=== PATIENT | female | born 1940 | race Caucasian/White ===

== ENCOUNTER 2020-01-31 08:47 | Emergency (ER) | payer MEDICARE, SELFPAY ==
[2020-01-31 08:44] VITALS: BP 188/42; PULSE 65; RESP 18; TEMP 36.1; O2SAT 100
--- NOTE | 2020-01-31 08:48 | ED.NECK ---
HPI - Neck Pain/Injury General Chief Complaint: Neck Pain/Injury <Crispin Vines MD - Last Filed: 01/31/20 15:26> Stated Complaint: neck pain <Crispin Vines MD - Last Filed: 01/31/20 15:26> Time Seen by Provider: 01/31/20 08:47 <Crispin Vines MD - Last Filed: 01/31/20 15:26> History of Present Illness HPI Narrative: Left sided neck and upper back pain for the past 4-5 days. Started while watching TV. Worse with turning her head. No change since onset. She tried hot and cold without relief. No injury, weakness, numbness. <Crispin Vines MD - Last Filed: 01/31/20 15:26> Related Data Home Medications: Home Medications Medication Instructions Recorded Confirmed aspirin 81 mg tablet,delayed 81 mg PO DAILY 05/05/19 release atorvastatin 10 mg tablet 10 mg PO DAILY 05/05/19 levothyroxine 100 mcg tablet 100 mcg PO DAILY 05/05/19 pindolol 5 mg tablet 10 mg PO DAILY tablet 05/05/19 bumetanide 1 mg tablet 1 mg PO .every other day tablet 01/14/20 ferrous sulfate 325 mg (65 mg 325 mg PO DAILY 01/14/20 iron) tablet lisinopril 20 mg tablet 20 mg PO DAILY 01/14/20 <Crispin Vines MD - Last Filed: 01/31/20 15:26> Allergies/Adverse Reactions: Allergies Allergy/AdvReac Type Severity Reaction Status Date / Time Androgenic Anabolic Steroid Allergy Unknown Loopy Verified 12/16/19 10:03 mirtazapine Allergy Unknown sedate Verified 12/16/19 10:03 Penicillins Allergy Unknown Skin Verified 12/16/19 10:03 Reaction prednisone Allergy Unknown BLOOD Verified 12/16/19 10:03 SUGARS OUT OF CONTROL STEROIDS Allergy Severe MAKES Uncoded 12/16/19 10:03 SUGARS OUT OF CONTROL <Crispin Vines MD - Last Filed: 01/31/20 15:26> Review of Systems Review of Systems: All systems reviewed & are unremarkable except as noted in HPI and below <Crispin Vines MD - Last Filed: 01/31/20 15:26> All systems reviewed & are unremarkable except as noted in HPI and below <Missael Bridges PA-C - Last Filed: 01/31/20 11:00> Constitutional: Constitutional: Denies chills, Denies fever(s) and Denies weakness <Crispin Vines MD - Last Filed: 01/31/20 15:26> Cardiovascular: Cardiovascular: Denies chest pain <Crispin Vines MD - Last Filed: 01/31/20 15:26> Respiratory: Respiratory: Denies dyspnea <Crispin Vines MD - Last Filed: 01/31/20 15:26> Gastrointestinal: Gastrointestinal: Denies abdominal pain and Denies vomiting <Crispin Vines MD - Last Filed: 01/31/20 15:26> Musculoskeletal: Musculoskeletal: Reports back pain <Crispin Vines MD - Last Filed: 01/31/20 15:26> Neurologic: Denies dizziness, Denies numbness and Denies weakness <Crispin Vines MD - Last Filed: 01/31/20 15:26> PMFSH Past Medical History Medical History: Medical History Benign essential HTN Chronic kidney disease, stage 4 (severe) 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 <Crispin Vines MD - Last Filed: 01/31/20 15:26> Surgical History Surgical History: Surgical History H/O: hysterectomy History of appendectomy History of coronary artery bypass, single Hx of cholecystectomy <Crispin Vines MD - Last Filed: 01/31/20 15:26> Family History Family History: Family History Mother Diabetes mellitus Hypertension Father Diabetes mellitus Family history of cardiovascular disease Acute myocardial infarction, Onset Age: 63 Family history of lung cancer Sibling Diabetes mellitus Family history of cardiovascular disease Family history of coronary artery disease Family history of congestive heart failure Other Family history of kidney disease <Crispin Vines MD - Last Elieser
[2020-01-31 09:53] VITALS: BP 180/45; PULSE 58; RESP 18; TEMP 36.1; O2SAT 96
== END 2020-01-31 11:24 | disposition home or self-care (01) ==
PROVIDERS: Emergency Provider Emergency Medicine; PCP Family Medicine
DX: G24.3 Spasmodic torticollis (principal); E11.22 Type 2 diabetes mellitus with diabetic chronic kidney disease; I12.9 Hypertensive chronic kidney disease with stage 1 through stage 4 chronic kidney disease, or unspecified chronic kidney disease; N18.4 Chronic kidney disease, stage 4 (severe); E11.21 Type 2 diabetes mellitus with diabetic nephropathy; Z95.1 Presence of aortocoronary bypass graft; I25.10 Atherosclerotic heart disease of native coronary artery without angina pectoris
CPT/HCPCS: 96372; 99283; A4565; A9270; J3360

== ENCOUNTER 2020-04-26 14:29 | Emergency (ER) | payer MEDICARE, SELFPAY ==
[2020-04-26 14:36] VITALS: BP 187/53; PULSE 57; RESP 22; TEMP 36.6; O2SAT 95
--- NOTE | 2020-04-26 14:39 | ECG_ITS ---
Measurements Intervals [place] Rate: 54 P: 35 UT: 174 QRS: -34 QRSD: 104 T: 55 QT: 470 QTc: 447 Interpretive Statements SINUS BRADYCARDIA LEFT AXIS DEVIATION DELAYED PRECORDIAL R/S TRANSITION VOLTAGE CRITERIA FOR LVH BORDERLINE ST-T WAVE ABNORMALITY- HIGH LATERAL LEADS BASELINE ARTIFACT- II, III, AVF, V2 BORDERLINE ECG Electronically Signed On 04-26-2020 16:01:03 TOUR MANAGER by Fahad Guzman D.O.
[2020-04-26 15:51] LABS: Basophils Percent Auto 0.4 % (0.2-1.2); Eosinophils Absolute Auto 0.3 K/mm3 (0-0.3); Eosinophils Percent Auto 3.1 % (0-4.4); Hematocrit 29.4 % (37.0-47.0); Hemoglobin 9.3 g/dL (12.0-15.0); Immature Granulocyte Absolute 0.03 K/mm3 (0.00-0.031); Immature Granulocyte Percent A 0.3 % (0-0.5); Lymphocytes Absolute Auto 1.22 K/mm3 (0.9-3.2); Lymphocytes Percent Auto 13.2 % (18.3-44.2); Mean Corpuscular HGB Conc 31.6 g/dl (32-36); Mean Corpuscular Volume 91.6 fl (80-100); Monocytes Absolute Auto 0.9 K/mm3 (0.1-0.6); Monocytes Percent Auto 9.8 % (2.6-8.5); Neutrophils Absolute Auto 6.8 K/mm3 (1.3-6.7); Neutrophils Percent Auto 73.2 % (45.5-73.1); Platelet Count Result 247 k/mm3 (150-375); Red Blood Count 3.21 M/mm3 (4.2-5.4); Red Cell Distribution Width 13.8 % (11.5-14.5); White Blood Count 9.2 K/mm3 (4.5-10.0)
[2020-04-26 15:59] LABS: Anion Gap 6 mmol/L (8-16); Blood Urea Nitrogen 52 mg/dL (7-17); Calcium 9.2 mg/dL (8.4-10.2); Carbon Dioxide 24 mmol/L (22-30); Chloride 110 mmol/L (98-107); Estimated CRCL calculation 23 ml/min; Estimated Glomerular Filt Rate 24; Glucose 165 mg/dL (65-105); Potassium 5.1 mmol/L (3.4-5.0); Sodium 140 mmol/L (137-145)
--- NOTE | 2020-04-26 16:41 | PC.NURSE ---
No answer when called from waiting room.
== END 2020-04-26 16:41 | disposition left against medical advice (07) ==
PROVIDERS: Emergency Provider Emergency Medicine; PCP Family Medicine
DX: R07.89 Other chest pain (principal)
CPT/HCPCS: 36415; 80048; 85025; 93005; 99199

== ENCOUNTER 2020-04-29 13:56 | Observation (INO) | payer MEDICARE, SELFPAY ==
[2020-04-29] VITALS (11 sets, daily range): BP systolic 148–208; BP diastolic 40–102; PULSE 6–72; RESP 16–23; TEMP 36.2–36.9; O2SAT 95–97; BMI 35.6
--- NOTE | ~2020-04-29 | US_ITS ---
EXAMINATION: US venous doppler LE EXAM DATE: 04/29/2020 16:13 INDICATION: Shortness of breath and chest pain. TECHNIQUE: Multiple grayscale, color flow and Doppler images of the lower extremity deep venous syste ms bilaterally were obtained and reviewed. There is no prior study for comparison. FINDINGS: Right side: The right common femoral, femoral and profunda veins demonstrate normal color flow, respi ratory variation, augmentation and compressibility. Compressibility, color flow confirmed within the right popliteal, posterior tibial, peroneal, and greater saphenous veins. Right popliteal fossa melissa suring 5.5 x 1.6 x 2.8 cm. Left side: The left common femoral, femoral and profunda veins demonstrate normal color flow, respira tory variation, augmentation and compressibility. Compressibility, color flow confirmed within the l eft popliteal, posterior tibial, peroneal, and greater saphenous veins. IMPRESSION: 1. No lower extremity deep venous thrombosis bilaterally. 2. Moderate-sized right Madera's cyst. Reviewed, dictated and finalized at location A. NING AND WINDING SUPERVISOR
--- NOTE | ~2020-04-29 | NM_ITS ---
EXAMINATION: NM pulmonary perfusion DATE: 04/29/2020 17:57 INDICATION: Chest pain and shortness of breath TECHNIQUE: 5.09 mCi Tc-99m MAA was administered IV. Scintigraphic images of the chest were obtained . COMPARISON: Chest radiograph dated 04/29/2020 FINDINGS: There is relatively homogeneous perfusion throughout the lungs. No discrete ventilation and perfusio n mismatch is identified. Cardiomegaly. IMPRESSION: 1. Low probability for pulmonary embolism. 2. Cardiomegaly. Reviewed, dictated and finalized at location H. ING SLINGER
--- NOTE | ~2020-04-29 | XR_ITS ---
EXAMINATION: XR chest 1V portable DATE: 04/29/2020 15:12 INDICATION: Shortness of breath. TECHNIQUE: A single frontal view of the chest was obtained. COMPARISON: Chest 2 views 01/14/2014, CT abdomen and pelvis 03/01/2014 FINDINGS: There is no pneumonia, pleural effusion, or pneumothorax. Cardiomegaly is noted. Median chemo rnotomy wires and mediastinal surgical clips are seen, likely from prior coronary artery bypass graft ing. There is a prominent left paracardial fat pad. IMPRESSION: 1. Cardiomegaly. Reviewed, dictated and finalized at location A. RAM PROJECT MANAGER IMPRESSION: 1. Cardiomegaly.
--- NOTE | 2020-04-29 14:25 | ECG_ITS ---
Measurements Intervals [place] Rate: 56 P: 63 GA: 185 QRS: -33 QRSD: 110 T: 138 QT: 463 QTc: 447 Interpretive Statements SINUS BRADYCARDIA WITH SINUS ARRHYTHMIA LEFT AXIS DEVIATION INCOMPLETE RIGHT BUNDLE BRANCH BLOCK LEFT VENTRICULAR HYPERTROPHY AND ST-T CHANGE POOR R WAVE PROGRESSION, ANTERIOR LEADS BASELINE ARTIFACT- I, III, AVR, AVL BORDERLINE ECG Electronically Signed On 04-29-2020 14:28:52 ERP PROGRAMMER by Fahad Guzman D.O.
--- NOTE | 2020-04-29 14:26 | ED.SOB ---
HPI - SOB/Dyspnea General Chief Complaint: Shortness of Breath/Dyspnea Stated Complaint: not breathing well Time Seen by Provider: 04/29/20 14:01 Source: patient Mode of arrival: ambulatory Limitations: no limitations History of Present Illness HPI Narrative: This patient is a 80 year old female who presents for evaluation of shortness of breath for 1 week. She reports her sob is worse with exertion. She denies cough, fever or chills. She denies chest pain currently but she reports she had chest pain 1 week ago. She denies history of lung disease. She denies leg edema or calf pain. Related Data Home Medications Medication Instructions Recorded Confirmed aspirin 81 mg tablet,delayed 81 mg PO DAILY 05/05/19 04/29/20 release atorvastatin 10 mg tablet 10 mg PO EVERY OTHER DAY 05/05/19 04/29/20 bumetanide 1 mg tablet 1 mg PO .every other day tablet 01/14/20 04/29/20 lisinopril 20 mg tablet 20 mg PO DAILY 01/14/20 04/29/20 insulin NPH and regular human 14 unit SUB-Q BID 04/29/20 04/29/20 [Humulin 70/30 U-100 KwikPen] pindolol 10 mg PO DAILY 04/29/20 04/29/20 Allergies Allergy/AdvReac Type Severity Reaction Status Date / Time Androgenic Anabolic Steroid Allergy Unknown Loopy Verified 04/29/20 19:48 mirtazapine Allergy Unknown sedate Verified 04/29/20 19:48 Penicillins Allergy Unknown Skin Verified 04/29/20 19:48 Reaction prednisone Allergy Unknown BLOOD Verified 04/29/20 19:48 SUGARS OUT OF CONTROL STEROIDS Allergy Severe MAKES Uncoded 04/29/20 14:31 SUGARS OUT OF CONTROL Review of Systems Review of Systems: All systems reviewed & are unremarkable except as noted in HPI and below Constitutional: Constitutional: Denies chills and Denies fever(s) Cardiovascular: Cardiovascular: Reports chest pain Respiratory: Respiratory: Reports dyspnea Gastrointestinal: Gastrointestinal: Denies abdominal pain, Denies nausea and Denies vomiting [facility] Past Medical History Medical History (Updated 04/30/20 @ 17:00 by Liss Patterson MD) Benign essential HTN Chronic kidney disease, stage 4 (severe) 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 Surgical History Surgical History H/O: hysterectomy History of appendectomy History of coronary artery bypass, single Hx of cholecystectomy Family History Family History Mother Diabetes mellitus Hypertension Father Diabetes mellitus Family history of cardiovascular disease Acute myocardial infarction, Onset Age: 63 Family history of lung cancer Sibling Diabetes mellitus Family history of cardiovascular disease Family history of coronary artery disease Family history of congestive heart failure Other Family history of kidney disease Social History Social History Smoking status: Never smoker Second hand tobacco smoke exposure: No Alcohol intake: never Substance use: never Gender identity (if verbalized by the patient): Female Spiritual care concerns: No Exam Const: General: alert Orientation/consciousness: patient oriented x3 HENMT: Head: normocephalic Face and sinus: face symmetric Mouth: Yes Normal oral and palatal mucosa present Eyes: EOM: EOMs intact bilaterally Chest: Chest palpation & inspection: normal inspection of the chest Resp: Effort & Inspection: normal respiratory effort, no retractions and no use of accessory muscles Auscultation: clear to auscultation bilaterally Cardio: Rate: regular rate Rhythm: regular rhythm Heart sounds: no murmurs GI: GI Palp: Yes Soft to palpation, No Tenderness to palpation present (GI), No Guarding due to palpation present (GI) and No Rigid due to palpation Auscultation: normal bowel sounds Skin: General skin exam: normal colo
[2020-04-29 14:40] LABS: Basophils Percent Auto 0.4 % (0.2-1.2); Eosinophils Absolute Auto 0.3 K/mm3 (0-0.3); Eosinophils Percent Auto 3.4 % (0-4.4); Hematocrit 29.2 % (37.0-47.0); Hemoglobin 9.4 g/dL (12.0-15.0); Immature Granulocyte Absolute 0.02 K/mm3 (0.00-0.031); Immature Granulocyte Percent A 0.2 % (0-0.5); Lymphocytes Absolute Auto 1.37 K/mm3 (0.9-3.2); Lymphocytes Percent Auto 14.1 % (18.3-44.2); Mean Corpuscular HGB Conc 32.2 g/dl (32-36); Mean Corpuscular Hemoglobin 29.1 pg (26-34); Mean Corpuscular Volume 90.4 fl (80-100); Mean Platelet Volume 11.6 fl (7.4-10.4); Monocytes Absolute Auto 0.9 K/mm3 (0.1-0.6); Monocytes Percent Auto 8.9 % (2.6-8.5); Neutrophils Absolute Auto 7.1 K/mm3 (1.3-6.7); Platelet Count Result 263 k/mm3 (150-375); Red Blood Count 3.23 M/mm3 (4.2-5.4); Red Cell Distribution Width 13.7 % (11.5-14.5); White Blood Count 9.7 K/mm3 (4.5-10.0)
[2020-04-29 14:50] LABS: Partial Thromboplastin Time 28.4 SECONDS (22.3-36.8); Prothrombin Time 13.8 Seconds (11.1-14.7)
[2020-04-29 14:53] LABS: Alveolar/Arterial O2 Gradient 27.3 mmHg; Base Excess ABG -1.8 mEq/l (+/-2.0); Carboxyhemoglobin 0.3 % THb (0-2.0); Fractional Inspired Oxygen 21 %; HCO3 ABG 22.9 mEq/l (22.0-26.0); Methemoglobin ABG 0.3 %THb (0-1.5); Oxygen Content ABG 13.5 %vol (16.0-22.0); Oxygen Saturation ABG 95.1 % (95.0-100.0); Oxyhemoglobin 94.4 % THb (90.0-100.0); PCO2 ABG 38.9 mmHg (35.0-45.0); PO2 ABG 75.8 mmHg (80.0-100.0); PO2 FiO2 Ratio Arterial Blood 3.61 %; Total Hemoglobin 10.1 g/dL (12.0-18.0); pH ABG 7.388 (7.350-7.450)
[2020-04-29 14:54] LABS: Anion Gap 10 mmol/L (8-16); Blood Urea Nitrogen 56 mg/dL (7-17); Calcium 9.2 mg/dL (8.4-10.2); Carbon Dioxide 21 mmol/L (22-30); Chloride 110 mmol/L (98-107); Estimated CRCL calculation 23 ml/min; Estimated Glomerular Filt Rate 26; Glucose 154 mg/dL (65-105); Potassium 4.8 mmol/L (3.4-5.0); Sodium 141 mmol/L (137-145)
[2020-04-29 14:55] LABS: Device ROOM AIR; Modified Allen's Test Pass; Site Drawn RIGHT RADIAL
[2020-04-29 15:06] LABS: NT Pro B Type Natriuretic Pept 5750 PG/ML (5-100); Troponin I < 0.012 ng/mL (0.000-0.034)
--- NOTE | 2020-04-29 16:14 | PC.NURSE ---
called chem, added on D dimer [id number]
[2020-04-29 16:50] LABS: D Dimer 1.79 ug/mL (<0.48)
--- NOTE | 2020-04-29 18:19 | PC.NURSE ---
josefina duarte [phone]
--- NOTE | 2020-04-29 19:35 | ADMGEN ---
This patient, Shayy Madera, was admitted to Medical Room 348-01. Patient/family oriented to hospital policies and general routines including ID bracelet, bed and alarms, visiting hours, pain management, procedures, bathroom and other care routines, personal items, smoking policy, room service/diet, and visiting hours. Information on how to activate the Rapid Response Team has been discussed. Patient/Family are encouraged to report perceived risks to care and to ask questions if they do not understand what they are told or what they should do.
[2020-04-29] MEDS: FUROSEMIDE INJ 40 MG/4 ML VIAL IV PUSH (20:44)
[2020-04-29 22:34] LABS: Glucose Point of Care 128 (65-105)
[2020-04-30] VITALS (10 sets, daily range): BP systolic 142–165; BP diastolic 58–61; PULSE 58–75; RESP 16–20; TEMP 36.2–36.7; O2SAT 96–98
--- NOTE | 2020-04-30 06:00 | ECHO_ITS ---
Patient Info Name: Shayy Madera Age: 80 years : 1940 Gender: Female Ht: 63 in Wt: 201 lbs BSA: 2.05 m2 HR: 63 bpm BP: 142 / 60 mmHg Heart Rhythm: Sinus Rhythm Technical Quality: Good Exam Date: 04/30/2020 9:45 AM Exam Location: [facility] Pulmonary Exam Room: 348 Patient Status: Inpatient Admit Date: 04/29/2020 Staff Ordering Physician: Liss Patterson MD Power Machine Operator: Litzy Hicks RDCS Attending Provider: Alycia Lee MD Referring Physician: Yesenia DUNN; Exam Type: CA echo doppler color flow Study Info Indications - chf cad s/p cabg Complete two-dimensional, color flow and Doppler transthoracic echocardiogram is performed. Summary 1. Complete two-dimensional, color flow and Doppler transthoracic echocardiogram is performed. 2. There is mild concentric increased left ventricular wall thickness. 3. Left ventricular systolic function is normal, estimated at 60-65%. 4. The left ventricular diastolic function is grade II diastolic dysfunction. 5. Left atrial chamber dimension is moderately enlarged. 6. No significant valvular lesions. Left Ventricle Left ventricular chamber dimension is normal. Left ventricular systolic function is normal, estimated at 60-65%. There is mild concentric increased left ventricular wall thickness. The left ventricular diastolic function is grade II diastolic dysfunction. Right Ventricle Right ventricular chamber dimension is normal. Left Atria Left atrial chamber dimension is moderately enlarged. Right Atria Right atrial chamber dimension is normal. Aortic Valve The aortic valve is normal. There is trace aortic valve regurgitation. Pulmonic Valve The pulmonic valve is normal. Mitral Valve The mitral valve has normal leaflets. There is trace mitral valve regurgitation. Tricuspid Valve The tricuspid valve leaflets are normal. Pericardium/Pleural The pericardium appears normal. Aorta The aortic root size at the sinus of Valsalva is normal. Left Ventricular Outflow Tract Name Value Normal LVOT 2D LVOT Diameter 2.0 cm LVOT Doppler LVOT Peak Gradient 4 mmHg LVOT Mean Gradient 3 mmHg LVOT VTI 28 cm LVOT VTI/AV VTI Ratio 0.6 LVOT Stroke Volume 86 ml LVOT CO 15.7 l/min LVOT CI 7.6 l/min/m2 Pulmonic Valve Name Value Normal PV Doppler PV Peak Gradient 6 mmHg Mitral Valve Name Value Normal MV Doppler
[2020-04-30 06:35] LABS: Basophils Percent Auto 0.4 % (0.2-1.2); Eosinophils Absolute Auto 0.3 K/mm3 (0-0.3); Eosinophils Percent Auto 3.7 % (0-4.4); Hematocrit 28.4 % (37.0-47.0); Hemoglobin 9.2 g/dL (12.0-15.0); Immature Granulocyte Absolute 0.02 K/mm3 (0.00-0.031); Immature Granulocyte Percent A 0.2 % (0-0.5); Lymphocytes Absolute Auto 1.78 K/mm3 (0.9-3.2); Lymphocytes Percent Auto 22.1 % (18.3-44.2); Mean Corpuscular HGB Conc 32.4 g/dl (32-36); Mean Corpuscular Hemoglobin 29.2 pg (26-34); Mean Corpuscular Volume 90.2 fl (80-100); Mean Platelet Volume 10.9 fl (7.4-10.4); Monocytes Absolute Auto 0.9 K/mm3 (0.1-0.6); Monocytes Percent Auto 11.7 % (2.6-8.5); Neutrophils Percent Auto 61.9 % (45.5-73.1); Platelet Count Result 260 k/mm3 (150-375); Red Blood Count 3.15 M/mm3 (4.2-5.4); Red Cell Distribution Width 13.7 % (11.5-14.5)
[2020-04-30 06:49] LABS: Anion Gap 8 mmol/L (8-16); Blood Urea Nitrogen 51 mg/dL (7-17); Calcium 9.3 mg/dL (8.4-10.2); Carbon Dioxide 25 mmol/L (22-30); Chloride 109 mmol/L (98-107); Estimated CRCL calculation 23 ml/min; Estimated Glomerular Filt Rate 24; Glucose 126 mg/dL (65-105); Potassium 4.4 mmol/L (3.4-5.0); Sodium 142 mmol/L (137-145)
--- NOTE | 2020-04-30 07:35 | PM.IMHP ---
H&P: HPI History of Present Illness Date/Time: 04/30/20 07:35 Chief complaint: SOB. Narrative: Shayy Madera is a 80 year old female with PMHx significant for CHF, CKD, HTN, T2DM. Patient states that she has had sob for roughly two weeks now, no leg swelling, no increase of abdominal girth, no pnd,no chest pain, no palpitations, no orthopnea, no cough, no sputum production, no fevers, no rigors, no chills, no pain or burning with urination, no n/v/abdominal pain. Patient was found to have elevated BNP on preliminary work up done in ED, a V/Q scan was low probability for PE, B/L LE US with no DVT findings. Review of Systems Review of Systems: Narrative: 80 yo female presents to ED due ro worsening sob for the last 2 weeks or so. Constitutional: Comments: no fevers, no rigors, no chills. Eyes: Comments: no vision changes. ENT: Comments: no ear ache, no nasal discharge, no congestion. Cardiovascular: Comments: sob at exertion. Respiratory: Comments: no cough, no sputum prodcution. Gastrointestinal: Comments: no n/v/abdominal pain or diarrhea. Musculoskeletal: Comments: no joint pain or swelling. Integumentary/Breasts: Comments: no rashes. 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 Surgical History Surgical History H/O: hysterectomy History of appendectomy History of coronary artery bypass, single Hx of cholecystectomy Family History Family History Mother Diabetes mellitus Hypertension Father Diabetes mellitus Family history of cardiovascular disease Acute myocardial infarction, Onset Age: 63 Family history of lung cancer Sibling Diabetes mellitus Family history of cardiovascular disease Family history of coronary artery disease Family history of congestive heart failure Other Family history of kidney disease Social History Social History Smoking status: Never smoker Second hand tobacco smoke exposure: No Alcohol intake: never Substance use: never Gender identity (if verbalized by the patient): Female Spiritual care concerns: No Meds Home Medications and Allergies Home Medications Medication Instructions Recorded Confirmed Type aspirin 81 mg tablet,delayed 81 mg PO DAILY 05/05/19 04/29/20 History release atorvastatin 10 mg tablet 10 mg PO EVERY OTHER DAY 05/05/19 04/29/20 History pen needle, diabetic 31 gauge x #100 each 11/03/19 04/29/20 Rx 1/4 amlodipine 10 mg tablet 10 mg PO DAILY #90 tablet 11/30/19 04/29/20 Rx fluoxetine 20 mg capsule 20 mg PO DAILY #90 cap 12/16/19 04/29/20 Rx bumetanide 1 mg tablet 1 mg PO .every other day tablet 01/14/20 04/29/20 History lisinopril 20 mg tablet 20 mg PO DAILY 01/14/20 04/29/20 History levothyroxine 100 mcg tablet 100 mcg PO DAILY #90 tablet 03/09/20 04/29/20 Rx insulin NPH and regular human 14 unit SUB-Q BID 04/29/20 04/29/20 History [Humulin 70/30 U-100 KwikPen] pindolol 10 mg PO DAILY 04/29/20 04/29/20 History Allergies Allergy/AdvReac Type Severity Reaction Status Date / Time Androgenic Anabolic Steroid Allergy Unknown Loopy Verified 04/29/20 19:48 mirtazapine Allergy Unknown sedate Verified 04/29/20 19:48 Penicillins Allergy Unknown Skin Verified 04/29/20 19:48 Reaction prednisone Allergy Unknown BLOOD Verified 04/29/20 19:48 SUGARS OUT OF CONTROL STEROIDS Allergy Severe MAKES Uncoded 04/29/20 14:31 SUGARS OUT OF CONTROL Vital Signs Vital Signs - 24 hr 04/29/20 14:01 04/29/20 14:32 04/29/20 14:3
[2020-04-30] MEDS: FLUoxetine HCL 20 MG CAPSULE PO (08:14)
[2020-04-30] MEDS: LEVOTHYROXINE SODIUM 100 MCG TABLET PO (08:14)
[2020-04-30] MEDS: lisinopriL 20 MG TABLET PO (08:14)
[2020-04-30] MEDS: ASPIRIN 81 MG ENTERIC TABLET PO (08:14)
[2020-04-30] MEDS: amLODIPine BESYLATE 5 MG TABLET 10 MG PO (08:14)
[2020-04-30] MEDS: FUROSEMIDE INJ 40 MG/4 ML VIAL IV PUSH ×2 (08:15→20:00)
[2020-04-30 08:28] LABS: Glucose Point of Care 130 (65-105)
[2020-04-30] MEDS: INSULIN HUMAN ISOPHAN/REGULAR 70/30 (*BKC) 100 UNITS/ML 14 UNITS SUB-Q ×2 (08:28→17:00)
[2020-04-30 11:50] LABS: Glucose Point of Care 130 (65-105)
--- NOTE | 2020-04-30 12:15 | PHAR ---
Home medication seen in pharmacy and returned to [address] [place] [id number]
[2020-04-30 17:13] LABS: Glucose Point of Care 122 (65-105)
[2020-05-01] VITALS: PULSE 56
[2020-05-01 04:00] VITALS: PULSE 59
[2020-05-01 05:36] VITALS: BP 178/52; PULSE 59; RESP 20; TEMP 36.3; O2SAT 96
[2020-05-01] MEDS: LEVOTHYROXINE SODIUM 100 MCG TABLET PO (05:36)
[2020-05-01 08:00] VITALS: PULSE 59; PULSE 66; RESP 20; O2SAT 96
[2020-05-01] MEDS: INSULIN HUMAN ISOPHAN/REGULAR 70/30 (*BKC) 100 UNITS/ML 14 UNITS SUB-Q (08:02)
[2020-05-01] MEDS: lisinopriL 20 MG TABLET PO (08:56)
[2020-05-01] MEDS: amLODIPine BESYLATE 5 MG TABLET 10 MG PO (08:56)
[2020-05-01] MEDS: FUROSEMIDE INJ 40 MG/4 ML VIAL IV PUSH (08:56)
[2020-05-01] MEDS: FLUoxetine HCL 20 MG CAPSULE PO (08:56)
[2020-05-01] MEDS: ASPIRIN 81 MG ENTERIC TABLET PO (08:57)
[2020-05-01 10:22] LABS: Anion Gap 7 mmol/L (8-16); Blood Urea Nitrogen 52 mg/dL (7-17); Carbon Dioxide 27 mmol/L (22-30); Chloride 105 mmol/L (98-107); Estimated CRCL calculation 22 ml/min; Estimated Glomerular Filt Rate 23; Glucose 108 mg/dL (65-105); Sodium 139 mmol/L (137-145)
[2020-05-01 11:20] LABS: Glucose Point of Care 96 (65-105)
[2020-05-01 12:00] VITALS: PULSE 88
[2020-05-01 14:00] VITALS: BP 173/58; PULSE 63; RESP 15; TEMP 36.3; O2SAT 98
[2020-05-01 14:11] LABS: Glucose Point of Care 64 (65-105)
[2020-05-01 14:11] LABS: Glucose Point of Care 64 (65-105)
[2020-05-01 14:11] LABS: Glucose Point of Care 62 (65-105)
--- NOTE | 2020-05-01 14:34 | PM.DS ---
DS: Admitting Diagnosis Admitting Diagnosis Admitting Diagnosis: SOB. DS: Discharge Diagnosis Discharge Diagnosis (1) CHF (NYHA class II, ACC/AHA stage C): Code(s): I50.9 - Heart failure, unspecified Status: Acute Assessment and Plan: Diuresed Continue home meds Stable Will follow up in the outpatient setting. (2) Type 2 diabetes mellitus with diabetic nephropathy: Code(s): E11.21 - Type 2 diabetes mellitus with diabetic nephropathy Status: Acute Assessment and Plan: Continue home meds Will follow up in the outaptient setting. (3) CKD stage 4 secondary to hypertension: Code(s): I12.9 - Hypertensive chronic kidney disease with stage 1 through stage 4 chronic kidney disease, or unspecified chronic kidney disease; N18.4 - Chronic kidney disease, stage 4 (severe) Status: Acute Assessment and Plan: Continue to monitor Follow up in the outpatient setting. (4) Essential (primary) hypertension: Code(s): I10 - Essential (primary) hypertension Status: Acute Assessment and Plan: Stable Continue home meds. DS: Summary Time Spent with Patient Time attestation: Total time spent providing and/or coordinating discharge services: Exam Narrative: Exam Narrative: Lying in bed. Const: General: cooperative, healthy appearing, comfortable, alert, awake and Physically active Nutritional Appearance: average body habitus Orientation/consciousness: patient oriented x3 HENMT: Head: normal to inspection and normocephalic Ears: hearing grossly normal bilaterally General nose exam: Normal external nose present Face and sinus: normal facial exam Eyes: General: appearance normal, both eyes and all related structures Pupils: Equal, round and reactive pupils present EOM: EOMs intact bilaterally Neck: Neck: normal visual inspection, no lymphadenopathy and supple Lymphatic: no lymphadenopathy noted Resp: Effort & Inspection: normal respiratory effort Auscultation: clear to auscultation bilaterally Cardio: Jugular venous distension: no JVD Rate: regular rate GI: Inspection: normal to inspection GI Palp: Yes Soft to palpation and Yes No hepatosplenomegaly present Skin: General skin exam: normal color Rashes: no rashes Neuro: General: patient oriented x3 Cranial nerves: Yes CN's II-XII intact bilaterally and Yes Bilaterally intact EOM present Speech: normal speech Gait exam (Neuro): Normal gait present Motor exam (neuro): 5/5 motor strength present throughout Sensory Exam: normal sensation Extrem: General: normal to inspection and full ROM DS: Data Data Completed and Pending Labs on day of discharge: Labs from last 24 hours 05/01/20 05/01/20 05/01/20 11:47 11:18 11:16 Sodium Potassium Chloride Carbon Dioxide Anion Gap BUN Creatinine Estim Creat Clear Calc Estimated GFR Glucose POC Capillary Glucose 64 L 64 L 62 L Calcium 05/01/20 05/01/20 04/30/20 09:57 07:43 16:24 Sodium 139 Potassium 4.0 Chloride 105 Carbon Dioxide 27 Anion Gap 7 L BUN 52 H Creatinine 2.10 H Estim Creat Clear Calc 22 Estimated GFR 23 L Glucose 108 H POC Capillary Glucose 96 122 H Calcium 9.0 Discharge Plan Discharge Attending physician on discharge: Kay Mar V. Discharging Clinician: Kay Mar V. Patient Disposition: Home, Self-Care Activity: as tolerated Diet: heart healthy, low cholesterol, low fat and other - see discharge instructions Patient Instructions: Antibiotic Form, Heart Failure (DC) Stand Alone Forms: General Discharge Information Follow-up/Referrals: Noah Farnsworth MD [Primary Care Provider] - 2 Weeks Discharge Medications: Continued atorvastatin 10 mg tablet 10 mg PO EVERY OTHER DAY RF: 0 aspirin 81 mg tablet,delayed release (DR/EC) 81 mg PO DAILY RF: 0 fluoxetine 20 mg capsule 20 mg PO DAILY Qty: 90 RF: 1
--- NOTE | 2020-05-01 15:15 | PC.NURSE ---
Patient voiced that she wiill get her flu vaccine at her doctors office.
[2020-05-01] MEDS: BUMETANIDE 1 MG TABLET PO (15:32)
[2020-05-01] MEDS: ATORVASTATIN 10 MG TABLET PO (15:32)
[2020-05-01 17:17] LABS: Glucose Point of Care 75 (65-105)
== END 2020-05-01 15:55 | disposition home or self-care (01) ==
LOC: ANHED 14:08 → ANH3MED 04-30 04:21
PROVIDERS: Admitting Provider Family Medicine; Emergency Provider General Practice; PCP Family Medicine; Visit Provider Internal Medicine
DX: I13.0 Hypertensive heart and chronic kidney disease with heart failure and stage 1 through stage 4 chronic kidney disease, or unspecified chronic kidney disease (principal); I50.9 Heart failure, unspecified; R06.02 Shortness of breath; E11.22 Type 2 diabetes mellitus with diabetic chronic kidney disease; N18.4 Chronic kidney disease, stage 4 (severe); E11.21 Type 2 diabetes mellitus with diabetic nephropathy; E11.42 Type 2 diabetes mellitus with diabetic polyneuropathy; Z79.4 Long term (current) use of insulin; Z95.1 Presence of aortocoronary bypass graft
CPT/HCPCS: 36415; 36600; 71045; 78580; 80048; 82375; 82805; 83050; 83880; 84484; 85025; 85380; 85610; 85730; 93005; 93306; 93970; 96374; 96376; 99285; A9270; A9540; G0378; J1815; J1940

== ENCOUNTER 2020-09-07 09:42 | Inpatient (IN) | payer MEDICARE, SELFPAY ==
[2020-09-07] VITALS (28 sets, daily range): BP systolic 154–249; BP diastolic 36–87; PULSE 51–89; RESP 15–23; TEMP 36.6–37.2; O2SAT 97–100; BMI 38.2
--- NOTE | ~2020-09-07 | XR_ITS ---
EXAMINATION: XR chest 1V portable EXAM DATE: 09/07/2020 10:44 INDICATION: Cough and shortness of breath. TECHNIQUE: Portable AP frontal chest x-ray was obtained. Comparison is made to prior examination from 04/29/2020. FINDINGS: There is cardiomegaly and pulmonary vascular congestion. Possible mild pulmonary edema. No confluent consolidation, pneumothorax or pleural effusion suspected. Sternotomy wires are present wit hout findings to suggest sternal dehiscence. There are no osseous abnormalities identified. IMPRESSION: Cardiomegaly, congestion. Possible mild pulmonary edema. Reviewed, dictated and finalized at location A.
--- NOTE | ~2020-09-07 | NM_ITS ---
EXAMINATION: NM lung vent and perfusion DATE: 09/07/2020 14:33 INDICATION: Pulmonary embolism presenting with shortness of breath and elevated d-dimer. TECHNIQUE: 5.1 mCi Tc-99m MAA by intravenous route. Scintigraphic images of the chest were obtained. COMPARISON: Chest radiograph dated 09/07/2020 FINDINGS: There is relatively homogeneous perfusion throughout the lungs. No discrete ventilation and perfusio n mismatch is identified. IMPRESSION: 1. Low probability for pulmonary embolism. Reviewed, dictated and finalized at location A.
--- NOTE | 2020-09-07 10:00 | ECG_ITS ---
Measurements Intervals [place] Rate: 61 P: -5 [place]: 169 QRS: -38 QRSD: 110 T: 51 QT: 438 QTc: 443 Interpretive Statements SINUS OR ECTOPIC ATRIAL RHYTHM ATRIAL PREMATURE COMPLEXES LEFT AXIS DEVIATION VOLTAGE CRITERIA FOR LVH POOR R WAVE PROGRESSION, ANTERIOR LEADS BASELINE ARTIFACT- I, II, III, AVF, V3, V5-V6 BORDERLINE ECG Electronically Signed On 09-07-2020 11:38:59 CDT by Fahad Guzman D.O.
--- NOTE | 2020-09-07 10:19 | ED.GENADULT ---
HPI - General Adult General Chief complaint: Shortness of Breath/Dyspnea Stated complaint: here for a chest xray Time Seen by Provider: 09/07/20 09:48 Source: patient Mode of arrival: ambulatory Limitations: no limitations History of Present Illness HPI narrative: Patient with history of CHF presents with chief complaint of productive cough, wheezing and shortness of breath with exertion that began on Saturday. Patient states over the weekend she did have some chills but did not have any fevers. She denies diaphoresis, chest pain, pain with inspiration or expiration, syncope, nausea, vomiting, diarrhea, abdominal pain. Patient states she has been able to eat and drink appropriately. Patient states that she called her primary care doctor again this morning about her symptoms and he told her to come to the emergency department. Patient denies increased swelling to her lower extremities or feelings of pressure in her chest as she typically does when she is having CHF exacerbation. Patient has not been diagnosed with COPD. Patient not taking anything to alleviate her symptoms. Patient states that she has hypertension and they are working to find the right combination of medications for her and her baseline blood pressure is normally 173/63. She states that they had to take her off and changing her blood pressure medications as they were making her feel ill but her her primary care working on this. Patient reports she had blepharoplasty performed 2 weeks ago without any complications. Related Data Home Medications Medication Instructions Recorded Confirmed aspirin 81 mg tablet,delayed 81 mg PO DAILY 05/05/19 06/21/20 release atorvastatin 10 mg tablet 10 mg PO EVERY OTHER DAY 05/05/19 06/21/20 bumetanide 1 mg tablet 1 mg PO .every other day tablet 01/14/20 06/21/20 pindolol 10 mg PO DAILY 04/29/20 06/21/20 lisinopril 10 mg tablet 10 mg PO DAILY 08/25/20 ezetimibe mg 09/07/20 Allergies Allergy/AdvReac Type Severity Reaction Status Date / Time Penicillins Allergy Unknown Skin Verified 09/07/20 10:00 Reaction pravastatin Allergy Dizziness Verified 09/07/20 10:00 Androgenic Anabolic Steroid AdvReac Unknown Loopy Verified 09/07/20 10:00 mirtazapine AdvReac Unknown sedate Verified 09/07/20 10:00 prednisone AdvReac Unknown BLOOD Verified 09/07/20 10:00 SUGARS OUT OF CONTROL STEROIDS AdvReac Severe MAKES Uncoded 09/07/20 10:00 SUGARS OUT OF CONTROL Review of Systems Review of Systems: Narrative: CONSTITUTIONAL: Denies fever, chills, or sweats. EYES: Denies visual changes, redness, or discharge. ENT: Denies rhinorrhea, congestion, sore throat, or otalgia. CARDIOVASCULAR: Denies chest pain, palpitations, or edema. RESPIRATORY: Reports cough, wheezing, and dyspnea. GASTROINTESTINAL: Denies abdominal pain, nausea, vomiting, or diarrhea. GENITOURINARY: Denies dysuria or hematuria. SKIN: Denies rash or itching. MUSCULOSKELETAL: Denies back pain, joint pain, or myalgia. NEUROLOGIC: Denies headache, numbness, dizziness, or weakness. PSYCHIATRIC: Denies anxiety or depression. 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
[2020-09-07] MEDS: ALBUTEROL SULFATE NEB 2.5 MG/0.5 ML INH 5 MG INHALATION (10:23)
[2020-09-07] MEDS: IPRATROPIUM BR 0.02% INH SOLN 0.5 MG/2.5 ML VIAL INHALATION (10:24)
[2020-09-07 10:36] LABS: Basophils Absolute Auto 0.1 K/mm3 (0.0-0.1); Basophils Percent Auto 0.6 % (0.2-1.2); Eosinophils Absolute Auto 0.5 K/mm3 (0-0.3); Eosinophils Percent Auto 4.8 % (0-4.4); Hematocrit 28.9 % (37.0-47.0); Hemoglobin 8.9 g/dL (12.0-15.0); Immature Granulocyte Absolute 0.04 K/mm3 (0.00-0.031); Immature Granulocyte Percent A 0.4 % (0-0.5); Lymphocytes Absolute Auto 1.86 K/mm3 (0.9-3.2); Lymphocytes Percent Auto 18.5 % (18.3-44.2); Mean Corpuscular HGB Conc 30.8 g/dl (32-36); Mean Corpuscular Hemoglobin 27.6 pg (26-34); Mean Corpuscular Volume 89.8 fl (80-100); Mean Platelet Volume 10.8 fl (7.4-10.4); Monocytes Percent Auto 10.2 % (2.6-8.5); Neutrophils Absolute Auto 6.6 K/mm3 (1.3-6.7); Neutrophils Percent Auto 65.5 % (45.5-73.1); Platelet Count Result 279 k/mm3 (150-375); Red Blood Count 3.22 M/mm3 (4.2-5.4); Red Cell Distribution Width 15.8 % (11.5-14.5); White Blood Count 10.1 K/mm3 (4.5-10.0)
[2020-09-07 10:45] LABS: INR 0.9
[2020-09-07 10:46] LABS: Partial Thromboplastin Time 25.3 SECONDS (22.3-36.8)
[2020-09-07 10:49] LABS: Alanine Aminotransferase 15 U/L (4-35); Albumin Level 3.6 g/dL (3.5-5.1); Alkaline Phosphatase 60 U/L (38-126); Anion Gap 5 mmol/L (8-16); Aspartate Amino Transferase 25 U/L (14-36); Bilirubin,Total 0.3 mg/dL (0.2-1.3); Blood Urea Nitrogen 50 mg/dL (7-17); Calcium 8.8 mg/dL (8.4-10.2); Carbon Dioxide 24 mmol/L (22-30); Chloride 112 mmol/L (98-107); Estimated CRCL calculation 18 ml/min; Estimated Glomerular Filt Rate 18; Glucose 104 mg/dL (65-105); Potassium 4.8 mmol/L (3.4-5.0); Sodium 141 mmol/L (137-145)
[2020-09-07 11:00] LABS: NT Pro B Type Natriuretic Pept 5520 PG/ML (5-100); Troponin I < 0.012 ng/mL (0.000-0.034)
--- NOTE | 2020-09-07 11:10 | PC.NURSE ---
Pt's visitor policy explained to pt and daughter. Daughter leaves per hospital covid policy and covid swab and influenza swab collected.
[2020-09-07 11:44] LABS: D Dimer 1.99 ug/mL (<0.48)
[2020-09-07] MEDS: FUROSEMIDE INJ 100 MG/10 ML VIAL 60 MG IV PUSH (12:01)
[2020-09-07 13:06] LABS: Add Urine Microscopic? YES; Appearance Urine Cloudy (Clear); Bacteria Urine 1+ /hpf; Bilirubin Urine Negative (Negative); Blood Urine Negative (Negative); Color Urine Yellow (Yellow); Glucose Urine UA 1+ mg/dL (Negative); Ketones Urine Negative (Negative); Leukocyte Esterase Ur 1+ LEU/UL (Negative); Mucus Urine Rare /lpf; Nitrate Urine Negative (Negative); Protein Urine 3+ mg/dL (Negative); Specific Grav Ur 1.013 (1.001-1.035); Squamous Epithelial Cell Urine Few /hpf (Few); Urobilinogen Urine Negative mg/dL (<2.0); WBC Urine 51-75 /hpf
[2020-09-07] MEDS: cloNIDine HCL 0.1 MG TABLET PO (13:20)
--- NOTE | 2020-09-07 13:35 | PC.NURSE ---
Pt to [facility].
--- NOTE | 2020-09-07 14:35 | PC.NURSE ---
Pt returns from [facility]. States is breathing about the same, requesting to know when she will be d/c. Explained that we're waiting the nuc med test result. Pt continues to diurese, voiding frequently per bedside commode.
[2020-09-07 16:23] LABS: SARS-CoV-2 RNA PCR Negative
--- NOTE | 2020-09-07 16:52 | PC.NURSE ---
Meal tray ordered. Made aware of awaiting room assignment.
--- NOTE | 2020-09-07 16:57 | PC.NURSE ---
Bed assignment received, bed not clean nor available.
--- NOTE | 2020-09-07 17:58 | PC.NURSE ---
Dinner tray given.
--- NOTE | 2020-09-07 18:43 | ADMGEN ---
This patient, Shayy Madera, was admitted to 3 [facility] Surg Room 316-01. Patient/family oriented to hospital policies and general routines including ID bracelet, bed and alarms, visiting hours, pain management, procedures, bathroom and other care routines, personal items, smoking policy, room service/diet, and visiting hours. Information on how to activate the Rapid Response Team has been discussed. Patient/Family are encouraged to report perceived risks to care and to ask questions if they do not understand what they are told or what they should do.
--- NOTE | 2020-09-07 20:12 | PM.IMHP ---
H&P: HPI History of Present Illness Date/Time: 09/07/20 20:12 Chief Complaint: shortness of breath for the past 6 days Narrative: This is a pleasant morbidly obese diabetic female with known history of grade 2 diastolic congestive heart failure, CABG x4, chronic kidney disease stage 4, poorly controlled hypertension and hypothyroidism who presented to the hospital with increased shortness of breath over the past 6 days. The patient is known to take Lasix therapy every other day and she was advised that she should start taking her Lasix every day when she started to have worsening shortness of breath this past Saturday. Associated symptoms included a poorly productive cough and fatigue. The patient's shortness of breath is primarily exertional and she mentions that she has been sleeping on a couch with various pillows as she cannot sleep comfortably in her bed. Patient denies any chest pain, palpitations, fevers, chills, nausea, vomiting, abdominal pain, dysuria, hematuria, diarrhea, bloody stools, black stools, or focal neurological deficits. The patient does admit that her shortness of breath has improved since this past Saturday when she started taking her Lasix every day. She also reports that she has had increased lower extremity swelling which has significantly improved since she started taking Lasix therapy every day. The patient admits that she has not been watching what she eats very carefully and has not restricted how much fluid she drinks. She mentions that she has been eating prepared foods and foods that are rich in cheese which she is aware has a lot of salt. On further questioning the patient does report that she has had poorly controlled hypertension which she has had her blood pressure medications recently changed by her primary care doctor. The patient was evaluated emergency room and found to have severely elevated systolic blood pressures in the 220s. She was treated with 0.1 mg of clonidine p.o. for her severely elevated blood pressure. Her blood pressure has not improved since being in the emergency room today. On my encounter with the patient she is laying in bed and not on any supplemental oxygen, in no acute distress, and denies any significant symptoms. Urinalysis was grossly abnormal although the patient denies any significant urinary symptoms including dysuria, hematuria, urinary frequency, or urinary incontinence. Patient has been admitted to the hospital for further care. Review of Systems Review of Systems: All systems reviewed & are unremarkable except as noted in HPI and below PMFSH Past Medical History Medical History (Updated 09/07/20 @ 20:25 by Nato Villaseñor MD) Benign essential HTN Chronic kidney disease, stage 4 (severe) CKD stage 4 secondary to hypertension Hypothyroidism Type 2 diabetes mellitus with diabetic nephropathy Surgical History Surgical History (Updated 09/07/20 @ 20:18 by Nato Villaseñor MD) H/O: hysterectomy History of appendectomy Hx of cholecystectomy S/P CABG x 4 Family History Family History Mother Diabetes mellitus Hypertension Leukemia Father Family history of cardiovascular disease Diabetes mellitus Acute myocardial infarction, Onset Age: 63 Family history of lung cancer Sibling Family history of cardiovascular disease Family history of kidney disease Diabetes mellitus Family history of coronary artery disease Family history of congestive heart failure Social History Social History Smoking status: Never smoker Second hand tobacco smoke exposure: No Alcohol intake: never Substance use: never Gender identity (if verbalized by the patient): Female Sexual Orientation (if Verbalized by the Patient): Straight or Heterosexual Spiritual care concerns: No Meds Home Medications and Allergies Home Medications Medication Instruction
[2020-09-07 21:17] LABS: Glucose Point of Care 232 (65-105)
[2020-09-08] VITALS (10 sets, daily range): BP systolic 152–173; BP diastolic 30–56; PULSE 65–89; RESP 18–20; TEMP 36.7–37.2; O2SAT 97–100
[2020-09-08] MEDS: LEVOTHYROXINE SODIUM 88 MCG TABLET PO (06:32)
[2020-09-08 06:40] LABS: Basophils Percent Auto 0.3 % (0.2-1.2); Eosinophils Absolute Auto 0.4 K/mm3 (0-0.3); Eosinophils Percent Auto 4.5 % (0-4.4); Hematocrit 23.8 % (37.0-47.0); Hemoglobin 7.5 g/dL (12.0-15.0); Immature Granulocyte Absolute 0.03 K/mm3 (0.00-0.031); Immature Granulocyte Percent A 0.3 % (0-0.5); Lymphocytes Absolute Auto 1.83 K/mm3 (0.9-3.2); Mean Corpuscular HGB Conc 31.5 g/dl (32-36); Mean Corpuscular Hemoglobin 27.5 pg (26-34); Mean Corpuscular Volume 87.2 fl (80-100); Mean Platelet Volume 10.4 fl (7.4-10.4); Monocytes Absolute Auto 1.1 K/mm3 (0.1-0.6); Monocytes Percent Auto 11.8 % (2.6-8.5); Neutrophils Absolute Auto 6.2 K/mm3 (1.3-6.7); Neutrophils Percent Auto 64.1 % (45.5-73.1); Platelet Count Result 244 k/mm3 (150-375); Red Blood Count 2.73 M/mm3 (4.2-5.4); Red Cell Distribution Width 15.7 % (11.5-14.5); White Blood Count 9.6 K/mm3 (4.5-10.0)
[2020-09-08 06:54] LABS: Anion Gap 5 mmol/L (8-16); Blood Urea Nitrogen 48 mg/dL (7-17); Calcium 8.6 mg/dL (8.4-10.2); Carbon Dioxide 23 mmol/L (22-30); Chloride 110 mmol/L (98-107); Estimated CRCL calculation 16 ml/min; Estimated Glomerular Filt Rate 16; Glucose 128 mg/dL (65-105); Magnesium 1.5 mg/dL (1.6-2.3); Potassium 4.7 mmol/L (3.4-5.0); Sodium 138 mmol/L (137-145)
[2020-09-08 08:16] LABS: Glucose Point of Care 115 (65-105)
[2020-09-08] MEDS: amLODIPine BESYLATE 5 MG TABLET 10 MG BY MOUTH (08:37)
[2020-09-08] MEDS: FUROSEMIDE INJ 40 MG/4 ML VIAL IV PUSH (08:37)
[2020-09-08] MEDS: lisinopriL 10 MG TABLET PO (08:37)
[2020-09-08] MEDS: ATORVASTATIN 10 MG TABLET PO (08:37)
[2020-09-08] MEDS: EZETIMIBE 10 MG TABLET PO (08:37)
[2020-09-08] MEDS: ENOXAPARIN 30 MG/0.3 ML SYRINGE SUB-Q (08:37)
[2020-09-08] MEDS: ASPIRIN 81 MG ENTERIC TABLET PO (08:37)
[2020-09-08] MEDS: INSULIN HUMAN ISOPHAN/REGULAR 70/30 (*BKC) 100 UNITS/ML 14 UNITS SUB-Q ×2 (08:41→16:57)
[2020-09-08] MEDS: MAGNESIUM OXIDE 400 MG TABLET PO (10:34)
[2020-09-08 12:20] LABS: Glucose Point of Care 83 (65-105)
--- NOTE | 2020-09-08 15:07 | PM.IMPN ---
Progress Note: A&P Assessment and Plan (1) Acute exacerbation of CHF (congestive heart failure): Qualifiers: Heart failure type: unspecified Qualified Code(s): I50.9 - Heart failure, unspecified Code(s): I50.9 - Heart failure, unspecified Status: Acute Assessment and Plan: Rule out mild acute CHF exacerbation. The patient is not requiring any supplemental oxygen at this time. The patient has been placed in observation status. Continue Lasix IV therapy. Monitor intake and output. 2 g sodium, fluid restricted diet. Check TSH reflex T4, echocardiogram in a.m.. CHF teaching. I have extensively counseled the patient on the importance of a low-sodium and fluid-restricted diet. 09/08/20 15:07 patient is 80-year-old female with history of diastolic dysfunction, hypertension, coronary artery disease with 4 vessel CABG patient presented emergency depart with a complaint shortness of breath, lower extremity edema, and orthopnea, patient states normally she takes Lasix every other day, when she noticed swelling of the legs and shortness of breath and was not able to lay down on her bed and slept on a sofa with a pillows she started to take Lasix daily without much improvement presented emergency department, patient is being diuresed with IV Lasix 40 mg q daily. Today patient states feeling much better able to sleep on the bed, denies any chest pain shortness of breath palpitation fever or chills, cardiac echo is pending will follow-up, will have a PT OT evaluate the patient, upon arrival patient blood pressure was elevated now is trending down will continue to monitor, patient with acute kidney injury patient is being diuresed will monitor patient kidney function (2) Uncontrolled hypertension: Code(s): I10 - Essential (primary) hypertension Status: Chronic Assessment and Plan: Likely secondary to congestive heart failure and recently changing her blood pressure medications. Monitor blood pressure. P.r.n. IV hydralazine is ordered with parameters. Continue lisinopril. Hold beta-mateo secondary to bradycardia. We will not administer any further clonidine as this is well known to cause bradycardia and the patient's heart rate has been in the 50s even before she got clonidine today. (3) Acute on chronic renal failure: Qualifiers: Acute renal failure type: unspecified Chronic kidney disease stage: stage 4 (severe) Qualified Code(s): N17.9 - Acute kidney failure, unspecified; N18.4 - Chronic kidney disease, stage 4 (severe) Code(s): N17.9 - Acute kidney failure, unspecified; N18.9 - Chronic kidney disease, unspecified Status: Acute Assessment and Plan: Acute on chronic stage IV renal failure. Likely secondary to decompensated heart failure and hypoperfusion. Monitor urine output and renal function. Renally dose medications. Avoid nephrotoxin agents. Consider Nephrology consultation of renal function does not improve. (4) Chronic anemia: Code(s): D64.9 - Anemia, unspecified Status: Chronic Assessment and Plan: Appears to be anemia of chronic disease. Monitor H&H, transfuse p.r.n. (5) Abnormal urinalysis: Code(s): R82.90 - Unspecified abnormal findings in urine Status: Acute Assessment and Plan: Rule out uncomplicated UTI. We will initiate oral Levaquin as the patient is known to be allergic to penicillins and currently seems to have a possible uncomplicated UTI. Urine culture. (6) Type 2 diabetes mellitus with diabetic nephropathy: Qualifiers: Diabetes mellitus exterminator helper termite insulin use: with exterminator helper termite use Qualified Code(s): E11.21 - Type 2 diabetes mellitus with diabetic nephropathy; Z79.4 - [employer] (current) use of insulin Code(s): E11.21 - Type 2 diabetes mellitus with diabetic nephropathy Status: Chronic Assessment and Plan: Accu-Cheks, sliding scale insulin coverage, hypoglycemia protocol, con
[2020-09-08 16:56] LABS: Glucose Point of Care 95 (65-105)
--- NOTE | 2020-09-08 20:07 | ECHO_ITS ---
Patient Info Name: Shayy Madera Age: 80 years : 1940 Gender: Female Ht: 63 in Wt: 216 lbs BSA: 2.14 m2 HR: 65 bpm BP: 142 / 68 mmHg Heart Rhythm: Sinus Rhythm Technical Quality: Good Exam Date: 09/08/2020 10:45 AM Exam Location: [facility] Pulmonary Exam Room: 316 Patient Status: Inpatient Admit Date: 09/07/2020 Staff Ordering Physician: Nato Villaseñor MD Aquaculture Worker: Litzy Hicks RDCS Attending Provider: Rigo Huang MD Referring Physician: Charleen GHOTRA; Exam Type: CA echo doppler color flow Study Info Indications - ACUTE CHF Complete two-dimensional, color flow and Doppler transthoracic echocardiogram is performed. Summary 1. Complete two-dimensional, color flow and Doppler transthoracic echocardiogram is performed. 2. Left ventricular chamber dimension is mildly enlarged. 3. Left ventricular systolic function is normal, estimated at 65-70%. 4. There is mild concentric increased left ventricular wall thickness. 5. The left ventricular diastolic function is grade II diastolic dysfunction. 6. The apical septum, and mid inferoseptal are hypokinetic. 7. Moderate basal septal hypertrophy is seen. 8. Left atrial chamber dimension is moderately enlarged. 9. There is mild aortic valve regurgitation. 10. There is mild mitral valve regurgitation. 11. There is mild tricuspid valve regurgitation. Left Ventricle Left ventricular chamber dimension is mildly enlarged. Left ventricular systolic function is normal, estimated at 65-70%. There is mild concentric increased left ventricular wall thickness. The left ventricular diastolic function is grade II diastolic dysfunction. The apical septum, and mid inferoseptal are hypokinetic. The inferior wall, anterior wall, anterolateral wall, anteroseptal wall, inferolateral wall, apical cap, and basal inferoseptal are not scored. Moderate basal septal hypertrophy is seen. Right Ventricle Right ventricular chamber dimension is normal. Right ventricular systolic function is normal. Left Atria Left atrial chamber dimension is moderately enlarged. Right Atria Right atrial chamber dimension is normal. Atrial Septum Intact interatrial septum visualized by color flow imaging. Aortic Valve The aortic valve is trileaflet. There is mild aortic valve sclerosis. There is no aortic valve stenosis. There is mild aortic valve regurgitation. Pulmonic Valve The pulmonic valve is normal. There is no pulmonic valve stenosis. There is trace pulmonic regurgitation. Mitral Valve The mitral valve has normal leaflets. There is no mitral valve stenosis. There is mild mitral valve regurgitation. Tricuspid Valve The tricuspid valve leaflets are normal. There is no significant tricuspid valve stenosis. There is mild tricuspid valve regurgitation. No pulmonary hypertension, estimated pulmonary arterial systolic pressure is 32 mmHg. Pericardium/Pleural The pericardium appears normal. There is no pericardial effusion. Inferior Vena Cava Normal inferior vena cava with >50% collapse upon inspiration consistent with normal right atrial pressure, 5 mmHg. Aorta The aortic root size at the sinus of Valsalva is normal. The prox ascending aorta size is normal. Left Ventricular Outflow Tract Name Value Normal
[2020-09-08 22:01] LABS: Glucose Point of Care 108 (65-105)
[2020-09-09] VITALS: PULSE 62
[2020-09-09 04:00] VITALS: PULSE 66
[2020-09-09 05:49] VITALS: BP 164/38; PULSE 66; RESP 18; TEMP 36.5; O2SAT 98
[2020-09-09] MEDS: LEVOTHYROXINE SODIUM 88 MCG TABLET PO (05:58)
[2020-09-09 06:35] LABS: Anion Gap 8 mmol/L (8-16); Blood Urea Nitrogen 48 mg/dL (7-17); Calcium 8.7 mg/dL (8.4-10.2); Carbon Dioxide 23 mmol/L (22-30); Chloride 109 mmol/L (98-107); Estimated CRCL calculation 15 ml/min; Estimated Glomerular Filt Rate 15; Glucose 91 mg/dL (65-105); Magnesium 1.5 mg/dL (1.6-2.3); Potassium 4.3 mmol/L (3.4-5.0); Sodium 140 mmol/L (137-145)
[2020-09-09 08:00] VITALS: PULSE 63
[2020-09-09] MEDS: MAGNESIUM SULF 2 GM/WATER 50ML 2 GM/50 ML BAG IVPB (08:07)
[2020-09-09] MEDS: amLODIPine BESYLATE 5 MG TABLET 10 MG BY MOUTH (08:10)
[2020-09-09] MEDS: MAGNESIUM OXIDE 400 MG TABLET PO (08:10)
[2020-09-09] MEDS: EZETIMIBE 10 MG TABLET PO (08:10)
[2020-09-09] MEDS: ENOXAPARIN 30 MG/0.3 ML SYRINGE SUB-Q (08:10)
[2020-09-09] MEDS: ASPIRIN 81 MG ENTERIC TABLET PO (08:10)
[2020-09-09] MEDS: lisinopriL 10 MG TABLET PO (08:10)
[2020-09-09] MEDS: FUROSEMIDE INJ 40 MG/4 ML VIAL IV PUSH (08:10)
[2020-09-09] MEDS: INSULIN HUMAN ISOPHAN/REGULAR 70/30 (*BKC) 100 UNITS/ML 14 UNITS SUB-Q (08:23)
[2020-09-09 08:43] LABS: Glucose Point of Care 92 (65-105)
[2020-09-09 09:39] VITALS: O2SAT 95
[2020-09-09 12:00] VITALS: PULSE 64
--- NOTE | 2020-09-09 12:18 | PC.NURSE ---
Bedside glucose 33, states has a slight headache, no shaking noted. Glucose gel w/apple juice given. Accucheck at 1241 up to 63, patient request cranberry juice, 1300 accucheck 64, patient eating lunch. 1330 Dr. Huang notified of accuchecks orders received to hold 1700 dose of 70/30.
[2020-09-09] MEDS: GLUCOSE ORAL GEL 15 GM OF GLUCSE IN 37.5 GM TUBE PO (12:23)
[2020-09-09 12:27] LABS: Glucose Point of Care 33 (65-105)
[2020-09-09 12:44] LABS: Glucose Point of Care 63 (65-105)
[2020-09-09 13:42] LABS: Glucose Point of Care 64 (65-105)
--- NOTE | 2020-09-09 14:25 | PM.DS ---
DS: Admitting Diagnosis Admitting Diagnosis Admitting Diagnosis: Chief Complaint: shortness of breath for the past 6 days DS: Discharge Diagnosis Discharge Diagnosis (1) Acute exacerbation of CHF (congestive heart failure): Qualifiers: Heart failure type: unspecified Qualified Code(s): I50.9 - Heart failure, unspecified Code(s): I50.9 - Heart failure, unspecified Status: Acute Assessment and Plan: Rule out mild acute CHF exacerbation. The patient is not requiring any supplemental oxygen at this time. The patient has been placed in observation status. Continue Lasix IV therapy. Monitor intake and output. 2 g sodium, fluid restricted diet. Check TSH reflex T4, echocardiogram in a.m.. CHF teaching. I have extensively counseled the patient on the importance of a low-sodium and fluid-restricted diet. 09/08/20 15:07 patient is 80-year-old female with history of diastolic dysfunction, hypertension, coronary artery disease with 4 vessel CABG patient presented emergency depart with a complaint shortness of breath, lower extremity edema, and orthopnea, patient states normally she takes Lasix every other day, when she noticed swelling of the legs and shortness of breath and was not able to lay down on her bed and slept on a sofa with a pillows she started to take Lasix daily without much improvement presented emergency department, patient is being diuresed with IV Lasix 40 mg q daily. Today patient states feeling much better able to sleep on the bed, denies any chest pain shortness of breath palpitation fever or chills, cardiac echo is pending will follow-up, will have a PT OT evaluate the patient, upon arrival patient blood pressure was elevated now is trending down will continue to monitor, patient with acute kidney injury patient is being diuresed will monitor patient kidney function (2) Uncontrolled hypertension: Code(s): I10 - Essential (primary) hypertension Status: Chronic Assessment and Plan: Likely secondary to congestive heart failure and recently changing her blood pressure medications. Monitor blood pressure. P.r.n. IV hydralazine is ordered with parameters. Continue lisinopril. Hold beta-mateo secondary to bradycardia. We will not administer any further clonidine as this is well known to cause bradycardia and the patient's heart rate has been in the 50s even before she got clonidine today. (3) Acute on chronic renal failure: Qualifiers: Acute renal failure type: unspecified Chronic kidney disease stage: stage 4 (severe) Qualified Code(s): N17.9 - Acute kidney failure, unspecified; N18.4 - Chronic kidney disease, stage 4 (severe) Code(s): N17.9 - Acute kidney failure, unspecified; N18.9 - Chronic kidney disease, unspecified Status: Acute Assessment and Plan: Acute on chronic stage IV renal failure. Likely secondary to decompensated heart failure and hypoperfusion. Monitor urine output and renal function. Renally dose medications. Avoid nephrotoxin agents. Consider Nephrology consultation of renal function does not improve. (4) Chronic anemia: Code(s): D64.9 - Anemia, unspecified Status: Chronic Assessment and Plan: Appears to be anemia of chronic disease. Monitor H&H, transfuse p.r.n. (5) Abnormal urinalysis: Code(s): R82.90 - Unspecified abnormal findings in urine Status: Acute Assessment and Plan: Rule out uncomplicated UTI. We will initiate oral Levaquin as the patient is known to be allergic to penicillins and currently seems to have a possible uncomplicated UTI. Urine culture. (6) Type 2 diabetes mellitus with diabetic nephropathy: Qualifiers: Diabetes mellitus terminal press operator insulin use: with mcc use Qualified Code(s): E11.21 - Type 2 diabetes mellitus with diabetic nephropathy; Z79.4 - [facility] (current) use of insulin Code(s): E11.21 - Type 2 diabetes mellitus with diabetic nep
--- NOTE | 2020-09-09 14:39 | PC.NURSE ---
Tolerated lunch well accucheck 151.
[2020-09-09 14:45] LABS: Glucose Point of Care 151 (65-105)
== END 2020-09-09 15:00 | disposition home or self-care (01) | DRG 291 ==
LOC: ANHED 16:45 → ANH3MEDSUR 17:09
PROVIDERS: Family Medicine; Physician Assistant; Admitting Provider Family Medicine; Emergency Provider Emergency Medicine; PCP Family Medicine; Visit Provider Family Medicine
DX: I13.0 Hypertensive heart and chronic kidney disease with heart failure and stage 1 through stage 4 chronic kidney disease, or unspecified chronic kidney disease (principal); I50.33 Acute on chronic diastolic (congestive) heart failure; N18.4 Chronic kidney disease, stage 4 (severe); N17.9 Acute kidney failure, unspecified; N39.0 Urinary tract infection, site not specified; E11.22 Type 2 diabetes mellitus with diabetic chronic kidney disease; Z20.822 Contact with and (suspected) exposure to COVID-19; D63.8 Anemia in other chronic diseases classified elsewhere; E03.9 Hypothyroidism, unspecified; E78.5 Hyperlipidemia, unspecified; I25.10 Atherosclerotic heart disease of native coronary artery without angina pectoris; E66.01 Morbid (severe) obesity due to excess calories; Z68.38 Body mass index [BMI] 38.0-38.9, adult; Z79.4 Long term (current) use of insulin; Z79.82 Long term (current) use of aspirin; Z79.899 Other long term (current) drug therapy; Z88.0 Allergy status to penicillin; Z95.1 Presence of aortocoronary bypass graft
CPT/HCPCS: 36415; 71045; 78582; 80048; 80053; 81001; 83735; 83880; 84443; 84484; 85025; 85380; 85610; 85730; 87077; 87086; 87088; 87186; 87804; 93005; 93306; 94640; 96372; 96374; 99285; A9270; A9540; A9558; C9803; G0378; J1650; J1815; J1940; J3475; U0003; U0005

== ENCOUNTER 2021-04-07 13:57 | Outpatient (CLI) | payer MEDICARE, SELFPAY ==
--- NOTE | ~2021-04-07 | MM_ITS ---
EXAMINATION: MM screening geoffrey BI w tammie HISTORY: Screening mammogram TECHNIQUE: Craniocaudal and mediolateral oblique 3-D tomosynthesis images were obtained and synthetic 2-D images were generated. CAD analysis was submitted and interpreted. COMPARISON: 04/16/2019, , 04/13/2015 bilateral screening mammogram examinations BREAST PARENCHYMAL COMPOSITION: The breasts are extremely dense, which lowers the sensitivity of mamm ography. FINDINGS: Scattered bilateral benign calcifications. There is no evidence of suspicious mass, calcifi cation, or architectural distortion to suggest malignancy in either breast. There has been no suspici ous interval change. IMPRESSION: 1. No mammographic evidence of malignancy. 2. Recommend routine screening mammography in one year. BI-RADS category 2: Benign Reviewed, dictated and finalized at location A.
== END 2021-04-07 13:58 | disposition home or self-care (01) ==
PROVIDERS: PCP Family Medicine; Visit Provider Family Medicine
DX: Z12.31 Encounter for screening mammogram for malignant neoplasm of breast (principal)
CPT/HCPCS: 77063; 77067

== ENCOUNTER 2021-04-17 13:37 | Outpatient (CLI) | payer MEDICARE, SELFPAY ==
--- NOTE | ~2021-04-17 | XR_ITS ---
XR chest 2V 04/17/2021 14:02 Indication: Shortness of breath Procedure: 2 view chest Comparison: Comparison to multiple prior studies sequentially, with oldest reviewed study dated 03/10. Findings: Status post median sternotomy for CABG. Cardiomegaly. No focal air space disease, pulmonary edema, pleural effusion or suspected pneumothorax. Impression: 1: No acute cardiopulmonary disease. 2: Cardiomegaly. Reviewed, dictated and finalized at location A. O CARTOGRAPHER Impression: 1: No acute cardiopulmonary disease. 2: Cardiomegaly.
== END 2021-04-17 13:38 | disposition home or self-care (01) ==
LOC: ANHIMG 13:44
PROVIDERS: PCP Family Medicine; Visit Provider Physician Assistant
DX: R06.02 Shortness of breath (principal); I51.7 Cardiomegaly
CPT/HCPCS: 71046

== ENCOUNTER 2021-04-30 18:04 | Inpatient (IN) | payer MEDICARE, SELFPAY ==
[2021-04-30] VITALS (24 sets, daily range): BP systolic 164–184; BP diastolic 51–83; PULSE 60–65; RESP 18–26; TEMP 36.2–36.7; O2SAT 98–100; BMI 35.8
--- NOTE | ~2021-04-30 | XR_ITS ---
EXAMINATION: XR chest 1V portable EXAM DATE: 04/30/2021 22:21 INDICATION: Dyspnea. History bronchitis and hypertension. TECHNIQUE: Portable AP frontal chest x-ray was obtained. Comparison is made to prior examination from 04/17/2021. FINDINGS: Sternotomy wires are present without findings to suggest sternal dehiscence. There is cardi omegaly and pulmonary vascular congestion. Small left pleural effusion. Possible mild pulmonary edema . Overall appearance suggests possibility of mild CHF exacerbation. Please clinically correlate. No superimposed focal acute air space disease or pneumothorax. There are bony degenerative changes. T here are cholecystectomy clips. IMPRESSION: Findings consistent with CHF exacerbation. Reviewed, dictated and finalized at location A. DER TENDER
--- NOTE | ~2021-04-30 | US_ITS ---
EXAMINATION: US renal BI EXAM DATE: 05/01/2021 09:06 INDICATION: Renal failure. TECHNIQUE: Multiple grayscale and Doppler images of the kidneys were obtained (by a technologist who performed the scan) and subsequently reviewed. There is no prior study for comparison. FINDINGS: Right kidney: There is normal contour and echogenicity. It measures 9.3 x 4.1 x 5.3 centimeters. Th ere are no focal renal lesions identified. There is no hydronephrosis. Left kidney: There is normal contour and echogenicity. It measures 8.5 x 4.9 x 5.0 centimeters. The re are no focal renal lesions identified. There is no hydronephrosis. Bladder is undistended, with normal wall thickness. IMPRESSION: 1. Mild bilateral renal atrophy. Reviewed, dictated and finalized at location A. EYOR WEIGHER OPERATOR
--- NOTE | 2021-04-30 18:35 | ECG_ITS ---
Measurements Intervals [place] Rate: 69 P: 22 [place]: 168 QRS: -18 QRSD: 79 T: 131 QT: 421 QTc: 452 Interpretive Statements SINUS RHYTHM FREQUENT VENTRICULAR PREMATURE COMPLEXES CANNOT RULE OUT SEPTAL INFARCT, AGE INDETERMINATE INFERIOR INFARCT, AGE INDETERMINATE ST-T WAVE ABNORMALITY IN HIGH LATERAL LEADS- CONSIDER ISCHEMIA BASELINE ARTIFACT- I, II, AVR, AVF, V6 ABNORMAL ECG Electronically Signed On 04-30-2021 20:21:38 ADULT NURSE PRACTITIONER by Fahad Guzman D.O.
--- NOTE | 2021-04-30 19:15 | PC.NURSE ---
Report received from OCTAVIO Copeland. Assumed care of patient at this time.
[2021-04-30 19:46] LABS: Basophils Percent Auto 0.2 % (0.2-1.2); Eosinophils Absolute Auto 0.3 K/mm3 (0-0.3); Eosinophils Percent Auto 2.7 % (0-4.4); Hematocrit 28.2 % (37.0-47.0); Hemoglobin 8.8 g/dL (12.0-15.0); Immature Granulocyte Absolute 0.04 K/mm3 (0.00-0.031); Immature Granulocyte Percent A 0.4 % (0-0.5); Lymphocytes Absolute Auto 1.34 K/mm3 (0.9-3.2); Lymphocytes Percent Auto 12.7 % (18.3-44.2); Mean Corpuscular HGB Conc 31.2 g/dl (32-36); Mean Corpuscular Hemoglobin 28.1 pg (26-34); Mean Corpuscular Volume 90.1 fl (80-100); Mean Platelet Volume 11.8 fl (7.4-10.4); Monocytes Percent Auto 9.9 % (2.6-8.5); Neutrophils Absolute Auto 7.8 K/mm3 (1.3-6.7); Neutrophils Percent Auto 74.1 % (45.5-73.1); Platelet Count Result 179 k/mm3 (150-375); Red Blood Count 3.13 M/mm3 (4.2-5.4); Red Cell Distribution Width 15.7 % (11.5-14.5); White Blood Count 10.6 K/mm3 (4.5-10.0)
[2021-04-30 20:11] LABS: Partial Thromboplastin Time 24.7 SECONDS (22.3-36.8)
[2021-04-30 20:25] LABS: Prothrombin Time 13.2 Seconds (11.1-14.7)
[2021-04-30 20:46] LABS: NT Pro B Type Natriuretic Pept 26500 pg/mL (5-100)
--- NOTE | 2021-04-30 20:58 | PC.NURSE ---
Daughter in law SAVI GUALLPAWELL [phone]
[2021-04-30 21:20] LABS: Anion Gap 7 mmol/L (8-16); Blood Urea Nitrogen 52 mg/dL (7-17); Calcium 9.5 mg/dL (8.4-10.2); Carbon Dioxide 23 mmol/L (22-30); Chloride 111 mmol/L (98-107); Estimated CRCL calculation 13 ml/min; Estimated Glomerular Filt Rate 13; Glucose 141 mg/dL (65-110); Potassium 5.4 mmol/L (3.4-5.0); Sodium 141 mmol/L (137-145)
--- NOTE | 2021-04-30 21:34 | ED.SOB ---
HPI - SOB/Dyspnea General Chief Complaint: Shortness of Breath/Dyspnea Stated Complaint: SOB Time Seen by Provider: 04/30/21 18:32 Source: patient and family Mode of arrival: ambulatory Limitations: no limitations History of Present Illness HPI Narrative: 81 year old female with PMH CAD status post CABG in 2016, diastolic CHF, diabetes and history of CVA with carotid disease arrives complaining of increasing shortness of breath over the last 2 weeks. Patient is seen her primary doctor who diagnosed her with bronchitis gave her inhalers but she is not getting any better. Shortness of breath worse with exertion and worse when lying flat. Patient states she is taking all medications. No new medications. Arrives 100% on room air with mildly labored respirations. No chest pain, no productive cough, no fever. MD elicited complaint: shortness of breath Pertinent past history: congestive heart failure and diabetes Onset (ago): week(s) (2) Related Data Home oxygen amount: none Home Medications Medication Instructions Recorded Confirmed aspirin 81 mg tablet,delayed 81 mg PO DAILY 05/05/19 05/11/21 release lisinopril 10 mg tablet 20 mg PO DAILY 08/25/20 05/11/21 ezetimibe [Zetia] 10 mg PO DAILY 09/07/20 05/11/21 pen needle, diabetic [ReliOn 09/07/20 05/11/21 [place]] Humulin 70/30 U-100 KwikPen 13 unit SUBCUT BID 04/30/21 05/11/21 atorvastatin 10 mg PO EVERY OTHER DAY 04/30/21 05/11/21 levothyroxine 88 mcg PO DAILY 04/30/21 05/11/21 pindolol 20 mg PO DAILY 04/30/21 05/11/21 amlodipine 10 mg PO DAILY 05/01/21 05/11/21 Allergies Allergy/AdvReac Type Severity Reaction Status Date / Time Penicillins Allergy Unknown Skin Verified 05/11/21 13:33 Reaction pravastatin Allergy Dizziness Verified 05/11/21 13:33 Androgenic Anabolic Steroid AdvReac Unknown Loopy Verified 05/11/21 13:33 mirtazapine AdvReac Unknown sedate Verified 05/11/21 13:33 prednisone AdvReac Unknown BLOOD Verified 05/11/21 13:33 SUGARS OUT OF CONTROL STEROIDS AdvReac Severe MAKES Uncoded 05/11/21 13:33 SUGARS OUT OF CONTROL Review of Systems Review of Systems: CONSTITUTIONAL: no fever, no weight loss, no confusion EYES: no vision changes, no eye pain ENT: no rhinorrhea, no sore throat, no difficulty swallowing CARDIOVASCULAR: no chest pain, positive leg edema, no palpitations RESPIRATORY: no cough, positive for shortness of breath, no hemoptysis GASTROINTESTINAL: no abdominal pain, no nausea, no vomiting, no diarrhea GENITOURINARY: no flank pain, no dysuria, no hematuria SKIN: no rash, no jaundice MUSCULOSKELETAL: no back pain, no trauma. NEUROLOGIC: No headache, no dizziness, no focal weakness PSYCHIATRIC: No hallucinations, no suicidal ideation [facility] Past Medical History Medical History Benign essential HTN Chronic kidney disease, stage 4 (severe) CKD stage 4 secondary to hypertension Hypothyroidism Type 2 diabetes mellitus with diabetic nephropathy Surgical History Surgical History H/O: hysterectomy History of appendectomy Hx of cholecystectomy S/P CABG x 4 Family History Family History Mother Diabetes mellitus Hypertension Leukemia Father Family history of cardiovascular disease Diabetes mellitus Acute myocardial infarction, Onset Age: 63 Family history of lung cancer Sibling Family history of cardiovascular disease Family history of kidney disease Diabetes mellitus Family history of coronary artery disease Family history of congestive heart failure Social History Social History Second hand tobacco smoke exposure: No Alcohol intake: never Substance use: never Gender identity (if verbalized by the patient): Female Sexual Orientation (if Verbalized by the Pa
--- NOTE | 2021-04-30 22:16 | PC.NURSE ---
Xray in room at this time.
[2021-04-30] MEDS: ALBUTEROL SULFATE NEB 2.5 MG/0.5 ML INH 5 MG INHALATION (22:25)
--- NOTE | 2021-04-30 22:27 | PC.NURSE ---
ED respiratory in room at this time.
--- NOTE | 2021-04-30 22:57 | PM.IMHP ---
H&P: HPI History of Present Illness Date/Time: 04/30/21 22:57 Chief Complaint: Shortness of breath Narrative: 81 year old female with PMH CAD status post CABG in 2016, diastolic CHF, diabetes and history of CVA with carotid disease arrives complaining of increasing shortness of breath over the last 2 weeks. Patient is seen her primary doctor who diagnosed her with bronchitis gave her inhalers but she is not getting any better. Shortness of breath worse with exertion and worse when lying flat. Patient states she is taking all medications. No new medications. Arrives 100% on room air with mildly labored respirations. No chest pain, no productive cough, no fever. She also reports on and off wheezing Review of Systems Review of Systems: - CONSTITUTIONAL: Denies weight loss, fever and chills. - HEENT: Denies changes in vision and hearing - RESPIRATORY: Reports SOB and cough. - CV: Denies palpitations and CP. - GI: Denies abdominal pain, nausea, vomiting and diarrhea. - : Denies dysuria and urinary frequency. - MSK: Denies myalgia and joint pain. - SKIN: Denies rash and pruritus. - NEUROLOGICAL: Denies headache and syncope. - PSYCHIATRIC: Denies recent changes in mood. Denies anxiety and depression. All systems reviewed & are unremarkable except as noted in HPI and below Constitutional: Constitutional: Reports fatigue and Reports weakness Neurologic: Reports weakness Endocrine: Endocrine: Reports fatigue PMFSH Past Medical History Medical History Benign essential HTN Chronic kidney disease, stage 4 (severe) CKD stage 4 secondary to hypertension Hypothyroidism Type 2 diabetes mellitus with diabetic nephropathy Surgical History Surgical History H/O: hysterectomy History of appendectomy Hx of cholecystectomy S/P CABG x 4 Family History Family History Mother Diabetes mellitus Hypertension Leukemia Father Family history of cardiovascular disease Diabetes mellitus Acute myocardial infarction, Onset Age: 63 Family history of lung cancer Sibling Family history of cardiovascular disease Family history of kidney disease Diabetes mellitus Family history of coronary artery disease Family history of congestive heart failure Social History Social History Smoking status: Never smoker Second hand tobacco smoke exposure: No Alcohol intake: never Substance use: never Gender identity (if verbalized by the patient): Female Sexual Orientation (if Verbalized by the Patient): Straight or Heterosexual Spiritual care concerns: No Meds Home Medications and Allergies Home Medications Medication Instructions Recorded Confirmed Type aspirin 81 mg tablet,delayed 81 mg PO DAILY 05/05/19 04/24/21 History release lisinopril 10 mg tablet 10 mg PO DAILY 08/25/20 04/24/21 History ezetimibe [Zetia] 10 mg PO DAILY 09/07/20 04/24/21 History pen needle, diabetic [ReliOn 09/07/20 04/24/21 History [place]] albuterol sulfate 90 mcg/actuation 2 inh INHALATION Q4H PRN #6.7 g 04/12/21 04/24/21 Rx aerosol inhaler atorvastatin 04/30/21 History bumetanide 04/30/21 History insulin NPH and regular human SUBCUT 04/30/21 History [Humulin 70/30 U-100 KwikPen] levothyroxine 04/30/21 History pindolol mg 04/30/21 History amlodipine 10 mg PO DAILY 05/01/21 05/01/21 History Allergies Allergy/AdvReac Type Severity Reaction Status Date / Time Penicillins Allergy Unknown Skin Verified 04/30/21 18:40 Reaction pravastatin Allergy Dizziness Verified 04/30/21 18:40 Androgenic Anabolic Steroid AdvReac Unknown Loopy Verified 04/30/21 18:40 mirtazapine AdvReac Unknown sedate Verified 04/30/21 18:40 prednisone AdvReac Unknown BLOOD Verified 04/30/21 18:40 SUGARS
[2021-04-30] MEDS: SODIUM POLYSTYRENE SULFONONATE 15 GM/60 ML BTL PO (23:06)
[2021-04-30] MEDS: BUMETANIDE INJ 1 MG/4 ML VIAL IV PUSH (23:06)
[2021-04-30 23:25] LABS: Troponin I 0.076 ng/mL (0.000-0.034)
--- NOTE | 2021-04-30 23:40 | PC.NURSE ---
This patient, Shayy Madera, was admitted to IMU Room 206-01 on 04/30/21 at 2330. Patient/family oriented to hospital policies and general routines including ID bracelet, bed and alarms, visiting hours, pain management, procedures, bathroom and other care routines, personal items, smoking policy, room service/diet, and visiting hours. Information on how to activate the Rapid Response Team has been discussed. Patient/Family are encouraged to report perceived risks to care and to ask questions if they do not understand what they are told or what they should do.
[2021-05-01] VITALS (13 sets, daily range): BP systolic 151–173; BP diastolic 49–65; PULSE 62–71; RESP 18–24; TEMP 36.3–37; O2SAT 98–100
[2021-05-01] MEDS: BUMETANIDE INJ 1 MG/4 ML VIAL IV PUSH (02:42)
[2021-05-01 04:52] LABS: Basophils Percent Auto 0.2 % (0.2-1.2); Eosinophils Absolute Auto 0.2 K/mm3 (0-0.3); Eosinophils Percent Auto 2.4 % (0-4.4); Hematocrit 23.7 % (37.0-47.0); Hemoglobin 7.6 g/dL (12.0-15.0); Immature Granulocyte Absolute 0.04 K/mm3 (0.00-0.031); Immature Granulocyte Percent A 0.4 % (0-0.5); Lymphocytes Absolute Auto 1.21 K/mm3 (0.9-3.2); Lymphocytes Percent Auto 12.5 % (18.3-44.2); Mean Corpuscular HGB Conc 32.1 g/dl (32-36); Mean Corpuscular Hemoglobin 28.8 pg (26-34); Mean Corpuscular Volume 89.8 fl (80-100); Mean Platelet Volume 11.6 fl (7.4-10.4); Monocytes Absolute Auto 0.9 K/mm3 (0.1-0.6); Monocytes Percent Auto 9.7 % (2.6-8.5); Neutrophils Absolute Auto 7.2 K/mm3 (1.3-6.7); Neutrophils Percent Auto 74.8 % (45.5-73.1); Platelet Count Result 163 k/mm3 (150-375); Red Blood Count 2.64 M/mm3 (4.2-5.4); Red Cell Distribution Width 15.6 % (11.5-14.5); White Blood Count 9.7 K/mm3 (4.5-10.0)
[2021-05-01 05:04] LABS: Anion Gap 6 mmol/L (8-16); Blood Urea Nitrogen 50 mg/dL (7-17); Calcium 9.3 mg/dL (8.4-10.2); Carbon Dioxide 24 mmol/L (22-30); Chloride 111 mmol/L (98-107); Estimated CRCL calculation 13 ml/min; Estimated Glomerular Filt Rate 13; Glucose 79 mg/dL (65-110); Magnesium 2.1 mg/dL (1.6-2.3); Potassium 4.8 mmol/L (3.4-5.0); Sodium 141 mmol/L (137-145)
[2021-05-01] MEDS: HEPARIN SODIUM 5,000 UNITS/ML VIAL 5000 UNITS SUB-Q ×3 (05:52→21:10)
[2021-05-01] MEDS: LEVOTHYROXINE SODIUM 88 MCG TABLET PO (05:52)
[2021-05-01 06:47] LABS: Creatinine Urine 47.6 mg/dL; Urea Random Urine 197 MG/DL
[2021-05-01 06:48] LABS: Sodium Urine Random 128 meq/L
[2021-05-01 07:49] LABS: Eosinophil Urine None Seen % (None Seen)
[2021-05-01] MEDS: EZETIMIBE 10 MG TABLET PO (09:45)
[2021-05-01] MEDS: ASPIRIN 81 MG ENTERIC TABLET PO (09:45)
[2021-05-01] MEDS: INSULIN HUMAN ISOPHAN/REGULAR 70/30 (*BKC) 100 UNITS/ML 13 UNITS SUB-Q (09:45)
[2021-05-01] MEDS: amLODIPine BESYLATE 5 MG TABLET 10 MG PO (09:46)
[2021-05-01] MEDS: BUMETANIDE INJ 1 MG/4 ML VIAL 2 MG IV PUSH ×2 (09:46→17:32)
--- NOTE | 2021-05-01 09:47 | PM.IMPN ---
Progress Note: A&P Assessment and Plan (1) Shortness of breath: Code(s): R06.02 - Shortness of breath Status: Acute Assessment and Plan: Patient looked comfortable at the time of my visit Likely secondary to congestive heart failure exacerbation (2) Acute on chronic renal failure: Qualifiers: Acute renal failure type: unspecified Chronic kidney disease stage: stage 4 (severe) Qualified Code(s): N17.9 - Acute kidney failure, unspecified; N18.4 - Chronic kidney disease, stage 4 (severe) Code(s): N17.9 - Acute kidney failure, unspecified; N18.9 - Chronic kidney disease, unspecified Status: Acute Assessment and Plan: Likely secondary to hypertensive nephropathy Needs better control of blood pressure (3) Chronic anemia: Code(s): D64.9 - Anemia, unspecified Status: Chronic Assessment and Plan: This can be follow-up in outpatient setting (4) Uncontrolled hypertension: Code(s): I10 - Essential (primary) hypertension Status: Chronic Assessment and Plan: Patient is on pindolol and lisinopril may need to up this medications (5) Acute exacerbation of CHF (congestive heart failure): Qualifiers: Heart failure type: unspecified Qualified Code(s): I50.9 - Heart failure, unspecified Code(s): I50.9 - Heart failure, unspecified Status: Acute Assessment and Plan: Gentle diuresis Echocardiogram reviewed from September shows ejection fraction of 65% (6) Chronic kidney disease, stage 4 (severe): Code(s): N18.4 - Chronic kidney disease, stage 4 (severe) Status: Acute Assessment and Plan: Renal ultrasound with no obstruction (7) Essential (primary) hypertension: Code(s): I10 - Essential (primary) hypertension Status: Acute Assessment and Plan: Nasal better control target should be 130/80 (8) Mixed hyperlipidemia: Code(s): E78.2 - Mixed hyperlipidemia Status: Acute Assessment and Plan: Continue statin (9) Type 2 diabetes mellitus with diabetic neuropathy, unspecified: Code(s): E11.40 - Type 2 diabetes mellitus with diabetic neuropathy, unspecified Status: Acute Assessment and Plan: Continue insulin Accu-Cheks AC and HS Additional Plan 81 year old female with PMH CAD status post CABG in 2016, diastolic CHF, diabetes and history of CVA with carotid disease arrives complaining of increasing shortness of breath over the last 2 weeks. # acute on chronic CHF diastolic dysfunction IV diuresis was renal function, BNP significantly elevated. Chest x-ray with bilateral congestive changes. Echocardiogram in morning cardiology consultation in morning # acute on chronic renal failure states for baseline creatinine 2.3 currently 3.4 likely prerenal due to CHF continue diuresis and monitor renal function. Nephrology consult in a.m. renal ultrasound urinary lytes. Hold IRIS inhibitor # coronary artery disease status post CABG in 2016 # diabetes mellitus type 2 on insulin start home doses SSI added # hypertension not optimal due to hypervolemia and CHF exacerbation continue to monitor. History of multiple drug intolerances. Metoprolol caused bradycardia clonidine and hydralazine has culture profound fatigue spironolactone worsened renal function doxazosin cause dizziness clonidine caused emotional distress for # history of CVA # chronic anemia no signs of bleeding continue to monitor likely due to anemia chronic disease related to her underlying CHF/CKD # hyperkalemia likely due to NATIVIDAD will give a dose of Kayexalate # elevated troponin likely due to CHF trend troponin levels # bilateral carotid disease # DVT prophylaxis: Heparin subQ # full code status Subjective Date/time seen: 05/01/21 09:47 Review of Systems Review of Systems: All systems reviewed & are unremarkable except as noted in HPI and below Constitutional: Constitutional: Reports fatigue and Reports we
--- NOTE | 2021-05-01 09:56 | PM.CNCAR ---
Assessment and Plan Assessment and plan (1) Acute on chronic heart failure with preserved ejection fraction: Code(s): I50.33 - Acute on chronic diastolic (congestive) heart failure Status: Acute Assessment and Plan: Clinically, patient is in mild decompensated heart failure with known preserved ejection fraction. Very cautious diuresis given underlying chronic renal failure slightly worse admission and her most recent baseline available in our system. -etiology for decompensated heart failure multifactorial. Renal function and anemia no doubt contributing as well as uncontrolled hypertension. However, she was taken off Bumex completely several weeks ago due to worsening renal function as she reports by her sequencing machine operator. She was also given tapering steroid dose in the past 2 weeks which she noted resulted in a 6 lb weight gain in 1 week. -accurate input and output, daily weights. -for decompensated heart failure may also have been exacerbated by clinical suspicion for bronchitis as patient states she was wheezing significantly when she presented to her PCP. -cautious diuresis Bumex 1 mg IV b.i.d.. Will monitor response given renal failure as this pain need to be adjusted, however, rest of diuresis may result in significant deterioration of her renal function. -Discussed current management and plan of care. Patient verbalized understanding and agreed to comply with plan of care. Patient states she had been compliant with medications with noted exception per HPI. -It is reported she has had several negative sleep studies in the past. (2) Hypertension associated with type 2 diabetes mellitus: Code(s): E11.59 - Type 2 diabetes mellitus with other circulatory complications; I15.2 - Hypertension secondary to endocrine disorders Status: Acute Assessment and Plan: Blood pressure remains uncontrolled which may also be contributing to exacerbation of her heart failure. She has a history of intolerance to multiple medications including metoprolol secondary to bradycardia, clonidine and hydralazine secondary to profound fatigue, acute renal failure with spironolactone, dizziness with doxazosin, emotional side effects and shortness of breath with clonidine. -Lisinopril has been held due to renal failure but this must be balanced with adequate control of her blood pressure. (3) Troponin level elevated: Code(s): R77.8 - Other specified abnormalities of plasma proteins Status: Acute Assessment and Plan: Mild elevation, flat curve although with significant CAD history with prior bypass surgery 2016 but most likely type 2 infarct in setting of the acute on chronic decompensated heart failure, acute on chronic renal failure, severe anemia, and uncontrolled hypertension. Given more frequent exacerbations of heart failure multiple risk factors ischemic evaluation is on reasonable which should be deferred until she is further stabilized at this time. We have no plans for invasive angiography given acute on chronic renal failure unless patient develops symptoms concerning for unstable angina. (4) Acute renal failure superimposed on stage 4 chronic kidney disease: Code(s): N17.9 - Acute kidney failure, unspecified; N18.4 - Chronic kidney disease, stage 4 (severe) Status: Acute Assessment and Plan: As above, cautious diuresis and close observation of renal function and accurate input and output, daily weight. Less than 2 g daily sodium intake. Delicate balance. (5) Chronic anemia: Code(s): D64.9 - Anemia, unspecified Status: Chronic Assessment and Plan: Slightly worse compared to prior baseline fairly severe at this time hemoglobin 7.6. No clear evidence of active bleeding. Follow H&H. Continue aspirin 81 mg daily for now. (6) CAD (coronary artery disease): Code(s): I25.10 - Atherosclerotic heart disease of [place] coronary artery without angina pectoris Status: Acute
--- NOTE | 2021-05-01 14:11 | P.CONNP_ITS ---
Assessment and Plan Assessment and plan (1) NATIVIDAD (acute kidney injury): Code(s): N17.9 - Acute kidney failure, unspecified Status: Acute Assessment and Plan: * due to #3 and need for IV diuresis to optimize volume status * holding lisinopril for now * renal ultrasound noted - no acute issues (but c/w CKD) * urine electrolytes reviewed * follow renal function and UOP in the context of diuresis (2) Chronic kidney disease, stage IV (severe): Code(s): N18.4 - Chronic kidney disease, stage 4 (severe) Status: Chronic Assessment and Plan: * baseline creatinine appears to run around 2.0 - 2.6mg/dl in the last couple of years * presumably due to diabetes, hypertension, vascular disease, and age (3) Acute on chronic heart failure with preserved ejection fraction: Code(s): I50.33 - Acute on chronic diastolic (congestive) heart failure Status: Acute Assessment and Plan: * multifactorial etiology: * worsening renal dysfunction * anemia * poorly controlled HTN * discontinuation of loop diuretics * steroid use (and associated fluid retention) * Cardiology following * on IV diuretics * follow I/Os, daily weights, and respiratory status (4) Anemia: Code(s): D64.9 - Anemia, unspecified Status: Chronic Assessment and Plan: * chronic issues * partly related to CKD but exacerbated by NATIVIDAD and acute illness * check iron studies * empirically dose with Epogen * follow trend of H/H (5) Hypertension: Code(s): I10 - Essential (primary) hypertension Status: Chronic Assessment and Plan: * poor control at baseline * would avoid overcontrol given her advanced CKD * attempt to aim for systolic range of 140 - 160 for now * follow trend of hemodynamics (6) Diabetes: Code(s): E11.9 - Type 2 diabetes mellitus without complications Status: Chronic Assessment and Plan: * follow accuchecks * glycemic control Will continue to follow. History of Present Illness Reason for Consult Consult date: 05/01/21 Reason for consult: acute renal failure (on chronic kidney disease) Chief Complaint Chief complaint: CHF, Acute on chronic renal failure, dyspnea History of Present Illness Narrative: The patient is a 81-year-old female with a past medical history as outlined below presented to [facility] Emergency room with complaints of shortness of breath She states that shortness of breath started almost two weeks ago and has been progressively getting worse since that time. She initially saw her primary care physician for this issue who made a presumptive diagnosis of bronchitis and gave her some inhalers but this did not really seem to improve her symptoms all that much. Her shortness of breath seems worse with exertion as well as whenever she lays flat. Workup and evaluation the emergency room demonstrated the patient to be hemodynamically stable and although she had boat oxygen saturations of 100% on room air, it seemed quite evident that she was labored in her respirations. She denies any other symptoms with regard to chest pain productive cough nausea vomiting diarrhea fever or chills. Her chest x-ray showed evidence of pulmonary vascular congestion highly suggestive of congestive heart failure. She was subsequent admitted to the hospital for further evaluation and therapy along with Cardiology consultation. Since her admission, she has been instituted on IV diuretic therapy which has improved her respiratory and overall volume status but her c
--- NOTE | 2021-05-01 14:11 | PM.CNNEP ---
Assessment and Plan Assessment and plan (1) NATIVIDAD (acute kidney injury): Code(s): N17.9 - Acute kidney failure, unspecified Status: Acute Assessment and Plan: due to #3 and need for IV diuresis to optimize volume status holding lisinopril for now renal ultrasound noted - no acute issues (but c/w CKD) urine electrolytes reviewed follow renal function and UOP in the context of diuresis (2) Chronic kidney disease, stage IV (severe): Code(s): N18.4 - Chronic kidney disease, stage 4 (severe) Status: Chronic Assessment and Plan: baseline creatinine appears to run around 2.0 - 2.6mg/dl in the last couple of years presumably due to diabetes, hypertension, vascular disease, and age (3) Acute on chronic heart failure with preserved ejection fraction: Code(s): I50.33 - Acute on chronic diastolic (congestive) heart failure Status: Acute Assessment and Plan: multifactorial etiology: worsening renal dysfunction anemia poorly controlled HTN discontinuation of loop diuretics steroid use (and associated fluid retention) Cardiology following on IV diuretics follow I/Os, daily weights, and respiratory status (4) Anemia: Code(s): D64.9 - Anemia, unspecified Status: Chronic Assessment and Plan: chronic issues partly related to CKD but exacerbated by NATIVIDAD and acute illness check iron studies empirically dose with Epogen follow trend of H/H (5) Hypertension: Code(s): I10 - Essential (primary) hypertension Status: Chronic Assessment and Plan: poor control at baseline would avoid overcontrol given her advanced CKD attempt to aim for systolic range of 140 - 160 for now follow trend of hemodynamics (6) Diabetes: Code(s): E11.9 - Type 2 diabetes mellitus without complications Status: Chronic Assessment and Plan: follow accuchecks glycemic control Will continue to follow. History of Present Illness Reason for Consult Consult date: 05/01/21 Reason for consult: acute renal failure (on chronic kidney disease) Chief Complaint Chief complaint: CHF, Acute on chronic renal failure, dyspnea History of Present Illness Narrative: The patient is a 81-year-old female with a past medical history as outlined below presented to [facility] Emergency room with complaints of shortness of breath She states that shortness of breath started almost two weeks ago and has been progressively getting worse since that time. She initially saw her primary care physician for this issue who made a presumptive diagnosis of bronchitis and gave her some inhalers but this did not really seem to improve her symptoms all that much. Her shortness of breath seems worse with exertion as well as whenever she lays flat. Workup and evaluation the emergency room demonstrated the patient to be hemodynamically stable and although she had boat oxygen saturations of 100% on room air, it seemed quite evident that she was labored in her respirations. She denies any other symptoms with regard to chest pain productive cough nausea vomiting diarrhea fever or chills. Her chest x-ray showed evidence of pulmonary vascular congestion highly suggestive of congestive heart failure. She was subsequent admitted to the hospital for further evaluation and therapy along with Cardiology consultation. Since her admission, she has been instituted on IV diuretic therapy which has improved her respiratory and overall volume status but her creatinine has been running somewhat higher than baseline since her admission. Her diuretics have since been discontinued but her creatinine has failed to improve back to its previous baseline. Renal consultation was requested due to her acute kidney injury on top of her baseline kidney disease. Her baseline creatinine runs around 2.02.6 mg/dL presumably secondary to her history of hypertension diabetes, and v
--- NOTE | 2021-05-01 14:57 | PHAR ---
HOME MED VERIFIED PINDOLOL 10MG TABLETS TAKE 2 TABLETS EVERY MORNING
[2021-05-01 17:58] LABS: Glucose Point of Care 81 mg/dl (65-105)
[2021-05-01 17:58] LABS: Glucose Point of Care 58 mg/dl (65-105)
[2021-05-01 20:29] LABS: Glucose Point of Care 100 mg/dl (65-105)
[2021-05-01] MEDS: ATORVASTATIN 10 MG TABLET PO (21:10)
[2021-05-01 23:11] LABS: Glucose Point of Care 139 mg/dl (65-105)
[2021-05-02] VITALS (10 sets, daily range): BP systolic 145–158; BP diastolic 48–62; PULSE 62–66; RESP 16–22; TEMP 36–36.2; O2SAT 93–96
--- NOTE | 2021-05-02 04:07 | PC.NURSE ---
This patient, Shayy Madera, was transferred to [facility] on 05/02/21 at 0405. Personal belongings sent with patient. Report given to Beba. Appropriate documentation sent with patient.
--- NOTE | 2021-05-02 04:14 | PC.NURSE ---
RECEIVED PT FROM IMU PER BED. VOICES NO C/O
[2021-05-02] MEDS: LEVOTHYROXINE SODIUM 88 MCG TABLET PO (06:44)
[2021-05-02] MEDS: HEPARIN SODIUM 5,000 UNITS/ML VIAL 5000 UNITS SUB-Q ×3 (06:44→21:27)
[2021-05-02 07:48] LABS: Glucose Point of Care 85 mg/dl (65-105)
[2021-05-02 08:47] LABS: Basophils Percent Auto 0.4 % (0.2-1.2); Eosinophils Absolute Auto 0.4 K/mm3 (0-0.3); Eosinophils Percent Auto 4.8 % (0-4.4); Hematocrit 27.5 % (37.0-47.0); Hemoglobin 8.7 g/dL (12.0-15.0); Immature Granulocyte Absolute 0.02 K/mm3 (0.00-0.031); Immature Granulocyte Percent A 0.2 % (0-0.5); Lymphocytes Percent Auto 19.8 % (18.3-44.2); Mean Corpuscular HGB Conc 31.6 g/dl (32-36); Mean Corpuscular Volume 91.7 fl (80-100); Mean Platelet Volume 12.1 fl (7.4-10.4); Monocytes Absolute Auto 0.9 K/mm3 (0.1-0.6); Monocytes Percent Auto 10.7 % (2.6-8.5); Neutrophils Absolute Auto 5.2 K/mm3 (1.3-6.7); Neutrophils Percent Auto 64.1 % (45.5-73.1); Platelet Count Result 175 k/mm3 (150-375); Red Cell Distribution Width 15.6 % (11.5-14.5); White Blood Count 8.1 K/mm3 (4.5-10.0)
--- NOTE | 2021-05-02 08:47 | PM.PNCARD ---
Progress Note: A&P Assessment and Plan (1) Acute on chronic heart failure with preserved ejection fraction: Code(s): I50.33 - Acute on chronic diastolic (congestive) heart failure <HILARIA Gomez - Last Filed: 05/02/21 10:56> Status: Acute <HILARIA Gomez - Last Filed: 05/02/21 10:56> Assessment and Plan: Clinically, patient is in mild decompensated heart failure with known preserved ejection fraction. Very cautious diuresis given underlying chronic renal failure slightly worse admission and her most recent baseline available in our system. -accurate input and output, daily weights. -cautious diuresis Bumex 1 mg IV b.i.d.. Renal function stable today. Will continue IV diuresis today and likely shift to p.o. tomorrow. Significant improvement of symptoms since admission. -Daily BMP -Improving, now on room air with no complaints of shortness of breath, no edema <HILARIA Gomez - Last Filed: 05/02/21 10:56> (2) Hypertension associated with type 2 diabetes mellitus: Code(s): E11.59 - Type 2 diabetes mellitus with other circulatory complications; I15.2 - Hypertension secondary to endocrine disorders <HILARIA Gomez - Last Filed: 05/02/21 10:56> Status: Acute <HILARIA Gomez - Last Filed: 05/02/21 10:56> Assessment and Plan: Blood pressure remains uncontrolled which may also be contributing to exacerbation of her heart failure. She has a history of intolerance to multiple medications including metoprolol secondary to bradycardia, clonidine and hydralazine secondary to profound fatigue, acute renal failure with spironolactone, dizziness with doxazosin, emotional side effects and shortness of breath with clonidine. -Lisinopril has been held due to renal failure but this must be balanced with adequate control of her blood pressure. <HILARIA Gomez - Last Filed: 05/02/21 10:56> (3) Troponin level elevated: Code(s): R77.8 - Other specified abnormalities of plasma proteins <HILARIA Gomez - Last Filed: 05/02/21 10:56> Status: Acute <HILARIA Gomez - Last Filed: 05/02/21 10:56> Assessment and Plan: Mild elevation, flat curve although with significant CAD history with prior bypass surgery 2016 but most likely type 2 infarct in setting of the acute on chronic decompensated heart failure, acute on chronic renal failure, severe anemia, and uncontrolled hypertension. Given more frequent exacerbations of heart failure multiple risk factors ischemic evaluation is on reasonable which should be deferred until she is further stabilized at this time. We have no plans for invasive angiography given acute on chronic renal failure unless patient develops symptoms concerning for unstable angina. <HILARIA Gomez - Last Filed: 05/02/21 10:56> (4) Acute renal failure superimposed on stage 4 chronic kidney disease: Code(s): N17.9 - Acute kidney failure, unspecified; N18.4 - Chronic kidney disease, stage 4 (severe) <HILARIA Gomez - Last Filed: 05/02/21 10:56> Status: Acute <HILARIA Gomez - Last Filed: 05/02/21 10:56> Assessment and Plan: As above, cautious diuresis and close observation of renal function and accurate input and output, daily weight. Less than 2 g daily sodium intake. Delicate balance. <HILARIA Gomez - Last Filed: 05/02/21 10:56> (5) Chronic anemia: Code(s): D64.9 - Anemia, unspecified <HILARIA Gomez - Last Filed: 05/02/21 10:56> Status: Chronic <HILARIA Gomez - Last Filed: 05/02/21 10:56> Assessment and Plan: H&H stable - Hgb 8.7 today. Continue aspirin 81 mg daily for now. <HILARIA Gomez - Last Filed: 05/02/21 10:56> (6) CAD (coronary artery disease): Code(s): I25.10 - Atherosclerotic heart disease of [place] coronary artery without angina pectoris <Chri
[2021-05-02] MEDS: BUMETANIDE INJ 1 MG/4 ML VIAL 2 MG IV PUSH ×2 (08:54→16:32)
[2021-05-02] MEDS: amLODIPine BESYLATE 5 MG TABLET 10 MG PO (08:55)
[2021-05-02] MEDS: ASPIRIN 81 MG ENTERIC TABLET PO (08:55)
[2021-05-02] MEDS: EZETIMIBE 10 MG TABLET PO (08:55)
[2021-05-02 09:17] LABS: Albumin Level 4.1 g/dL (3.5-5.1); Anion Gap 10 mmol/L (8-16); Blood Urea Nitrogen 50 mg/dL (7-17); Calcium 9.5 mg/dL (8.4-10.2); Carbon Dioxide 23 mmol/L (22-30); Chloride 107 mmol/L (98-107); Estimated CRCL calculation 14 ml/min; Estimated Glomerular Filt Rate 13; Glucose 105 mg/dL (65-110); Phosphorus 4.4 mg/dL (2.5-4.5); Potassium 4.2 mmol/L (3.4-5.0); Sodium 140 mmol/L (137-145)
--- NOTE | 2021-05-02 09:26 | WPDCDIQUERY2 ---
CDI Query Clarification Request - elevated troponin likely due to CHF trend troponin levels documented by hospitalist. -Troponin level elevated: Mild elevation, flat curve although with significant CAD history with prior bypass surgery 2016 but most likely type 2 infarct in setting of the acute on chronic decompensated heart failure, acute on chronic renal failure, severe anemia, and uncontrolled hypertension and Serial troponins mildly elevated 0.080, 0.076, 0.080 and flat. EKG without acute new ischemic changes although possible inferior OK more prominent, and cannot rule out septal infarction documented in cardiology consultation Please clarify if type 2 infarct has been ruled in or ruled out.
[2021-05-02 11:24] LABS: Glucose Point of Care 110 mg/dl (65-105)
--- NOTE | 2021-05-02 11:30 | PM.IMPN ---
Progress Note: A&P Assessment and Plan (1) Acute exacerbation of CHF (congestive heart failure): Qualifiers: Heart failure type: unspecified Qualified Code(s): I50.9 - Heart failure, unspecified Code(s): I50.9 - Heart failure, unspecified Status: Acute Assessment and Plan: 81 year old female with PMH CAD status post CABG in 2016, diastolic CHF, diabetes and history of CVA with carotid disease arrives complaining of increasing shortness of breath over the last 2 weeks. INITIAL VITALS SHOWED ELEVATED BLOOD PRESSURE 184/83, HEART RATE 65 BEATS PER MINUTE, AFEBRILE, INCREASED RESPIRATORY RATE 22, 100% ON 2 L VIA NASAL CANNULA. Initial labs showed slight leukocytosis at 10,600, slight elevation neutrophils at 74%, normocytic anemia with a hemoglobin 8.8, hematocrit 28%. Normal coag panel. Hyperkalemia 5.4, elevated creatinine at 3.4, BUN 52. Troponin elevated at 0.08, [place] [address]. Chest x-ray on arrival showed findings consistent with CHF exacerbation. The patient was admitted to the hospital for acute CHF exacerbation and elevated troponins with a cardiology consultation. Patient given IV diuresis. Echocardiogram reviewed from September shows ejection fraction of 65% with mild LVH, diastolic dysfunction grade II. Cardiology consulted who states the patient had a type 2 NJ due to acute on chronic CHF exacerbation, acute on chronic renal failure, severe anemia, uncontrolled hypertension. Cardiology has plans for further evaluation for ischemic workup once the patient is more stable. The patient's Bumex had been discontinued a few weeks ago due to worsening renal function which could have caused her acute exacerbation and 6 lb weight gain in 1 week. While in the hospital the patient has been on Bumex 2 mg IV b.i.d. with good urine output and stable creatinine. Will recheck labs in the morning and if stable she most likely can be discharged at that time Continue monitoring overnight. (2) Acute respiratory failure with hypoxemia: Code(s): J96.01 - Acute respiratory failure with hypoxia Status: Acute Assessment and Plan: Patient had acute respiratory failure with hypoxemia secondary to CHF exacerbation. Now patient is 96% on room air with not having any breathing difficulty. Resolved. (3) Elevated troponin: Code(s): R77.8 - Other specified abnormalities of plasma proteins Status: Acute Assessment and Plan: coronary artery disease status post CABG in 2015 Cardiology consulted who states the patient had a type 2 NJ due to acute on chronic CHF exacerbation, acute on chronic renal failure, severe anemia, uncontrolled hypertension. Stable this time and they will perform further ischemic workup once the patient is stable Appreciate cardiology input. (4) Acute on chronic renal failure: Qualifiers: Acute renal failure type: unspecified Chronic kidney disease stage: stage 4 (severe) Qualified Code(s): N17.9 - Acute kidney failure, unspecified; N18.4 - Chronic kidney disease, stage 4 (severe) Code(s): N17.9 - Acute kidney failure, unspecified; N18.9 - Chronic kidney disease, unspecified Status: Acute Assessment and Plan: acute on chronic renal failure states for baseline creatinine 2.3 currently 3.3 likely prerenal due to CHF continue diuresis and monitor renal function. Renal ultrasound shows mild bilateral renal atrophy Nephrology consult and believes NATIVIDAD secondary to acute CHF exacerbation Recommends holding lisinopril for now CKD stage IV presumably due to diabetes, hypertension, vascular disease, and age Appreciate nephrology input (5) Chronic kidney disease, stage 4 (severe): Code(s): N18.4 - Chronic kidney disease, stage 4 (severe)
--- NOTE | 2021-05-02 11:41 | P.PNNP_ITS ---
Progress Note: A&P Assessment and Plan (1) NATIVIDAD (acute kidney injury): Code(s): N17.9 - Acute kidney failure, unspecified Status: Acute Assessment and Plan: * due to #3 and need for IV diuresis to optimize volume status * holding lisinopril for now * renal ultrasound noted - no acute issues (but c/w CKD) * urine electrolytes reviewed * follow renal function and UOP in the context of diuresis (2) Chronic kidney disease, stage IV (severe): Code(s): N18.4 - Chronic kidney disease, stage 4 (severe) Status: Chronic Assessment and Plan: * baseline creatinine appears to run around 2.0 - 2.6mg/dl in the last couple of years * presumably due to diabetes, hypertension, vascular disease, and age * possible new baseline creatinine?? (3) Acute on chronic heart failure with preserved ejection fraction: Code(s): I50.33 - Acute on chronic diastolic (congestive) heart failure Status: Acute Assessment and Plan: * multifactorial etiology: * worsening renal dysfunction * anemia * poorly controlled HTN * discontinuation of loop diuretics * steroid use (and associated fluid retention) * Cardiology following * on IV diuretics * follow I/Os, daily weights, and respiratory status (4) Anemia: Code(s): D64.9 - Anemia, unspecified Status: Chronic Assessment and Plan: * chronic issues * partly related to CKD but exacerbated by NATIVIDAD and acute illness * empirically dose with Epogen * follow trend of H/H (5) Hypertension: Code(s): I10 - Essential (primary) hypertension Status: Chronic Assessment and Plan: * poor control at baseline * would avoid overcontrol given her advanced CKD * attempt to aim for systolic range of 140 - 160 for now * follow trend of hemodynamics (6) Diabetes: Code(s): E11.9 - Type 2 diabetes mellitus without complications Status: Chronic Assessment and Plan: * follow accuchecks * glycemic control Will continue to follow. Subjective Date/time seen: 05/02/21 11:41 Feeling significantly better today -- breathing as well as swelling/edema have improved and she feel relatively comfortable; no other acute issues voiced; no events overnight or earlier this morning. Does admit she still has a nonproductive cough but no worse that what it was. Exam Narrative: General: WD/WN female in NAD Heart: normal S1 and S2; no rub Lungs: decreased at bases Abdomen: soft, nontender, nondistended, positive bowel sounds Extremities: no cyanosis or clubbing; no edema Skin: warm and dry Objective Data Vital Signs Vital Signs: Vital Signs Temp Pulse Resp BP Pulse Ox 05/02/21 08:56 18 96 05/02/21 08:00 64 05/02/21 04:15 63 05/02/21 04:00 36.2 C L 62 18 147/48 H 96 05/02/21 00:00 63 05/01/21 22:50 36.7 C 66 20 154/65 H 99 05/01/21 20:00 36.4 C L 64 20 153/54 H 99 05/01/21 16:00 36.3 C L 67 18 156/52 H 98 05/01/21 14:00 70 05/01/21 12:00 36.6 C 68 24 H 171/50 H 98 Intake/Output Intake/Output: Intake & Output 04/29/21 04/30/21 05/01/21 05/02/21 23:59 23:59 23:59 23:59 Intake Total 1320 240 Output Total 2850 Balance -1530 240 Meds/Results
--- NOTE | 2021-05-02 11:41 | PM.PNNEP ---
Progress Note: A&P Assessment and Plan (1) NATIVIDAD (acute kidney injury): Code(s): N17.9 - Acute kidney failure, unspecified Status: Acute Assessment and Plan: due to #3 and need for IV diuresis to optimize volume status holding lisinopril for now renal ultrasound noted - no acute issues (but c/w CKD) urine electrolytes reviewed follow renal function and UOP in the context of diuresis (2) Chronic kidney disease, stage IV (severe): Code(s): N18.4 - Chronic kidney disease, stage 4 (severe) Status: Chronic Assessment and Plan: baseline creatinine appears to run around 2.0 - 2.6mg/dl in the last couple of years presumably due to diabetes, hypertension, vascular disease, and age possible new baseline creatinine?? (3) Acute on chronic heart failure with preserved ejection fraction: Code(s): I50.33 - Acute on chronic diastolic (congestive) heart failure Status: Acute Assessment and Plan: multifactorial etiology: worsening renal dysfunction anemia poorly controlled HTN discontinuation of loop diuretics steroid use (and associated fluid retention) Cardiology following on IV diuretics follow I/Os, daily weights, and respiratory status (4) Anemia: Code(s): D64.9 - Anemia, unspecified Status: Chronic Assessment and Plan: chronic issues partly related to CKD but exacerbated by NATIVIDAD and acute illness empirically dose with Epogen follow trend of H/H (5) Hypertension: Code(s): I10 - Essential (primary) hypertension Status: Chronic Assessment and Plan: poor control at baseline would avoid overcontrol given her advanced CKD attempt to aim for systolic range of 140 - 160 for now follow trend of hemodynamics (6) Diabetes: Code(s): E11.9 - Type 2 diabetes mellitus without complications Status: Chronic Assessment and Plan: follow accuchecks glycemic control Will continue to follow. Subjective Date/time seen: 05/02/21 11:41 Feeling significantly better today -- breathing as well as swelling/edema have improved and she feel relatively comfortable; no other acute issues voiced; no events overnight or earlier this morning. Does admit she still has a nonproductive cough but no worse that what it was. Exam Narrative: General: WD/WN female in NAD Heart: normal S1 and S2; no rub Lungs: decreased at bases Abdomen: soft, nontender, nondistended, positive bowel sounds Extremities: no cyanosis or clubbing; no edema Skin: warm and dry Objective Data Vital Signs Vital Signs: Vital Signs Temp Pulse Resp BP Pulse Ox 05/02/21 08:56 18 96 05/02/21 08:00 64 05/02/21 04:15 63 05/02/21 04:00 36.2 C L 62 18 147/48 H 96 05/02/21 00:00 63 05/01/21 22:50 36.7 C 66 20 154/65 H 99 05/01/21 20:00 36.4 C L 64 20 153/54 H 99 05/01/21 16:00 36.3 C L 67 18 156/52 H 98 05/01/21 14:00 70 05/01/21 12:00 36.6 C 68 24 H 171/50 H 98 Intake/Output Intake/Output: Intake & Output 04/29/21 04/30/21 05/01/21 05/02/21 23:59 23:59 23:59 23:59 Intake Total 1320 240 Output Total 2850 Balance -1530 240 Meds/Results Medications: Active Medications Generic Name Dose Route Start Last Admin Trade Name Freq PRN Reason Stop Dose Admin Albuterol 2 puff 05/01/21 02:09 Albuterol Sulfate (*Sp) Aerosol 1 Puff INHALATION Q4H PRN shortness of breath or wheezing Amlodipine Besylate 10 mg 05/01/21 09:00 05/02/21 08:55 Amlodipine Besylate 5 Mg Tablet PO 10 mg DAILY [place] Administration Aspirin 81 mg 05/01/21 09:00 05/02/21 08:55 Aspirin 81 Mg Enteric Tablet PO 81 mg DAILY [place] Administration Atorvastatin Calcium 10 mg 05/01/21 21:00 05/01/21 21:10 Atorvastatin 10 Mg Tablet PO 10 mg Q48H [place] Administration Bumetanide 2 mg 05/01/21 09:00 05/02/21 08:54 Bumetanide Inj 1 Mg/4 Ml
[2021-05-02 16:25] LABS: Glucose Point of Care 146 mg/dl (65-105)
[2021-05-02] MEDS: INSULIN HUMAN ISOPHAN/REGULAR 70/30 (*BKC) 100 UNITS/ML 13 UNITS SUB-Q (16:49)
[2021-05-02 21:14] LABS: Glucose Point of Care 152 mg/dl (65-105)
[2021-05-03] VITALS: BP 142/53; PULSE 59; RESP 20; TEMP 36.5; O2SAT 95
[2021-05-03 04:00] VITALS: BP 172/54; PULSE 64; RESP 18; TEMP 36.6; O2SAT 95
[2021-05-03] MEDS: HEPARIN SODIUM 5,000 UNITS/ML VIAL 5000 UNITS SUB-Q (05:59)
[2021-05-03] MEDS: LEVOTHYROXINE SODIUM 88 MCG TABLET PO (06:00)
[2021-05-03 06:04] LABS: Albumin Level 3.7 g/dL (3.5-5.1); Anion Gap 12 mmol/L (8-16); Blood Urea Nitrogen 51 mg/dL (7-17); Calcium 9.4 mg/dL (8.4-10.2); Carbon Dioxide 22 mmol/L (22-30); Chloride 107 mmol/L (98-107); Estimated CRCL calculation 14 ml/min; Estimated Glomerular Filt Rate 14; Glucose 81 mg/dL (65-110); Phosphorus 4.6 mg/dL (2.5-4.5); Potassium 4.3 mmol/L (3.4-5.0); Sodium 141 mmol/L (137-145)
[2021-05-03 07:28] LABS: Glucose Point of Care 74 mg/dl (65-105)
[2021-05-03] MEDS: BUMETANIDE INJ 1 MG/4 ML VIAL 2 MG IV PUSH (07:59)
[2021-05-03] MEDS: ASPIRIN 81 MG ENTERIC TABLET PO (07:59)
[2021-05-03] MEDS: EZETIMIBE 10 MG TABLET PO (07:59)
[2021-05-03] MEDS: amLODIPine BESYLATE 5 MG TABLET 10 MG PO (07:59)
[2021-05-03] MEDS: INSULIN HUMAN ISOPHAN/REGULAR 70/30 (*BKC) 100 UNITS/ML 8 UNITS SUB-Q (08:06)
--- NOTE | 2021-05-03 09:33 | PM.PNCARD ---
Progress Note: A&P Assessment and Plan (1) Acute on chronic heart failure with preserved ejection fraction: Code(s): I50.33 - Acute on chronic diastolic (congestive) heart failure Status: Acute Assessment and Plan: Clinically, patient is in mild decompensated heart failure with known preserved ejection fraction. Very cautious diuresis given underlying chronic renal failure slightly worse admission and her most recent baseline available in our system. -accurate input and output, daily weights. -cautious diuresis Bumex 1 mg IV b.i.d.. Renal function stable today. Will continue IV diuresis today and likely shift to p.o. tomorrow. Significant improvement of symptoms since admission. -Daily BMP -Improving, now on room air with no complaints of shortness of breath, no edema (2) Hypertension associated with type 2 diabetes mellitus: Code(s): E11.59 - Type 2 diabetes mellitus with other circulatory complications; I15.2 - Hypertension secondary to endocrine disorders Status: Acute Assessment and Plan: Blood pressure remains suboptimally controlled acceptable. This may also have contributed to exacerbation of her heart failure. She has a history of intolerance to multiple medications including metoprolol secondary to bradycardia, clonidine and hydralazine secondary to profound fatigue, acute renal failure with spironolactone, dizziness with doxazosin, emotional side effects and shortness of breath with clonidine. -Lisinopril has been held due to renal failure but this must be balanced with adequate control of her blood pressure. Resume lisinopril 10 mg daily. -Outpatient BMP in 1 week. -Advised patient to take Bumex 2 mg twice daily for 2 more days then 1 mg twice daily thereafter. -I would like her to be seen in the office in the next 2 weeks if possible. -resume lisinopril 10 mg daily. -stable from cardiovascular perspective for discharge home. Patient adamant she feels well and would like to go home today and follow up as an outpatient soon. We discussed the pros and cons in this regard, however her lungs are clear on examination, she has no peripheral edema, and she is breathing comfortably. Patient understands risks and benefits in this regard. Comfortable going home as discussed. -disposition per hospitalist service. (3) Troponin level elevated: Code(s): R77.8 - Other specified abnormalities of plasma proteins Status: Acute Assessment and Plan: Mild elevation, flat curve although with significant CAD history with prior bypass surgery 2016 but most likely type 2 infarct in setting of the acute on chronic decompensated heart failure, acute on chronic renal failure, severe anemia, and uncontrolled hypertension. Given more frequent exacerbations of heart failure multiple risk factors ischemic evaluation is on reasonable which should be deferred until she is further stabilized at this time. We have no plans for invasive angiography given acute on chronic renal failure unless patient develops symptoms concerning for unstable angina. (4) Acute renal failure superimposed on stage 4 chronic kidney disease: Code(s): N17.9 - Acute kidney failure, unspecified; N18.4 - Chronic kidney disease, stage 4 (severe) Status: Acute Assessment and Plan: Stable thus far. Tolerating diuretic therapy. (5) Chronic anemia: Code(s): D64.9 - Anemia, unspecified Status: Chronic Assessment and Plan: H&H stable no active bleeding. (6) CAD (coronary artery disease): Code(s): I25.10 - Atherosclerotic heart disease of [place] coronary artery without angina pectoris Status: Acute Assessment and Plan: Continue aspirin, statin. Outpatient ischemic evaluation. Defer to Dr. Morales in the office regarding timing. 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
[2021-05-03 09:34] VITALS: BP 124/48; PULSE 72; RESP 16; O2SAT 98
--- NOTE | 2021-05-03 10:02 | P.PNNP_ITS ---
Progress Note: A&P Assessment and Plan (1) NATIVIDAD (acute kidney injury): Code(s): N17.9 - Acute kidney failure, unspecified Status: Acute Assessment and Plan: * due to #3 and need for IV diuresis to optimize volume status * holding lisinopril for now * renal ultrasound noted - no acute issues (but c/w CKD) * urine electrolytes reviewed * follow renal function and UOP in the context of diuresis (2) Chronic kidney disease, stage IV (severe): Code(s): N18.4 - Chronic kidney disease, stage 4 (severe) Status: Chronic Assessment and Plan: * baseline creatinine appears to run around 2.0 - 2.6mg/dl in the last couple of years * presumably due to diabetes, hypertension, vascular disease, and age * possible new baseline creatinine?? (3) Acute on chronic heart failure with preserved ejection fraction: Code(s): I50.33 - Acute on chronic diastolic (congestive) heart failure Status: Acute Assessment and Plan: * multifactorial etiology: * worsening renal dysfunction * anemia * poorly controlled HTN * discontinuation of loop diuretics * steroid use (and associated fluid retention) * Cardiology following * on IV diuretics - switch to oral medication * follow I/Os, daily weights, and respiratory status (4) Anemia: Code(s): D64.9 - Anemia, unspecified Status: Chronic Assessment and Plan: * chronic issues * partly related to CKD but exacerbated by NATIVIDAD and acute illness * empirically dose with Epogen * follow trend of H/H (5) Hypertension: Code(s): I10 - Essential (primary) hypertension Status: Chronic Assessment and Plan: * poor control at baseline * would avoid overcontrol given her advanced CKD * attempt to aim for systolic range of 140 - 160 for now * follow trend of hemodynamics (6) Diabetes: Code(s): E11.9 - Type 2 diabetes mellitus without complications Status: Chronic Assessment and Plan: * follow accuchecks * glycemic control Will continue to follow. Subjective Date/time seen: 05/03/21 10:02 Asking about possible discharge -- breathinkg/swelling/edema all appears s ignificant better in comparison to admission; still has some SOB with exertional activity but she states it is tolerable; no issues/events overnight or earlier this morning. Exam Narrative: General: WD/WN female in NAD Heart: normal S1 and S2; no rub Lungs: decreased at bases Abdomen: soft, nontender, nondistended, positive bowel sounds Extremities: no cyanosis or clubbing; no edema Skin: warm and intact Objective Data Vital Signs Vital Signs: Vital Signs Temp Pulse Resp BP Pulse Ox 05/03/21 09:34 72 16 124/48 L 98 05/03/21 04:00 36.6 C 64 18 172/54 H 95 05/03/21 00:00 36.5 C 59 L 20 142/53 H 95 05/02/21 23:24 93 05/02/21 20:00 36.2 C L 65 22 H 156/61 H 95 05/02/21 14:00 36.0 C L 65 18 158/62 H 94 05/02/21 12:00 65 05/02/21 10:35 36.1 C L 66 16 145/50 H 96 Intake/Output Intake/Output: Intake & Output 04/30/21 05/01/21 05/02/21 05/03/21 23:59 23:59 23:59 23:59 Intake Total 1320 1480 390 Output Total 2850 Balance -1530 1480 390 Meds/Results Medications: Active Medications
--- NOTE | 2021-05-03 10:02 | PM.PNNEP ---
Progress Note: A&P Assessment and Plan (1) NATIVIDAD (acute kidney injury): Code(s): N17.9 - Acute kidney failure, unspecified Status: Acute Assessment and Plan: due to #3 and need for IV diuresis to optimize volume status holding lisinopril for now renal ultrasound noted - no acute issues (but c/w CKD) urine electrolytes reviewed follow renal function and UOP in the context of diuresis (2) Chronic kidney disease, stage IV (severe): Code(s): N18.4 - Chronic kidney disease, stage 4 (severe) Status: Chronic Assessment and Plan: baseline creatinine appears to run around 2.0 - 2.6mg/dl in the last couple of years presumably due to diabetes, hypertension, vascular disease, and age possible new baseline creatinine?? (3) Acute on chronic heart failure with preserved ejection fraction: Code(s): I50.33 - Acute on chronic diastolic (congestive) heart failure Status: Acute Assessment and Plan: multifactorial etiology: worsening renal dysfunction anemia poorly controlled HTN discontinuation of loop diuretics steroid use (and associated fluid retention) Cardiology following on IV diuretics - switch to oral medication follow I/Os, daily weights, and respiratory status (4) Anemia: Code(s): D64.9 - Anemia, unspecified Status: Chronic Assessment and Plan: chronic issues partly related to CKD but exacerbated by NATIVIDAD and acute illness empirically dose with Epogen follow trend of H/H (5) Hypertension: Code(s): I10 - Essential (primary) hypertension Status: Chronic Assessment and Plan: poor control at baseline would avoid overcontrol given her advanced CKD attempt to aim for systolic range of 140 - 160 for now follow trend of hemodynamics (6) Diabetes: Code(s): E11.9 - Type 2 diabetes mellitus without complications Status: Chronic Assessment and Plan: follow accuchecks glycemic control Will continue to follow. Subjective Date/time seen: 05/03/21 10:02 Asking about possible discharge -- breathinkg/swelling/edema all appears significant better in comparison to admission; still has some SOB with exertional activity but she states it is tolerable; no issues/events overnight or earlier this morning. Exam Narrative: General: WD/WN female in NAD Heart: normal S1 and S2; no rub Lungs: decreased at bases Abdomen: soft, nontender, nondistended, positive bowel sounds Extremities: no cyanosis or clubbing; no edema Skin: warm and intact Objective Data Vital Signs Vital Signs: Vital Signs Temp Pulse Resp BP Pulse Ox 05/03/21 09:34 72 16 124/48 L 98 05/03/21 04:00 36.6 C 64 18 172/54 H 95 05/03/21 00:00 36.5 C 59 L 20 142/53 H 95 05/02/21 23:24 93 05/02/21 20:00 36.2 C L 65 22 H 156/61 H 95 05/02/21 14:00 36.0 C L 65 18 158/62 H 94 05/02/21 12:00 65 05/02/21 10:35 36.1 C L 66 16 145/50 H 96 Intake/Output Intake/Output: Intake & Output 04/30/21 05/01/21 05/02/21 05/03/21 23:59 23:59 23:59 23:59 Intake Total 1320 1480 390 Output Total 2850 Balance -1530 1480 390 Meds/Results Medications: Active Medications Generic Name Dose Route Start Last Admin Trade Name Freq PRN Reason Stop Dose Admin Albuterol 2 puff 05/01/21 02:09 Albuterol Sulfate (*Sp) Aerosol 1 Puff INHALATION Q4H PRN shortness of breath or wheezing Amlodipine Besylate 10 mg 05/01/21 09:00 05/03/21 07:59 Amlodipine Besylate 5 Mg Tablet PO 10 mg DAILY [facility] Administration Aspirin 81 mg 05/01/21 09:00 05/03/21 07:59 Aspirin 81 Mg Enteric Tablet PO 81 mg DAILY [facility] Administration Atorvastatin Calcium 10 mg 05/01/21 21:00 05/01/21 21:10 Atorvastatin 10 Mg Tablet PO 10 mg Q48H [facility] Administration Bumetanide 1 mg 05/03/21 17:00 Bumetanide 1 Mg Tablet PO BID [facility] Dextrose 12.5 gm 05/01/21 1
--- NOTE | 2021-05-03 10:44 | PM.DS ---
DS: Admitting Diagnosis Discharge Date 05/03/21 Admitting Diagnosis SOB, leg swelling DS: Discharge Diagnosis Discharge Diagnosis (1) Acute exacerbation of CHF (congestive heart failure): Qualifiers: Heart failure type: unspecified Qualified Code(s): I50.9 - Heart failure, unspecified Code(s): I50.9 - Heart failure, unspecified Status: Acute Assessment and Plan: 81 year old female with PMH CAD status post CABG in 2016, diastolic CHF, diabetes and history of CVA with carotid disease arrives complaining of increasing shortness of breath over the last 2 weeks. INITIAL VITALS SHOWED ELEVATED BLOOD PRESSURE 184/83, HEART RATE 65 BEATS PER MINUTE, AFEBRILE, INCREASED RESPIRATORY RATE 22, 100% ON 2 L VIA NASAL CANNULA. Initial labs showed slight leukocytosis at 10,600, slight elevation neutrophils at 74%, normocytic anemia with a hemoglobin 8.8, hematocrit 28%. Normal coag panel. Hyperkalemia 5.4, elevated creatinine at 3.4, BUN 52. Troponin elevated at 0.08, [place] [address]. Chest x-ray on arrival showed findings consistent with CHF exacerbation. The patient was admitted to the hospital for acute CHF exacerbation and elevated troponins with a cardiology consultation. Patient given IV diuresis. Echocardiogram reviewed from September shows ejection fraction of 65% with mild LVH, diastolic dysfunction grade II. Cardiology consulted who states the patient had a type 2 SC due to acute on chronic CHF exacerbation, acute on chronic renal failure, severe anemia, uncontrolled hypertension. Cardiology has plans for further evaluation for ischemic workup once the patient is more stable. The patient's Bumex had been discontinued a few weeks ago due to worsening renal function which could have caused her acute exacerbation and 6 lb weight gain in 1 week. While in the hospital the patient has been on Bumex 2 mg IV b.i.d. with good urine output and stable creatinine. Discussed with the digital marketing analyst and machine cage maker about discharge medications and they both agreed with discharging her on Bumex 1.5 mg daily. She was given CHF warning and instructions to check weights daily. Told to follow-up with the digital marketing analyst in 1 week and machine cage maker in 1 week. Follow up with PCP in 1 week. Return to ER warnings given. The patient understands and agrees the plan all questions answered. (2) Acute respiratory failure with hypoxemia: Code(s): J96.01 - Acute respiratory failure with hypoxia Status: Acute Assessment and Plan: Patient had acute respiratory failure with hypoxemia secondary to CHF exacerbation. Now patient is 100% on room air with not having any breathing difficulty. Resolved. (3) Elevated troponin: Code(s): R77.8 - Other specified abnormalities of plasma proteins Status: Acute Assessment and Plan: coronary artery disease status post CABG in 2015 Cardiology consulted who states the patient had a type 2 SC due to acute on chronic CHF exacerbation, acute on chronic renal failure, severe anemia, uncontrolled hypertension. Stable this time and they will perform further ischemic workup once the patient is stable (4) Acute on chronic renal failure: Qualifiers: Acute renal failure type: unspecified Chronic kidney disease stage: stage 4 (severe) Qualified Code(s): N17.9 - Acute kidney failure, unspecified; N18.4 - Chronic kidney disease, stage 4 (severe) Code(s): N17.9 - Acute kidney failure, unspecified; N18.9 - Chronic kidney disease, unspecified Status: Acute Assessment and Plan: acute on chronic renal failure states for baseline creatinine 2.3 currently 3.3 likely prerenal due to CHF continue diuresis and monitor renal function. Renal ultrasound shows mild bilateral renal atrophy Nephrology consult and bel
[2021-05-03] MEDS: lisinopriL 10 MG TABLET PO (10:51)
[2021-05-03 11:44] LABS: Glucose Point of Care 95 mg/dl (65-105)
== END 2021-05-03 15:00 | disposition home or self-care (01) | DRG 280 ==
LOC: ANHED 18:43 → ANHIMU 23:09 → ANH2MED 05-02 07:07 → ANHIMU 05-05 14:23
PROVIDERS: Admitting Provider Internal Medicine; Emergency Provider Emergency Medicine; PCP Family Medicine; Visit Provider Physician Assistant
DX: I13.0 Hypertensive heart and chronic kidney disease with heart failure and stage 1 through stage 4 chronic kidney disease, or unspecified chronic kidney disease (principal); I50.33 Acute on chronic diastolic (congestive) heart failure; I21.A1 Myocardial infarction type 2; J96.01 Acute respiratory failure with hypoxia; N17.9 Acute kidney failure, unspecified; N18.4 Chronic kidney disease, stage 4 (severe); E11.22 Type 2 diabetes mellitus with diabetic chronic kidney disease; E78.2 Mixed hyperlipidemia; E11.40 Type 2 diabetes mellitus with diabetic neuropathy, unspecified; E11.59 Type 2 diabetes mellitus with other circulatory complications; I15.2 Hypertension secondary to endocrine disorders; D63.8 Anemia in other chronic diseases classified elsewhere; I25.10 Atherosclerotic heart disease of native coronary artery without angina pectoris; E03.9 Hypothyroidism, unspecified; E87.5 Hyperkalemia; R77.8 Other specified abnormalities of plasma proteins; Z23 Encounter for immunization; Z79.4 Long term (current) use of insulin; Z79.82 Long term (current) use of aspirin; Z79.899 Other long term (current) drug therapy; Z86.73 Personal history of transient ischemic attack (TIA), and cerebral infarction without residual deficits; Z95.1 Presence of aortocoronary bypass graft
CPT/HCPCS: 36415; 71045; 76775; 80048; 80069; 82570; 82948; 83735; 83880; 84300; 84484; 84540; 85025; 85610; 85730; 85999; 86335; 90471; 90653; 93005; 94640; 96372; 96374; 96376; 97161; 97165; 99285; A9270; G0008; G0378; J1644; J1815

== ENCOUNTER 2022-04-17 07:33 | Outpatient (CLI) | payer MEDICARE, SELFPAY ==
--- NOTE | ~2022-04-17 | US_ITS ---
EXAMINATION: US retroperitoneal duplex ltd DATE: 04/17/2022 08:40 INDICATION: hypertension TECHNIQUE: Multiple grayscale, color Doppler, and pulsed Doppler images of the kidneys and renal isabel pepper were obtained. COMPARISON: 05/01/2021 FINDINGS: The aorta peak systolic velocity is 122 cm/s. The right renal artery peak systolic velocity is 121 cm /s in the proximal segment, 115 cm/s in the mid segment, and 63 cm/s in the distal segment. The left renal artery peak systolic velocity is 76 cm/s in the proximal segment, 58 cm/s in the mid segment, a nd 53 cm/s in the distal segment. IMPRESSION: 1. No Doppler evidence of renal artery stenosis. Reviewed, dictated and finalized at location A. 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
== END 2022-04-17 07:34 | disposition home or self-care (01) ==
LOC: ANHIMG 07:34
PROVIDERS: PCP Emergency Medicine; Visit Provider Internal Medicine Cardiovascular Disease
DX: I10 Essential (primary) hypertension (principal)
CPT/HCPCS: 93976

== ENCOUNTER → 2023-02-04 12:29 | Outpatient (CLI) | payer MEDICARE, SELFPAY ==
--- NOTE | ~2023-02-04 | XR_ITS ---
XR shoulder LT min 2V DATE: 02/04/2023 12:38 INDICATION: Left shoulder pain. No recent injury. TECHNIQUE: 4 views COMPARISON: None FINDINGS: Status post sternotomy. Aortic arch calcification. There is diffuse osteopenia. There is mild degenerative change since some calcification of the left coracoclavicular joint. There is calcification of the rotator cuff consistent with rotator cuff calcific tendinitis. No fracture, dislocation, periosteal reaction or bone destruction of the left shoulder. IMPRESSION: Left rotator cuff calcific tendinitis Mild degenerative change and calcification at the left acromioclavicular joint Osteopenia Status post sternotomy Aortic atherosclerosis Reviewed, dictated and finalized at location B.
== END ==
PROVIDERS: PCP Emergency Medicine; Visit Provider Emergency Medicine
DX: I70.0 Atherosclerosis of aorta (principal); M85.88 Other specified disorders of bone density and structure, other site; M75.32 Calcific tendinitis of left shoulder; M19.012 Primary osteoarthritis, left shoulder
CPT/HCPCS: 73030

== ENCOUNTER 2023-02-04 12:52 | Outpatient (CLI) | payer MEDICARE, SELFPAY ==
[2023-02-04 13:47] LABS: Basophils Absolute Auto 0.1 K/mm3 (0.0-0.1); Basophils Percent Auto 0.6 % (0.2-1.2); Eosinophils Absolute Auto 0.2 K/mm3 (0-0.3); Eosinophils Percent Auto 2.7 % (0-4.4); Hematocrit 33.6 % (37.0-47.0); Hemoglobin 10.5 g/dL (12.0-15.0); Immature Granulocyte Absolute 0.03 K/mm3 (0.00-0.031); Immature Granulocyte Percent A 0.3 % (0-0.5); Lymphocytes Absolute Auto 1.99 K/mm3 (0.9-3.2); Lymphocytes Percent Auto 22.4 % (18.3-44.2); Mean Corpuscular HGB Conc 31.3 g/dl (32-36); Mean Corpuscular Volume 92.8 fl (80-100); Mean Platelet Volume 10.6 fl (7.4-10.4); Monocytes Absolute Auto 0.8 K/mm3 (0.1-0.6); Monocytes Percent Auto 9.1 % (2.6-8.5); Neutrophils Absolute Auto 5.8 K/mm3 (1.3-6.7); Neutrophils Percent Auto 64.9 % (45.5-73.1); Platelet Count Result 277 k/mm3 (150-375); Red Blood Count 3.62 M/mm3 (4.2-5.4); Red Cell Distribution Width 14.5 % (11.5-14.5); White Blood Count 8.9 K/mm3 (4.5-10.0)
[2023-02-04 14:34] LABS: Creatinine Urine 111.4 mg/dL
[2023-02-04 14:47] LABS: Hemoglobin A1C 6.2 % (<5.7)
[2023-02-04 15:11] LABS: Total Protein Urine Random 310 mg/dL; Ur Ttl Prot Creatinine Ratio 2.78 mg/mg (0-0.20)
[2023-02-04 16:40] LABS: Albumin Level 4.3 g/dL (3.5-5.1); Anion Gap 10 mmol/L (8-16); Blood Urea Nitrogen 57 mg/dL (7-17); Calcium 9.6 mg/dL (8.4-10.2); Carbon Dioxide 22 mmol/L (22-30); Chloride 109 mmol/L (98-107); Cholesterol 168 mg/dL (0-200); Estimated Glomerular Filt Rate 14; Glucose 129 mg/dL (65-110); HDL Direct 56 mg/dL; Phosphorus 4.3 mg/dL (2.5-4.5); Potassium 4.9 mmol/L (3.4-5.0); Sodium 141 mmol/L (137-145); Triglycerides 153 mg/dL (<150)
[2023-02-04 16:50] LABS: LDL Cholesterol Direct 75 mg/dL
== END 2023-02-04 12:53 | disposition home or self-care (01) ==
PROVIDERS: PCP Emergency Medicine; Visit Provider Emergency Medicine
DX: N18.5 Chronic kidney disease, stage 5 (principal); E11.9 Type 2 diabetes mellitus without complications; E78.2 Mixed hyperlipidemia
CPT/HCPCS: 36415; 73030; 80061; 80069; 82570; 83036; 84156; 85025

== ENCOUNTER 2023-05-29 09:52 | Outpatient (CLI) | payer MEDICARE, SELFPAY ==
--- NOTE | ~2023-05-29 | MM_ITS ---
EXAMINATION: MM screening geoffrey BI w tammie HISTORY: Screening mammogram TECHNIQUE: Craniocaudal and mediolateral oblique 3-D tomosynthesis images were obtained and synthetic 2-D images were generated. CAD analysis was submitted and interpreted. COMPARISON: 04/07/2021, 04/16/2019 bilateral screening mammogram examinations BREAST PARENCHYMAL COMPOSITION: The breasts are extremely dense, which lowers the sensitivity of mamm ography. The urinary bladder and 05/28/2023 FINDINGS: Scattered bilateral benign calcifications and prominent arterial calcifications. There is n o evidence of suspicious mass, calcification, or architectural distortion to suggest malignancy in ei ther breast. There has been no suspicious interval change. IMPRESSION: 1. No mammographic evidence of malignancy. 2. Recommend routine screening mammography in one year. BI-RADS Category 2: Benign finding(s). Reviewed, dictated and finalized at location A. MOTIVE WORKER
== END 2023-05-29 09:53 | disposition home or self-care (01) ==
LOC: ANHIMG 09:55
PROVIDERS: PCP Emergency Medicine; Visit Provider Emergency Medicine
DX: Z12.31 Encounter for screening mammogram for malignant neoplasm of breast (principal)
CPT/HCPCS: 77063; 77067

== ENCOUNTER 2023-09-09 07:04 | Inpatient (IN) | payer MEDICARE, SELFPAY ==
[2023-09-09] VITALS (16 sets, daily range): BP systolic 161–204; BP diastolic 42–175; PULSE 54–63; RESP 18–30; TEMP 36.2–36.6; O2SAT 90–100; BMI 31.7
--- NOTE | ~2023-09-09 | US_ITS ---
US venous doppler [facility] DATE: 09/10/2023 14:35 INDICATION: Lower extremity edema TECHNIQUE: Real-time and color flow imaging and Doppler analysis of the veins of the lower extremitie s COMPARISON: None FINDINGS: The greater saphenous veins are patent. There is spontaneous and phasic flow and normal aug mentation and color flow signal and normal compression of the deep veins of both lower extremities. Right popliteal cyst measures up to 5 cm dimension. Left popliteal cyst measures up to 5.8 cm dimension. IMPRESSION: No evidence of deep venous thrombosis of the lower extremities Bilateral popliteal cysts Reviewed, dictated and finalized at Location A. Reviewed, dictated and finalized at location B.
--- NOTE | ~2023-09-09 | XR_ITS ---
Portable chest x-ray Comparison: 09/09/2023 Clinical History: Shortness of breath Findings: There is mild bilateral haziness, suggestive of mild pulmonary edema. Probable minimal lef t pleural effusion. Cardiomediastinal silhouette is stable. Bones and soft tissues are unremarkable. Impression: Probable mild pulmonary edema and minimal left pleural effusion. Reviewed, dictated and finalized at [facility]. Impression: Probable mild pulmonary edema and minimal left pleural effusion.
--- NOTE | ~2023-09-09 | XR_ITS ---
EXAMINATION: XR chest 2V DATE: 09/09/2023 07:57 INDICATION: Shortness of breath. TECHNIQUE: Frontal and lateral views of the chest were obtained. COMPARISON: None. FINDINGS: There is a diffuse interstitial pattern in the lungs, consistent with mild pulmonary edema. No pleural effusion or pneumothorax. Cardiomegaly is noted. Median sternotomy wires are noted. Surgi jake clips in the right upper quadrant are likely from cholecystectomy. IMPRESSION: 1. Mild pulmonary edema. 2. Cardiomegaly. Reviewed, dictated and finalized at location A.
--- NOTE | 2023-09-09 07:05 | ECG_ITS ---
Measurements Intervals [place] Rate: 57 P: -30 AK: 166 QRS: -26 QRSD: 102 T: 119 QT: 438 QTc: 429 Interpretive Statements SINUS BRADYCARDIA LOW QRS VOLTAGE IN PRECORDIAL LEADS [QRS DEFLECTION < 1.0 mV IN CHEST LEADS] ANTEROSEPTAL MYOCARDIAL INFARCTION , OF INDETERMINATE AGE [40+ ms Q WAVE IN V1-V4] PREVIOUS INFERIOR INFARCTION MODERATE T-WAVE ABNORMALITY, CONSIDER LATERAL ISCHEMIA [-0.1+ mV T WAVE IN I/aVL/V5/V6] ABNORMAL ECG COMPARED TO ECG 04/30/2021 18:09:59 SINUS BRADYCARDIA NOW PRESENT, NO PVCS Electronically Signed On 09-09-2023 13:08:50 CDT by Cordell Dunaway M.D.
[2023-09-09 07:44] LABS: Basophils Percent Auto 0.4 % (0.2-1.2); Eosinophils Absolute Auto 0.3 K/mm3 (0-0.3); Eosinophils Percent Auto 3.2 % (0-4.4); Hematocrit 28.8 % (37.0-47.0); Immature Granulocyte Absolute 0.05 K/mm3 (0.00-0.031); Immature Granulocyte Percent A 0.5 % (0-0.5); Lymphocytes Absolute Auto 1.83 K/mm3 (0.9-3.2); Lymphocytes Percent Auto 17.6 % (18.3-44.2); Mean Corpuscular HGB Conc 31.3 g/dl (32-36); Mean Corpuscular Hemoglobin 29.4 pg (26-34); Mean Corpuscular Volume 94.1 fl (80-100); Mean Platelet Volume 10.5 fl (7.4-10.4); Monocytes Absolute Auto 1.2 K/mm3 (0.1-0.6); Monocytes Percent Auto 11.4 % (2.6-8.5); Neutrophils Percent Auto 66.9 % (45.5-73.1); Platelet Count Result 294 k/mm3 (150-375); Red Blood Count 3.06 M/mm3 (4.2-5.4); Red Cell Distribution Width 14.6 % (11.5-14.5); White Blood Count 10.4 K/mm3 (4.5-10.0)
[2023-09-09] MEDS: FUROSEMIDE INJ 40 MG/4 ML VIAL IV PUSH (07:46)
[2023-09-09 07:51] LABS: Partial Thromboplastin Time 23.8 Seconds (22.3-36.8)
[2023-09-09 07:52] LABS: Alanine Aminotransferase 23 U/L (6-35); Albumin Level 3.8 g/dL (3.5-5.1); Alkaline Phosphatase 52 U/L (38-126); Anion Gap 8 mmol/L (4-12); Aspartate Amino Transferase 33 U/L (14-36); Bilirubin,Total 0.4 mg/dL (0.2-1.3); Blood Urea Nitrogen 43 mg/dL (7-17); Calcium 9.1 mg/dL (8.4-10.2); Carbon Dioxide 21 mmol/L (22-30); Chloride 109 mmol/L (98-107); Estimated CRCL calculation 13 ml/min; Estimated Glomerular Filt Rate 14; Glucose 124 mg/dL (65-110); Potassium 3.8 mmol/L (3.4-5.0); Sodium 138 mmol/L (137-145)
[2023-09-09 08:06] LABS: NT Pro B Type Natriuretic Pept > 30000 pg/mL (19.9-100); Troponin I 0.099 ng/mL (0.000-0.034)
[2023-09-09 08:21] LABS: Influenza A QL RT-PCR Negative (Negative); Influenza B QL RT-PCR Negative (Negative); RSV RNA, RT-PCR Negative (Negative); SARS-CoV-2 RNA PCR Negative (Negative)
--- NOTE | 2023-09-09 09:13 | ED.SOB ---
HPI - SOB/Dyspnea General Chief Complaint: Shortness of Breath/Dyspnea Stated Complaint: sob Time Seen by Provider: 09/09/23 07:18 Source: patient Mode of arrival: wheelchair Limitations: no limitations History of Present Illness HPI Narrative: 83-year-old with a history of CAD status post CABG, CKD, hypertension, hyperlipidemia here with complaints of shortness of breath for last 3 days. Patient states that given the minimal ambulation or lying down flat get extremely short of breath. Has occasional cough which is nonproductive. No history of fever or chills. Denies any chest pain. Patient states that she forgot to take her diuretic yesterday MD elicited complaint: shortness of breath Pertinent past history: congestive heart failure Onset (ago): day(s) (3) Timing: constant Severity: moderate Exacerbating factors: lying flat Known history of: congestive heart failure Associated symptoms: denies other symptoms Related Data Home Medications Medication Instructions Recorded Confirmed aspirin 81 mg tablet,delayed 81 mg PO DAILY 05/05/19 07/31/23 release clopidogrel 75 mg tablet 75 mg PO DAILY 07/17/21 07/31/23 cholecalciferol (vitamin D3) 25 50 mcg PO DAILY 04/27/22 07/31/23 mcg (1,000 unit) capsule Allergies Allergy/AdvReac Type Severity Reaction Status Date / Time Penicillins Allergy Unknown Skin Verified 07/31/23 10:42 Reaction pravastatin Allergy Dizziness Verified 07/31/23 10:42 Androgenic Anabolic Steroid AdvReac Unknown Loopy Verified 07/31/23 10:42 mirtazapine AdvReac Unknown sedate Verified 07/31/23 10:42 prednisone AdvReac Unknown BLOOD Verified 07/31/23 10:42 SUGARS OUT OF CONTROL STEROIDS AdvReac Severe MAKES Uncoded 07/31/23 10:42 SUGARS OUT OF CONTROL Review of Systems Review of Systems: All systems reviewed & are unremarkable except as noted in HPI and below Constitutional: Constitutional: Reports no additional constitutional complaints Eyes: Eyes: Reports no additional eye complaints ENT: Reports system reviewed and no additional complaints, except as documented Cardiovascular: Cardiovascular: Reports no additional cardiovascular complaints Respiratory: Respiratory: Reports as per HPI Gastrointestinal: Gastrointestinal: Reports no additional gastrointestinal complaints Musculoskeletal: Musculoskeletal: Reports no additional musculoskeletal complaints Integumentary/Breasts: Skin/Breast: Reports system reviewed and no additional complaints, except as docu Neurologic: Reports system reviewed and no additional complaints, except as documented PMF Past Medical History Medical History CAD (coronary artery disease) CHF (congestive heart failure) Chronic anemia CKD (chronic kidney disease) Essential (primary) hypertension Gastro-esophageal reflux disease without esophagitis Hypothyroidism Mixed hyperlipidemia Obstructive sleep apnea (adult) (pediatric) Type 2 diabetes mellitus with diabetic nephropathy Surgical History Surgical History H/O: hysterectomy History of appendectomy Hx of cholecystectomy S/P CABG x 4 Family History Family History Mother Diabetes mellitus Hypertension Leukemia Father Family history of cardiovascular disease Diabetes mellitus Acute myocardial infarction, Onset Age: 63 Family history of lung cancer Sibling Family history of cardiovascular disease Family history of kidney disease Diabetes mellitus Family history of coronary artery disease Family history of congestive heart failure Social History Social History Social History: Caffeine-diet soda Smoking status: Never smoker Second hand tobacco smoke exposure: No Alcohol intake: never Substance use: never Do You Feel Safe in yo
[2023-09-09 09:37] LABS: Glucose Point of Care 131 mg/dl (65-105)
[2023-09-09 12:21] LABS: Glucose Point of Care 118 mg/dl (65-105)
[2023-09-09 12:51] LABS: Troponin I 0.111 ng/mL (0.000-0.034)
--- NOTE | 2023-09-09 15:42 | ADMGEN ---
This patient, Shayy Madera, was admitted to IMU Room 212-01. Patient/family oriented to hospital policies and general routines including ID bracelet, bed and alarms, visiting hours, pain management, procedures, bathroom and other care routines, personal items, smoking policy, room service/diet, and visiting hours. Information on how to activate the Rapid Response Team has been discussed. Patient/Family are encouraged to report perceived risks to care and to ask questions if they do not understand what they are told or what they should do.
--- NOTE | 2023-09-09 15:55 | PM.IMHP ---
H&P: HPI History of Present Illness Date/Time: 09/09/23 17:50 Chief Complaint: Shortness of breath. Narrative: This is an 83-year-old female with coronary artery disease, diastolic dysfunction, hypertension, dyslipidemia, insulin-dependent type 2 diabetes mellitus, chronic kidney disease, anemia, hypothyroidism, mild sleep apnea, and other comorbidities who presented to the emergency department for evaluation of shortness of breath. The patient provides the following history. She gives a 3 day history of increasing dyspnea on lesser and lesser exertion, nonproductive cough, orthopnea, and occasional tightness in the mid chest with activity, better with rest. It is now to the point where she is getting short of breath with day-to-day activities. She denies fever, sinus congestion, sore throat, nausea, vomiting, pleuritic pain, palpitations, syncope, near-syncope, and sweats. In the ED: She was afebrile on arrival. Blood pressures have been consistently in the 160s to 180s systolic. Labs were significant for a WBC count of 10.4, hemoglobin 9.0, BUN 43, creatinine 3.20, proBNP greater than 30,000, troponin 0.099. She tested negative for flu, RSV, and COVID. Chest x-ray showed mild pulmonary edema and cardiomegaly. EKG showed sinus bradycardia with low QRS voltage in precordial leads, indeterminate age anteroseptal myocardial infarction, moderate T-wave abnormalities in the lateral leads. She was given 40 mg IV furosemide and is being admitted in this setting for further treatment and evaluation. Review of Systems Review of Systems: Twelve systems were reviewed and are negative except for as per HPI. [facility] Past Medical History Medical History (Updated 09/10/23 @ 00:44 by Fely Manzo PA-C) Bilateral stenosis of carotid arteries greater than 50% Chronic anemia Chronic kidney disease Coronary artery disease Diastolic dysfunction Essential (primary) hypertension Gastro-esophageal reflux disease without esophagitis Hypothyroidism Mixed hyperlipidemia Obstructive sleep apnea Mild, patient was told she did not need a CPAP. 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 Vitamin D deficiency Surgical History Surgical History History of appendectomy History of cholecystectomy History of four vessel coronary artery bypass graft History of hysterectomy Family History Family History Mother Diabetes mellitus Hypertension Leukemia Father Family history of cardiovascular disease Diabetes mellitus Acute myocardial infarction, Onset Age: 63 Family history of lung cancer Sibling Family history of cardiovascular disease Family history of kidney disease Diabetes mellitus Family history of coronary artery disease Family history of congestive heart failure Social History Social History (Updated 09/10/23 @ 00:40 by Fely Manzo PA-C) Social History: Surrogate medical decision maker: Adilene Leung, daughter. Code status: Full code. Smoking status: Never smoker Second hand tobacco smoke exposure: No Alcohol intake: never Substance use: never Do You Feel Safe in your Home?: Yes Lack of Transportation: No Lack of Food: Never True Current Housing: I Have Housing Concerned About Future Housing: No Difficulty Paying Gas/Electric Bills: No Difficulty Paying for Meds: No Currently Unemployed: No Education: High School Diploma/GED Difficulty w/ Childcare or Family Care: No Spiritual care concerns: No Meds Home Medications and Allergies Home Medications Medication Instructions Recorded Confirmed Type aspirin 81 mg tablet,delayed 81 mg PO HS 05/05/19 09/09/23 History release albuterol sulfate 90 mcg/actuation See Rx Instructions .Route 05/22/21 09/09/23 Rx aerosol inhaler .COMPLEX #18 grams
[2023-09-09] MEDS: amLODIPine BESYLATE 5 MG TABLET 10 MG PO (16:27)
[2023-09-09] MEDS: lisinopriL 20 MG TABLET PO (16:27)
[2023-09-09 16:43] LABS: Glucose Point of Care 113 mg/dl (65-105)
[2023-09-09 21:13] LABS: Glucose Point of Care 149 mg/dl (65-105)
[2023-09-10] VITALS (21 sets, daily range): BP systolic 175–198; BP diastolic 40–68; PULSE 56–65; RESP 18–28; TEMP 36.3–36.8; O2SAT 92–98
--- NOTE | 2023-09-10 | ECHO_ITS ---
Patient Info Name: Shayy Madera Age: 83 years : 1940 Gender: Female Ht: 63 in Wt: 175 lbs BSA: 1.91 m2 HR: 59 bpm BP: 191 / 62 mmHg Heart Rhythm: Sinus Rhythm Technical Quality: Fair Exam Date: 09/10/2023 10:56 AM Exam Location: Echo Lab Patient Status: Inpatient Admit Date: 09/09/2023 Staff Ordering Physician: Cyndie Barrera Linen Room Custodian: Pam Jeffries RDCS Attending Provider: Marie Simmons MD Referring Physician: Holly TOLEDO; Exam Type: CA echo dop color flow w con Study Info Indications - chf Complete two-dimensional, color flow and Doppler transthoracic echocardiogram is performed with contrast to opacify the left ventricle and to improve the deliniation of the left ventricle endocardial borders. Contrast/Agitated Saline Contrast/Ag. Saline: Definity Amount: 2.00 ml Administered By: Pam Jeffries RDCS Existing IV Access: Yes IV Access Condition: patent with no signs of infiltration Summary 1. Left ventricular chamber dimension is moderately enlarged. 2. Left ventricular systolic function is normal, estimated at 50-55%. 3. Left ventricular septal wall motion is abnormal with septal motion related to bundle branch block. 4. The left ventricular diastolic function is grade III diastolic dysfunction. 5. Right ventricular systolic function is normal. 6. Left atrial chamber dimension is moderately enlarged. 7. There is mild mitral valve regurgitation. Left Ventricle Left ventricular chamber dimension is moderately enlarged. Left ventricular systolic function is normal, estimated at 50-55%. There is no increased left ventricular wall thickness. Left ventricular septal wall motion is abnormal with septal motion related to bundle branch block. The left ventricular diastolic function is grade III diastolic dysfunction. Right Ventricle Right ventricular chamber dimension is normal. Right ventricular systolic function is normal. Left Atria Left atrial chamber dimension is moderately enlarged. Right Atria Right atrial chamber dimension is normal. Atrial Septum Intact interatrial septum visualized by color flow imaging. Aortic Valve The aortic valve is probable trileaflet. There is no aortic valve stenosis. There is trace aortic valve regurgitation. There is moderate aortic valve calcification. Pulmonic Valve The pulmonic valve is not well visualized. There is trace pulmonic regurgitation. Mitral Valve There is mild mitral valve regurgitation. The mitral valve annulus is moderately calcified. Tricuspid Valve There is trace tricuspid valve regurgitation. Pericardium/Pleural There is no pericardial effusion. Inferior Vena Cava Normal inferior vena cava with <50% collapse upon inspiration consistent with elevated right atrial pressure, 8 mmHg. Aorta The aortic root size at the sinus of Valsalva is normal. Left Ventricular Outflow Tract Name Value Normal LVOT 2D LVOT Diameter 2.03 cm LVOT Doppler LVOT Peak Gradient 6 mmHg LVOT Mean Gradient 3 mmHg LVOT VTI 29.43 cm LVOT VTI/AV VTI Ratio 0.59
[2023-09-10] MEDS: BUMETANIDE INJ 1 MG/4 ML VIAL IV PUSH ×3 (01:24→17:57)
[2023-09-10 01:46] LABS: D Dimer 1.19 ug/mL (<0.48)
[2023-09-10 05:13] LABS: Hematocrit 26.7 % (37.0-47.0); Hemoglobin 8.2 g/dL (12.0-15.0); Mean Corpuscular HGB Conc 30.7 g/dl (32-36); Mean Corpuscular Hemoglobin 29.4 pg (26-34); Mean Corpuscular Volume 95.7 fl (80-100); Mean Platelet Volume 10.7 fl (7.4-10.4); Platelet Count Result 255 k/mm3 (150-375); Red Blood Count 2.79 M/mm3 (4.2-5.4); Red Cell Distribution Width 14.7 % (11.5-14.5); White Blood Count 8.8 K/mm3 (4.5-10.0)
[2023-09-10 05:42] LABS: Alanine Aminotransferase 17 U/L (6-35); Albumin Level 3.4 g/dL (3.5-5.1); Alkaline Phosphatase 47 U/L (38-126); Anion Gap 8 mmol/L (4-12); Aspartate Amino Transferase 22 U/L (14-36); Bilirubin,Total 0.4 mg/dL (0.2-1.3); Blood Urea Nitrogen 44 mg/dL (7-17); Calcium 8.9 mg/dL (8.4-10.2); Carbon Dioxide 21 mmol/L (22-30); Chloride 109 mmol/L (98-107); Estimated CRCL calculation 13 ml/min; Estimated Glomerular Filt Rate 14; Glucose 120 mg/dL (65-110); Magnesium 2.2 mg/dL (1.6-2.3); Potassium 3.8 mmol/L (3.4-5.0); Sodium 138 mmol/L (137-145)
--- NOTE | 2023-09-10 08:10 | PM.CNCAR ---
Assessment and Plan Assessment and plan (1) Acute on chronic heart failure with preserved ejection fraction: Code(s): I50.33 - Acute on chronic diastolic (congestive) heart failure Status: Acute Assessment and Plan: Presents with progressive dyspnea with exertion, orthopnea, and edema. CXR with mild pulmonary edema. NTpro BNP >70988. Slight improvement with IV diuresis. Continue diuresis with IV bumex 1mg b.i.d. Strict I&O Daily weights Daily BMP while diuresing Check echo (2) Hypertension: Code(s): I10 - Essential (primary) hypertension Status: Acute Assessment and Plan: Difficult management as she has intolerances to many medications (metoprolol, clonidine, hydralazine, spironolactone, doxazosin) and orthostatic hypotension. May need to accept higher SBP in order to avoid symptomatic orthostatic hypotension. For now, continue amlodipine but increase to 10mg daily, continue lisinopril, continue pindolol. (3) Coronary artery disease: Code(s): I25.10 - Atherosclerotic heart disease of [place] coronary artery without angina pectoris Status: Acute Assessment and Plan: This seems stable. She did report some chest discomfort when she was significantly short of breath - no chest pain prior to onset of dyspnea. Denies chest pain now. She did have mildly elevated troponin levels but they are flat, likely related to volume overload. Last ischemic eval in 2020 with hugo showing a large fixed defect and a mixed defect with ischemia and infarction which was treated medically due to her advanced CKD. Will continue with medical management including ASA, plavix, statin as she is asymptomatic. History of Present Illness History of Present Illness Consult date/time: 09/10/23 08:10 Requesting physician: Fely Manzo PA-C Consult reason: congestive heart failure Reason For Visit: CHF Narrative: Shayy Madera is an 83 year old female with coronary artery disease status post CABG x 4 in 2016, chronic diastolic heart failure, hypertension with multiple drug intolerances, and orthostatic hypotension. She comes to the hospital with a chief complaint of shortness of breath. She began having shortness of breath last which progressively worsened over the weekend. She also endorses leg swelling and orthopnea. She denies any missed medications or dietary changes. She is feeling slightly better after receiving some IV diuretic, but is still short of breath. Review of Systems Review of Systems: All systems reviewed & are unremarkable except as noted in HPI and below PMFSH Past Medical History Medical History Bilateral stenosis of carotid arteries greater than 50% Chronic anemia Chronic kidney disease Coronary artery disease Diastolic dysfunction Essential (primary) hypertension Gastro-esophageal reflux disease without esophagitis Hypothyroidism Mixed hyperlipidemia Obstructive sleep apnea Mild, patient was told she did not need a CPAP. 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 Vitamin D deficiency Surgical History Surgical History History of appendectomy History of cholecystectomy History of four vessel coronary artery bypass graft History of hysterectomy Family History Family History Mother Diabetes mellitus Hypertension Leukemia Father Family history of cardiovascular disease Diabetes mellitus Acute myocardial infarction, Onset Age: 63 Family history of lung cancer Sibling Family history of cardiovascular disease Family history of kidney disease Diabetes mellitus Family history of coronary artery disease Family history of congestive heart failure Social History Social History (Reviewed 09/10/23 @ 10:06 by
[2023-09-10 08:31] LABS: Glucose Point of Care 125 mg/dl (65-105)
[2023-09-10] MEDS: FLUoxetine HCL 20 MG CAPSULE 40 MG PO (09:20)
[2023-09-10] MEDS: CHOLECALCIFEROL 1,000 UNITS TABLET 2000 UNITS PO (09:20)
[2023-09-10] MEDS: lisinopriL 20 MG TABLET PO ×2 (09:20→18:01)
[2023-09-10] MEDS: amLODIPine BESYLATE 5 MG TABLET PO (09:21)
[2023-09-10] MEDS: CLOPIDOGREL BISULFATE 75 MG TABLET PO (09:21)
[2023-09-10] MEDS: SODIUM BICARBONATE TAB 650 MG TABLET PO ×2 (09:21→17:57)
[2023-09-10] MEDS: INSULIN HUMAN ISOPHAN/REGULAR 70/30 (*BKC) 100 UNITS/ML 15 UNITS SUB-Q (09:23)
[2023-09-10] MEDS: ASPIRIN 81 MG CHEWABLE TABLET PO (09:26)
[2023-09-10] MEDS: PERFLUTREN LIPID MICROSPHERES 1.5 ML VIAL DILUTED TO 10 ML TOTAL VOLUME IV PUSH (11:33)
[2023-09-10 11:48] LABS: Glucose Point of Care 97 mg/dl (65-105)
--- NOTE | 2023-09-10 13:06 | IVDEFINITY ---
Prior to administration of IV Definity the patient was educated on the risks and benefits of the imaging enhancing agent including potential adverse side effects. The patient verbalized understanding. Allergies were verified. No exclusion criteria were identified and at least one of the following inclusion criteria were met: 1) physician request, 2) patient technically difficult to image (per the [place] [employer] guidelines of two or more segments not discernable within the apical view), or 3) questionable left ventricular function. ?
--- NOTE | 2023-09-10 16:13 | PM.IMPN ---
Progress Note: A&P Assessment and Plan (1) CHF exacerbation: Code(s): I50.9 - Heart failure, unspecified Status: Acute Assessment and Plan: Patient presents with SOB. CXR showing pulmonary edema. BNP>30K. Troponin elevated to 0.12 but flat Bumex started UOP not accurate. but clinically feels better. Still wheezing so consider a componenet of reactive airway dz. Echo showing EF 50-55% with Grade III Diastolic dysfunction. Viral PCR negative. Add bronchodilators. Cardiology consulted. Continue Bumex IV. (2) Elevated troponin: Code(s): R77.8 - Other specified abnormalities of plasma proteins Status: Acute Assessment and Plan: As above. Troponin elevated but flat [place] related to the CHF and/or CKD. Echo as above Cardiology following. (3) Hypertension: Code(s): I10 - Essential (primary) hypertension Status: Acute Assessment and Plan: Patient's blood pressure was reviewed on 09/09 Blood pressure poorly controlled. Norvasc added Will continue to monitor (4) Chronic kidney disease: Code(s): N18.9 - Chronic kidney disease, unspecified Status: Acute Assessment and Plan: Cr 3.2 on admission which is at baseline Repeat levels stable. Toelrating Bumex Her maintenance services dispatcher has spoken to her about dialysis and she has taken classes. Continue to follow closely (5) Chronic anemia: Code(s): D64.9 - Anemia, unspecified Status: Chronic Assessment and Plan: Patient with chronic anemia mostly in the 10 range. Hgb 9 on admission here hgb dropped to 8.2. Probably related to CKD Check iron studies, B12 Follow (6) Hypothyroidism: Qualifiers: Hypothyroidism type: unspecified Qualified Code(s): E03.9 - Hypothyroidism, unspecified Code(s): E03.9 - Hypothyroidism, unspecified Status: Chronic Assessment and Plan: TSH normal in July. Continue Synthroid (7) Type 2 diabetes mellitus with diabetic nephropathy: Qualifiers: Diabetes mellitus long-term insulin use: with long-term use Qualified Code(s): E11.21 - Type 2 diabetes mellitus with diabetic nephropathy; Z79.4 - [facility] (current) use of insulin Code(s): E11.21 - Type 2 diabetes mellitus with diabetic nephropathy Status: Chronic Assessment and Plan: A1c 6.3 in July. The patient's blood glucose was reviewed on 09/09 Glucose remains well controlled. Continue AccuCheks covering with sliding scale. Hypoglycemia protocol available as needed. Continue to monitor Plan DDimer positive - Doppler negative for DVT. DVT prophylaxis - SCDs Code status - DNR Subjective Date/time seen: 09/10/23 16:13 Interval history: 83yo female with CKD, DM and CHF here for SOB. She was weaned to room air today. She feels her SOB better. Walking to the BR with [place]. . Voiding well. Has been wheezing Exam Narrative: AF 98.0 198/50 65 28 93% ra Gen - NARD lying semi-recumbent in bed Chest - diffuse expiratory wheezes. nml RR CV - RRR S1/S2. Tele showing occasional PVCs Abd - Soft, NT/ND, Positive BS Ext - No pedal edema Psych - Nml mood and affect Skin - Warm and dry Objective Data Vital Signs Vital Signs: Vital Signs - 24 hr 09/09/23 18:00 09/09/23 20:25 09/09/23 22:21 Temperature 97.2 F L Pulse Rate 59 L 60 60 Respiratory Rate 18 Blood Pressure 184/66 H Pulse Oximetry 96 Oxygen Delivery Oxygen Flow Rate Fraction of Inspired Oxygen 09/09/23 20:00 09/09/23 20:00 09/09/23 23:56 Temperature 97.4 F L Pulse Rate 61 60 59 L Respiratory Rate 18 24 H Blood Pressure 204/42 H Pulse Oximetry 96 97 Oxygen Delivery Nasal Cannula Oxygen Flow Rate 2 Fraction of Inspired Oxygen 09/10/23 00:00 09/10/23 00:00 09/10/23 02:00 Temperature Pulse Rate 59 L 59 L 56 L Respiratory Rate 24 H Blood Pressure Pulse Oximetry 97 Oxygen Delivery Nasal Can
[2023-09-10 17:11] LABS: Glucose Point of Care 61 mg/dl (65-105)
--- NOTE | 2023-09-10 17:48 | PHAR ---
HOME MED: PINDOLOL 10MG TABLETS, TAKE 1 TABLET BY MOUTH TWICE DAILY, VERIFIED IN PHARMACY 09/10/2023 @ [id number]
[2023-09-10] MEDS: ASPIRIN 81 MG ENTERIC TABLET PO (21:30)
[2023-09-10] MEDS: ATORVASTATIN 10 MG TABLET PO (21:30)
[2023-09-10] MEDS: LEVOTHYROXINE SODIUM 88 MCG TABLET PO (21:31)
[2023-09-10 21:48] LABS: Glucose Point of Care 135 mg/dl (65-105)
[2023-09-11] VITALS (15 sets, daily range): BP systolic 182–193; BP diastolic 48–66; PULSE 57–87; RESP 20–26; TEMP 36.3–37; O2SAT 87–99
[2023-09-11 04:38] LABS: Basophils Percent Auto 0.4 % (0.2-1.2); Eosinophils Absolute Auto 0.4 K/mm3 (0-0.3); Eosinophils Percent Auto 4.2 % (0-4.4); Hematocrit 28.5 % (37.0-47.0); Hemoglobin 8.5 g/dL (12.0-15.0); Immature Granulocyte Absolute 0.03 K/mm3 (0.00-0.031); Immature Granulocyte Percent A 0.3 % (0-0.5); Lymphocytes Absolute Auto 1.95 K/mm3 (0.9-3.2); Lymphocytes Percent Auto 19.8 % (18.3-44.2); Mean Corpuscular HGB Conc 29.8 g/dl (32-36); Mean Corpuscular Hemoglobin 28.6 pg (26-34); Mean Platelet Volume 10.5 fl (7.4-10.4); Monocytes Absolute Auto 1.2 K/mm3 (0.1-0.6); Monocytes Percent Auto 12.4 % (2.6-8.5); Neutrophils Absolute Auto 6.2 K/mm3 (1.3-6.7); Neutrophils Percent Auto 62.9 % (45.5-73.1); Platelet Count Result 297 k/mm3 (150-375); Red Blood Count 2.97 M/mm3 (4.2-5.4); Red Cell Distribution Width 14.6 % (11.5-14.5); White Blood Count 9.8 K/mm3 (4.5-10.0)
[2023-09-11 04:55] LABS: Albumin Level 3.4 g/dL (3.5-5.1); Anion Gap 5 mmol/L (4-12); Blood Urea Nitrogen 45 mg/dL (7-17); Carbon Dioxide 24 mmol/L (22-30); Chloride 108 mmol/L (98-107); Estimated CRCL calculation 13 ml/min; Estimated Glomerular Filt Rate 14; Glucose 109 mg/dL (65-110); Phosphorus 4.8 mg/dL (2.5-4.5); Potassium 3.7 mmol/L (3.4-5.0); Sodium 137 mmol/L (137-145)
[2023-09-11 05:08] LABS: Anisocytosis 1+; Iron 38 ug/dL (37-170); Platelet Estimate Adequate (Adequate)
[2023-09-11 05:09] LABS: Ovalocytes 1+; Schistocytes None Seen
[2023-09-11 05:17] LABS: Percent Iron Saturation 15 % (20-50)
[2023-09-11 05:52] LABS: Folic Acid 12.9 ng/mL (2.76->20)
[2023-09-11 08:05] LABS: Glucose Point of Care 127 mg/dl (65-105)
[2023-09-11] MEDS: INSULIN HUMAN ISOPHAN/REGULAR 70/30 (*BKC) 100 UNITS/ML 15 UNITS SUB-Q (08:52)
[2023-09-11] MEDS: CLOPIDOGREL BISULFATE 75 MG TABLET PO (08:53)
[2023-09-11] MEDS: lisinopriL 20 MG TABLET PO ×2 (08:54→16:33)
[2023-09-11] MEDS: amLODIPine BESYLATE 5 MG TABLET 10 MG PO (08:54)
[2023-09-11] MEDS: BUMETANIDE INJ 1 MG/4 ML VIAL IV PUSH ×2 (08:55→16:32)
[2023-09-11] MEDS: FLUoxetine HCL 20 MG CAPSULE 40 MG PO (08:55)
[2023-09-11] MEDS: CHOLECALCIFEROL 1,000 UNITS TABLET 2000 UNITS PO (08:55)
[2023-09-11] MEDS: SODIUM BICARBONATE TAB 650 MG TABLET PO ×2 (08:55→16:33)
[2023-09-11] MEDS: ALBUTEROL SULFATE NEB 2.5 MG/3 ML INH INHALATION (09:13)
[2023-09-11 11:55] LABS: Glucose Point of Care 72 mg/dl (65-105)
--- NOTE | 2023-09-11 12:21 | PM.PNCARD ---
Progress Note: A&P Assessment and Plan (1) Acute on chronic heart failure with preserved ejection fraction: Code(s): I50.33 - Acute on chronic diastolic (congestive) heart failure Status: Acute Assessment and Plan: Presents with progressive dyspnea with exertion, orthopnea, and edema. CXR with mild pulmonary edema. NTpro BNP >18342. Slight improvement with IV diuresis. Transition from IV bumex 1mg b.i.d. to oral Bumex 1 mg twice daily. She was taking 1.5 mg daily at home. Strict I&O Daily weights Daily BMP while diuresing By echo, EF 50-55%, septal wall motion abnormality related bundle branch block, grade 3 diastolic dysfunction moderate left atrial enlargement mild MR, trace TR. (2) Hypertension: Code(s): I10 - Essential (primary) hypertension Status: Acute Assessment and Plan: Difficult management as she has intolerances to many medications (metoprolol, clonidine, hydralazine, spironolactone, doxazosin) and orthostatic hypotension. May need to accept higher SBP in order to avoid symptomatic orthostatic hypotension. For now, continue amlodipine 10 mg daily along with lisinopril 20 mg twice daily, pindolol 10 mg daily. May consider alternative to Pindolol given CHF and potential risk for exacerbation. will observe for now. (3) Coronary artery disease: Code(s): I25.10 - Atherosclerotic heart disease of [place] coronary artery without angina pectoris Status: Acute Assessment and Plan: No anginal symptoms at present. She did report some chest discomfort when she was significantly short of breath - no chest pain prior to onset of dyspnea. Denies chest pain now. Mildly elevated troponin levels are flat, likely related to volume overload most suggestive type 2 infarction not acute coronary syndrome and/or plaque rupture. Last ischemic eval in 2020 with hugo showing a large fixed defect and a mixed defect with ischemia and infarction which was treated medically due to her advanced CKD. Will continue with medical management including ASA 81 mg daily, plavix 75 mg daily, atorvastatin 10 mg every 48 hours as she is asymptomatic. (4) Chronic kidney disease: Code(s): N18.9 - Chronic kidney disease, unspecified Status: Acute Assessment and Plan: Significant CKD stage 4 creatinine stable 3.1. Discussions apparently have been held in the past with regards to anticipated need for hemodialysis in the future. Continue monitor very closely with BMP. Avoid nephrotoxic agents. (5) Chronic anemia: Code(s): D64.9 - Anemia, unspecified Status: Chronic Assessment and Plan: Patient remains significantly anemic which no doubt contributed to fatigue, dyspnea particular underlying CAD. Continue work with management per primary service. No evidence for active bleed at this time. H&H otherwise reasonably stable. Subjective Date/time seen: Date of service: 09/11/23 12:21 Interval history: Follow-up for heart failure, elevated troponin Patient feels fine at this time but no shortness of breath with activity. States bronchodilators have helped her. Wearing O2 at this time. Edema is resolved. Denies chest pain, palpitations or dizziness. Review of Systems Review of Systems: All systems reviewed & are unremarkable except as noted in HPI and below Exam Const: General: comfortable, no acute distress, alert and awake Orientation/consciousness: patient oriented x3 Other: O2 via nasal cannula HENMT: Head: normal to inspection Eyes: General: appearance normal, both eyes and all related structures Pupils: Equal, round and reactive pupils present Neck: Neck: normal visual inspection, supple and no JVD Carotids: normal carotid upstroke Resp: Effort & Inspection: abnormal respiratory effort (conversational dyspnea) Auscultation: not clear to auscultation bilaterally, no rales, no wheezes and diminished lung sounds Cardio: Rate: regular rate Rhythm
[2023-09-11 16:38] LABS: Glucose Point of Care 57 mg/dl (65-105)
--- NOTE | 2023-09-11 17:09 | PM.IMPN ---
Progress Note: A&P Assessment and Plan (1) CHF exacerbation: Code(s): I50.9 - Heart failure, unspecified Status: Acute Assessment and Plan: Patient presents with SOB. CXR showing pulmonary edema. BNP>30K. Troponin elevated to 0.12 but flat Bumex started UOP not accurate. but clinically feels better. Still wheezing so consider a componenet of reactive airway dz. Echo showing EF 50-55% with Grade III Diastolic dysfunction. Viral PCR negative. Add bronchodilators. Cardiology consulted. Cut back to daily dosing of bumex (2) Elevated troponin: Code(s): R77.8 - Other specified abnormalities of plasma proteins Status: Acute Assessment and Plan: As above. Troponin elevated but flat [place] related to the CHF and/or CKD. . (3) Hypertension: Code(s): I10 - Essential (primary) hypertension Status: Acute Assessment and Plan: BP is 189/66 increase norvasc dosing (4) Chronic kidney disease: Code(s): N18.9 - Chronic kidney disease, unspecified Status: Acute Assessment and Plan: Cr 3.2 on admission which is at baseline nephrology rounding cardiology rounding cut back on diuretics (5) Chronic anemia: Code(s): D64.9 - Anemia, unspecified Status: Chronic Assessment and Plan: Patient with chronic anemia mostly in the 10 range. Hgb 9 on admission here hb is 8.5 Follow (6) Hypothyroidism: Qualifiers: Hypothyroidism type: unspecified Qualified Code(s): E03.9 - Hypothyroidism, unspecified Code(s): E03.9 - Hypothyroidism, unspecified Status: Chronic Assessment and Plan: TSH normal in July. 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 The patient's blood glucose was reviewed on 09/09 Glucose remains well controlled. Continue AccuCheks covering with sliding scale. Hypoglycemia protocol available as needed. Continue to monitor Subjective Date/time seen: 09/11/23 17:09 Interval history: 83yo female with CKD, DM and CHF here for SOB. She was weaned to room air today. She feels her SOB better. Pt seen by cardiology ok to cut back with diuretics Review of Systems Review of Systems: ongoing SOB Exam Narrative: Gen - elderly lady friendly breathless appearance Chest - diffuse expiratory wheezes throughout lung carvajal CV - RRR S1/S2. Abd - Soft, NT/ND, Positive BS Ext - No pedal edema Psych - Nml mood and affect Skin - Warm and dry Objective Data Vital Signs Vital Signs: Vital Signs - 24 hr 09/10/23 18:00 09/10/23 20:50 09/10/23 20:00 Temperature 36.6 C Pulse Rate 62 62 59 L Respiratory Rate 24 H Blood Pressure 191/43 H Pulse Oximetry 94 Oxygen Delivery Fraction of Inspired Oxygen 09/10/23 22:00 09/10/23 20:00 09/10/23 23:53 Temperature 36.6 C Pulse Rate 62 62 57 L Respiratory Rate 24 H 26 H Blood Pressure 175/68 H Pulse Oximetry 94 93 Oxygen Delivery Room Air Fraction of Inspired Oxygen 09/11/23 00:00 09/11/23 00:00 09/11/23 01:56 Temperature Pulse Rate 57 L 60 70 Respiratory Rate 26 H Blood Pressure Pulse Oximetry 93 Oxygen Delivery Room Air Fraction of Inspired Oxygen 09/11/23 04:00 09/11/23 04:00 09/11/23 04:00 Temperature 36.4 C L Pulse Rate 57 L 57 L 58 L Respiratory Rate 26 H 24 H Blood Pressure 182/48 H Pulse Oximetry 93 92 Oxygen Delivery Room Air Fraction of Inspired Oxygen 09/11/23 06:00 09/11/23 07:40 09/11/23 09:00 Temperature 36.6 C Pulse Rate 57 L 59 L
[2023-09-11 20:48] LABS: Glucose Point of Care 145 mg/dl (65-105)
[2023-09-11] MEDS: ASPIRIN 81 MG ENTERIC TABLET PO (21:08)
[2023-09-11] MEDS: LEVOTHYROXINE SODIUM 88 MCG TABLET PO (21:08)
[2023-09-12] VITALS (10 sets, daily range): BP systolic 153–191; BP diastolic 50–73; PULSE 55–62; RESP 20–25; TEMP 36–36.6; O2SAT 96–100
[2023-09-12 04:59] LABS: Anion Gap 7 mmol/L (4-12); Blood Urea Nitrogen 42 mg/dL (7-17); Calcium 8.9 mg/dL (8.4-10.2); Carbon Dioxide 23 mmol/L (22-30); Chloride 108 mmol/L (98-107); Estimated CRCL calculation 13 ml/min; Estimated Glomerular Filt Rate 14; Glucose 93 mg/dL (65-110); Potassium 3.8 mmol/L (3.4-5.0); Sodium 138 mmol/L (137-145)
[2023-09-12 07:58] LABS: Glucose Point of Care 102 mg/dl (65-105)
[2023-09-12] MEDS: CHOLECALCIFEROL 1,000 UNITS TABLET 2000 UNITS PO (08:51)
[2023-09-12] MEDS: FLUoxetine HCL 20 MG CAPSULE 40 MG PO (08:51)
[2023-09-12] MEDS: BUMETANIDE 1 MG TABLET PO (08:52)
[2023-09-12] MEDS: lisinopriL 20 MG TABLET PO ×2 (08:52→17:48)
[2023-09-12] MEDS: CLOPIDOGREL BISULFATE 75 MG TABLET PO (08:52)
[2023-09-12] MEDS: INSULIN HUMAN ISOPHAN/REGULAR 70/30 (*BKC) 100 UNITS/ML 10 UNITS SUB-Q ×2 (08:52→17:48)
[2023-09-12] MEDS: amLODIPine BESYLATE 5 MG TABLET 10 MG PO (08:52)
[2023-09-12] MEDS: SODIUM BICARBONATE TAB 650 MG TABLET PO ×2 (08:52→17:48)
[2023-09-12 11:17] LABS: Glucose Point of Care 87 mg/dl (65-105)
--- NOTE | 2023-09-12 13:42 | PM.IMPN ---
Progress Note: A&P Assessment and Plan (1) CHF exacerbation: Code(s): I50.9 - Heart failure, unspecified Status: Acute Assessment and Plan: Patient presents with SOB. CXR showing pulmonary edema. BNP>30K. Troponin elevated to 0.12 but flat Bumex started UOP not accurate. but clinically feels better. Still wheezing so consider a componenet of reactive airway dz. Echo showing EF 50-55% with Grade III Diastolic dysfunction. Viral PCR negative. Add bronchodilators. Cardiology consulted. Cut back to daily dosing of bumex Plan to wean off oxygen today Pt will need home oxygen assessment prior to dc (2) Elevated troponin: Code(s): R77.8 - Other specified abnormalities of plasma proteins Status: Acute Assessment and Plan: As above. Troponin elevated but flat [place] related to the CHF and/or CKD. (3) Hypertension: Code(s): I10 - Essential (primary) hypertension Status: Acute Assessment and Plan: BP is 189/66 increase norvasc dosing (4) Chronic kidney disease: Code(s): N18.9 - Chronic kidney disease, unspecified Status: Acute Assessment and Plan: Cr 3.2 on admission which is at baseline nephrology rounding cardiology rounding cut back on diuretics (5) Chronic anemia: Code(s): D64.9 - Anemia, unspecified Status: Chronic Assessment and Plan: Patient with chronic anemia mostly in the 10 range. Hgb 9 on admission here hb is 8.5 Follow (6) Hypothyroidism: Qualifiers: Hypothyroidism type: unspecified Qualified Code(s): E03.9 - Hypothyroidism, unspecified Code(s): E03.9 - Hypothyroidism, unspecified Status: Chronic Assessment and Plan: TSH normal in July. Continue Synthroid (7) Type 2 diabetes mellitus with diabetic nephropathy: Qualifiers: Diabetes mellitus penitentiary insulin use: with penitentiary use Qualified Code(s): E11.21 - Type 2 diabetes mellitus with diabetic nephropathy; Z79.4 - [facility] (current) use of insulin Code(s): E11.21 - Type 2 diabetes mellitus with diabetic nephropathy Status: Chronic Assessment and Plan: A1c 6.3 in July. The patient's blood glucose was reviewed on 09/09 Glucose remains well controlled. Continue AccuCheks covering with sliding scale. Hypoglycemia protocol available as needed. Continue to monitor Subjective Date/time seen: 09/12/23 13:42 Interval history: 83yo female with CKD, DM and CHF here for SOB. 09/11/2023She was weaned to room air today. She feels her SOB better. Pt seen by cardiology ok to cut back to oral diuretics 09/12/2023 Pt still sob needing 2 liters of oxygen plan to wean off oxygen today and order home oxygen assessment clara am Review of Systems Review of Systems: ongoing SOB Exam Narrative: Gen - elderly lady friendly breathless appearance Chest - diffuse expiratory wheezes throughout lung carvajal CV - RRR S1/S2. Abd - Soft, NT/ND, Positive BS Ext - No pedal edema Psych - Nml mood and affect Skin - Warm and dry Objective Data Vital Signs Vital Signs: Vital Signs - 24 hr 09/11/23 14:00 09/11/23 15:48 09/11/23 16:00 Temperature 37.0 C Pulse Rate 58 L 59 L 61 Respiratory Rate 20 Blood Pressure 189/66 H Pulse Oximetry 98 Oxygen Delivery Oxygen Flow Rate 09/12/23 00:04 09/11/23 20:00 09/11/23 20:00 Temperature 36.6 C Pulse Rate 59 L 60 Respiratory Rate 25 H Blood Pressure 153/73 H Pulse Oximetry 99 99 Oxygen Delivery Nasal Cannula Oxygen Flow Rate 2 09/12/23 00:00 09/12/23 04:00 09/12/23 08:00 Temperature 36.0 C L Pulse Rate 58 L 55 L 60 Respiratory Rate 24 H Blood Pressure 185/64 H Pulse Oximetry 99 Oxygen Delivery Oxygen Flow Rate 09/12/23 09:45 09/12/23 08:00 09/12/23 11:55 Temperature 36.1 C L Pulse Rate 58 L 61 Respiratory Rate 24 H Blood Pressure 189/50
--- NOTE | 2023-09-12 14:21 | PC.NURSE ---
On 09/12/23, the student, [Ryan Jefferson ], provided care and completed [facility] documentation on this patient. I have reviewed the student's documentation and agree with the findings.
[2023-09-12 16:15] LABS: Glucose Point of Care 84 mg/dl (65-105)
[2023-09-12] MEDS: LEVOTHYROXINE SODIUM 88 MCG TABLET PO (20:11)
[2023-09-12] MEDS: ASPIRIN 81 MG ENTERIC TABLET PO (20:11)
[2023-09-12] MEDS: ATORVASTATIN 10 MG TABLET PO (20:11)
[2023-09-12 20:22] LABS: Glucose Point of Care 110 mg/dl (65-105)
[2023-09-13] VITALS (9 sets, daily range): BP systolic 172–215; BP diastolic 38–64; PULSE 57–69; RESP 12–24; TEMP 36–36.6; O2SAT 93–100
[2023-09-13 08:30] LABS: Glucose Point of Care 119 mg/dl (65-105)
[2023-09-13] MEDS: FLUoxetine HCL 20 MG CAPSULE 40 MG PO (09:18)
[2023-09-13] MEDS: CHOLECALCIFEROL 1,000 UNITS TABLET 2000 UNITS PO (09:18)
[2023-09-13] MEDS: BUMETANIDE 1 MG TABLET PO (09:18)
[2023-09-13] MEDS: CLOPIDOGREL BISULFATE 75 MG TABLET PO (09:18)
[2023-09-13] MEDS: amLODIPine BESYLATE 5 MG TABLET 10 MG PO (09:18)
[2023-09-13] MEDS: lisinopriL 20 MG TABLET PO (09:18)
[2023-09-13] MEDS: SODIUM BICARBONATE TAB 650 MG TABLET PO (09:18)
--- NOTE | 2023-09-13 09:56 | PM.PNCARD ---
Progress Note: A&P Assessment and Plan (1) CHF exacerbation: Code(s): I50.9 - Heart failure, unspecified Status: Acute (2) Chronic kidney disease: Code(s): N18.9 - Chronic kidney disease, unspecified Status: Acute (3) Coronary artery disease: Code(s): I25.10 - Atherosclerotic heart disease of belk[place]ski coronary artery without angina pectoris Status: Acute Plan This is an 83-year-old lady with coronary artery disease status post previous bypass grafting doing well with respect to that. She has normal left ventricular systolic function by echo. She does have significant chronic kidney disease which is probably the principal reason for her volume overload. This has been resolved with a couple of days of intravenous Bumex she is now back on oral medication. From a cardiac perspective she is stable for discharge any time. We will ensure that appropriate/timely follow-up is scheduled in our office. She will have to be scheduled with 1 of the other physicians as Dr. Warren has now retired Cordell Dunaway MD [facility] Subjective Date/time seen: Date of service: 09/13/23 09:56 Interval history: Follow-up for heart failure, elevated troponin Patient feels fine at this time but no shortness of breath with activity. States bronchodilators have helped her. Wearing O2 at this time. Edema is resolved. Denies chest pain, palpitations or dizziness. 09/13/2023: Patient does not have any active cardiac complaints. Her edema is still resolved and she is anticipating whole home oxygen evaluation today. Exam Const: General: comfortable, no acute distress, alert and awake Orientation/consciousness: patient oriented x3 Other: O2 via nasal cannula HENMT: Head: normal to inspection Eyes: General: appearance normal, both eyes and all related structures Pupils: Equal, round and reactive pupils present Neck: Neck: normal visual inspection, supple and no JVD Carotids: normal carotid upstroke Resp: Effort & Inspection: abnormal respiratory effort (conversational dyspnea) Auscultation: not clear to auscultation bilaterally, crackles, no rales, no wheezes and diminished lung sounds Cardio: Rate: regular rate Rhythm: regular rhythm Heart sounds: S1 normal heart sound present, S2 normal heart sound present and Murmur heart sound present systolic GI: Auscultation: normal bowel sounds Skin: General skin exam: normal color Neuro: General: patient oriented x3 Cranial nerves: Yes Equal, round and reactive pupils present Extrem: General: normal to inspection Other: no edema, clubbing or cyanosis Psych: Appearance: grossly normal Mental Status: mental status grossly normal Objective Data Vital Signs Vital Signs: Vital Signs - 24 hr 09/12/23 11:55 09/12/23 12:00 09/12/23 16:00 Temperature 36.1 C L 36.2 C L Pulse Rate 61 61 62 Respiratory Rate 24 H 20 Blood Pressure 189/50 H 181/60 H Pulse Oximetry 99 100 Oxygen Delivery Oxygen Flow Rate 09/12/23 16:00 09/12/23 20:00 09/12/23 20:29 Temperature 36.2 C L Pulse Rate 62 61 Respiratory Rate 20 Blood Pressure 191/50 H Pulse Oximetry 98 98 Oxygen Delivery Nasal Cannula Oxygen Flow Rate 1 09/12/23 20:00 09/13/23 00:00 09/13/23 00:00 Temperature 36.4 C Pulse Rate 61 60 57 L Respiratory Rate 12 Blood Pressure 188/49 H Pulse Oximetry 100 Oxygen Delivery Oxygen Flow Rate 09/13/23 04:00 09/13/23 08:00 Temperature 36.1 C L Pulse Rate 59 L 60 Respiratory Rate 24 H Blood Pressure 172/38 H Pulse Oximetry 98 Oxygen Delivery Oxygen Flow Rate Intake/Output Intake/Output: Intake & Output 09/10/23 09/11/23 09/12/23 09/13/23 23:59 23:59 23:59 23:59 Intake Total 1000 1140 1720 790 Output Total 750 675 850 300 Balance 250 465 870 490 Meds/Results Medications: Active Medications Generic Name Dose Route Start Last Admin Trade Name Freq PRN Reason Stop Dose A
[2023-09-13 12:15] LABS: Glucose Point of Care 159 mg/dl (65-105)
--- NOTE | 2023-09-13 13:29 | PM.IMPN ---
Progress Note: A&P Assessment and Plan (1) CHF exacerbation: Code(s): I50.9 - Heart failure, unspecified Status: Acute (2) Elevated troponin: Code(s): R77.8 - Other specified abnormalities of plasma proteins Status: Acute (3) Hypertension: Code(s): I10 - Essential (primary) hypertension Status: Acute (4) Chronic kidney disease: Code(s): N18.9 - Chronic kidney disease, unspecified Status: Acute (5) Chronic anemia: Code(s): D64.9 - Anemia, unspecified Status: Chronic (6) Hypothyroidism: Qualifiers: Hypothyroidism type: unspecified Qualified Code(s): E03.9 - Hypothyroidism, unspecified Code(s): E03.9 - Hypothyroidism, unspecified Status: Chronic (7) Type 2 diabetes mellitus with diabetic nephropathy: Qualifiers: 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 She reported 3 day history of increasing dyspnea on less and less exertion nonproductive cough orthopnea and mild occasional tightness in the mid chest with activity better with rest. Upon ED evaluation her blood pressure was elevated 160s to 180s WBC 10.4 hemoglobin 9 BUN 43 the is mildly elevated at 0.099. She tested negative for flu RSV and COVID. Chest mild pulmonary edema and cardiomegaly. EKG showed sinus bradycardia with low QRS voltage in precordial leads indeterminate age septal myocardial infarction moderate T-wave abnormalities in the lateral leads. She was started on IV Lasix and was admitted for further treatment. Cardiology was consulted. Echocardiogram was performed on 09/10/2023 with ejection fraction 55% abnormal septal wall motion with septal motion related to bundle branch block. Grade 3 diastolic dysfunction. She continue diuresis with IV Bumex. Hypertension was managed with multiple different medication she at goal to manage his hypertension and has intolerance to many medications including metoprolol clonidine hydralazine spironolactone doxazosin along with orthostatic hypotension. Amlodipine was increased to 10 mg along with lisinopril and pindolol that she is currently on. Her troponin were mildly elevated but remained flat likely related to volume overload. Last ischemic evaluation was done in 2020 with Lexiscan showing a large tenia infarction which was treated medically due to her advanced CKD. She remained on aspirin Plavix and statin. With diuresis her volume status has improved and was switched to oral medication. She is okay from cardiac standpoint to be discharged. She will continue to follow-up with cardiology as an outpatient basis. Other studies including venous duplex was negative for DVT. Repeat chest x-ray on 09/12/2023 with probable mild pulmonary edema with minimal left pleural effusion. She also required mild oxygen supplementation during this hospital stay. She normally does not use oxygen at home. Home oxygen evaluation was performed and did not require any oxygen. Subjective Date/time seen: 09/13/23 13:29 Interval history: No overnight events. No shortness of breath wants to go home leg swelling has resolved. Review of Systems Review of Systems: All systems reviewed & are unremarkable except as noted in HPI and below Exam Narrative: Gen - elderly lady not in acute distress Chest -coarse breath sound diminished no crackles CV - RRR S1/S2. Abd - Soft, NT/ND, Positive BS Ext - No pedal edema Psych - Nml mood and affect
--- NOTE | 2023-09-13 13:34 | HOMEO2EVAL ---
Evaluation was performed at [facility] Home Oxygen Evaluation RC: Home Oxygen (O2) Evaluation Start: 09/13/23 11:47 Freq: ONCE Status: Active Protocol: RPE Activity Type Activity Date Activity User E-sign Co-sign Detail Recorded Client Recorded Date Recorded By Document 09/13/23 13:10 DJO 2ND_09/13/23 13:34 DJO Document 09/13/23 13:15 DJO 2ND09/13/23 13:34 DJO Document 09/13/23 13:25 DJO 2ND_09/13/23 13:34 DJO 09/13/23 09/13/23 09/13/23 13:10 13:15 13:25 Home O2 Evaluation [Oxygen] -Test Phase Resting Exercise Resting -Oxygen Delivery Room Air Room Air Room Air [Pulse Oximetry] -Pulse Oximetry (90-100 %) 95 93 95 [Pulse Rate] -Pulse Rate (60-100 beats/min) 59 L 69 61 [Evaluation] -Activity Tolerance Good [Charges] -Evaluation Charges O2 Evaluation by Pulmonary
--- NOTE | 2023-09-13 13:34 | PCRCNOTE ---
HOME O2 EVAL COMPLETE, NO REQUIREMENTS
--- NOTE | 2023-09-13 13:37 | PM.DS ---
DS: Admitting Diagnosis Discharge Date 09/13/2023 Admitting Diagnosis Shortness of breath DS: Discharge Diagnosis Discharge Diagnosis (1) CHF exacerbation: Code(s): I50.9 - Heart failure, unspecified Status: Acute (2) Elevated troponin: Code(s): R77.8 - Other specified abnormalities of plasma proteins Status: Acute (3) Hypertension: Code(s): I10 - Essential (primary) hypertension Status: Acute (4) Chronic kidney disease: Code(s): N18.9 - Chronic kidney disease, unspecified Status: Acute (5) Chronic anemia: Code(s): D64.9 - Anemia, unspecified Status: Chronic (6) Hypothyroidism: Qualifiers: Hypothyroidism type: unspecified Qualified Code(s): E03.9 - Hypothyroidism, unspecified Code(s): E03.9 - Hypothyroidism, unspecified Status: Chronic (7) Type 2 diabetes mellitus with diabetic nephropathy: Qualifiers: Diabetes mellitus 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 She reported 3 day history of increasing dyspnea on less and less exertion nonproductive cough orthopnea and mild occasional tightness in the mid chest with activity better with rest. Upon ED evaluation her blood pressure was elevated 160s to 180s WBC 10.4 hemoglobin 9 BUN 43 the is mildly elevated at 0.099. She tested negative for flu RSV and COVID. Chest mild pulmonary edema and cardiomegaly. EKG showed sinus bradycardia with low QRS voltage in precordial leads indeterminate age septal myocardial infarction moderate T-wave abnormalities in the lateral leads. She was started on IV Lasix and was admitted for further treatment. Cardiology was consulted. Echocardiogram was performed on 09/10/2023 with ejection fraction 55% abnormal septal wall motion with septal motion related to bundle branch block. Grade 3 diastolic dysfunction. She continue diuresis with IV Bumex. Hypertension was managed with multiple different medication she at goal to manage his hypertension and has intolerance to many medications including metoprolol clonidine hydralazine spironolactone doxazosin along with orthostatic hypotension. Amlodipine was increased to 10 mg along with lisinopril and pindolol that she is currently on. Her troponin were mildly elevated but remained flat likely related to volume overload. Last ischemic evaluation was done in 2020 with Lexiscan showing a large tenia infarction which was treated medically due to her advanced CKD. She remained on aspirin Plavix and statin. With diuresis her volume status has improved and was switched to oral medication. She is okay from cardiac standpoint to be discharged. She will continue to follow-up with cardiology as an outpatient basis. Other studies including venous duplex was negative for DVT. Repeat chest x-ray on 09/12/2023 with probable mild pulmonary edema with minimal left pleural effusion. She also required mild oxygen supplementation during this hospital stay. She normally does not use oxygen at home. Home oxygen evaluation was performed and did not require any oxygen. Time Spent with Patient Time attestation: Total time spent providing and/or coordinating discharge services: 40 minutes Exam Narrative: Gen - elderly lady not in acute distress Chest -coarse breath sound diminished no crackles CV - RRR S1/S2. Abd - Soft, NT/ND, Positive BS Ext - No pedal edema Psych - Nml mood and affect Skin -
--- NOTE | 2023-09-13 16:02 | PC.NURSE ---
Call placed to Dr. Turcios to review the discharge POC of care for Pindolol a message has been left awaiting return call at this time
--- NOTE | 2023-09-13 16:47 | PC.NURSE ---
Addendum entered by Elvis Valencia RN 09/13/23 16:52: The pt denied distress at the time of discharge from the campus Original Note: Vitals sign trend reviewed with the pt et with Dr. Sethi. Per Dr. Turcios continue medications as written per discharge instructions. The pt displays understanding through verbal demonstration. Discharge education given et education given to follow up with Primary Care with any concerns s/p discharge from the campus. All belongings removed per the pt. The pt has been escorted to private family vehicle all belongings removed per pt. No manifestations of distress noted.
== END 2023-09-13 16:50 | disposition home or self-care (01) | DRG 291 ==
LOC: ANHED 09:19 → ANH3MEDSUR 11:27 → ANHIMU 15:34
PROVIDERS: Emergency Medicine; Family Medicine; Internal Medicine; Physician Assistant; Admitting Provider Hospitalist; Emergency Provider Family Medicine; PCP Emergency Medicine; Visit Provider Internal Medicine
DX: I13.0 Hypertensive heart and chronic kidney disease with heart failure and stage 1 through stage 4 chronic kidney disease, or unspecified chronic kidney disease (principal); I50.33 Acute on chronic diastolic (congestive) heart failure; N18.4 Chronic kidney disease, stage 4 (severe); D63.1 Anemia in chronic kidney disease; E03.9 Hypothyroidism, unspecified; E78.2 Mixed hyperlipidemia; E11.22 Type 2 diabetes mellitus with diabetic chronic kidney disease; E11.42 Type 2 diabetes mellitus with diabetic polyneuropathy; E55.9 Vitamin D deficiency, unspecified; G25.81 Restless legs syndrome; G47.33 Obstructive sleep apnea (adult) (pediatric); I25.2 Old myocardial infarction; I25.10 Atherosclerotic heart disease of native coronary artery without angina pectoris; K21.9 Gastro-esophageal reflux disease without esophagitis; Z90.10 Acquired absence of unspecified breast and nipple; Z90.49 Acquired absence of other specified parts of digestive tract; Z95.1 Presence of aortocoronary bypass graft; Z79.4 Long term (current) use of insulin; Z20.822 Contact with and (suspected) exposure to COVID-19; Z79.82 Long term (current) use of aspirin; Z66 Do not resuscitate
CPT/HCPCS: 36415; 71045; 71046; 80048; 80053; 80069; 82607; 82728; 82746; 82948; 83540; 83550; 83735; 83880; 84484; 85025; 85027; 85380; 85730; 87637; 93005; 93970; 94618; 94640; 96374; 99285; A9270; C8929; J1815; J1939; J1940; Q9957

== ENCOUNTER 2023-09-14 17:56 | Inpatient (IN) | payer MEDICARE, SELFPAY ==
[2023-09-14] VITALS (21 sets, daily range): BP systolic 172–226; BP diastolic 39–73; PULSE 62–66; RESP 18–28; TEMP 36.1–36.9; O2SAT 94–99; BMI 30.9
--- NOTE | ~2023-09-14 | XR_ITS ---
EXAMINATION: XR chest 2V Exam Date/Time: 09/14/2023 19:29 CDT HISTORY: SOA Comparison: 09/12/2023. RESULT: Lines, tubes, and devices: Median sternotomy wires, the third wire is fractured but remains in expec kasie position. Lungs and pleura: Streaky and segmental left lower lobe airspace opacities. Mild diffuse reticular o pacities. Mild left costophrenic angle blunting Cardiomediastinal silhouette: Stable. Other: No acute osseous or upper abdominal finding. IMPRESSION: Segmental left basilar atelectasis/consolidation. Mild interstitial edema. Small left pleural effusio n. Reviewed, dictated and finalized at location [facility]. IMPRESSION: Segmental left basilar atelectasis/consolidation. Mild interstitial edema. Smal l left pleural effusion.
--- NOTE | ~2023-09-14 | XR_ITS ---
Portable chest x-ray Comparison: 09/14/2023 Clinical History: CHF Findings: There is patchy left basilar airspace disease. Possible minimal central congestive change. Cardiomediastinal silhouette is stable. Bones and soft tissues are unremarkable. Impression: Left lower lobe atelectasis/edema versus pneumonia with minimal central congestive change. Reviewed, dictated and finalized at [facility]. Impression: Left lower lobe atelectasis/edema versus pneumonia with minimal central congest bharti change.
--- NOTE | 2023-09-14 18:04 | ECG_ITS ---
Measurements Intervals [place] Rate: 65 P: -16 NC: 170 QRS: -16 QRSD: 95 T: 39 QT: 387 Avg RR: 912 QTc: 399 QTcB: 405 QTcF: 399 Interpretive Statements SINUS RHYTHM ANTEROSEPTAL MYOCARDIAL INFARCTION, OF INDETERMINATE AGE [40+ ms Q WAVE IN V1-V4] ABNORMAL ECG SEE SCANNED COPY FOR SIGNATURE MTDD
[2023-09-14 18:33] LABS: Basophils Percent Auto 0.4 % (0.2-1.2); Eosinophils Absolute Auto 0.2 K/mm3 (0-0.3); Eosinophils Percent Auto 2.4 % (0-4.4); Hematocrit 29.7 % (37.0-47.0); Hemoglobin 9.4 g/dL (12.0-15.0); Immature Granulocyte Absolute 0.02 K/mm3 (0.00-0.031); Immature Granulocyte Percent A 0.2 % (0-0.5); Lymphocytes Absolute Auto 1.12 K/mm3 (0.9-3.2); Lymphocytes Percent Auto 11.2 % (18.3-44.2); Mean Corpuscular HGB Conc 31.6 g/dl (32-36); Mean Corpuscular Hemoglobin 29.2 pg (26-34); Mean Corpuscular Volume 92.2 fl (80-100); Mean Platelet Volume 10.4 fl (7.4-10.4); Monocytes Absolute Auto 0.9 K/mm3 (0.1-0.6); Monocytes Percent Auto 9.2 % (2.6-8.5); Neutrophils Absolute Auto 7.6 K/mm3 (1.3-6.7); Neutrophils Percent Auto 76.6 % (45.5-73.1); Platelet Count Result 293 k/mm3 (150-375); Red Blood Count 3.22 M/mm3 (4.2-5.4); Red Cell Distribution Width 14.8 % (11.5-14.5)
[2023-09-14] MEDS: hydrALAZINE HCL 20 MG/ML VIAL 10 MG IV PUSH ×2 (18:40→20:22)
[2023-09-14 18:44] LABS: Alanine Aminotransferase 13 U/L (6-35); Albumin Level 3.6 g/dL (3.5-5.1); Alkaline Phosphatase 47 U/L (38-126); Anion Gap 6 mmol/L (4-12); Aspartate Amino Transferase 27 U/L (14-36); Bilirubin,Total 0.6 mg/dL (0.2-1.3); Blood Urea Nitrogen 45 mg/dL (7-17); Calcium 9.4 mg/dL (8.4-10.2); Carbon Dioxide 24 mmol/L (22-30); Chloride 108 mmol/L (98-107); Estimated CRCL calculation 14 ml/min; Estimated Glomerular Filt Rate 16; Glucose 158 mg/dL (65-110); Potassium 4.2 mmol/L (3.4-5.0); Sodium 138 mmol/L (137-145)
[2023-09-14 18:53] LABS: NT Pro B Type Natriuretic Pept > 30000 pg/mL (19.9-100)
[2023-09-14 20:13] LABS: Lipase 48 U/L (23-300)
--- NOTE | 2023-09-14 20:47 | ED.SOB ---
HPI - SOB/Dyspnea General Chief Complaint: Shortness of Breath/Dyspnea Stated Complaint: sob Time Seen by Provider: 09/14/23 17:58 History of Present Illness HPI Narrative: Patient is an 83-year-old female who presents ER with shortness of breath. Sudden onset today. I been discharged from the hospital yesterday after being treated for CHF exacerbation. Reports she did not take her evening med yesterday but has been prior home medications today. No chest pain or chest pressure. No fevers or chills or sweats. Symptoms are worse with movement lying backwards. Patient with significantly elevated blood pressures on arrival here in the 200s. Related Data Home Medications Medication Instructions Recorded Confirmed aspirin 81 mg tablet,delayed 81 mg PO HS 05/05/19 09/09/23 release clopidogrel 75 mg tablet 75 mg PO DAILY 07/17/21 09/09/23 cholecalciferol (vitamin D3) 25 50 mcg PO DAILY 04/27/22 09/09/23 mcg (1,000 unit) capsule levothyroxine 88 mcg tablet 88 mcg PO HS 09/09/23 09/09/23 lisinopril 20 mg tablet 20 mg PO BID 09/09/23 09/09/23 sodium bicarbonate 650 mg tablet 1,300 mg PO DAILY 09/09/23 09/09/23 Allergies Allergy/AdvReac Type Severity Reaction Status Date / Time Penicillins Allergy Unknown Skin Verified 09/09/23 15:51 Reaction Androgenic Anabolic Steroid AdvReac Unknown Loopy Verified 09/09/23 15:51 mirtazapine AdvReac Unknown sedate Verified 09/09/23 15:51 prednisone AdvReac Unknown BLOOD Verified 09/09/23 15:51 SUGARS OUT OF CONTROL pravastatin AdvReac Dizziness Verified 09/09/23 15:51 Review of Systems Review of Systems: All systems reviewed & are unremarkable except as noted in HPI and below Constitutional: Constitutional: Reports no additional constitutional complaints ENT: Reports system reviewed and no additional complaints, except as documented Cardiovascular: Cardiovascular: Reports no additional cardiovascular complaints Respiratory: Respiratory: Denies cough, Denies dyspnea and Denies wheezing Comments: +orthopmea Gastrointestinal: Gastrointestinal: Reports no additional gastrointestinal complaints PMFSH Past Medical History Medical History Bilateral stenosis of carotid arteries greater than 50% Chronic anemia Chronic kidney disease Coronary artery disease Diastolic dysfunction Essential (primary) hypertension Gastro-esophageal reflux disease without esophagitis Hypothyroidism Mixed hyperlipidemia Obstructive sleep apnea Mild, patient was told she did not need a CPAP. 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 Vitamin D deficiency Surgical History Surgical History History of appendectomy History of cholecystectomy History of four vessel coronary artery bypass graft History of hysterectomy Family History Family History Mother Diabetes mellitus Hypertension Leukemia Father Family history of cardiovascular disease Diabetes mellitus Acute myocardial infarction, Onset Age: 63 Family history of lung cancer Sibling Family history of cardiovascular disease Family history of kidney disease Diabetes mellitus Family history of coronary artery disease Family history of congestive heart failure Social History Social History Social History: Surrogate medical decision maker: Adilene Leung, daughter. Code status: Full code. Smoking status: Never smoker Second hand tobacco smoke exposure: No Alcohol intake: never Substance use: never Do You Feel Safe in your Home?: Yes Lack of Transportation: No Lack of Food: Never True Current Housing: I Have Housing Concerned About Future Housing: No Difficulty Paying Gas/Electric Bills: No Dif
[2023-09-14] MEDS: NITROGLYCERIN OINTMENT 1 INCH DOSE TRANSDERM (20:49)
[2023-09-14] MEDS: IPRATROPIUM 0.5 MG/ALBUTEROL SULFATE 2.5 MG AMPUL.NEB 3 ML INHALATION (21:01)
--- NOTE | 2023-09-14 21:33 | PM.IMHP ---
H&P: HPI History of Present Illness Date/Time: 09/14/23 21:33 Chief Complaint: generalized weakness Narrative: this is an 83-year-old female with past medical history significant for hypertension, dyslipidemia, insulin-dependent diabetes mellitus, hypothyroidism, chronic anemia, chronic kidney disease, coronary artery disease diastolic dysfunction, restless leg syndrome, obstructive sleep apnea. patient does discharged home after was treated for acute congestive heart failure patient successfully diuresed and sent home however returns to the emergency room due to generalized weakness, fatigue, poor per orally intake. Denies chills, rigors, cough, sputum production, No nausea vomiting or diarrhea, no shortness of breath. in emergency room patient was found to have systolic blood pressure in the 200's. Preliminary workup was significant for chest x-ray with probable consolidation. Patient has been admitted for further evaluation management and treatment. EXAMINATION:? XR chest 2V Exam Date/Time:? 09/14/2023 19:29 CDT HISTORY: SOA ? Comparison:? 09/12/2023. RESULT: Lines, tubes, and devices:? Median sternotomy wires, the third wire is fractured but remains in expected position. Lungs and pleura:? Streaky and segmental left lower lobe airspace opacities. Mild diffuse reticular opacities. Mild left costophrenic angle blunting Cardiomediastinal silhouette:? Stable. Other:? No acute osseous or upper abdominal finding. ? IMPRESSION: Segmental left basilar atelectasis/consolidation. Mild interstitial edema. Small left pleural effusion. Review of Systems Review of Systems: Generalized weakness Constitutional: Constitutional: Denies chills, Reports fatigue, Reports poor appetite and Reports weakness Eyes: Eyes: Denies change in vision ENT: Denies dysphagia, Denies vertigo, Denies dizziness, Denies nasal congestion, Denies nasal discharge and Denies odynophagia Cardiovascular: Cardiovascular: Denies chest pain, Denies leg edema, Denies radiating jaw, neck or arm pain and Denies palpitations Respiratory: Respiratory: Denies cough, Denies excessive phlegm production and Denies dyspnea Gastrointestinal: Gastrointestinal: Denies abdominal pain, Denies dyspepsia, Denies heartburn, Denies diarrhea, Denies nausea and Denies vomiting Genitourinary: Genitourinary: Denies dysuria Musculoskeletal: Musculoskeletal: Reports muscle weakness Integumentary/Breasts: Skin/Breast: Denies rash Neurologic: Denies focal weakness and Denies Sensory deficit (Neuro) Psychiatric: Psychiatric: Reports no additional psychiatric complaints and Reports as per HPI Endocrine: Endocrine: Denies cold intolerance, Denies flushing, Denies heat intolerance, Denies polyphagia, Denies polydipsia and Denies palpitations Hematologic/Lymphatic: Hematologic/Lymphatic: Reports no additional hematologic/lymphatic complaints and Reports as per HPI Allergic/Immunologic: Allergic/Immunologic: Reports no additional allergic/immunologic complaints and Reports as per HPI PMFSH Past Medical History Medical History Bilateral stenosis of carotid arteries greater than 50% Chronic anemia Chronic kidney disease Coronary artery disease Diastolic dysfunction Essential (primary) hypertension Gastro-esophageal reflux disease without esophagitis Hypothyroidism Mixed hyperlipidemia Obstructive sleep apnea Mild, patient was told she did not need a CPAP. 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
[2023-09-14] MEDS: lisinopriL 20 MG TABLET PO (21:39)
[2023-09-14] MEDS: BUMETANIDE INJ 1 MG/4 ML VIAL IV PUSH (21:42)
--- NOTE | 2023-09-14 23:19 | ADMGEN ---
This patient, Shayy Madera, was admitted to IMU Room 214-01 at 2307. Patient/family oriented to hospital policies and general routines including ID bracelet, bed and alarms, visiting hours, pain management, procedures, bathroom and other care routines, personal items, smoking policy, room service/diet, and visiting hours. Information on how to activate the Rapid Response Team has been discussed. Patient/Family are encouraged to report perceived risks to care and to ask questions if they do not understand what they are told or what they should do.
--- NOTE | 2023-09-14 23:33 | ADMGEN ---
This patient, Shayy Madera, was admitted to IMU Room 214-01. Patient/family oriented to hospital policies and general routines including ID bracelet, bed and alarms, visiting hours, pain management, procedures, bathroom and other care routines, personal items, smoking policy, room service/diet, and visiting hours. Information on how to activate the Rapid Response Team has been discussed. Patient/Family are encouraged to report perceived risks to care and to ask questions if they do not understand what they are told or what they should do.
[2023-09-15] VITALS (15 sets, daily range): BP systolic 170–216; BP diastolic 42–58; PULSE 58–69; RESP 12–28; TEMP 36.2–36.6; O2SAT 91–100
[2023-09-15] MEDS: AZITHROMYCIN 500 MG/NS 250 ML 500 MG/250 ML BAG 250 MG IVPB (01:40)
[2023-09-15] MEDS: CEFEPIME 2 GM/NS 50 ML 2 GM/50 ML BAG IVPB (01:41)
[2023-09-15] MEDS: VANCOMYCIN 1,250 MG/NS 250 ML 1,250 MG/250 ML BAG 166.67 MG IVPB (03:30)
[2023-09-15 05:02] LABS: MRSA (PCR) NOT DETECTED (NOT DETECTE)
[2023-09-15 08:01] LABS: Glucose Point of Care 132 mg/dl (65-105)
[2023-09-15] MEDS: lisinopriL 20 MG TABLET PO ×2 (09:20→17:42)
[2023-09-15] MEDS: amLODIPine BESYLATE 5 MG TABLET 10 MG PO (09:20)
[2023-09-15] MEDS: SODIUM BICARBONATE TAB 650 MG TABLET 1300 MG PO (09:20)
[2023-09-15] MEDS: CHOLECALCIFEROL 1,000 UNITS TABLET 2000 UNITS PO (09:20)
[2023-09-15] MEDS: CLOPIDOGREL BISULFATE 75 MG TABLET PO (09:20)
[2023-09-15] MEDS: FLUoxetine HCL 20 MG CAPSULE 40 MG PO (09:20)
[2023-09-15] MEDS: BUMETANIDE 0.5 MG TABLET 1.5 MG PO (09:30)
[2023-09-15 12:54] LABS: Glucose Point of Care 169 mg/dl (65-105)
--- NOTE | 2023-09-15 13:53 | PCCCNOTE ---
On 09/15/23, the student, [ Harlan Gómez], provided care and completed [facility] documentation on this patient. I have reviewed the student's documentation and agree with the findings.
--- NOTE | 2023-09-15 15:59 | PM.IMPN ---
Progress Note: A&P Assessment and Plan (1) Hypertensive urgency: Code(s): I16.0 - Hypertensive urgency Status: Acute (2) Lung infiltrate: Code(s): R91.8 - Other nonspecific abnormal finding of lung field Status: Acute (3) CHF (congestive heart failure): Code(s): I50.9 - Heart failure, unspecified Status: Acute (4) Restless legs syndrome: Code(s): G25.81 - Restless legs syndrome Status: Acute (5) Chronic kidney disease: Code(s): N18.9 - Chronic kidney disease, unspecified Status: Acute (6) Coronary artery disease: Code(s): I25.10 - Atherosclerotic heart disease of [place] coronary artery without angina pectoris Status: Acute (7) Obstructive sleep apnea (adult) (pediatric): Code(s): G47.33 - Obstructive sleep apnea (adult) (pediatric) Status: Acute (8) Gastro-esophageal reflux disease without esophagitis: Code(s): K21.9 - Gastro-esophageal reflux disease without esophagitis Status: Acute (9) Type 2 diabetes mellitus with diabetic nephropathy: Qualifiers: Diabetes mellitus longterm insulin use: with longterm use Qualified Code(s): E11.21 - Type 2 diabetes mellitus with diabetic nephropathy; Z79.4 - terminal makeup operator (current) use of insulin Code(s): E11.21 - Type 2 diabetes mellitus with diabetic nephropathy Status: Chronic (10) Generalized weakness: Code(s): R53.1 - Weakness Status: Acute Plan This is an 83-year-old female with history of coronary artery disease, diastolic dysfunction, hypertension, hyperlipidemia, insulin-dependent type 2 diabetes, chronic kidney disease stage 4, anemia, hypothyroidism, mild sleep apnea presented with shortness of breath.? She was recently admitted for CHF exacerbation and was discharged on 09/13/2023 however had to come right back due to worsening shortness of breath. Patient was noted to have significantly elevated blood pressure on arrival in the ER with systolic blood pressure 221. Laboratory evaluation showed WBC of 10 hemoglobin of 9.4 platelet of 293 creatinine of 2.9 BNP of more than 30,000 LFTs normal lipase normal. Chest x-ray showed segmental left basilar atelectasis/consolidation mild interstitial edema. Small left pleural effusion. EKG showed sinus rhythm with nonspecific ST-T changes. Recent Echocardiogram performed on 09/10/2023 with ejection fraction 55% abnormal septal wall motion with septal motion related to bundle branch block.? Grade 3 diastolic dysfunction.? She will be diuresed with Bumex IV. Possible pneumonia she has been placed on antibiotics with cefepime and azithromycin. Vancomycin was also initiated but has been discontinued due to negative MRSA screen Hypertension was managed with multiple different medication she at goal to manage his hypertension and has intolerance to many medications including metoprolol clonidine hydralazine spironolactone doxazosin along with orthostatic hypotension.? Amlodipine was increased to 10 mg along with lisinopril and pindolol dose of which was also increased. Creatinine at baseline. Last ischemic evaluation was done in 2020 with Lexiscan showing a large tenia infarction which was treated medically due to her advanced CKD.? She remained on aspirin Plavix and statin which will be continued continue diuresis for possible CHF exacerbation likely related to uncontrolled hypertension. Recent venous duplex was negative for DVT. Will check procalcitonin recheck chest x-ray in a.m. recurrent admission for congestive heart failure with worsening renal failure may need to consult Nephrology Subjective Date/time seen: 09/15/23 15:59 Interval history: Patient presented back with worsening shortness of breath. Denies any cough. No fever chills. Review of Systems Review of Systems: All systems reviewed & are unremarkable except as noted in HPI and below Objective Data Vital Signs Vital Signs: Vital Signs - 24
[2023-09-15 16:27] LABS: Glucose Point of Care 211 mg/dl (65-105)
[2023-09-15 17:16] LABS: Procalcitonin 0.1 ng/mL
[2023-09-15] MEDS: BUMETANIDE INJ 1 MG/4 ML VIAL IV PUSH (17:42)
[2023-09-15] MEDS: INSULIN HUMAN ISOPHAN/REGULAR 70/30 (*BKC) 100 UNITS/ML 15 UNITS SUB-Q (17:42)
--- NOTE | 2023-09-15 18:01 | PHAR ---
PT'S HOME MED PINDOLOL 10 MG TABS VERIFIED BY PHARMACY
[2023-09-15] MEDS: LEVOTHYROXINE SODIUM 88 MCG TABLET PO (20:26)
[2023-09-15] MEDS: ASPIRIN 81 MG ENTERIC TABLET PO (20:27)
[2023-09-15 20:39] LABS: Glucose Point of Care 65 mg/dl (65-105)
[2023-09-15] MEDS: DEXTROSE 50% 25 GM/50 ML SYRINGE IV PUSH (23:35)
[2023-09-16] VITALS (14 sets, daily range): BP systolic 174–208; BP diastolic 43–73; PULSE 51–74; RESP 18–24; TEMP 36–37.1; O2SAT 96–100; BMI 31.8
[2023-09-16 00:07] LABS: Glucose Point of Care 38 mg/dl (65-105)
[2023-09-16] MEDS: CEFEPIME 2 GM/NS 50 ML 2 GM/50 ML BAG IVPB (00:38)
[2023-09-16] MEDS: AZITHROMYCIN 500 MG/NS 250 ML 500 MG/250 ML BAG 250 MG IVPB (01:02)
[2023-09-16 01:09] LABS: Glucose Point of Care 119 mg/dl (65-105)
[2023-09-16 01:09] LABS: Glucose Point of Care 93 mg/dl (65-105)
[2023-09-16 01:09] LABS: Glucose Point of Care 52 mg/dl (65-105)
[2023-09-16 02:25] LABS: Basophils Percent Auto 0.3 % (0.2-1.2); Eosinophils Absolute Auto 0.2 K/mm3 (0-0.3); Eosinophils Percent Auto 2.1 % (0-4.4); Hematocrit 27.9 % (37.0-47.0); Hemoglobin 8.5 g/dL (12.0-15.0); Immature Granulocyte Absolute 0.04 K/mm3 (0.00-0.031); Immature Granulocyte Percent A 0.4 % (0-0.5); Lymphocytes Absolute Auto 0.67 K/mm3 (0.9-3.2); Lymphocytes Percent Auto 7.2 % (18.3-44.2); Mean Corpuscular HGB Conc 30.5 g/dl (32-36); Mean Corpuscular Hemoglobin 28.7 pg (26-34); Mean Corpuscular Volume 94.3 fl (80-100); Mean Platelet Volume 10.4 fl (7.4-10.4); Monocytes Absolute Auto 0.7 K/mm3 (0.1-0.6); Monocytes Percent Auto 7.6 % (2.6-8.5); Neutrophils Absolute Auto 7.7 K/mm3 (1.3-6.7); Neutrophils Percent Auto 82.4 % (45.5-73.1); Platelet Count Result 247 k/mm3 (150-375); Red Blood Count 2.96 M/mm3 (4.2-5.4); White Blood Count 9.4 K/mm3 (4.5-10.0)
[2023-09-16 02:41] LABS: Alanine Aminotransferase 14 U/L (6-35); Albumin Level 3.4 g/dL (3.5-5.1); Alkaline Phosphatase 47 U/L (38-126); Anion Gap 6 mmol/L (4-12); Aspartate Amino Transferase 25 U/L (14-36); Bilirubin,Total 0.4 mg/dL (0.2-1.3); Blood Urea Nitrogen 44 mg/dL (7-17); Calcium 9.3 mg/dL (8.4-10.2); Carbon Dioxide 25 mmol/L (22-30); Chloride 109 mmol/L (98-107); Estimated CRCL calculation 12 ml/min; Estimated Glomerular Filt Rate 13; Glucose 92 mg/dL (65-110); Potassium 3.8 mmol/L (3.4-5.0); Sodium 140 mmol/L (137-145)
[2023-09-16 02:46] LABS: Vancomycin Random 12.3 ug/mL (10-20)
[2023-09-16] MEDS: VANCOMYCIN 1,250 MG/NS 250 ML 1,250 MG/250 ML BAG 166.67 MG IVPB (03:40)
[2023-09-16 04:32] LABS: Glucose Point of Care 104 mg/dl (65-105)
[2023-09-16 08:13] LABS: Glucose Point of Care 114 mg/dl (65-105)
[2023-09-16] MEDS: BUMETANIDE INJ 1 MG/4 ML VIAL IV PUSH (09:38)
[2023-09-16] MEDS: FLUoxetine HCL 20 MG CAPSULE 40 MG PO (09:38)
[2023-09-16] MEDS: SODIUM BICARBONATE TAB 650 MG TABLET 1300 MG PO (09:39)
[2023-09-16] MEDS: lisinopriL 20 MG TABLET PO ×2 (09:39→16:31)
[2023-09-16] MEDS: amLODIPine BESYLATE 5 MG TABLET 10 MG PO (09:39)
[2023-09-16] MEDS: CLOPIDOGREL BISULFATE 75 MG TABLET PO (09:40)
[2023-09-16] MEDS: CHOLECALCIFEROL 1,000 UNITS TABLET 2000 UNITS PO (09:40)
--- NOTE | 2023-09-16 13:22 | PC.NURSE ---
This patient, Shayy Madera, was transferred to [facility] on 09/16/23 at 1322. Personal belongings sent with patient. Report given to Kristan CUNNINGHAM. Appropriate documentation sent with patient.
[2023-09-16 13:25] LABS: Glucose Point of Care 174 mg/dl (65-105)
--- NOTE | 2023-09-16 14:55 | PM.IMPN ---
Progress Note: A&P Assessment and Plan (1) Hypertensive urgency: Code(s): I16.0 - Hypertensive urgency Status: Acute (2) Lung infiltrate: Code(s): R91.8 - Other nonspecific abnormal finding of lung field Status: Acute (3) CHF (congestive heart failure): Code(s): I50.9 - Heart failure, unspecified Status: Acute (4) Restless legs syndrome: Code(s): G25.81 - Restless legs syndrome Status: Acute (5) Chronic kidney disease: Code(s): N18.9 - Chronic kidney disease, unspecified Status: Acute (6) Coronary artery disease: Code(s): I25.10 - Atherosclerotic heart disease of [place] coronary artery without angina pectoris Status: Acute (7) Obstructive sleep apnea (adult) (pediatric): Code(s): G47.33 - Obstructive sleep apnea (adult) (pediatric) Status: Acute (8) Gastro-esophageal reflux disease without esophagitis: Code(s): K21.9 - Gastro-esophageal reflux disease without esophagitis Status: Acute (9) Type 2 diabetes mellitus with diabetic nephropathy: Qualifiers: Diabetes mellitus care home insulin use: with care home use Qualified Code(s): E11.21 - Type 2 diabetes mellitus with diabetic nephropathy; Z79.4 - termite technician (current) use of insulin Code(s): E11.21 - Type 2 diabetes mellitus with diabetic nephropathy Status: Chronic (10) Generalized weakness: Code(s): R53.1 - Weakness Status: Acute Plan This is an 83-year-old female with history of coronary artery disease, diastolic dysfunction, hypertension, hyperlipidemia, insulin-dependent type 2 diabetes, chronic kidney disease stage 4, anemia, hypothyroidism, mild sleep apnea presented with shortness of breath.? She was recently admitted for CHF exacerbation and was discharged on 09/13/2023 however had to come right back due to worsening shortness of breath. Patient was noted to have significantly elevated blood pressure on arrival in the ER with systolic blood pressure 221. Laboratory evaluation showed WBC of 10 hemoglobin of 9.4 platelet of 293 creatinine of 2.9 BNP of more than 30,000 LFTs normal lipase normal. Chest x-ray showed segmental left basilar atelectasis/consolidation mild interstitial edema. Small left pleural effusion. EKG showed sinus rhythm with nonspecific ST-T changes. Recent Echocardiogram performed on 09/10/2023 with ejection fraction 55% abnormal septal wall motion with septal motion related to bundle branch block.? Grade 3 diastolic dysfunction.? She will be diuresed with Bumex IV. Possible pneumonia she has been placed on antibiotics with cefepime and azithromycin. Vancomycin was also initiated but has been discontinued due to negative MRSA screen Hypertension was managed with multiple different medication she at goal to manage his hypertension and has intolerance to many medications including metoprolol clonidine hydralazine spironolactone doxazosin along with orthostatic hypotension.? Amlodipine was increased to 10 mg along with lisinopril and pindolol dose of which was also increased. Creatinine at baseline. Last ischemic evaluation was done in 2020 with Lexiscan showing a large tenia infarction which was treated medically due to her advanced CKD.? She remained on aspirin Plavix and statin which will be continued continue diuresis for possible CHF exacerbation likely related to uncontrolled hypertension. Recent venous duplex was negative for DVT. Procalcitonin level 0.1. Chest x-ray repeat/01/31 with left lower lobe atelectasis/edema versus pneumonia with minimal central congestive change. Worsening renal function. With recurrent admission for volume overload could be related to elevated blood pressure. Will consult Nephrology. Subjective Date/time seen: 09/16/23 14:55 Interval history: Feels okay. Breathing has improved. Denies any leg swelling. Labs reviewed. Blood pressures been elevated. Which is chronic. Hypoglycemic ov
[2023-09-16 17:05] LABS: Glucose Point of Care 163 mg/dl (65-105)
--- NOTE | 2023-09-16 17:20 | PM.CNNEP ---
Assessment and Plan Assessment and plan (1) Chronic kidney disease (CKD), stage V: Code(s): N18.5 - Chronic kidney disease, stage 5 Status: Chronic Assessment and Plan: baseline creatinine runs ~ 2.9 - 3.5mg/l in the last year or so due to hypertension, diabetes, vascular disease, UNRULY, and age-related change follow trend of labs and UOP (2) Hypertensive urgency: Code(s): I16.0 - Hypertensive urgency Status: Acute Assessment and Plan: quite elevated on presentation and currently complicated by intolerance to multiple BP medications and orthostatic hypotension trial of nifedipine instead on amlodipine follow trend of hemodynamics (3) Shortness of breath: Code(s): R06.02 - Shortness of breath Status: Acute Assessment and Plan: more so with exertional activites related to #2 versus #4 versus #1 or versus #5 versus a combination of them all? on IV diuretics on antibiotics follow respiratory status (4) CHF (congestive heart failure): Code(s): I50.9 - Heart failure, unspecified Status: Acute Assessment and Plan: noted on last hospitalization clinically better by the time of discharge several days ago unclear if this is playing a role with #3 on IV diuretics currently (5) Lung infiltrate: Code(s): R91.8 - Other nonspecific abnormal finding of lung field Status: Acute Assessment and Plan: questionable pneumonia by admission imaging follow culture data on antibiotics (6) Chronic anemia: Code(s): D64.9 - Anemia, unspecified Status: Chronic Assessment and Plan: related to CKD and recent hospitalization evidence of iron deficiency by last anemia studies (last hospitalization) will hold IV iron given concerns of infection (pneumonia) consider empiric ELI while hospitalized follow trend of H/H (7) Diabetes mellitus with chronic kidney disease: Qualifiers: Chronic kidney disease stage: stage 5, not on chronic dialysis Diabetes mellitus parts counterman insulin use: with parts counterman use Diabetes mellitus type: type 2 Qualified Code(s): E11.22 - Type 2 diabetes mellitus with diabetic chronic kidney disease; N18.5 - Chronic kidney disease, stage 5; Z79.4 - terminal press operator (current) use of insulin Code(s): E11.22 - Type 2 diabetes mellitus with diabetic chronic kidney disease Status: Chronic Assessment and Plan: follow accu-cheks glycemic control per hospitalists I will continue follow patient with you while she remains hospitalized and make further recommendations as deemed necessary. Thank you for allowing me to participate in the care of this patient. History of Present Illness Reason for Consult Consult date: 09/16/23 Reason for consult: chronic renal failure Chief Complaint Chief complaint: Hypertensive urgency History of Present Illness Narrative: The patient is an 83-year-old female with a past medical history as outlined below who presented to [facility] Emergency Room with complaints of shortness of breath. The patient was just recently admitted and discharged for what appeared to be a CHF exacerbation and was treated with a combination of fluid restriction and IV diuresis and she clinically improved and was subsequently discharged on 09/13/2023. However, when she got home, she once again felt short of breath particularly with exertional activities and came back to the emergency room further assessment. Workup and evaluation emergency room demonstrated the patient be quite hypertensive with a systolic BP greater than 200. Repeat labs demonstrated her chronic anemia with a normal white blood cell count and relatively stable renal function without any critical electrolyte abnormalities consistent with her known history of chronic kidney disease. Her BNP was quite elevated and her chest x-ray showed segmental left basilar atelectasis / consolida
--- NOTE | 2023-09-16 17:20 | P.CONNP_ITS ---
Assessment and Plan Assessment and plan (1) Chronic kidney disease (CKD), stage V: Code(s): N18.5 - Chronic kidney disease, stage 5 Status: Chronic Assessment and Plan: * baseline creatinine runs ~ 2.9 - 3.5mg/l in the last year or so * due to hypertension, diabetes, vascular disease, UNRULY, and age-related change * follow trend of labs and UOP (2) Hypertensive urgency: Code(s): I16.0 - Hypertensive urgency Status: Acute Assessment and Plan: * quite elevated on presentation and currently * complicated by intolerance to multiple BP medications and orthostatic hypotension * trial of nifedipine instead on amlodipine * follow trend of hemodynamics (3) Shortness of breath: Code(s): R06.02 - Shortness of breath Status: Acute Assessment and Plan: * more so with exertional activites * related to #2 versus #4 versus #1 or versus #5 versus a combination of them all? * on IV diuretics * on antibiotics * follow respiratory status (4) CHF (congestive heart failure): Code(s): I50.9 - Heart failure, unspecified Status: Acute Assessment and Plan: * noted on last hospitalization * clinically better by the time of discharge several days ago * unclear if this is playing a role with #3 * on IV diuretics currently (5) Lung infiltrate: Code(s): R91.8 - Other nonspecific abnormal finding of lung field Status: Acute Assessment and Plan: * questionable pneumonia by admission imaging * follow culture data * on antibiotics (6) Chronic anemia: Code(s): D64.9 - Anemia, unspecified Status: Chronic Assessment and Plan: * related to CKD and recent hospitalization * evidence of iron deficiency by last anemia studies (last hospitalization) * will hold IV iron given concerns of infection (pneumonia) * consider empiric ELI while hospitalized * follow trend of H/H (7) Diabetes mellitus with chronic kidney disease: Qualifiers: Chronic kidney disease stage: stage 5, not on chronic dialysis Diabetes mellitus lobsterman insulin use: with jail use Diabetes mellitus type: type 2 Qualified Code(s): E11.22 - Type 2 diabetes mellitus with diabetic chronic kidney disease; N18.5 - Chronic kidney disease, stage 5; Z79.4 - [facility] (current) use of insulin Code(s): E11.22 - Type 2 diabetes mellitus with diabetic chronic kidney disease Status: Chronic Assessment and Plan: * follow accu-cheks * glycemic control per hospitalists I will continue follow patient with you while she remains hospitalized and make further recommendations as deemed necessary. Thank you for allowing me to participate in the care of this patient. History of Present Illness Reason for Consult Consult date: 09/16/23 Reason for consult: chronic renal failure Chief Complaint Chief complaint: Hypertensive urgency History of Present Illness Narrative: The patient is an 83-year-old female with a past medical history as outlined below who presented to [facility] Emergency Room with complaints of shortness of breath. The patient was just recently admitted and discharged for what appeared to be a CHF exacerbation and was treated with a combination of fluid restriction and IV diuresis and she clinically improved and was subsequently discharged on 09/13/2023. However, when she got home, she once again felt short of breath particularly with exertional activities and came back to the emergency room further assessment. Workup and heather
[2023-09-16] MEDS: CEFDINIR 300 MG CAPSULE PO (20:27)
[2023-09-16] MEDS: AZITHROMYCIN 250 MG TABLET 500 MG PO (20:27)
[2023-09-16] MEDS: ASPIRIN 81 MG ENTERIC TABLET PO (20:28)
[2023-09-16] MEDS: LEVOTHYROXINE SODIUM 88 MCG TABLET PO (20:28)
[2023-09-16 20:44] LABS: Glucose Point of Care 239 mg/dl (65-105)
[2023-09-17] VITALS (11 sets, daily range): BP systolic 135–200; BP diastolic 49–62; PULSE 58–76; RESP 16–28; TEMP 36.3–36.6; O2SAT 94–99
[2023-09-17] MEDS: ALBUTEROL SULFATE (*SP) AEROSOL 1 PUFF 2 PUFF INHALATION ×2 (01:50→13:30)
[2023-09-17 06:30] LABS: Basophils Absolute Auto 0.1 K/mm3 (0.0-0.1); Basophils Percent Auto 0.6 % (0.2-1.2); Eosinophils Absolute Auto 0.5 K/mm3 (0-0.3); Eosinophils Percent Auto 6.1 % (0-4.4); Hematocrit 26.8 % (37.0-47.0); Hemoglobin 8.1 g/dL (12.0-15.0); Immature Granulocyte Absolute 0.02 K/mm3 (0.00-0.031); Immature Granulocyte Percent A 0.2 % (0-0.5); Lymphocytes Absolute Auto 1.42 K/mm3 (0.9-3.2); Lymphocytes Percent Auto 16.9 % (18.3-44.2); Mean Corpuscular HGB Conc 30.2 g/dl (32-36); Mean Corpuscular Hemoglobin 28.9 pg (26-34); Mean Corpuscular Volume 95.7 fl (80-100); Mean Platelet Volume 10.8 fl (7.4-10.4); Monocytes Percent Auto 11.7 % (2.6-8.5); Neutrophils Absolute Auto 5.4 K/mm3 (1.3-6.7); Neutrophils Percent Auto 64.5 % (45.5-73.1); Platelet Count Result 243 k/mm3 (150-375); Red Cell Distribution Width 14.9 % (11.5-14.5); White Blood Count 8.4 K/mm3 (4.5-10.0)
[2023-09-17 07:23] LABS: Alanine Aminotransferase 13 U/L (6-35); Albumin Level 3.3 g/dL (3.5-5.1); Alkaline Phosphatase 43 U/L (38-126); Anion Gap 5 mmol/L (4-12); Aspartate Amino Transferase 20 U/L (14-36); Bilirubin,Total 0.4 mg/dL (0.2-1.3); Blood Urea Nitrogen 45 mg/dL (7-17); Calcium 9.3 mg/dL (8.4-10.2); Carbon Dioxide 25 mmol/L (22-30); Chloride 108 mmol/L (98-107); Estimated CRCL calculation 12 ml/min; Estimated Glomerular Filt Rate 13; Glucose 138 mg/dL (65-110); Potassium 3.9 mmol/L (3.4-5.0); Sodium 138 mmol/L (137-145)
[2023-09-17 08:11] LABS: Glucose Point of Care 131 mg/dl (65-105)
[2023-09-17] MEDS: FLUoxetine HCL 20 MG CAPSULE 40 MG PO (10:02)
[2023-09-17] MEDS: CLOPIDOGREL BISULFATE 75 MG TABLET PO (10:02)
[2023-09-17] MEDS: CHOLECALCIFEROL 1,000 UNITS TABLET 2000 UNITS PO (10:02)
[2023-09-17] MEDS: lisinopriL 20 MG TABLET PO ×2 (10:02→16:20)
[2023-09-17] MEDS: NIFEdipine 30 MG TAB.ER.24 PO (10:02)
[2023-09-17] MEDS: BUMETANIDE INJ 1 MG/4 ML VIAL IV PUSH (10:03)
[2023-09-17] MEDS: SODIUM BICARBONATE TAB 650 MG TABLET 1300 MG PO (10:03)
--- NOTE | 2023-09-17 10:52 | P.PNNP_ITS ---
Progress Note: A&P Assessment and Plan (1) Chronic kidney disease (CKD), stage V: Code(s): N18.5 - Chronic kidney disease, stage 5 Status: Chronic Assessment and Plan: * baseline creatinine runs ~ 2.9 - 3.5mg/l in the last year or so * due to hypertension, diabetes, vascular disease, UNRULY, and age-related change * follow trend of labs and UOP (2) Hypertensive urgency: Code(s): I16.0 - Hypertensive urgency Status: Acute Assessment and Plan: * quite elevated on presentation and currently * complicated by intolerance to multiple BP medications and orthostatic hypotension * trial of nifedipine instead on amlodipine * add oral hydralazine? -- reported intolerance but tolerated IV hydralazine in ER.... * follow trend of hemodynamics (3) Shortness of breath: Code(s): R06.02 - Shortness of breath Status: Acute Assessment and Plan: * more so with exertional activites * related to #2 versus #4 versus #1 or versus #5 versus a combination of them all? * on IV diuretics * on antibiotics * follow respiratory status (4) CHF (congestive heart failure): Code(s): I50.9 - Heart failure, unspecified Status: Acute Assessment and Plan: * noted on last hospitalization * clinically better by the time of discharge several days ago * unclear if this is playing a role with #3 * on IV diuretics currently (5) Lung infiltrate: Code(s): R91.8 - Other nonspecific abnormal finding of lung field Status: Acute Assessment and Plan: * questionable pneumonia by admission imaging * follow culture data * on antibiotics (6) Chronic anemia: Code(s): D64.9 - Anemia, unspecified Status: Chronic Assessment and Plan: * related to CKD and recent hospitalization * evidence of iron deficiency by last anemia studies (last hospitalization) * will hold IV iron given concerns of infection (pneumonia) * consider empiric ELI while hospitalized * follow trend of H/H (7) Diabetes mellitus with chronic kidney disease: Qualifiers: Chronic kidney disease stage: stage 5, not on chronic dialysis Diabetes mellitus terminal operator insulin use: with group home use Diabetes mellitus type: type 2 Qualified Code(s): E11.22 - Type 2 diabetes mellitus with diabetic chronic kidney disease; N18.5 - Chronic kidney disease, stage 5; Z79.4 - ad terminal makeup operator (current) use of insulin Code(s): E11.22 - Type 2 diabetes mellitus with diabetic chronic kidney disease Status: Chronic Assessment and Plan: * follow accu-cheks * glycemic control per hospitalists Discussed with Dr. Turcios. Will continue to follow. Subjective Date/time seen: 09/17/23 10:52 Interval history: Follow-up for chronic kidney disease. Blood pressure control remains suboptima but medication changes done yesterday to start today; still report shortness of breath with exertion but not at rest; no apparent distress voiced otherwise. Exam Narrative: General: elderly but WD/WN female in NAD Heart: normal S1 and S2; no rub Lungs: clear anteriorly; decreased at bases Abdomen: soft, nontender, nondistended, positive bowel sounds Extremities: no cyanosis or clubbing; trace edema Skin: warm and dry Objective Data Vital Signs Vital Signs: Vital Signs Temp Pulse Resp BP Pulse Ox O2 Del Method FiO2
--- NOTE | 2023-09-17 10:52 | PM.PNNEP ---
Progress Note: A&P Assessment and Plan (1) Chronic kidney disease (CKD), stage V: Code(s): N18.5 - Chronic kidney disease, stage 5 Status: Chronic Assessment and Plan: baseline creatinine runs ~ 2.9 - 3.5mg/l in the last year or so due to hypertension, diabetes, vascular disease, UNRULY, and age-related change follow trend of labs and UOP (2) Hypertensive urgency: Code(s): I16.0 - Hypertensive urgency Status: Acute Assessment and Plan: quite elevated on presentation and currently complicated by intolerance to multiple BP medications and orthostatic hypotension trial of nifedipine instead on amlodipine add oral hydralazine? -- reported intolerance but tolerated IV hydralazine in ER.... follow trend of hemodynamics (3) Shortness of breath: Code(s): R06.02 - Shortness of breath Status: Acute Assessment and Plan: more so with exertional activites related to #2 versus #4 versus #1 or versus #5 versus a combination of them all? on IV diuretics on antibiotics follow respiratory status (4) CHF (congestive heart failure): Code(s): I50.9 - Heart failure, unspecified Status: Acute Assessment and Plan: noted on last hospitalization clinically better by the time of discharge several days ago unclear if this is playing a role with #3 on IV diuretics currently (5) Lung infiltrate: Code(s): R91.8 - Other nonspecific abnormal finding of lung field Status: Acute Assessment and Plan: questionable pneumonia by admission imaging follow culture data on antibiotics (6) Chronic anemia: Code(s): D64.9 - Anemia, unspecified Status: Chronic Assessment and Plan: related to CKD and recent hospitalization evidence of iron deficiency by last anemia studies (last hospitalization) will hold IV iron given concerns of infection (pneumonia) consider empiric ELI while hospitalized follow trend of H/H (7) Diabetes mellitus with chronic kidney disease: Qualifiers: Chronic kidney disease stage: stage 5, not on chronic dialysis Diabetes mellitus termite control representative insulin use: with snf use Diabetes mellitus type: type 2 Qualified Code(s): E11.22 - Type 2 diabetes mellitus with diabetic chronic kidney disease; N18.5 - Chronic kidney disease, stage 5; Z79.4 - longterm (current) use of insulin Code(s): E11.22 - Type 2 diabetes mellitus with diabetic chronic kidney disease Status: Chronic Assessment and Plan: follow accu-cheks glycemic control per hospitalists Discussed with Dr. Turcios. Will continue to follow. Subjective Date/time seen: 09/17/23 10:52 Interval history: Follow-up for chronic kidney disease. Blood pressure control remains suboptima but medication changes done yesterday to start today; still report shortness of breath with exertion but not at rest; no apparent distress voiced otherwise. Exam Narrative: General: elderly but WD/WN female in NAD Heart: normal S1 and S2; no rub Lungs: clear anteriorly; decreased at bases Abdomen: soft, nontender, nondistended, positive bowel sounds Extremities: no cyanosis or clubbing; trace edema Skin: warm and dry Objective Data Vital Signs Vital Signs: Vital Signs Temp Pulse Resp BP Pulse Ox O2 Del Method FiO2 09/17/23 10:49 97.8 F 62 20 182/53 H 94 09/17/23 07:56 99 Room Air 09/17/23 09:17 95 Room Air 21 09/17/23 08:00 97.5 F L 61 21 H 194/53 H 95 09/17/23 04:11 97.7 F 58 L 16 181/49 H 99 09/16/23 23:43 98.7 F 61 18 183/48 H 100 09/16/23 20:00 63 18 96 Room Air 09/16/23 20:00 98.1 F 63 18 181/73 H 96 09/16/23 16:00 98.7 F 64 24 H 183/59 H 100 09/16/23 13:15 97.9 F 64 18 176/53 H 97 Intake/Output Intake/Output: Intake & Output 09/14/23 09/15/23 09/16/23 09/17/23 23:59 23:59 23:59 23:59 Intake [place]
[2023-09-17 11:19] LABS: Glucose Point of Care 219 mg/dl (65-105)
[2023-09-17] MEDS: INSULIN ASPART (*BKC) 100 UNITS/ML SUB-Q (11:51)
[2023-09-17 11:56] LABS: Glucose Point of Care 246 mg/dl (65-105)
--- NOTE | 2023-09-17 14:11 | PM.IMPN ---
Progress Note: A&P Assessment and Plan (1) Hypertensive urgency: Code(s): I16.0 - Hypertensive urgency Status: Acute (2) Lung infiltrate: Code(s): R91.8 - Other nonspecific abnormal finding of lung field Status: Acute (3) CHF (congestive heart failure): Code(s): I50.9 - Heart failure, unspecified Status: Acute (4) Restless legs syndrome: Code(s): G25.81 - Restless legs syndrome Status: Acute (5) Chronic kidney disease: Code(s): N18.9 - Chronic kidney disease, unspecified Status: Acute (6) Coronary artery disease: Code(s): I25.10 - Atherosclerotic heart disease of [place] coronary artery without angina pectoris Status: Acute (7) Obstructive sleep apnea (adult) (pediatric): Code(s): G47.33 - Obstructive sleep apnea (adult) (pediatric) Status: Acute (8) Gastro-esophageal reflux disease without esophagitis: Code(s): K21.9 - Gastro-esophageal reflux disease without esophagitis Status: Acute (9) Type 2 diabetes mellitus with diabetic nephropathy: Qualifiers: Diabetes mellitus fpc insulin use: with fpc use Qualified Code(s): E11.21 - Type 2 diabetes mellitus with diabetic nephropathy; Z79.4 - intermediate school teacher (current) use of insulin Code(s): E11.21 - Type 2 diabetes mellitus with diabetic nephropathy Status: Chronic (10) Generalized weakness: Code(s): R53.1 - Weakness Status: Acute Plan This is an 83-year-old female with history of coronary artery disease, diastolic dysfunction, hypertension, hyperlipidemia, insulin-dependent type 2 diabetes, chronic kidney disease stage 4, anemia, hypothyroidism, mild sleep apnea presented with shortness of breath.? She was recently admitted for CHF exacerbation and was discharged on 09/13/2023 however had to come right back due to worsening shortness of breath. Patient was noted to have significantly elevated blood pressure on arrival in the ER with systolic blood pressure 221. Laboratory evaluation showed WBC of 10 hemoglobin of 9.4 platelet of 293 creatinine of 2.9 BNP of more than 30,000 LFTs normal lipase normal. Chest x-ray showed segmental left basilar atelectasis/consolidation mild interstitial edema. Small left pleural effusion. EKG showed sinus rhythm with nonspecific ST-T changes. Recent Echocardiogram performed on 09/10/2023 with ejection fraction 55% abnormal septal wall motion with septal motion related to bundle branch block.? Grade 3 diastolic dysfunction.? She will be diuresed with Bumex IV. Possible pneumonia she has been placed on antibiotics with cefepime and azithromycin. Vancomycin was also initiated but has been discontinued due to negative MRSA screen Hypertension was managed with multiple different medication she at goal to manage his hypertension and has intolerance to many medications including metoprolol clonidine hydralazine spironolactone doxazosin along with orthostatic hypotension.? Amlodipine was increased to 10 mg along with lisinopril and pindolol dose of which was also increased. Creatinine at baseline. Last ischemic evaluation was done in 2020 with Lexiscan showing a large tenia infarction which was treated medically due to her advanced CKD.? She remained on aspirin Plavix and statin which will be continued continue diuresis for possible CHF exacerbation likely related to uncontrolled hypertension. Recent venous duplex was negative for DVT. Procalcitonin level 0.1. Chest x-ray repeat/01/31 with left lower lobe atelectasis/edema versus pneumonia with minimal central congestive change. Worsening renal function. With recurrent admission for volume overload could be related to elevated blood pressure. Consulted nephrology in discussed with them. Amlodipine has been switched to nifedipine. Will add small dose of hydralazine as she tolerated this medication in the ER. DVT prophylaxis heparin subQ Subjective Date/time seen: 09/17/23
--- NOTE | 2023-09-17 15:10 | PC.NURSE ---
On 09/17/23, the student, Evelin Judd, provided care and completed [facility] documentation on this patient. I have reviewed the student's documentation and agree with the findings.
[2023-09-17] MEDS: hydrALAZINE 10 MG TABLET PO ×2 (16:20→20:58)
[2023-09-17 16:39] LABS: Glucose Point of Care 150 mg/dl (65-105)
[2023-09-17 20:14] LABS: Glucose Point of Care 249 mg/dl (65-105)
[2023-09-17] MEDS: HEPARIN SODIUM 5,000 UNITS/ML VIAL 5000 UNITS SUB-Q (20:55)
[2023-09-17] MEDS: ASPIRIN 81 MG ENTERIC TABLET PO (20:55)
[2023-09-17] MEDS: LEVOTHYROXINE SODIUM 88 MCG TABLET PO (20:55)
[2023-09-17] MEDS: AZITHROMYCIN 250 MG TABLET 500 MG PO (20:55)
[2023-09-17] MEDS: CEFDINIR 300 MG CAPSULE PO (20:55)
[2023-09-18] VITALS (10 sets, daily range): BP systolic 135–175; BP diastolic 42–60; PULSE 53–77; RESP 18; TEMP 36.3–36.9; O2SAT 86–100
[2023-09-18 06:16] LABS: Basophils Absolute Auto 0.1 K/mm3 (0.0-0.1); Basophils Percent Auto 0.8 % (0.2-1.2); Eosinophils Absolute Auto 0.5 K/mm3 (0-0.3); Hemoglobin 8.6 g/dL (12.0-15.0); Immature Granulocyte Absolute 0.03 K/mm3 (0.00-0.031); Immature Granulocyte Percent A 0.4 % (0-0.5); Lymphocytes Absolute Auto 1.44 K/mm3 (0.9-3.2); Lymphocytes Percent Auto 18.8 % (18.3-44.2); Mean Corpuscular HGB Conc 29.7 g/dl (32-36); Mean Corpuscular Hemoglobin 28.8 pg (26-34); Mean Platelet Volume 10.9 fl (7.4-10.4); Monocytes Absolute Auto 0.9 K/mm3 (0.1-0.6); Monocytes Percent Auto 12.2 % (2.6-8.5); Neutrophils Absolute Auto 4.7 K/mm3 (1.3-6.7); Neutrophils Percent Auto 61.8 % (45.5-73.1); Platelet Count Result 247 k/mm3 (150-375); Red Blood Count 2.99 M/mm3 (4.2-5.4); Red Cell Distribution Width 14.7 % (11.5-14.5); White Blood Count 7.6 K/mm3 (4.5-10.0)
[2023-09-18 06:28] LABS: Alanine Aminotransferase 12 U/L (6-35); Albumin Level 3.4 g/dL (3.5-5.1); Alkaline Phosphatase 44 U/L (38-126); Anion Gap 6 mmol/L (4-12); Aspartate Amino Transferase 19 U/L (14-36); Bilirubin,Total 0.4 mg/dL (0.2-1.3); Blood Urea Nitrogen 48 mg/dL (7-17); Calcium 9.2 mg/dL (8.4-10.2); Carbon Dioxide 25 mmol/L (22-30); Chloride 108 mmol/L (98-107); Estimated CRCL calculation 12 ml/min; Estimated Glomerular Filt Rate 13; Glucose 141 mg/dL (65-110); Potassium 3.9 mmol/L (3.4-5.0); Sodium 139 mmol/L (137-145)
[2023-09-18 07:49] LABS: Glucose Point of Care 144 mg/dl (65-105)
[2023-09-18 08:23] LABS: Hypochromasia 1+; Platelet Estimate Adequate (Adequate); Schistocytes Rare
[2023-09-18] MEDS: CHOLECALCIFEROL 1,000 UNITS TABLET 2000 UNITS PO (09:27)
[2023-09-18] MEDS: NIFEdipine 30 MG TAB.ER.24 PO (09:27)
[2023-09-18] MEDS: SODIUM BICARBONATE TAB 650 MG TABLET 1300 MG PO (09:27)
[2023-09-18] MEDS: CLOPIDOGREL BISULFATE 75 MG TABLET PO (09:27)
[2023-09-18] MEDS: FLUoxetine HCL 20 MG CAPSULE 40 MG PO (09:28)
[2023-09-18] MEDS: lisinopriL 20 MG TABLET PO ×2 (09:28→16:50)
[2023-09-18] MEDS: BUMETANIDE INJ 1 MG/4 ML VIAL IV PUSH (09:32)
[2023-09-18] MEDS: HEPARIN SODIUM 5,000 UNITS/ML VIAL 5000 UNITS SUB-Q (09:33)
[2023-09-18 11:21] LABS: Glucose Point of Care 241 mg/dl (65-105)
--- NOTE | 2023-09-18 12:41 | P.PNNP_ITS ---
Progress Note: A&P Assessment and Plan (1) Chronic kidney disease (CKD), stage V: Code(s): N18.5 - Chronic kidney disease, stage 5 Status: Chronic Assessment and Plan: * baseline creatinine runs ~ 2.9 - 3.5mg/l in the last year or so * due to hypertension, diabetes, vascular disease, UNRULY, and age-related change * follow trend of labs and UOP (2) Hypertensive urgency: Code(s): I16.0 - Hypertensive urgency Status: Acute Assessment and Plan: * quite elevated on presentation and currently * complicated by intolerance to multiple BP medications and orthostatic hypotension * trial of nifedipine instead on amlodipine * tolerating oral hydralazine * follow trend of hemodynamics (3) Shortness of breath: Code(s): R06.02 - Shortness of breath Status: Acute Assessment and Plan: * more so with exertional activites * related to #2 versus #4 versus #1 or versus #5 versus a combination of them all? * on diuretics * on antibiotics * follow respiratory status (4) CHF (congestive heart failure): Code(s): I50.9 - Heart failure, unspecified Status: Acute Assessment and Plan: * noted on last hospitalization * clinically better by the time of discharge several days ago * unclear if this is playing a role with #3 * on IV diuretics currently (5) Lung infiltrate: Code(s): R91.8 - Other nonspecific abnormal finding of lung field Status: Acute Assessment and Plan: * questionable pneumonia by admission imaging * follow culture data * on antibiotics (6) Chronic anemia: Code(s): D64.9 - Anemia, unspecified Status: Chronic Assessment and Plan: * related to CKD and recent hospitalization * evidence of iron deficiency by last anemia studies (last hospitalization) * will hold IV iron given concerns of infection (pneumonia) * consider empiric ELI while hospitalized * follow trend of H/H (7) Diabetes mellitus with chronic kidney disease: Qualifiers: Chronic kidney disease stage: stage 5, not on chronic dialysis 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 Subjective Date/time seen: 09/18/23 12:41 Interval history: Follow-up for chronic kidney disease. Blood pressure control appears to be doing better with addition of low dose hydralazine and nifedipine; still reports sone shortness of breth with exertion but seems better overal; no issues/events overnight or earlier this morning. Exam Narrative: General: elderly but WD/WN female in NAD Heart: normal S1 and S2; no rub Lungs: clear anteriorly; decreased at bases Abdomen: soft, nontender, nondistended, positive bowel sounds Extremities: no cyanosis or clubbing; trace edema Skin: warm and intact Objective Data Vital Signs Vital Signs: Vital Signs Temp Pulse Resp BP Pulse Ox O2 Del Method O2 Flow Rate 09/18/23 12:00 97.3 F L 63 18 135/60 99
--- NOTE | 2023-09-18 12:41 | PM.PNNEP ---
Progress Note: A&P Assessment and Plan (1) Chronic kidney disease (CKD), stage V: Code(s): N18.5 - Chronic kidney disease, stage 5 Status: Chronic Assessment and Plan: baseline creatinine runs ~ 2.9 - 3.5mg/l in the last year or so due to hypertension, diabetes, vascular disease, UNRULY, and age-related change follow trend of labs and UOP (2) Hypertensive urgency: Code(s): I16.0 - Hypertensive urgency Status: Acute Assessment and Plan: quite elevated on presentation and currently complicated by intolerance to multiple BP medications and orthostatic hypotension trial of nifedipine instead on amlodipine tolerating oral hydralazine follow trend of hemodynamics (3) Shortness of breath: Code(s): R06.02 - Shortness of breath Status: Acute Assessment and Plan: more so with exertional activites related to #2 versus #4 versus #1 or versus #5 versus a combination of them all? on diuretics on antibiotics follow respiratory status (4) CHF (congestive heart failure): Code(s): I50.9 - Heart failure, unspecified Status: Acute Assessment and Plan: noted on last hospitalization clinically better by the time of discharge several days ago unclear if this is playing a role with #3 on IV diuretics currently (5) Lung infiltrate: Code(s): R91.8 - Other nonspecific abnormal finding of lung field Status: Acute Assessment and Plan: questionable pneumonia by admission imaging follow culture data on antibiotics (6) Chronic anemia: Code(s): D64.9 - Anemia, unspecified Status: Chronic Assessment and Plan: related to CKD and recent hospitalization evidence of iron deficiency by last anemia studies (last hospitalization) will hold IV iron given concerns of infection (pneumonia) consider empiric ELI while hospitalized follow trend of H/H (7) Diabetes mellitus with chronic kidney disease: Qualifiers: Chronic kidney disease stage: stage 5, not on chronic dialysis Diabetes mellitus chcf insulin use: with terminal carman use Diabetes mellitus type: type 2 Qualified Code(s): E11.22 - Type 2 diabetes mellitus with diabetic chronic kidney disease; N18.5 - Chronic kidney disease, stage 5; Z79.4 - assisted (current) use of insulin Code(s): E11.22 - Type 2 diabetes mellitus with diabetic chronic kidney disease Status: Chronic Assessment and Plan: follow accu-cheks glycemic control per hospitalists Will continue to follow. Subjective Date/time seen: 09/18/23 12:41 Interval history: Follow-up for chronic kidney disease. Blood pressure control appears to be doing better with addition of low dose hydralazine and nifedipine; still reports sone shortness of breth with exertion but seems better overal; no issues/events overnight or earlier this morning. Exam Narrative: General: elderly but WD/WN female in NAD Heart: normal S1 and S2; no rub Lungs: clear anteriorly; decreased at bases Abdomen: soft, nontender, nondistended, positive bowel sounds Extremities: no cyanosis or clubbing; trace edema Skin: warm and intact Objective Data Vital Signs Vital Signs: Vital Signs Temp Pulse Resp BP Pulse Ox O2 Del Method O2 Flow Rate 09/18/23 12:00 97.3 F L 63 18 135/60 99 09/18/23 08:00 98.4 F 57 L 18 149/49 H 100 09/18/23 04:00 97.4 F L 53 L 18 166/53 H 100 09/18/23 00:00 97.6 F 57 L 18 167/42 H 100 09/17/23 23:11 172/60 H 09/17/23 20:00 96 Nasal Cannula 2 09/17/23 20:00 97.8 F 62 28 H 200/62 H 99 Intake/Output Intake/Output: Intake & Output 09/15/23 09/16/23 09/17/23 09/18/23 23:59 23:59 23:59 23:59 Intake Total 1010 333 398 4372 Output Total 250 Balance 1010 539 317 3293 Meds/Results Medications: Active Medications Generic Name Dose Route Start Last Admin Trade Name Freq
[2023-09-18] MEDS: hydrALAZINE 10 MG TABLET PO ×2 (12:45→16:50)
[2023-09-18] MEDS: INSULIN ASPART (*BKC) 100 UNITS/ML SUB-Q (12:45)
--- NOTE | 2023-09-18 16:09 | PCRCNOTE ---
HOME O2 EVAL COMPLETE. PATIENT REQUIRES ROOM AIR WITH REST AND 2LPM WITH ACTIVITY. RN AND DR BHATTI NOTIFIED.
--- NOTE | 2023-09-18 16:13 | HOMEO2EVAL ---
Evaluation was performed at [facility] Home Oxygen Evaluation RC: Home Oxygen (O2) Evaluation Start: 09/18/23 15:40 Freq: ONCE Status: Active Protocol: RPE Activity Type Activity Date Activity User E-sign Co-sign Detail Recorded Client Recorded Date Recorded By Document 09/18/23 15:30 [email or web address] 09/18/23 16:08 PKH Document 09/18/23 15:35 [email or web address] 09/18/23 16:08 PKH Document 09/18/23 15:40 [email or web address] [email or web address] 09/18/23 16:08 PKH Document 09/18/23 15:45 [email or web address] [email or web address] 09/18/23 16:08 PKH Document 09/18/23 16:00 [email or web address] [email or web address] 09/18/23 16:08 PKH 09/18/23 09/18/23 09/18/23 15:30 15:35 15:40 Home O2 Evaluation [Oxygen] -Test Phase Resting Exercise Exercise -Oxygen Delivery Room Air Room Air Nasal Cannula -Oxygen Flow Rate (L/min) 1 [Pulse Oximetry] -Pulse Oximetry (90-100 %) 95 86 L 87 L [Pulse Rate] -Pulse Rate (60-100 beats/min) 64 70 77 [Evaluation] -Activity Tolerance Good [Charges] -Evaluation Charges O2 Evaluation by Pulmonary 09/18/23 09/18/23 15:45 16:00 Home O2 Evaluation [Oxygen] -Test Phase Exercise Resting -Oxygen Delivery Nasal Cannula Room Air -Oxygen Flow Rate (L/min) 2 [Pulse Oximetry] -Pulse Oximetry (90-100 %) 91 94 [Pulse Rate] -Pulse Rate (60-100 beats/min) 76 66 [Evaluation] -Activity Tolerance [Charges] -Evaluation Charges
--- NOTE | 2023-09-18 16:36 | PM.DS ---
DS: Admitting Diagnosis Discharge Date 09/18/23 Admitting Diagnosis Generalized weakness DS: Discharge Diagnosis Discharge Diagnosis (1) Hypertensive urgency: Code(s): I16.0 - Hypertensive urgency Status: Acute (2) Lung infiltrate: Code(s): R91.8 - Other nonspecific abnormal finding of lung field Status: Acute (3) CHF (congestive heart failure): Code(s): I50.9 - Heart failure, unspecified Status: Acute (4) Restless legs syndrome: Code(s): G25.81 - Restless legs syndrome Status: Acute (5) Chronic kidney disease: Code(s): N18.9 - Chronic kidney disease, unspecified Status: Acute (6) Coronary artery disease: Code(s): I25.10 - Atherosclerotic heart disease of [place] coronary artery without angina pectoris Status: Acute (7) Obstructive sleep apnea (adult) (pediatric): Code(s): G47.33 - Obstructive sleep apnea (adult) (pediatric) Status: Acute (8) Gastro-esophageal reflux disease without esophagitis: Code(s): K21.9 - Gastro-esophageal reflux disease without esophagitis Status: Acute (9) Type 2 diabetes mellitus with diabetic nephropathy: Qualifiers: Diabetes mellitus fci insulin use: with buttermaker use Qualified Code(s): E11.21 - Type 2 diabetes mellitus with diabetic nephropathy; Z79.4 - long term care administrator (current) use of insulin Code(s): E11.21 - Type 2 diabetes mellitus with diabetic nephropathy Status: Chronic (10) Generalized weakness: Code(s): R53.1 - Weakness Status: Acute DS: Summary Hospital Course Reason for hospitalization: 83yo female with CKD, HTN and CAD here for shortness of breath. Please see H&P for details. Hospital Course: Patient was recently admitted for CHF exacerbation and was discharged on 09/13/23 however had to come right back due to worsening shortness of breath. Patient was noted to have significantly elevated blood pressure on arrival in the ER with systolic blood pressure 221. WBC of 10, Hgb 9.4 and normal platelet count. Creatinine of 2.9 and BNP >30,000. LFTs and lipase normal. Chest x-ray showed segmental left basilar atelectasis/consolidation, mild interstitial edema and small left pleural effusion. EKG showed sinus rhythm with nonspecific ST-T changes. Recent Echo on 09/10/23 with EF 55%, abnormal septal wall motion with septal motion related to bundle branch block.? Grade 3 diastolic dysfunction.? She was started on IV Bumex. She has UNRULY but does not need CPAP. She may also have had pneumonia so antibiotics with cefepime and azithromycin started. Vancomycin was also initiated but has been discontinued due to negative MRSA screen. Hypertension was managed with multiple different medication and her BP became better controlled. Nephrology was consulted and appreciate their input. Last ischemic evaluation was done in 2020 with Lexiscan showing a large tenia infarction which was treated medically due to her advanced CKD.? She remained on aspirin, Plavix and statin which was continued. Recent venous duplex was negative for DVT. Procalcitonin level 0.1. Chest x-ray repeat 09/16/23 with left lower lobe atelectasis/edema versus pneumonia with minimal central congestive change. Her Cr worsened to 3.4 but still within her baseline. Nephrology has spoken with her about dialysis. Amlodipine has been switched to nifedipine. Will add small dose of hydralazine as she tolerated this medication in the ER. She did well. She was evaluated and needs O2 at 2L with activity but no O2 requirement at rest. This may have been a more chronic issue that prompted her last admission. Elevated blood pressure alos may be related to untreated UNRULY. She did well and was able to be discharged home on 09/18/23 Status at Discharge Cognitive/behavioral status at discharge: stable Time Spent with Patient Time attestation: Total time spent providing and/or coordinating discharge service
[2023-09-18 16:45] LABS: Glucose Point of Care 194 mg/dl (65-105)
--- NOTE | 2023-09-28 10:07 | PC.NURSE ---
Home medication found. Family notified. On their way to [facility].
== END 2023-09-18 18:16 | disposition home or self-care (01) | DRG 304 ==
LOC: ANHED 21:47 → ANHIMU 22:49 → ANH3MEDSUR 09-16 12:46
PROVIDERS: Internal Medicine; Admitting Provider Internal Medicine; Emergency Provider Emergency Medicine; PCP Emergency Medicine; Visit Provider Internal Medicine
DX: I16.0 Hypertensive urgency (principal); J18.9 Pneumonia, unspecified organism; N18.5 Chronic kidney disease, stage 5; I50.32 Chronic diastolic (congestive) heart failure; N25.81 Secondary hyperparathyroidism of renal origin; I13.2 Hypertensive heart and chronic kidney disease with heart failure and with stage 5 chronic kidney disease, or end stage renal disease; D63.1 Anemia in chronic kidney disease; E11.22 Type 2 diabetes mellitus with diabetic chronic kidney disease; E11.42 Type 2 diabetes mellitus with diabetic polyneuropathy; E55.9 Vitamin D deficiency, unspecified; E03.9 Hypothyroidism, unspecified; E78.2 Mixed hyperlipidemia; G47.33 Obstructive sleep apnea (adult) (pediatric); G25.81 Restless legs syndrome; I25.10 Atherosclerotic heart disease of native coronary artery without angina pectoris; K21.9 Gastro-esophageal reflux disease without esophagitis; Z90.49 Acquired absence of other specified parts of digestive tract; Z95.5 Presence of coronary angioplasty implant and graft; Z90.710 Acquired absence of both cervix and uterus; Z79.4 Long term (current) use of insulin; Z79.82 Long term (current) use of aspirin; Z79.02 Long term (current) use of antithrombotics/antiplatelets; Z88.0 Allergy status to penicillin; D50.9 Iron deficiency anemia, unspecified; Z95.1 Presence of aortocoronary bypass graft
CPT/HCPCS: 36415; 71045; 71046; 80053; 80202; 82948; 83690; 83735; 83880; 84145; 85025; 85610; 85730; 87040; 87641; 93005; 94618; 94640; 96366; 96374; 96375; 96376; 99285; A9270; G0378; J0360; J0456; J0692; J1644; J1815; J1939; J3370

== ENCOUNTER 2023-09-24 11:47 | Outpatient (CLI) | payer MEDICARE, SELFPAY ==
[2023-09-24 19:43] LABS: Albumin Level 3.9 g/dL (3.5-5.1); Anion Gap 6 mmol/L (4-12); Blood Urea Nitrogen 63 mg/dL (7-17); Calcium 9.9 mg/dL (8.4-10.2); Carbon Dioxide 30 mmol/L (22-30); Chloride 103 mmol/L (98-107); Estimated Glomerular Filt Rate 15; Glucose 173 mg/dL (65-110); Phosphorus 3.9 mg/dL (2.5-4.5); Potassium 4.6 mmol/L (3.4-5.0); Sodium 139 mmol/L (137-145)
[2023-09-24 20:43] LABS: Hemoglobin A1C 5.5 % (<5.7)
== END 2023-09-24 11:48 | disposition home or self-care (01) ==
LOC: ANHGOSHLAB 11:48
PROVIDERS: Internal Medicine; PCP Emergency Medicine; Visit Provider Emergency Medicine
DX: E11.21 Type 2 diabetes mellitus with diabetic nephropathy (principal); N18.5 Chronic kidney disease, stage 5; Z79.4 Long term (current) use of insulin
CPT/HCPCS: 36415; 80069; 83036

== ENCOUNTER 2023-09-27 15:08 | Emergency (ER) | payer MEDICARE, SELFPAY ==
[2023-09-27] VITALS (19 sets, daily range): BP systolic 143–219; BP diastolic 48–105; PULSE 62–69; RESP 15–33; TEMP 36.7; O2SAT 97–100
--- NOTE | ~2023-09-27 | XR_ITS ---
EXAMINATION: XR chest 1V portable DATE: 09/27/2023 15:30 INDICATION: Shortness of breath. TECHNIQUE: A single frontal view of the chest was obtained. COMPARISON: Chest single view 09/16/23 FINDINGS: The patient is rotated to her left. There are airspace opacities in right lower lung zone a nd left mid and lower lung zones. There are small pleural effusions. No pneumothorax. Cardiomegaly is noted. Median sternotomy wires and mediastinal surgical clips are seen, likely from prior coronary a rtery bypass grafting. IMPRESSION: 1. Airspace opacities in right lower lung zone and left mid and lower lung zones with worsening on th e left, consistent with atelectasis versus pneumonia. 2. Worsened small pleural effusions. 3. Cardiomegaly. Reviewed, dictated and finalized at location E. IMPRESSION: 1. Airspace opacities in right lower lung zone and left mid and lower lung zone s with worsening on the left, consistent with atelectasis versus pneumonia. 2. Worsened small pleural effusions. 3. Cardiomegaly.
--- NOTE | 2023-09-27 15:18 | ECG_ITS ---
SEE SCANNED COPY FOR CONFIRMED REPORT MTDD
[2023-09-27 15:33] LABS: Basophils Absolute Auto 0.1 K/mm3 (0.0-0.1); Basophils Percent Auto 0.5 % (0.2-1.2); Eosinophils Absolute Auto 0.2 K/mm3 (0-0.3); Eosinophils Percent Auto 2.4 % (0-4.4); Hematocrit 30.1 % (37.0-47.0); Immature Granulocyte Absolute 0.03 K/mm3 (0.00-0.031); Immature Granulocyte Percent A 0.3 % (0-0.5); Lymphocytes Absolute Auto 0.84 K/mm3 (0.9-3.2); Lymphocytes Percent Auto 8.3 % (18.3-44.2); Mean Corpuscular HGB Conc 29.9 g/dl (32-36); Mean Corpuscular Hemoglobin 28.9 pg (26-34); Mean Corpuscular Volume 96.8 fl (80-100); Mean Platelet Volume 11.2 fl (7.4-10.4); Monocytes Absolute Auto 0.7 K/mm3 (0.1-0.6); Neutrophils Absolute Auto 8.3 K/mm3 (1.3-6.7); Neutrophils Percent Auto 81.5 % (45.5-73.1); Platelet Count Result 259 k/mm3 (150-375); Red Blood Count 3.11 M/mm3 (4.2-5.4); Red Cell Distribution Width 15.3 % (11.5-14.5); White Blood Count 10.1 K/mm3 (4.5-10.0)
[2023-09-27 15:45] LABS: Alanine Aminotransferase 14 U/L (6-35); Albumin Level 3.9 g/dL (3.5-5.1); Alkaline Phosphatase 57 U/L (38-126); Anion Gap 4 mmol/L (4-12); Aspartate Amino Transferase 23 U/L (14-36); Bilirubin,Total 0.5 mg/dL (0.2-1.3); Blood Urea Nitrogen 63 mg/dL (7-17); Calcium 9.8 mg/dL (8.4-10.2); Carbon Dioxide 32 mmol/L (22-30); Chloride 103 mmol/L (98-107); Estimated CRCL calculation 14 ml/min; Estimated Glomerular Filt Rate 15; Glucose 194 mg/dL (65-110); Potassium 4.5 mmol/L (3.4-5.0); Sodium 139 mmol/L (137-145)
[2023-09-27 15:59] LABS: Platelet Estimate Adequate (Adequate)
[2023-09-27 16:00] LABS: Schistocytes None Seen
[2023-09-27 16:01] LABS: Anisocytosis 2+; Hypochromasia 1+
[2023-09-27 16:09] LABS: Influenza A QL RT-PCR Negative (Negative); Influenza B QL RT-PCR Negative (Negative); RSV RNA, RT-PCR Negative (Negative); SARS-CoV-2 RNA PCR Negative (Negative)
[2023-09-27] MEDS: hydrALAZINE HCL 20 MG/ML VIAL 10 MG IV PUSH (16:30)
--- NOTE | 2023-09-27 17:36 | ED_ITS ---
HPI - General Adult General Chief complaint: Shortness of Breath/Dyspnea Stated complaint: SOB, N/V Time Seen by Provider: 09/27/23 15:25 Source: patient and family Mode of arrival: ambulatory Limitations: no limitations History of Present Illness HPI narrative: 83-year-old with history of hypertension, diabetes, CKD stage 7 year old with complaints of elevated blood pressure, which has, shortness of breath for past few days. Has felt hot daughter lowered her primary caregiver states blood pressure was quite high. She called Dr. Badillo go will recommended to increase the dose of hydralazine to 20 mg 3 times a day and nifedipine as well. Patient presently denies having any headache, chest pain. Family also reports that her appetite has moderately reduced she feels nauseated when she eats anything. No history of fever or chills. Associated symptoms: denies other symptoms Related Data Home Medications Medication Instructions Recorded Confirmed aspirin 81 mg tablet,delayed 81 mg PO HS 05/05/19 09/14/23 release clopidogrel 75 mg tablet 75 mg PO DAILY 07/17/21 09/14/23 cholecalciferol (vitamin D3) 25 50 mcg PO DAILY 04/27/22 09/14/23 mcg (1,000 unit) capsule levothyroxine 88 mcg tablet 88 mcg PO HS 09/09/23 09/14/23 lisinopril 20 mg tablet 20 mg PO BID 09/09/23 09/14/23 sodium bicarbonate 650 mg tablet 1,300 mg PO DAILY 09/09/23 09/14/23 Allergies Allergy/AdvReac Type Severity Reaction Status Date / Time Penicillins Allergy Unknown Skin Verified 09/24/23 11:01 Reaction Androgenic Anabolic Steroid AdvReac Unknown Loopy Verified 09/24/23 11:01 mirtazapine AdvReac Unknown sedate Verified 09/24/23 11:01 prednisone AdvReac Unknown BLOOD Verified 09/24/23 11:01 SUGARS OUT OF CONTROL pravastatin AdvReac Dizziness Verified 09/24/23 11:01 Review of Systems Review of Systems: All systems reviewed & are unremarkable except as noted in HPI and below Constitutional: Constitutional: Reports no additional constitutional complaints Eyes: Eyes: Reports no additional eye complaints ENT: Reports system reviewed and no additional complaints, except as documented Cardiovascular: Cardiovascular: Reports no additional cardiovascular complaints Respiratory: Respiratory: Reports as per HPI Gastrointestinal: Gastrointestinal: Reports as per HPI Musculoskeletal: Musculoskeletal: Reports no additional musculoskeletal complaints Integumentary/Breasts: Skin/Breast: Reports system reviewed and no additional complaints, except as docu PMFSH Past Medical History Medical History Bilateral stenosis of carotid arteries greater than 50% Chronic anemia Chronic kidney disease Coronary artery disease Diastolic dysfunction Essential (primary) hypertension Gastro-esophageal reflux disease without esophagitis Hypothyroidism Mixed hyperlipidemia Obstructive sleep apnea Mild, patient was told she did not need a CPAP. 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 Vitamin D deficiency Surgical History Surgical History History of appendectomy History of cholecystectomy History of four vessel coronary artery bypass graft History of hysterectomy Family History Family History Mother Diabetes mellitus Hypertension Leukemia Father Family history of cardiovascular disease Diabetes mellitus Acute myocardial infarction, Onset Age: 63 Family history of lung cancer Sibling Family history of cardiovascular disease Family history of kidney disease Diabetes mellitus Family history of coronary artery disease Family history of congestive heart failure Social History Social History Social History: Surrogate medical decision maker: Adilene Leung, daughter. Code status: Full code. Smoking status: Never smoker Second hand tobacco smoke exposure: No Alcohol intake: never Substance use: never Do You Feel Safe in your Home?: Yes Lack of Transportation: No Lack of Food: Never True Current Housing: I Have Housing Concerned About Future Housing: No Difficulty Paying Gas/Electric Bills: No Difficulty Paying for Meds: No Currently Unemployed: No Education: High School Diploma/GED Difficulty w/ Childcare or Family Care: No Spiritual care concerns: No Exam Narrative: GENERAL: Well-appearing, well-nourished, and in no acute distress. HEAD: Normocephalic, atraumatic. EYES: PERRLA and EOMI. ENT: Nares clear, no rhinorrhea or epistaxis. Mucous membranes moist. NECK: Supple. CHEST: Clear to auscultation. No respiratory distress. HEART: Regular rate and rhythm. No murmur heard. Normal peripheral pulses. ABDOMEN: Soft, nontender, nondistended, normal active bowel sounds. EXTREMITIES: Normal range of motion. No edema. SKIN: Warm, dry, no rash. NEURO: No focal deficits. Alert and oriented x3. PSYCH: Normal mood and affect. Course Course Emergency Course: I discussed with Dr. Badillo go over the patient he did advised her to continue home medication with changed dosage, I had a lengthy discussion with daughter and [id number] about her lab work, EKG and chest x-ray findings. She is not having any symptoms at this time with discharge home . Vital Signs Vital signs: Vital Signs Temperature 36.7 C 09/27/23 15:10 Pulse Rate 69 09/27/23 15:10 Respiratory Rate 33 H 09/27/23 15:10 Blood Pressure 143/105 H 09/27/23 15:10 Pulse Oximetry 98 09/27/23 15:10 Oxygen Delivery Nasal Cannula 09/27/23 15:10 Oxygen Flow Rate 2 09/27/23 15:10 Temperature 36.7 C 09/27/23 15:10 Pulse Rate 62 09/27/23 17:01 Respiratory Rate 09/27/23 17:00 Blood Pressure 189/52 H 09/27/23 17:00 Pulse Oximetry 99 09/27/23 17:00 Oxygen Delivery Nasal Cannula 09/27/23 15:10 Oxygen Flow Rate 2 09/27/23 15:10 Medical Decision Making Differential Diagnosis Differential Diagnosis: Fluid overload pneumonia, anxiety, COPD Medical Records Medical records reviewed: Yes I reviewed the external patient's medical records. Vital Signs Vital Signs: Vital Signs Temperature 36.7 C 09/27/23 15:10 Pulse Rate 69 09/27/23 15:10 Respiratory Rate 33 H 09/27/23 15:10 Blood Pressure 143/105 H 09/27/23 15:10 Pulse Oximetry 98 09/27/23 15:10 Oxygen Delivery Nasal Cannula 09/27/23 15:10 Oxygen Flow Rate 2 09/27/23 15:10 Temperature 36.7 C 09/27/23 15:10 Pulse Rate 62 09/27/23 17:01 Respiratory Rate 09/27/23 17:00 Blood Pressure 189/52 H 09/27/23 17:00 Pulse Oximetry 99 09/27/23 17:00 Oxygen Delivery Nasal Cannula 09/27/23 15:10 Oxygen Flow Rate 2 09/27/23 15:10 Lab Data Lab results reviewed: Yes I reviewed the patient's lab results. 09/27/23 15:23 09/27/23 15:23 Labs: Lab Results 09/27/23 Range/Units 15:23 WBC 10.1 H (4.5-10.0) K/mm3 RBC 3.11 L (4.2-5.4) M/mm3 Hgb 9.0 L (12.0-15.0) g/dL Hct 30.1 L (37.0-47.0) % MCV 96.8 (80-100) fl MCH 28.9 (26-34) pg MCHC 29.9 L (32-36) g/dl RDW 15.3 H (11.5-14.5) % Plt Count 259 (150-375) k/mm3 MPV 11.2 H (7.4-10.4) fl Immature Gran % (Auto) 0.3 (0-0.5) % Neut % (Auto) 81.5 H (45.5-73.1) % Lymph % (Auto) 8.3 L (18.3-44.2) % [place] % (Auto) 7.0 (2.6-8.5) % Eos % (Auto) 2.4 (0-4.4) % Baso % (Auto) 0.5 (0.2-1.2) % Lymph # (Auto) 0.84 L (0.9-3.2) K/mm3 [place] # (Auto) 0.7 H (0.1-0.6) K/mm3 Eos # (Auto) 0.2 (0-0.3) K/mm3 Baso # (Auto) 0.1 (0.0-0.1) K/mm3 Abs Immat Gran (auto) 0.03 (0.00-0.031) K/mm3 Absolute Neuts (auto) 8.3 H (1.3-6.7) K/mm3 Absolute Nucleated RBC 0.000 (0.0-0.012) K/mm3 Nucleated RBC % 0.0 (0.0-0.2) % Platelet Estimate Adequate (Adequate) Hypochromasia 1+ Anisocytosis 2+ Schistocytes None seen Sodium 139 (137-145) mmol/L Potassium 4.5 (3.4-5.0) mmol/L Chloride 103 (98-107) mmol/L Carbon Dioxide 32 H (22-30) mmol/L Anion Gap 4 (4-12) mmol/L BUN 63 H (7-17) mg/dL Creatinine 3.00 H (0.7-1.0) mg/dL Estim Creat Clear Calc 14 ml/min Estimated GFR 15 L (59 - ) Glucose 194 H (65-110) mg/dL Calcium 9.8 (8.4-10.2) mg/dL Total Bilirubin 0.5 (0.2-1.3) mg/dL AST 23 (14-36) U/L ALT 14 (6-35) U/L Alkaline Phosphatase 57 (38-126) U/L Total Protein 6.0 L (6.3-8.2) g/dL Albumin 3.9 (3.5-5.1) g/dL Influenza A (RT-PCR) Negative (Negative) Influenza B (RT-PCR) Negative (Negative) RSV (RT-PCR) Negative (Negative) SARS-CoV-2 RNA (RT-PCR) Negative (Negative) Imaging Data Radiologist's impression: ITS Impressions Chest X-Ray 09/27/23 15:32 IMPRESSION: 1. Airspace opacities in right lower lung zone and left mid and lower lung zones with worsening on the left, consistent with atelectasis versus pneumonia. 2. Worsened small pleural effusions. 3. Cardiomegaly. ECG Data EKG #1: ECG completion date: 09/27/23 ECG completion time: 15:19 EKG Interpretation: normal rate (64), sinus rhythm, no ectopy, no ST changes and no acute changes Discharge Plan Discharge Clinical Impression: Uncontrolled hypertension, CKD (chronic kidney disease) stage 5, GFR less than 15 ml/min, Anxiety Patient Disposition: Home, Self-Care Condition: Stable Instructions: Hypertension in the Older Adult (ED) Additional Instructions: Continue home medication, follow with your doctor as scheduled , can rake zofran as needed for nausea . ativanas needed for Shortness of breath. Prescriptions: New ondansetron 4 mg tablet,disintegrating 4 mg PO Q6-8H PRN (Reason: nausea and vomiting) Qty: 14 0RF lorazepam [Ativan] 0.5 mg tablet 0.5 mg PO TID PRN (Reason: anxiety) Qty: 14 0RF No Action aspirin 81 mg tablet,delayed release (DR/EC) 81 mg PO HS clopidogrel 75 mg tablet 75 mg PO DAILY cholecalciferol (vitamin D3) 25 mcg (1,000 unit) capsule 50 mcg PO DAILY atorvastatin 10 mg tablet 10 mg PO EVERY OTHER DAY Qty: 90 1RF Rx Instructions: at hs fluoxetine 20 mg tablet 40 mg PO DAILY Qty: 60 3RF albuterol sulfate 90 mcg/actuation HFA aerosol inhaler See Rx Instructions .ROUTE .COMPLEX Qty: 18 3RF Dose Instruction: INHALE 2 PUFFS EVERY 4 HOURS NEEDED FOR SHORTNESS OF BREATH OR WHEEZING Rx Instructions: INHALE 2 PUFFS EVERY 4 HOURS NEEDED FOR SHORTNESS OF BREATH OR WHEEZING levalbuterol tartrate [Xopenex HFA] 45 mcg/actuation HFA aerosol inhaler 2 inh inhalation Q6H Qty: 15 0RF azithromycin [Zithromax] 250 mg Tablet 250 mg PO DAILY@2100 Qty: 1 0RF cefdinir 300 mg Capsule 300 mg PO DAILY@2100 Qty: 3 0RF bumetanide 1 mg tablet 1 mg PO BID Qty: 60 3RF hydralazine 10 mg Tablet 10 mg PO TID Qty: 90 1RF nifedipine [Procardia XL] 30 mg Tablet Extended Release 24hr 30 mg PO QAM Qty: 30 1RF lisinopril 20 mg tablet 20 mg PO BID levothyroxine 88 mcg tablet 88 mcg PO HS sodium bicarbonate 650 mg tablet 1,300 mg PO DAILY pindolol 10 mg Tablet 20 mg PO Q12HR Qty: 120 0RF (DME) pen needle, diabetic [BD Ultra-Fine Mini Pen Needle] 31 gauge x 3/16 needle See Rx Instructions .ROUTE .COMPLEX Qty: 200 3RF Dose Instruction: USE TWICE DAILY Rx Instructions: USE TWICE DAILY Humulin 70/30 U-100 KwikPen 100 unit/mL (70-30) insulin pen 15 unit SUBCUT BID Qty: 15 1RF Hold Instructions: HOLD - resume when okay with your doctor (DME) blood-glucose meter [FreeStyle Lite Meter] Kit See Rx Instructions .Route Qty: 1 0RF Rx Instructions: Use to check BS BID (DME) FreeStyle Test Strip See Rx Instructions .Route Qty: 100 3RF Rx Instructions: Use to check BS BID Follow-up/Referrals: Galdino Rogers MD [Primary Care Provider] - Albert Arcos MD [Physician] - Time of Disposition: 17:39
== END 2023-09-27 19:35 | disposition home or self-care (01) ==
PROVIDERS: Emergency Medicine; Emergency Provider Family Medicine; PCP Emergency Medicine
DX: E11.22 Type 2 diabetes mellitus with diabetic chronic kidney disease (principal); I12.0 Hypertensive chronic kidney disease with stage 5 chronic kidney disease or end stage renal disease; N18.5 Chronic kidney disease, stage 5; F41.9 Anxiety disorder, unspecified; Z20.822 Contact with and (suspected) exposure to COVID-19; N25.81 Secondary hyperparathyroidism of renal origin; I25.10 Atherosclerotic heart disease of native coronary artery without angina pectoris; E78.2 Mixed hyperlipidemia; E55.9 Vitamin D deficiency, unspecified; D64.9 Anemia, unspecified; K21.9 Gastro-esophageal reflux disease without esophagitis; G47.33 Obstructive sleep apnea (adult) (pediatric); G25.81 Restless legs syndrome; Z95.1 Presence of aortocoronary bypass graft; Z90.49 Acquired absence of other specified parts of digestive tract; Z90.710 Acquired absence of both cervix and uterus; I51.7 Cardiomegaly; J90 Pleural effusion, not elsewhere classified; Z79.82 Long term (current) use of aspirin; Z79.4 Long term (current) use of insulin
CPT/HCPCS: 36415; 71045; 80053; 85025; 87637; 93005; 96374; 99284; J0360

== ENCOUNTER 2023-10-22 22:10 | Inpatient (IN) | payer MEDICARE, SELFPAY ==
--- NOTE | ~2023-10-22 | XR_ITS ---
EXAMINATION: XR fl guide central line place DATE: 10/24/2023 15:24 INDICATION: Tunneled dialysis catheter insertion TECHNIQUE: Single fluoroscopic image of the right upper chest was obtained during procedure performed by Dr. Dave. Radiologist was not present for the imaging or procedure. The amount of fluoroscopy ti me used during this procedure was 0.1 minutes. COMPARISON: None. FINDINGS: The single provided image demonstrates placement of a large-bore dual-lumen tunneled right internal j ugular central venous catheter which extends caudally to at least the mid superior vena cava and beyo nd the inferior margin of the [id number]. The visualized portion of the right lung is clear. IMPRESSION: 1. Fluoroscopy utilized during right internal jugular central venous catheter placement which is in e xpected position. Reviewed, dictated and finalized at location A. IMPRESSION: 1. Fluoroscopy utilized during right internal jugular central venous catheter p lacement which is in expected position.
--- NOTE | ~2023-10-22 | XR_ITS ---
EXAMINATION: XR chest 1V portable DATE: 10/26/2023 13:37 INDICATION: Congestive heart failure. Hypoxia. TECHNIQUE: A single frontal view of the chest was obtained. COMPARISON: Chest single view 10/24/2023 FINDINGS: There is a small left pleural effusion. There are airspace opacities at left lung base. No pneumothorax. Cardiomegaly is noted. Median sternotomy wires and mediastinal surgical clips are seen, likely from prior coronary artery bypass grafting. A right internal jugular central venous catheter is seen with tip in the right atrium. IMPRESSION: 1. Stable small left pleural effusion. 2. Airspace opacities at left lung base with interval improvement, consistent with atelectasis versus pneumonia. 3. Cardiomegaly. Reviewed, dictated and finalized at location A. IMPRESSION: 1. Stable small left pleural effusion. 2. Airspace opacities at left lung base with interval improvement, consistent w ith atelectasis versus pneumonia. 3. Cardiomegaly.
--- NOTE | ~2023-10-22 | XR_ITS ---
EXAMINATION: XR chest 2V DATE: 10/24/2023 11:32 INDICATION: Pneumonia TECHNIQUE: frontal and lateral views of the chest were obtained. COMPARISON: Chest radiograph dated 09/27/2023 FINDINGS: Increased opacities in the left mid and lower lung zone consistent with small pleural effusion and as sociated atelectasis and/or pneumonia. Decrease in the prior right perihilar and infrahilar opacities which might represent atelectasis or pneumonia. No pneumothorax or right-sided pleural effusion. Car diomegaly. Coronary artery stenting. Median sternotomy wires and mediastinal surgical clips are seen, likely from prior coronary artery bypass grafting. IMPRESSION: 1. Increasing opacity left mid and lower lung zone consistent with increasing small left pleural effu joe and associated atelectasis and/or pneumonia. 2. Improving right perihilar and infrahilar opacities which could represent atelectasis or pneumonia. 3. Cardiomegaly. Reviewed, dictated and finalized at location A. IMPRESSION: 1. Increasing opacity left mid and lower lung zone consistent with increasing s mall left pleural effusion and associated atelectasis and/or pneumonia. 2. Improving right perihilar and infrahilar opacities which could represent ate lectasis or pneumonia. 3. Cardiomegaly.
--- NOTE | ~2023-10-22 | XR_ITS ---
EXAMINATION: XR chest port-a-cath/central DATE: 10/24/2023 15:43 INDICATION: Central line placement. TECHNIQUE: A single frontal view of the chest was obtained. COMPARISON: Chest 2 views 10/24/2023 FINDINGS: There is mild right and moderate size left pleural effusions. There is a diffuse interstiti al pattern, consistent mild pulmonary edema. There are airspace opacities at left lung base. No pneum othorax. Cardiomegaly is noted. Median sternotomy wires and mediastinal surgical clips are seen, like ly from prior coronary artery bypass grafting. A right internal jugular central venous catheter is se en with tip in the right atrium. IMPRESSION: 1. Central line tip in the right atrium. 2. Mild pulmonary edema. 3. Stable airspace opacities at left lung base, consistent with atelectasis versus pneumonia. 4. Small right and moderate-sized left pleural effusion. 5. Cardiomegaly. Reviewed, dictated and finalized at location E. IMPRESSION: 1. Central line tip in the right atrium. 2. Mild pulmonary edema. 3. Stable airspace opacities at left lung base, consistent with atelectasis corey robin pneumonia. 4. Small right and moderate-sized left pleural effusion. 5. Cardiomegaly.
--- NOTE | 2023-10-22 22:40 | ADMGEN ---
This patient, Shayy Madera, was admitted to Medical Room 343-01. Patient/family oriented to hospital policies and general routines including ID bracelet, bed and alarms, visiting hours, pain management, procedures, bathroom and other care routines, personal items, smoking policy, room service/diet, and visiting hours. Information on how to activate the Rapid Response Team has been discussed. Patient/Family are encouraged to report perceived risks to care and to ask questions if they do not understand what they are told or what they should do.
[2023-10-22 22:47] VITALS: BMI 31.1
[2023-10-22 22:57] VITALS: BP 176/64; PULSE 61; RESP 20; TEMP 36.1; O2SAT 98
[2023-10-23] VITALS (12 sets, daily range): BP systolic 159–167; BP diastolic 53–56; PULSE 60–67; RESP 18; TEMP 36.2–36.9; O2SAT 93–100
--- NOTE | 2023-10-23 00:11 | PM.IMHP ---
H&P: HPI History of Present Illness Date/Time: 10/22/23 23:45 Chief Complaint: Congestive heart failure. Narrative: This is a pleasant 83-year-old female with coronary artery disease, diastolic dysfunction, hypertension, dyslipidemia, insulin-dependent type 2 diabetes mellitus, chronic kidney disease, anemia, hypothyroidism, mild sleep apnea, and other comorbidities who is being directly admitted to the med/tele floor from the medical floor at [facility] for continuity of care with CHF exacerbation. The patient presented to the emergency department on 10/20/2023 with shortness of breath and lower extremity edema and was admitted with acute on chronic hypoxic and hypercapnic respiratory failure felt to be related to acute CHF exacerbation and non ST-elevation [place]. V/Q scan showed a normal perfusion with no evidence of PE. She was initially placed on BiPAP and was diuresed with significant improvement over the next 2 days. Echocardiogram showed an EF of 35 to 40% with severe hypokinesis of the mid anteroseptal wall; EF was 50 to 55% on echo done 1 month ago. Cardiology was consulted and they recommended transfer to [facility] for consideration of cardiac catheterization as she is followed by [facility] Cardiology group. At the time my evaluation the patient is resting comfortably and she has no current complaints. Her shortness of breath and cough occasionally productive of clear sputum is not new.. Her appetite is not great but she denies nausea and vomiting. She also denies chest pain, pleuritic pain, palpitations, fever, chills, sweats, and lower extremity edema. Review of Systems Review of Systems: 12 systems were reviewed and are negative except for as per HPI. [facility] Past Medical History Medical History (Updated 10/23/23 @ 00:37 by Fely Manzo PA-C) Bilateral stenosis of carotid arteries greater than 50% Chronic anemia Chronic kidney disease Chronic respiratory failure with hypoxia Coronary artery disease Diastolic dysfunction Essential (primary) hypertension Gastro-esophageal reflux disease without esophagitis Hypothyroidism Mixed hyperlipidemia Obstructive sleep apnea Mild, patient was told she did not need a CPAP. 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 Vitamin D deficiency Surgical History Surgical History History of appendectomy History of cholecystectomy History of four vessel coronary artery bypass graft History of hysterectomy Family History Family History Mother Diabetes mellitus Hypertension Leukemia Father Family history of cardiovascular disease Diabetes mellitus Acute myocardial infarction, Onset Age: 63 Family history of lung cancer Sibling Family history of cardiovascular disease Family history of kidney disease Diabetes mellitus Family history of coronary artery disease Family history of congestive heart failure Social History Social History (Updated 10/23/23 @ 00:28 by Fely Manzo PA-C) Social History: Surrogate medical decision maker: Adilene Leung, daughter. Code status: Full code. Smoking status: Never smoker Second hand tobacco smoke exposure: No Alcohol intake: never Substance use: never Do You Feel Safe in your Home?: Yes Lack of Transportation: No Lack of Food: Never True Current Housing: I Have Housing Concerned About Future Housing: No Difficulty Paying Gas/Electric Bills: No Difficulty Paying for Meds: No Currently Unemployed: No Education: High School Diploma/GED Difficulty w/ Childcare or Family Care: No Living arrangements: with family Occupation/Education: retired Spiritual care concerns: No Meds Home Medications and Allergies Home Medications Medication Instructions Recorded Confirmed Type aspirin 81 mg tablet,delayed 81 mg PO H
[2023-10-23 05:32] LABS: Hematocrit 25.4 % (37.0-47.0); Hemoglobin 7.8 g/dL (12.0-15.0); Mean Corpuscular HGB Conc 30.7 g/dl (32-36); Mean Corpuscular Volume 94.4 fl (80-100); Mean Platelet Volume 11.3 fl (7.4-10.4); Platelet Count Result 222 k/mm3 (150-375); Red Blood Count 2.69 M/mm3 (4.2-5.4); Red Cell Distribution Width 14.6 % (11.5-14.5); White Blood Count 7.7 K/mm3 (4.5-10.0)
[2023-10-23] MEDS: LEVOTHYROXINE SODIUM 75 MCG TABLET PO (05:38)
[2023-10-23] MEDS: ALBUTEROL SULFATE (*SP) AEROSOL 1 PUFF 2 PUFF INHALATION (05:42)
[2023-10-23 05:53] LABS: Alanine Aminotransferase 15 U/L (6-35); Albumin Level 3.4 g/dL (3.5-5.1); Alkaline Phosphatase 46 U/L (38-126); Anion Gap 7 mmol/L (4-12); Aspartate Amino Transferase 30 U/L (14-36); Bilirubin,Total 0.4 mg/dL (0.2-1.3); Blood Urea Nitrogen 63 mg/dL (7-17); Calcium 9.1 mg/dL (8.4-10.2); Carbon Dioxide 30 mmol/L (22-30); Chloride 98 mmol/L (98-107); Estimated CRCL calculation 11 ml/min; Estimated Glomerular Filt Rate 11; Glucose 145 mg/dL (65-110); Potassium 3.9 mmol/L (3.4-5.0); Sodium 135 mmol/L (137-145)
[2023-10-23 08:16] LABS: Glucose Point of Care 153 mg/dl (65-105)
[2023-10-23] MEDS: lisinopriL 20 MG TABLET PO (09:02)
[2023-10-23] MEDS: FLUoxetine HCL 20 MG CAPSULE 40 MG PO (09:02)
[2023-10-23] MEDS: SODIUM BICARBONATE TAB 650 MG TABLET 1300 MG PO (09:02)
[2023-10-23] MEDS: BUMETANIDE 0.5 MG TABLET 1.5 MG PO (09:02)
[2023-10-23] MEDS: CHOLECALCIFEROL 1,000 UNITS TABLET 2000 UNITS PO (09:03)
[2023-10-23] MEDS: PANTOPRAZOLE 40 MG TABLET PO (09:03)
[2023-10-23] MEDS: amLODIPine BESYLATE 5 MG TABLET 10 MG PO (09:03)
[2023-10-23] MEDS: NIFEdipine 30 MG TAB.ER.24 PO (09:03)
[2023-10-23] MEDS: CLOPIDOGREL BISULFATE 75 MG TABLET PO (09:03)
[2023-10-23] MEDS: hydrALAZINE 10 MG TABLET 20 MG PO ×3 (09:03→17:19)
--- NOTE | 2023-10-23 09:46 | PM.IMPN ---
Progress Note: A&P Assessment and Plan (1) Heart failure with reduced ejection fraction: Code(s): I50.20 - Unspecified systolic (congestive) heart failure Status: Acute Assessment and Plan: At [facility] patient found to be in acute on chronic hypoxic and hypercapnic respiratory failure likely related to acute CHF exacerbation and non ST-elevation OR on 10/19. V/Q scan showed a normal perfusion with no evidence of PE. She was initially placed on BiPAP and was diuresed with significant improvement over the next 2 days. Cardiology was consulted at that facility and recommended transfer to [place] for possible cardiac catheterization. - Echo 09/10/23: LVEF 50-55% with grade III diastolic dysfunction and severe hypokinesis of the mid anteroseptal wall. - Cardiology consulted. Do not plan to do a cardiac catheterization during this admission as the problem is more associated with her kidney disease. Per cardiology note from a volume standpoint she is stable. From a heart failure standpoint she will need continued medical management and to optimize her heart failure GDMT. - Due to her worsening renal function the patient would likely benefit from starting dialysis. She was then seen by nephrology who discussed dialysis with her and the plan to place dialysis access tomorrow. (2) Chronic respiratory failure with hypoxia: Code(s): J96.11 - Chronic respiratory failure with hypoxia Status: Acute Assessment and Plan: Acute on chronic respiratory failure with hypoxia. Likely related to patients ongoing CHF exacerbation. She remains on her baseline O2 requirement of 3L. - Monitor (3) Chronic kidney disease: Code(s): N18.9 - Chronic kidney disease, unspecified Status: Acute Assessment and Plan: Baseline creatinine approximately 2.9-3.5 in the last year likely due to patients hypertension, vascular disease, UNRULY, and age related changes. - BUN/Cr 63/3.8. - Monitor daily labs - I/O - Avoid nephrotoxic medications - Nephrology consulted. Plan to start dialysis. Will obtain an access site tomorrow. (4) Hypertension: Code(s): I10 - Essential (primary) hypertension Status: Acute Assessment and Plan: Stable on home medications. - Amlodipine 10 mg daily - Hydralazine 20 mg TID - Nifedipine 30 mg daily - Lisinopril 20 mg daily (5) Chronic anemia: Code(s): D64.9 - Anemia, unspecified Status: Chronic Assessment and Plan: Stable. H/H 7.8/25.4 today. No signs of active bleeding. Continue to monitor (6) Hypothyroidism: Qualifiers: Hypothyroidism type: unspecified Qualified Code(s): E03.9 - Hypothyroidism, unspecified Code(s): E03.9 - Hypothyroidism, unspecified Status: Chronic Assessment and Plan: TSH 07/16/23: 0.793. Continue home levothyroxine 75 mcg daily. (7) Type 2 diabetes mellitus with diabetic nephropathy: Qualifiers: Diabetes mellitus retirement insulin use: with nuclear engineering technician use Qualified Code(s): E11.21 - Type 2 diabetes mellitus with diabetic nephropathy; Z79.4 - opinion polls survey worker (current) use of insulin Code(s): E11.21 - Type 2 diabetes mellitus with diabetic nephropathy Status: Chronic Assessment and Plan: - hypoglycemia protocol - POC blood glucose ACHS - home medication - none - correct regimen ordered - low dose TIDWM and HS - A1C 09/24/23: 5.5 Time Spent With Patient Time with patient: 25 - 35 minutes Subjective Date/time seen: 10/23/23 09:46 Interval history: 83-year-old female with coronary artery disease, diastolic dysfunction, hypertension, dyslipidemia, insulin-dependent type 2 diabetes mellitus, chronic kidney disease, anemia, hypothyroidism, mild sleep apnea, and other comorbidities who is being directly admitted to the med/tele floor from the medical floor at [facility] for continuity of care with CHF exacerbation. Patient is pleasant lying comfortably in bed with da
--- NOTE | 2023-10-23 11:28 | PM.CNCAR ---
Assessment and Plan Assessment and plan (1) Heart failure with reduced ejection fraction: Code(s): I50.20 - Unspecified systolic (congestive) heart failure Status: Acute Assessment and Plan: Patient was admitted to [facility] for acute hypoxic and hypercapnic respiratory failure, found to be in CHF exacerbation. SCr level on 10/19 was 2.6. She required BIPAP for her respiratory failure. V/Q scan negative for PE. Troponins were minimally elevated, but flat at around 0.05. She was diuresed with improvement in her volume status. SCr on 10/20 was 3.18. Echocardiogram there showed LVEF 35-40% with severe hypokinesis of the mid anteroseptal wall. Cardiology at [place] was consulted, and as patient may need cardiac catheterization and is an established patient of our group, she was transferred to [facility]. Patient's prior echocardiogram 09/2023 showed LVEF 50-55%. SCr here is 3.8. From a volume standpoint, she is currently stable. Given her worsening renal function, I think she is at the point where she needs dialysis. Consulted Dr. Arcos. From a heart failure standpoint, recommend continued medical management. Will need to optimize her heart failure GDMT, however, will not make changes in medications at this time and see what plans are from a Nephrology standpoint. (2) Coronary artery disease: Code(s): I25.10 - Atherosclerotic heart disease of [place] coronary artery without angina pectoris Status: Acute Assessment and Plan: No chest pain, troponins are minimally elevated but flat at [place] [facility]. She now does have a reduction in her LVEF. She does have shortness of breath, but I believe her worsening renal disease, CHF, and anemia are also contributing to that rather than being a primary coronary issue. I had a discussion with both the patient and daughter. Discussed that cardiac catheterization is reasonable to reassess her coronary and bypass graft anatomy, however, it is not without its risks, in particularly given her advanced CKD. At this time, she does not need urgent cardiac catheterization as she is not having an acute coronary syndrome event. I discussed with the family that cardiac catheterization and possible PCI may improve her LVEF, but not guaranteed, and I do not think undergoing cardiac catheterization at this time will be much beneficial for the patient. Recommend to continue medical management at this time with ASA, Plavix. (3) Uncontrolled hypertension: Code(s): I10 - Essential (primary) hypertension Status: Chronic Assessment and Plan: Blood pressures remain uncontrolled. Will need to optimize her heart failure GDMT, however, will not make changes in medications at this time and see what plans are from a Nephrology standpoint. (4) Chronic respiratory failure with hypoxia: Code(s): J96.11 - Chronic respiratory failure with hypoxia Status: Acute Assessment and Plan: Now back on home O2 levels. (5) Type 2 diabetes mellitus with diabetic nephropathy: Qualifiers: Diabetes mellitus terminal operations supervisor insulin use: with terminal operations supervisor use Qualified Code(s): E11.21 - Type 2 diabetes mellitus with diabetic nephropathy; Z79.4 - half-way (current) use of insulin Code(s): E11.21 - Type 2 diabetes mellitus with diabetic nephropathy Status: Chronic Assessment and Plan: Management as per primary team. (6) CKD (chronic kidney disease) stage 5, GFR less than 15 ml/min: Code(s): N18.5 - Chronic kidney disease, stage 5 Status: Acute Assessment and Plan: Given her worsening renal function, I think she is at the point where she needs dialysis. Consulted Dr. Arcos. (7) Mixed hyperlipidemia: Code(s): E78.2 - Mixed hyperlipidemia Status: Acute Assessment and Plan: Has not tolerated statins in the past. Plan Patient's case was discussed with Nephrology, Dr. Arcos. History of Present Illness History of Present I
[2023-10-23 12:11] LABS: Glucose Point of Care 147 mg/dl (65-105)
--- NOTE | 2023-10-23 15:50 | P.CONNP_ITS ---
Assessment and Plan Assessment and plan (1) Chronic kidney disease (CKD), stage V: Code(s): N18.5 - Chronic kidney disease, stage 5 Status: Chronic Assessment and Plan: * baseline creatinine runs ~ 2.9 - 3.5mg/l in the last year or so * due to hypertension, diabetes, vascular disease, UNRULY, and age-related change * unfortunately, maintaining her volume status is becoming more problematic and she now has some issues related to uremia * the next step in initiation of renal replacement therapy/dialysis (see disc ussion below). (2) Heart failure with reduced ejection fraction: Code(s): I50.20 - Unspecified systolic (congestive) heart failure Status: Acute Assessment and Plan: * some clinical improvement with diuresis * repeat Echo noted with EF of 35 - 40% * Cardiology recommendations noted * suspect dialysis will do a better job of maintaining fluid status (3) Chronic respiratory failure with hypoxia: Code(s): J96.11 - Chronic respiratory failure with hypoxia Status: Chronic Assessment and Plan: * improvement noted * however, done so at the expense of worsening renal dysfunction given need for IV diuresis * continue supplemental oxygen * follow respiratory status (4) Uncontrolled hypertension: Code(s): I10 - Essential (primary) hypertension Status: Chronic Assessment and Plan: * difficult to control at baseline * would not be too aggressive with BP control given tenuous renal function * suspect BP control may improve with fluid removal and dialysis * follow trend of hemodynamics (5) Chronic anemia: Code(s): D64.9 - Anemia, unspecified Status: Chronic Assessment and Plan: * related to progressive CKD and acute illness * start Epogen and continue when dialysis initiated * follow trend of H/H (6) Diabetes mellitus with chronic kidney disease: Qualifiers: Chronic kidney disease stage: stage 5, not on chronic dialysis Diabetes mellitus nursing home insulin use: with middle or intermediate school principal use Diabetes mellitus type: type 2 Qualified Code(s): E11.22 - Type 2 diabetes mellitus with diabetic chronic kidney disease; N18.5 - Chronic kidney disease, stage 5; Z79.4 - superintendent marine oil terminal (current) use of insulin Code(s): E11.22 - Type 2 diabetes mellitus with diabetic chronic kidney disease Status: Chronic Assessment and Plan: * follow accu-cheks * glycemic control per hospitalists Discussed case with Dr. Yao earlier today. Long extensive discussion with the patient as well as her daughter at bedside (> 25 minutes) regarding the patient's ongoing issues and problems with volume overload/swelling/edema and respiratory failure in the last few months likely related to her worsening kidney disease and inability to achieve relative euvolemia. Although her depressed ejection fraction may be playing a role, I suspect that her progressive decline in renal function in general is playing a large part with her fluctuating fluid status. Although she is clinically improved at this time, it is done so at the expense of her renal function and I suspect her renal function will continue to decline with ongoing aggressive medical management/diuretics and I suspect at some point, even diuretics will not be able to maintain her fluid status. Furthermore, she has some subtle symptoms of uremia which also are related to her ongoing renal dysfunction. Given these multitude of issues and problems as mentioned, I discussed with the patient and daughter the likelihood of renal replacement therapy/dialysis at this time in effort to better stabili
--- NOTE | 2023-10-23 15:50 | PM.CNNEP ---
Assessment and Plan Assessment and plan (1) Chronic kidney disease (CKD), stage V: Code(s): N18.5 - Chronic kidney disease, stage 5 Status: Chronic Assessment and Plan: baseline creatinine runs ~ 2.9 - 3.5mg/l in the last year or so due to hypertension, diabetes, vascular disease, UNRULY, and age-related change unfortunately, maintaining her volume status is becoming more problematic and she now has some issues related to uremia the next step in initiation of renal replacement therapy/dialysis (see discussion below). (2) Heart failure with reduced ejection fraction: Code(s): I50.20 - Unspecified systolic (congestive) heart failure Status: Acute Assessment and Plan: some clinical improvement with diuresis repeat Echo noted with EF of 35 - 40% Cardiology recommendations noted suspect dialysis will do a better job of maintaining fluid status (3) Chronic respiratory failure with hypoxia: Code(s): J96.11 - Chronic respiratory failure with hypoxia Status: Chronic Assessment and Plan: improvement noted however, done so at the expense of worsening renal dysfunction given need for IV diuresis continue supplemental oxygen follow respiratory status (4) Uncontrolled hypertension: Code(s): I10 - Essential (primary) hypertension Status: Chronic Assessment and Plan: difficult to control at baseline would not be too aggressive with BP control given tenuous renal function suspect BP control may improve with fluid removal and dialysis follow trend of hemodynamics (5) Chronic anemia: Code(s): D64.9 - Anemia, unspecified Status: Chronic Assessment and Plan: related to progressive CKD and acute illness start Epogen and continue when dialysis initiated follow trend of H/H (6) Diabetes mellitus with chronic kidney disease: Qualifiers: Chronic kidney disease stage: stage 5, not on chronic dialysis Diabetes mellitus care home insulin use: with care home use Diabetes mellitus type: type 2 Qualified Code(s): E11.22 - Type 2 diabetes mellitus with diabetic chronic kidney disease; N18.5 - Chronic kidney disease, stage 5; Z79.4 - penitentiary (current) use of insulin Code(s): E11.22 - Type 2 diabetes mellitus with diabetic chronic kidney disease Status: Chronic Assessment and Plan: follow accu-cheks glycemic control per hospitalists Discussed case with Dr. Yao earlier today. Long extensive discussion with the patient as well as her daughter at bedside (> 25 minutes) regarding the patient's ongoing issues and problems with volume overload/swelling/edema and respiratory failure in the last few months likely related to her worsening kidney disease and inability to achieve relative euvolemia. Although her depressed ejection fraction may be playing a role, I suspect that her progressive decline in renal function in general is playing a large part with her fluctuating fluid status. Although she is clinically improved at this time, it is done so at the expense of her renal function and I suspect her renal function will continue to decline with ongoing aggressive medical management/diuretics and I suspect at some point, even diuretics will not be able to maintain her fluid status. Furthermore, she has some subtle symptoms of uremia which also are related to her ongoing renal dysfunction. Given these multitude of issues and problems as mentioned, I discussed with the patient and daughter the likelihood of renal replacement therapy/dialysis at this time in effort to better stabilize her volume overload/CHF as well as hopefully provide clearance of the uremic toxins as well as better blood pressure control in general. They are in agreement with proceeding so I will consult surgery to place a tunneled dialysis catheter and initiate renal replacement therapy once this is in place. I will continue follow patient with you while
[2023-10-23 17:05] LABS: Glucose Point of Care 131 mg/dl (65-105)
[2023-10-23 20:23] LABS: Glucose Point of Care 174 mg/dl (65-105)
[2023-10-23] MEDS: ASPIRIN 81 MG ENTERIC TABLET PO (20:35)
[2023-10-24] VITALS (28 sets, daily range): BP systolic 124–183; BP diastolic 41–63; PULSE 60–70; RESP 16–18; TEMP 36.3–37.5; O2SAT 96–100
[2023-10-24] MEDS: LEVOTHYROXINE SODIUM 75 MCG TABLET PO (05:36)
[2023-10-24 06:11] LABS: Basophils Percent Auto 0.5 % (0.2-1.2); Eosinophils Absolute Auto 0.3 K/mm3 (0-0.3); Eosinophils Percent Auto 4.8 % (0-4.4); Hematocrit 24.5 % (37.0-47.0); Hemoglobin 7.6 g/dL (12.0-15.0); Immature Granulocyte Absolute 0.02 K/mm3 (0.00-0.031); Immature Granulocyte Percent A 0.3 % (0-0.5); Lymphocytes Absolute Auto 1.21 K/mm3 (0.9-3.2); Lymphocytes Percent Auto 18.6 % (18.3-44.2); Mean Corpuscular Hemoglobin 29.1 pg (26-34); Mean Corpuscular Volume 93.9 fl (80-100); Mean Platelet Volume 11.4 fl (7.4-10.4); Monocytes Absolute Auto 0.8 K/mm3 (0.1-0.6); Monocytes Percent Auto 12.4 % (2.6-8.5); Neutrophils Absolute Auto 4.1 K/mm3 (1.3-6.7); Neutrophils Percent Auto 63.4 % (45.5-73.1); Platelet Count Result 210 k/mm3 (150-375); Red Blood Count 2.61 M/mm3 (4.2-5.4); Red Cell Distribution Width 14.6 % (11.5-14.5); White Blood Count 6.5 K/mm3 (4.5-10.0)
[2023-10-24 06:31] LABS: Alanine Aminotransferase 15 U/L (6-35); Albumin Level 3.3 g/dL (3.5-5.1); Alkaline Phosphatase 43 U/L (38-126); Anion Gap 6 mmol/L (4-12); Aspartate Amino Transferase 21 U/L (14-36); Bilirubin,Total 0.5 mg/dL (0.2-1.3); Blood Urea Nitrogen 63 mg/dL (7-17); Calcium 9.2 mg/dL (8.4-10.2); Carbon Dioxide 31 mmol/L (22-30); Chloride 98 mmol/L (98-107); Estimated CRCL calculation 11 ml/min; Estimated Glomerular Filt Rate 11; Glucose 130 mg/dL (65-110); Phosphorus 3.7 mg/dL (2.5-4.5); Potassium 3.7 mmol/L (3.4-5.0); Sodium 135 mmol/L (137-145)
[2023-10-24 08:26] LABS: Glucose Point of Care 130 mg/dl (65-105)
[2023-10-24 08:27] LABS: Hepatitis B Surface Antigen Negative (Negative)
[2023-10-24 08:44] LABS: Hepatitis B Surface Anti Res Negative
--- NOTE | 2023-10-24 09:03 | PCSTNOTE ---
NPO for procedure; unable to complete BSE in the am.
[2023-10-24] MEDS: BUMETANIDE INJ 1 MG/4 ML VIAL 1.5 MG IV PUSH (09:20)
[2023-10-24] MEDS: amLODIPine BESYLATE 5 MG TABLET 10 MG PO (09:21)
[2023-10-24] MEDS: hydrALAZINE 10 MG TABLET 20 MG PO ×3 (09:21→20:13)
[2023-10-24] MEDS: NIFEdipine 30 MG TAB.ER.24 PO (09:21)
--- NOTE | 2023-10-24 09:39 | PHAR ---
Pharmacy verified home med: * Use from home * Pindolol 10 mg Tablet Take 2 tablets by mouth twice daily
--- NOTE | 2023-10-24 09:52 | PM.PNCARD ---
Progress Note: A&P Assessment and Plan (1) Heart failure with reduced ejection fraction: Code(s): I50.20 - Unspecified systolic (congestive) heart failure Status: Acute Assessment and Plan: Patient was admitted to [facility] for acute hypoxic and hypercapnic respiratory failure, found to be in CHF exacerbation. SCr level on 10/19 was 2.6. She required BIPAP for her respiratory failure. V/Q scan negative for PE. Troponins were minimally elevated, but flat at around 0.05. She was diuresed with improvement in her volume status. SCr on 10/20 was 3.18. Echocardiogram there showed LVEF 35-40% with severe hypokinesis of the mid anteroseptal wall. Cardiology at [place] was consulted, and as patient may need cardiac catheterization and is an established patient of our group, she was transferred to [facility]. Patient's prior echocardiogram 09/2023 showed LVEF 50-55%. SCr here is 3.8. Given her worsening renal function, consulted Dr. Arcos -- plan to start dialysis. From a heart failure standpoint, recommend continued medical management. Will need to optimize her heart failure GDMT, however, will not make changes in medications at this time and see how her blood pressures respond to dialysis. (2) Coronary artery disease: Code(s): I25.10 - Atherosclerotic heart disease of [place] coronary artery without angina pectoris Status: Acute Assessment and Plan: No chest pain, troponins are minimally elevated but flat at [place]. She now does have a reduction in her LVEF. She does have shortness of breath, but I believe her worsening renal disease, CHF, and anemia are also contributing to that rather than being a primary coronary issue. I had a discussion with both the patient and daughter. Discussed that cardiac catheterization is reasonable to reassess her coronary and bypass graft anatomy, however, it is not without its risks, in particularly given her advanced CKD. At this time, she does not need urgent cardiac catheterization as she is not having an acute coronary syndrome event. I discussed with the family that cardiac catheterization and possible PCI may improve her LVEF, but not guaranteed, and I do not think undergoing cardiac catheterization at this time will be much beneficial for the patient. Recommend to continue medical management at this time with ASA, Plavix. (3) Uncontrolled hypertension: Code(s): I10 - Essential (primary) hypertension Status: Chronic Assessment and Plan: Blood pressures remain uncontrolled. Will need to optimize her heart failure GDMT, however, will not make changes in medications at this time and see how her blood pressures respond to dialysis. (4) Chronic respiratory failure with hypoxia: Code(s): J96.11 - Chronic respiratory failure with hypoxia Status: Chronic Assessment and Plan: On chronic oxygen at 2L. (5) Type 2 diabetes mellitus with diabetic nephropathy: Qualifiers: Diabetes mellitus buttermaker helper insulin use: with longterm use Qualified Code(s): E11.21 - Type 2 diabetes mellitus with diabetic nephropathy; Z79.4 - shelter (current) use of insulin Code(s): E11.21 - Type 2 diabetes mellitus with diabetic nephropathy Status: Chronic Assessment and Plan: Management as per primary team. (6) Chronic kidney disease (CKD), stage V: Code(s): N18.5 - Chronic kidney disease, stage 5 Status: Chronic Assessment and Plan: Dr. Arcos consulted. Plan to start dialysis. (7) Mixed hyperlipidemia: Code(s): E78.2 - Mixed hyperlipidemia Status: Acute Assessment and Plan: Has not tolerated statins in the past. Subjective Date/time seen: 10/24/23 09:52 Interval history: Reason for visit: CHF, CAD HPI: Shayy Madera is an 83 year old female with the following history: 1. 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
[2023-10-24 11:50] LABS: Glucose Point of Care 153 mg/dl (65-105)
--- NOTE | 2023-10-24 13:33 | PM.PNNEP ---
Progress Note: A&P Assessment and Plan (1) Chronic kidney disease (CKD), stage V: Code(s): N18.5 - Chronic kidney disease, stage 5 Status: Chronic Assessment and Plan: baseline creatinine runs ~ 2.9 - 3.5mg/l in the last year or so due to hypertension, diabetes, vascular disease, UNRULY, and age-related change unfortunately, maintaining her volume status is becoming more problematic and she now has some issues related to uremia patient agreeable to initiation of [facility]ERIFF/dialysis plan dialysis treatment once tunneled HD catheter placed (2) Heart failure with reduced ejection fraction: Code(s): I50.20 - Unspecified systolic (congestive) heart failure Status: Acute Assessment and Plan: some clinical improvement with diuresis repeat Echo noted with EF of 35 - 40% Cardiology recommendations noted continue bumex since she still makes some urine suspect dialysis will do a better job of maintaining fluid status once started (3) Chronic respiratory failure with hypoxia: Code(s): J96.11 - Chronic respiratory failure with hypoxia Status: Chronic Assessment and Plan: improvement noted however, done so at the expense of worsening renal dysfunction given need for IV diuresis continue supplemental oxygen follow respiratory status (4) Uncontrolled hypertension: Code(s): I10 - Essential (primary) hypertension Status: Chronic Assessment and Plan: difficult to control at baseline would not be too aggressive with BP control given tenuous renal function suspect BP control may improve with fluid removal with dialysis continue home medications -- further adjustments once dialysis started follow trend of hemodynamics (5) Chronic anemia: Code(s): D64.9 - Anemia, unspecified Status: Chronic Assessment and Plan: related to progressive CKD and acute illness start Epogen once dialysis initiated check iron studies follow trend of H/H (6) Diabetes mellitus with chronic kidney disease: Qualifiers: Diabetes mellitus type: type 2 Diabetes mellitus latrine cleaner insulin use: with latrine cleaner use Chronic kidney disease stage: stage 5, not on chronic dialysis Qualified Code(s): E11.22 - Type 2 diabetes mellitus with diabetic chronic kidney disease; N18.5 - Chronic kidney disease, stage 5; Z79.4 - shelter (current) use of insulin Code(s): E11.22 - Type 2 diabetes mellitus with diabetic chronic kidney disease Status: Chronic Assessment and Plan: follow accu-cheks glycemic control per hospitalists Will continue to follow. Subjective Date/time seen: 10/24/23 13:33 Interval history: Follow-up for chronic kidney disease and fluid/volume overload. No apparent distress voiced at the time of my visit; breathing/respiratory status appear under reasonable control at this time; still making urine in response to bumex; awaiting HD catheter placement which is to be done later this afternoon; no other issues/events overnight or earlier this morning. Exam Narrative: General: elderly and somewhat ill-appearing female in NAD Heart: normal S1 and S2; no rub Lungs: clear anteriorly, decreased at bases Abdomen: soft, nontender, nondistended, positive bowel sounds Extremities: no cyanosis or clubbing; trace edema Skin: warm and dry Objective Data Vital Signs Vital Signs: Vital Signs Temp Pulse Resp BP Pulse Ox O2 Del Method O2 Flow Rate 10/24/23 13:30 99.5 F 68 16 182/52 H 100 Nasal Cannula 2 10/24/23 09:45 100 Nasal Cannula 2 10/24/23 04:57 98.0 F 60 18 177/51 H 100 10/24/23 04:00 62 10/24/23 00:00 60 10/23/23 20:00 98 Nasal Cannula 2 10/23/23 20:00 65 10/23/23 19:49 98.1 F 67 18 159/53 H 98 10/23/23 16:05 66 Intake/Output Intake/Output: Intake & Output 10/21/23 10/22/23 10/23/23 10/24/23 23:59 23:59 23:59 2
--- NOTE | 2023-10-24 13:33 | P.PNNP_ITS ---
Progress Note: A&P Assessment and Plan (1) Chronic kidney disease (CKD), stage V: Code(s): N18.5 - Chronic kidney disease, stage 5 Status: Chronic Assessment and Plan: * baseline creatinine runs ~ 2.9 - 3.5mg/l in the last year or so * due to hypertension, diabetes, vascular disease, UNRULY, and age-related change * unfortunately, maintaining her volume status is becoming more problematic and she now has some issues related to uremia * patient agreeable to initiation of REFERENCE LIBRARY ASSISTANT/dialysis * plan dialysis treatment once tunneled HD catheter placed (2) Heart failure with reduced ejection fraction: Code(s): I50.20 - Unspecified systolic (congestive) heart failure Status: Acute Assessment and Plan: * some clinical improvement with diuresis * repeat Echo noted with EF of 35 - 40% * Cardiology recommendations noted * continue bumex since she still makes some urine * suspect dialysis will do a better job of maintaining fluid status once started (3) Chronic respiratory failure with hypoxia: Code(s): J96.11 - Chronic respiratory failure with hypoxia Status: Chronic Assessment and Plan: * improvement noted * however, done so at the expense of worsening renal dysfunction given need for IV diuresis * continue supplemental oxygen * follow respiratory status (4) Uncontrolled hypertension: Code(s): I10 - Essential (primary) hypertension Status: Chronic Assessment and Plan: * difficult to control at baseline * would not be too aggressive with BP control given tenuous renal function * suspect BP control may improve with fluid removal with dialysis * continue home medications -- further adjustments once dialysis started * follow trend of hemodynamics (5) Chronic anemia: Code(s): D64.9 - Anemia, unspecified Status: Chronic Assessment and Plan: * related to progressive CKD and acute illness * start Epogen once dialysis initiated * check iron studies * follow trend of H/H (6) Diabetes mellitus with chronic kidney disease: Qualifiers: Diabetes mellitus type: type 2 Diabetes mellitus intermediate insulin use: with wafer slicer use Chronic kidney disease stage: stage 5, not on chronic dialysis Qualified Code(s): E11.22 - Type 2 diabetes mellitus with diabetic chronic kidney disease; N18.5 - Chronic kidney disease, stage 5; Z79.4 - skilled nursing professional (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 Subjective Date/time seen: 10/24/23 13:33 Interval history: Follow-up for chronic kidney disease and fluid/volume overload. No apparent distress voiced at the time of my visit; breathing/respiratory status appear under reasonable control at this time; still making urine in response to bumex; awaiting HD catheter placement which is to be done later this afternoon; no other issues/events overnight or earlier this morning. Exam Narrative: General: elderly and somewhat ill-appearing female in NAD Heart: normal S1 and S2; no rub Lungs: clear anteriorly, decreased at bases Abdomen: soft, nontender, nondistended, positive bowel sounds Extremities: no cyanosis or clubbing; trace edema Skin: warm and dry Objective Data Vital Signs Vital Signs: Vital Signs
--- NOTE | 2023-10-24 13:33 | PCSTNOTE ---
Unable to complete BSE today; patient is NPO for a procedure that will not take place until 4:00 pm. Will try first thing in the morning.
--- NOTE | 2023-10-24 14:12 | PM.CNGS ---
Assessment and Plan Assessment and plan (1) Chronic kidney disease (CKD), stage V: Code(s): N18.5 - Chronic kidney disease, stage 5 Status: Chronic Assessment and Plan: Will proceed with placement of tunneled hemodialysis catheter today by Dr. Dave. Description of the procedure, risks, benefits, alternatives, and expected recovery were discussed with the patient in detail. She agrees to proceed. We will keep her NPO. (2) Chronic respiratory failure with hypoxia: Code(s): J96.11 - Chronic respiratory failure with hypoxia Status: Chronic (3) Heart failure with reduced ejection fraction: Code(s): I50.20 - Unspecified systolic (congestive) heart failure Status: Acute (4) Coronary artery disease: Code(s): I25.10 - Atherosclerotic heart disease of [place] coronary artery without angina pectoris Status: Acute (5) Type 2 diabetes mellitus with diabetic nephropathy: Qualifiers: Diabetes mellitus retirement insulin use: with watermelon harvesting supervisor use Qualified Code(s): E11.21 - Type 2 diabetes mellitus with diabetic nephropathy; Z79.4 - half-way (current) use of insulin Code(s): E11.21 - Type 2 diabetes mellitus with diabetic nephropathy Status: Chronic (6) Bilateral stenosis of carotid arteries greater than 50%: Code(s): I65.23 - Occlusion and stenosis of bilateral carotid arteries Status: Chronic Plan I have discussed the patient's case and plan of care with Dr. De Los Santos. History of Present Illness Consult details Consult date: 10/24/23 Reason for consult: other (Placement of tunneled hemodialysis catheter) Requesting physician: Albert Arcos MD Narrative: This is an 83-year-old female with a past medical history of chronic kidney disease, coronary artery disease, chronic respiratory failure, CHF, and multiple other medical problems. We have been asked to see her in surgical consultation for placement of tunneled dialysis catheter. She was directly admitted to the medical floor from [facility] with CHF exacerbation. She initially went to [place] [facility] on 10/20/2023 with shortness of breath and lower extremity edema, and was admitted. She was transferred to [place] after cardiology recommended the transfer for consideration of cardiac catheterization. She also has chronic kidney disease, which Nephrology was consulted for. Maintaining her volume status has become more problematic and she is now having issues with uremia. Nephrology wishes to initiate hemodialysis. They have consulted us for placement of tunneled dialysis catheter. She is now seen on the medical floor. Review of Systems Review of Systems: All systems reviewed & are unremarkable except as noted in HPI and below PMFSH Past Medical History Medical History (Updated 10/24/23 @ 14:21 by JOE Vides) Bilateral stenosis of carotid arteries greater than 50% Chronic anemia Chronic kidney disease Chronic respiratory failure with hypoxia Coronary artery disease Diastolic dysfunction Essential (primary) hypertension Gastro-esophageal reflux disease without esophagitis Hypothyroidism Mixed hyperlipidemia Obstructive sleep apnea Mild, patient was told she did not need a CPAP. 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
--- NOTE | 2023-10-24 14:19 | WPDANESEPPF ---
Anes - Initial Pre Proc Eval Procedure: Operation Date: 10/24/23 14:30 Proposed Procedures p Insertion Tunneled Dialysis Catheter - Tereza Dave MD Date/Time: 10/24/23 14:19 Surgeon: Micheline Gilliland MD Pre Op Diagnosis: CHF,CKD Patient Data Age: 83 Gender: F Height: 1.6 m Weight: 78 kg Last Vital Signs Temp 36.7 C 10/24/23 04:57 Pulse 60 10/24/23 04:57 Resp 18 10/24/23 04:57 BP 177/51 H 10/24/23 04:57 Pulse Ox 100 10/24/23 09:45 O2 Del Method Nasal Cannula 10/24/23 09:45 O2 Flow Rate 2 10/24/23 09:45 Allergies Allergy/AdvReac Type Severity Reaction Status Date / Time Penicillins Allergy Unknown Skin Verified 10/16/23 10:34 Reaction Androgenic Anabolic Steroid AdvReac Unknown Loopy Verified 10/16/23 10:34 mirtazapine AdvReac Unknown sedate Verified 10/16/23 10:34 prednisone AdvReac Unknown BLOOD Verified 10/16/23 10:34 SUGARS OUT OF CONTROL pravastatin AdvReac Dizziness Verified 10/16/23 10:34 Home Medications Medication Instructions Recorded Confirmed Type aspirin 81 mg tablet,delayed 81 mg PO HS 05/05/19 10/22/23 History release clopidogrel 75 mg tablet 75 mg PO DAILY 07/17/21 10/22/23 History cholecalciferol (vitamin D3) 25 50 mcg PO DAILY 04/27/22 10/22/23 History mcg (1,000 unit) capsule fluoxetine 20 mg tablet 40 mg PO DAILY #60 tabs 07/31/23 10/22/23 Rx lisinopril 20 mg tablet 20 mg PO DAILY 09/09/23 10/22/23 History sodium bicarbonate 650 mg tablet 1,300 mg PO DAILY 09/09/23 10/22/23 History pindolol 10 mg tablet 20 mg PO Q12HR #120 tabs 09/13/23 10/22/23 Rx nifedipine 30 mg tablet,extended 30 mg PO QAM #30 tabs 09/18/23 10/22/23 Rx release 24 hr (Procardia XL) lorazepam 0.5 mg tablet (Ativan) 0.5 mg PO TID PRN anxiety #14 tabs 09/27/23 10/22/23 Rx ondansetron 4 mg disintegrating 4 mg PO Q6-8H PRN nausea and 09/27/23 10/22/23 Rx tablet vomiting #14 tabs hydralazine 10 mg tablet 20 mg PO TID 09/30/23 10/22/23 History levothyroxine 75 mcg tablet 75 mcg PO DAILY #90 tabs 10/16/23 10/22/23 Rx pantoprazole 40 mg tablet,delayed 40 mg PO QAM 8 weeks #56 tabs 10/16/23 10/22/23 Rx release albuterol sulfate 90 mcg/actuation 2 puff inhalation QID PRN Wheezing 10/22/23 10/22/23 History aerosol inhaler amlodipine 10 mg tablet 1 mg PO DAILY 10/22/23 10/22/23 History bumetanide 1 mg tablet 1.5 mg PO DAILY 10/22/23 10/22/23 History Laboratory Tests 10/23/23 10/23/23 10/24/23 17:02 19:53 05:32 WBC 6.5 K/mm3 (4.5-10.0) RBC 2.61 L M/mm3 (4.2-5.4) Hgb 7.6 L g/dL (12.0-15.0) Hct 24.5 L % (37.0-47.0) MCV 93.9 fl (80-100) MCH 29.1 pg (26-34) MCHC 31.0 L g/dl (32-36) RDW 14.6 H % (11.5-14.5) Plt Count 210 k/mm3 (150-375) MPV 11.4 H fl (7.4-10.4) Immature Gran % (Auto) 0.3 % (0-0.5) Neut % (Auto) 63.4 % (45.5-73.1) Lymph % (Auto) 18.6 % (18.3-44.2) [place] % (Auto) 12.4 H % (2.6-8.5) Eos % (Auto) 4.8 H % (0-4.4) Baso % (Auto) 0.5 % (0.2-1.2) Lymph # (Auto) 1.21 K/mm3 (0.9-3.2) [place] # (Auto) 0.8 H K/mm3 (0.1-0.6) Eos # (Auto) 0.3 K/mm3 (0-0.3) Baso # (Auto) 0.0 K/mm3 (0.0-0.1) Abs Immat Gran (auto) 0.02 K/mm3 (0.00-0.031) Absolute Neuts (auto) 4.1 K/mm3 (1.3-6.7) Absolute Nucleated RBC 0.000 K/mm3 (0.0-0.012) Nucleated RBC % 0.0 % (0.0-0.2) Sodium 135 L mmol/L (137-145) Potassium 3.7 mmol/L (3.4-5.0) Chloride 98 mmol/L (98-107) Carbon Dioxide 31 H mmol/L (22-30) Anion Gap 6 mmol/L (4-12) BUN 63 H mg/dL (7-17) Creatinine 3.80 H mg/dL (0.7-1.0) Estim Creat Clear Calc 11 ml/min Estimated GFR 11 L (59 - ) Glucose 130 H mg/dL (65-110) POC Capill
--- NOTE | 2023-10-24 14:26 | WPDHPUPDATE1 ---
History and Physical Update Update Date/Time: 10/24/23 14:26 History and Physical has been reviewed, including an updated exam of the patient. There are NO changes in the patient's condition. Risks, benefits, and alternatives have been discussed and questions answered. Patient agrees to proceed with procedure.
[2023-10-24] MEDS: SODIUM CHLORIDE 0.9% IV 500 ML 30 ML IV CONT (14:30)
--- NOTE | 2023-10-24 14:56 | SUR.PREOP ---
10/24/23 @ 1443: DAUGHTER JULIANNE UPDATED BEFORE PT TO OR
[2023-10-24] MEDS: ceFAZolin 2 GM/D5W 50 ML 2 GM/50 ML BAG IVPB (15:00)
--- NOTE | 2023-10-24 15:28 | W.PM.PROC2 ---
Procedure Note - Detailed Date of Procedure 10/24/23 Pre-op Diagnosis Acute on chronic renal failure Post-op Diagnosis Same Procedure Performed placement of 28 cm tunneled hemodialysis catheter in right internal jugular vein under both ultrasound and fluroscopic guidance Surgeon Tereza Dave MD Anesthesia MAC and Local Indications 83-year-old female with multiple medical issues presenting with acute on chronic renal failure necessitating urgent hemodialysis Findings 1st stick RIJ Description of Procedure Patient was taken to the operating room and placed in the supine position. After adequate induction of general anesthesia, the patient was prepped and draped in normal sterile fashion. A time-out was then done to verify the patient's identity as well as the procedure being performed. I began by using the SonoSite and locating the right internal jugular vein. Once this was done, I localized the overlying skin. I then made a small incision in the skin. I then gained access into the right internal jugular vein with an 18 gauge needle. At this point, I threaded the guidewire into the right internal jugular vein. Placement of the guidewire was confirmed by both ultrasound and fluoroscopic guidance. I then went ahead and measured the 28 cm tunneled dialysis catheter to our stick site in the right neck. I then localized the tract going from the right chest to the right neck. I then made a small incision in the right chest and tunneled the catheter to the right neck. I then serially dilated the right internal jugular vein under fluoroscopic guidance. Once adequately dilated, I placed the dilating sheath over the guidewire into the right internal jugular vein under fluoroscopic visualization. Once this was noted to be in good position, I removed both the guidewire and dilator, now just leaving the sheath in the vein. I then went ahead and fed the previously tunneled catheter into the sheath. Once the catheter was fed and positioned correctly, I went ahead and peeled the sheath away. Final fluoroscopic view showed the catheter in good position from its insertion point in the right chest to its termination in the atrial caval junction. It was noted there was no kinking of the catheter. I was able to easily draw and flush from both ports of the catheter. I placed 2.2 and 2.3 cc of final heparin flush into each port as marked. The catheter was then sutured into place and the incision in the neck was closed with 4 O Monocryl subcuticular suture. The patient tolerated the procedure well and will be transferred to the recovery room in stable condition. Sterile dressing was placed on the catheter. Portable chest x-ray will be done in the PACU. Implants 28 cm tunneled hemodialysis catheter Estimated Blood Loss 10 Drains No Packing No Pathology None sent Complications No immediate complications Condition Stable Disposition PACU [facility] Billing Surgery - Charge Forward: Surgery Billing
--- NOTE | 2023-10-24 16:00 | PC.NURSE ---
Patient returned from OR per bed.
--- NOTE | 2023-10-24 16:44 | PM.IMPN ---
Progress Note: A&P Assessment and Plan (1) Heart failure with reduced ejection fraction: Code(s): I50.20 - Unspecified systolic (congestive) heart failure Status: Acute Assessment and Plan: At [facility] patient found to be in acute on chronic hypoxic and hypercapnic respiratory failure likely related to acute CHF exacerbation and non ST-elevation DC on 10/19. V/Q scan showed a normal perfusion with no evidence of PE. She was initially placed on BiPAP and was diuresed with significant improvement over the next 2 days. Cardiology was consulted at that facility and recommended transfer to [place] for possible cardiac catheterization. - Echo 09/10/23: LVEF 50-55% with grade III diastolic dysfunction and severe hypokinesis of the mid anteroseptal wall. - Cardiology consulted. Do not plan to do a cardiac catheterization during this admission as the problem is more associated with her kidney disease. Per cardiology note from a volume standpoint she is stable. From a heart failure standpoint she will need continued medical management and to optimize her heart failure GDMT. - Due to her worsening renal function the patient would likely benefit from starting dialysis. She was then seen by nephrology who discussed dialysis with her and the plan to place dialysis access tomorrow. (2) Chronic respiratory failure with hypoxia: Code(s): J96.11 - Chronic respiratory failure with hypoxia Status: Chronic Assessment and Plan: Acute on chronic respiratory failure with hypoxia. Likely related to patients ongoing CHF exacerbation. She remains on her baseline O2 requirement of 3L. - Monitor (3) Chronic kidney disease: Code(s): N18.9 - Chronic kidney disease, unspecified Status: Acute Assessment and Plan: Baseline creatinine approximately 2.9-3.5 in the last year likely due to patients hypertension, vascular disease, UNRULY, and age related changes. - BUN/Cr 63/3.8. - Monitor daily labs - I/O - Avoid nephrotoxic medications - Nephrology consulted. Plan to start dialysis. Will obtain an access site tomorrow. (4) Hypertension: Code(s): I10 - Essential (primary) hypertension Status: Acute Assessment and Plan: Stable on home medications. - Amlodipine 10 mg daily - Hydralazine 20 mg TID - Nifedipine 30 mg daily - Lisinopril 20 mg daily (5) Chronic anemia: Code(s): D64.9 - Anemia, unspecified Status: Chronic Assessment and Plan: Stable. H/H 7.8/25.4 today. No signs of active bleeding. Continue to monitor (6) Hypothyroidism: Qualifiers: Hypothyroidism type: unspecified Qualified Code(s): E03.9 - Hypothyroidism, unspecified Code(s): E03.9 - Hypothyroidism, unspecified Status: Chronic Assessment and Plan: TSH 07/16/23: 0.793. Continue home levothyroxine 75 mcg daily. (7) Type 2 diabetes mellitus with diabetic nephropathy: Qualifiers: Diabetes mellitus halfway insulin use: with halfway use Qualified Code(s): E11.21 - Type 2 diabetes mellitus with diabetic nephropathy; Z79.4 - care home (current) use of insulin Code(s): E11.21 - Type 2 diabetes mellitus with diabetic nephropathy Status: Chronic Assessment and Plan: - hypoglycemia protocol - POC blood glucose ACHS - home medication - none - correct regimen ordered - low dose TIDWM and HS - A1C 09/24/23: 5.5 Plan Assuming care on 10/24/2023. Plan from yesterday has been appreciated as above. The patient is post tunneled dialysis catheter placement and it was apparently uncomplicated. The patient appears to be at her baseline and dialysis is scheduled for today at 5:00 p.m.. We will continue to follow with Nephrology. No changes in management today as her parameters are within acceptable limits. We will restart Plavix tomorrow as well as DVT prophylaxis she has no signs of bleeding and her hemoglobin remained stable. It is a bit low today
[2023-10-24 16:47] LABS: Glucose Point of Care 139 mg/dl (65-105)
[2023-10-24] MEDS: SODIUM CHLORIDE 0.9% IV 1,000 ML 999 ML IV CONT (17:16)
[2023-10-24] MEDS: EPOETIN ALFA-EPBX 10,000 UNITS/ML VIAL 10000 UNITS IV PUSH (19:13)
[2023-10-24] MEDS: FLUoxetine HCL 20 MG CAPSULE 40 MG PO (20:12)
[2023-10-24] MEDS: CHOLECALCIFEROL 1,000 UNITS TABLET 2000 UNITS PO (20:13)
[2023-10-24] MEDS: ASPIRIN 81 MG ENTERIC TABLET PO (20:13)
[2023-10-24] MEDS: PANTOPRAZOLE 40 MG TABLET PO (20:13)
[2023-10-24 21:43] LABS: Glucose Point of Care 168 mg/dl (65-105)
[2023-10-25] VITALS (26 sets, daily range): BP systolic 153–195; BP diastolic 42–71; PULSE 59–74; RESP 16–20; TEMP 36.2–37; O2SAT 96–100
[2023-10-25] MEDS: LEVOTHYROXINE SODIUM 75 MCG TABLET PO (05:43)
[2023-10-25 06:14] LABS: Basophils Percent Auto 0.3 % (0.2-1.2); Eosinophils Absolute Auto 0.3 K/mm3 (0-0.3); Eosinophils Percent Auto 3.8 % (0-4.4); Hematocrit 26.9 % (37.0-47.0); Hemoglobin 8.3 g/dL (12.0-15.0); Immature Granulocyte Absolute 0.02 K/mm3 (0.00-0.031); Immature Granulocyte Percent A 0.3 % (0-0.5); Lymphocytes Absolute Auto 0.92 K/mm3 (0.9-3.2); Mean Corpuscular HGB Conc 30.9 g/dl (32-36); Mean Corpuscular Volume 94.1 fl (80-100); Mean Platelet Volume 11.1 fl (7.4-10.4); Monocytes Absolute Auto 0.8 K/mm3 (0.1-0.6); Monocytes Percent Auto 12.3 % (2.6-8.5); Neutrophils Absolute Auto 4.6 K/mm3 (1.3-6.7); Neutrophils Percent Auto 69.3 % (45.5-73.1); Platelet Count Result 222 k/mm3 (150-375); Red Blood Count 2.86 M/mm3 (4.2-5.4); Red Cell Distribution Width 14.6 % (11.5-14.5); White Blood Count 6.6 K/mm3 (4.5-10.0)
[2023-10-25 06:18] LABS: Hepatitis B Core Ab Total NON-REACTIVE (NON-REACTIVE)
[2023-10-25 06:30] LABS: Alanine Aminotransferase 11 U/L (6-35); Albumin Level 3.4 g/dL (3.5-5.1); Alkaline Phosphatase 46 U/L (38-126); Anion Gap 4 mmol/L (4-12); Aspartate Amino Transferase 18 U/L (14-36); Bilirubin,Total 0.4 mg/dL (0.2-1.3); Blood Urea Nitrogen 31 mg/dL (7-17); Calcium 9.2 mg/dL (8.4-10.2); Carbon Dioxide 29 mmol/L (22-30); Chloride 105 mmol/L (98-107); Estimated CRCL calculation 15 ml/min; Estimated Glomerular Filt Rate 18; Glucose 131 mg/dL (65-110); Phosphorus 3.1 mg/dL (2.5-4.5); Potassium 3.7 mmol/L (3.4-5.0); Sodium 138 mmol/L (137-145)
[2023-10-25 06:38] LABS: Iron 24 ug/dL (37-170)
[2023-10-25 06:47] LABS: Percent Iron Saturation 10 % (20-50)
[2023-10-25 08:17] LABS: Glucose Point of Care 130 mg/dl (65-105)
--- NOTE | 2023-10-25 08:18 | WPDANESPN ---
Anes - Prog Note Post-Op Date/Time: 10/25/23 08:18 Cardiovascular status: normal Respiratory status: normal Airway patency: baseline Mental status: baseline Post-Op hydration status: normal Vital Signs: Last Vital Signs Temp 36.6 C 10/25/23 05:17 Pulse 63 10/25/23 05:17 Resp 20 10/25/23 05:17 BP 181/66 H 10/25/23 06:54 Pulse Ox 96 10/25/23 05:17 O2 Del Method Nasal Cannula 10/24/23 20:00 O2 Flow Rate 2 10/24/23 20:00 Pain Score (VAS): 0 I/O: Intake & Output 10/24/23 10/25/23 10/25/23 23:59 07:59 15:59 Intake Total 240 50 Output Total 1800 200 Balance -1560 -150 Laboratory Tests 10/25/23 05:42 10/25/23 05:42 10/24/23 10/24/23 10/24/23 05:32 08:13 11:43 WBC RBC Hgb Hct MCV MCH MCHC RDW Plt Count MPV Immature Gran % (Auto) Neut % (Auto) Lymph % (Auto) [place] % (Auto) Eos % (Auto) Baso % (Auto) Lymph # (Auto) [place] # (Auto) Eos # (Auto) Baso # (Auto) Abs Immat Gran (auto) Absolute Neuts (auto) Absolute Nucleated RBC Nucleated RBC % Sodium Potassium Chloride Carbon Dioxide Anion Gap BUN Creatinine Estim Creat Clear Calc Estimated GFR Glucose POC Capillary Glucose 130 H 153 H Calcium Phosphorus Iron TIBC % Saturation Ferritin Total Bilirubin AST ALT Alkaline Phosphatase Total Protein Albumin Vitamin B12 Folate Hep Bs Antigen Negative Hep Bs Antibody Negative Hep B Core Total Ab Non-reactive 10/24/23 10/24/23 10/25/23 16:40 20:16 05:42 WBC 6.6 RBC 2.86 L Hgb 8.3 L Hct 26.9 L MCV 94.1 MCH 29.0 MCHC 30.9 L RDW 14.6 H Plt Count 222 MPV 11.1 H Immature Gran % (Auto) 0.3 Neut % (Auto) 69.3 Lymph % (Auto) 14.0 L [place] % (Auto) 12.3 H Eos % (Auto) 3.8 Baso % (Auto) 0.3 Lymph # (Auto) 0.92 [place] # (Auto) 0.8 H Eos # (Auto) 0.3 Baso # (Auto) 0.0 Abs Immat Gran (auto) 0.02 Absolute Neuts (auto) 4.6 Absolute Nucleated RBC 0.000 Nucleated RBC % 0.0 Sodium 138 Potassium 3.7 Chloride 105 Carbon Dioxide 29 Anion Gap 4 BUN 31 H D Creatinine 2.60 H Estim Creat Clear Calc 15 Estimated GFR 18 L Glucose 131 H POC Capillary Glucose 139 H 168 H Calcium 9.2 Phosphorus 3.1 Iron 24 L TIBC 249 L % Saturation 10 L Ferritin 54.80 Total Bilirubin 0.4 AST 18 ALT 11 Alkaline Phosphatase 46 Total Protein 6.0 L Albumin 3.4 L Vitamin B12 271.0 Folate 10.0 Hep Bs Antigen Hep Bs Antibody Hep B Core Total Ab 10/25/23 08:15 WBC RBC Hgb Hct MCV MCH MCHC RDW Plt Count MPV Immature Gran % (Auto) Neut % (Auto) Lymph % (Auto) [place] % (Auto) Eos % (Auto) Baso % (Auto) Lymph # (Auto) [place] # (Auto) Eos # (Auto) Baso # (Auto) Abs Immat Gran (auto) Absolute Neuts (auto) Absolute Nucleated RBC Nucleated RBC % Sodium Potassium Chloride Carbon Dioxide Anion Gap BUN Creatinine Estim Creat Clear Calc Estimated GFR Glucose POC Capillary Glucose 130 H Calcium Phosphorus Iron TIBC % Saturation Ferritin Total Bilirubin AST ALT Alkaline Phosphatase Total Protein Albumin Vitamin B12 Folate Hep Bs Antigen Hep Bs Antibody Hep B Core Total Ab Patient Feedback: Patient satisfied with anesthetic care.
--- NOTE | 2023-10-25 09:20 | P.PNNP_ITS ---
Progress Note: A&P Assessment and Plan (1) End stage renal disease: Code(s): N18.6 - End stage renal disease Status: Chronic Assessment and Plan: * due to progression of underlying CKD * baseline creatinine had been running ~ 2.9 - 3.5mg/l in the last year or so * due to hypertension, diabetes, vascular disease, UNRULY, and age-related change * unfortunately, maintaining her volume status has become more problematic and she now has some issues related to uremia * s/p tunneled HD catheter placement on 10/24/23 * HD yesterday and HD today * plan HD tomorrow as well * will need outpatient dialysis on discharge (2) Heart failure with reduced ejection fraction: Code(s): I50.20 - Unspecified systolic (congestive) heart failure Status: Acute Assessment and Plan: * some clinical improvement with diuresis * repeat Echo noted with EF of 35 - 40% * Cardiology recommendations noted * continue bumex since she still makes some urine * ongoing fluid removal with HD/DUF as tolerated * not opposed to institution of GDMT within the limits of her ESRD (i.e. Jardiance, Entresto...etc) (3) Chronic respiratory failure with hypoxia: Code(s): J96.11 - Chronic respiratory failure with hypoxia Status: Chronic Assessment and Plan: * improvement noted * however, done so at the expense of worsening renal dysfunction with the use IV diuresis * continue supplemental oxygen (on chronic home oxygen) * follow respiratory status (4) Uncontrolled hypertension: Code(s): I10 - Essential (primary) hypertension Status: Chronic Assessment and Plan: * difficult to control at baseline * BP control may improve with fluid removal with dialysis * continue home medications -- further adjustments based on response to dialysis * follow trend of hemodynamics (5) Chronic anemia: Code(s): D64.9 - Anemia, unspecified Status: Chronic Assessment and Plan: * related to progressive CKD and acute illness * on Epogen once dialysis initiated * iron studies with iron deficiency - IV venofer with HD * follow trend of H/H (6) Diabetes mellitus with chronic kidney disease: Qualifiers: Diabetes mellitus type: type 2 Diabetes mellitus intermodal customer service insulin use: with intermodal customer service use Chronic kidney disease stage: stage 5, not on chronic dialysis Qualified Code(s): E11.22 - Type 2 diabetes mellitus with diabetic chronic kidney disease; N18.5 - Chronic kidney disease, stage 5; 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 Subjective Date/time seen: 10/25/23 09:20 Interval history: Follow-up for chronic kidney disease with transition to end stage renal disease and volume overload. S/P tunneled HD catheter placement yesterday afternoon followed by short dialysis treatment; tolerating dialysis treatment at the time of my visit (seen on HD at 9:10AM); no apparent distress noted currently; no issues/events overnight or earlier this AM; breathing/respiratory status seems stable. Exam Narrative: General: elderly and somewhat ill-appearing female in NAD Heart: normal S1 and S2; no rub Lungs: bibasilar crackles noted Abdomen: soft, nontender, nondistended, positive bowel sounds Extremities: no cyanosis or clubbing; trace edema Skin: warm and dry
--- NOTE | 2023-10-25 09:20 | PM.PNNEP ---
Progress Note: A&P Assessment and Plan (1) End stage renal disease: Code(s): N18.6 - End stage renal disease Status: Chronic Assessment and Plan: due to progression of underlying CKD baseline creatinine had been running ~ 2.9 - 3.5mg/l in the last year or so due to hypertension, diabetes, vascular disease, UNRULY, and age-related change unfortunately, maintaining her volume status has become more problematic and she now has some issues related to uremia s/p tunneled HD catheter placement on 10/24/23 HD yesterday and HD today plan HD tomorrow as well will need outpatient dialysis on discharge (2) Heart failure with reduced ejection fraction: Code(s): I50.20 - Unspecified systolic (congestive) heart failure Status: Acute Assessment and Plan: some clinical improvement with diuresis repeat Echo noted with EF of 35 - 40% Cardiology recommendations noted continue bumex since she still makes some urine ongoing fluid removal with HD/DUF as tolerated not opposed to institution of GDMT within the limits of her ESRD (i.e. Jardiance, Entresto...etc) (3) Chronic respiratory failure with hypoxia: Code(s): J96.11 - Chronic respiratory failure with hypoxia Status: Chronic Assessment and Plan: improvement noted however, done so at the expense of worsening renal dysfunction with the use IV diuresis continue supplemental oxygen (on chronic home oxygen) follow respiratory status (4) Uncontrolled hypertension: Code(s): I10 - Essential (primary) hypertension Status: Chronic Assessment and Plan: difficult to control at baseline BP control may improve with fluid removal with dialysis continue home medications -- further adjustments based on response to dialysis follow trend of hemodynamics (5) Chronic anemia: Code(s): D64.9 - Anemia, unspecified Status: Chronic Assessment and Plan: related to progressive CKD and acute illness on Epogen once dialysis initiated iron studies with iron deficiency - IV venofer with HD follow trend of H/H (6) Diabetes mellitus with chronic kidney disease: Qualifiers: Diabetes mellitus type: type 2 Diabetes mellitus senior care insulin use: with senior care use Chronic kidney disease stage: stage 5, not on chronic dialysis Qualified Code(s): E11.22 - Type 2 diabetes mellitus with diabetic chronic kidney disease; N18.5 - Chronic kidney disease, stage 5; 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 Subjective Date/time seen: 10/25/23 09:20 Interval history: Follow-up for chronic kidney disease with transition to end stage renal disease and volume overload. S/P tunneled HD catheter placement yesterday afternoon followed by short dialysis treatment; tolerating dialysis treatment at the time of my visit (seen on HD at 9:10AM); no apparent distress noted currently; no issues/events overnight or earlier this AM; breathing/respiratory status seems stable. Exam Narrative: General: elderly and somewhat ill-appearing female in NAD Heart: normal S1 and S2; no rub Lungs: bibasilar crackles noted Abdomen: soft, nontender, nondistended, positive bowel sounds Extremities: no cyanosis or clubbing; trace edema Skin: warm and dry Objective Data Vital Signs Vital Signs: Vital Signs Temp Pulse Resp BP Pulse Ox O2 Del Method O2 Flow Rate 10/25/23 09:04 65 175/66 H 10/25/23 06:54 181/66 H 10/25/23 05:17 97.8 F 63 20 96 10/25/23 04:00 59 L 10/25/23 00:00 60 10/24/23 20:00 96 Nasal Cannula 2 10/24/23 20:00 64 10/24/23 19:56 64 174/63 H 10/24/23 19:45 64 168/57 H 10/24/23 19:59 97.3 F L
--- NOTE | 2023-10-25 10:20 | PM.PNCARD ---
Progress Note: A&P Assessment and Plan (1) Heart failure with reduced ejection fraction: Code(s): I50.20 - Unspecified systolic (congestive) heart failure Status: Acute Assessment and Plan: Patient was admitted to [facility] for acute hypoxic and hypercapnic respiratory failure, found to be in CHF exacerbation. SCr level on 10/19 was 2.6. She required BIPAP for her respiratory failure. V/Q scan negative for PE. Troponins were minimally elevated, but flat at around 0.05. She was diuresed with improvement in her volume status. SCr on 10/20 was 3.18. Echocardiogram there showed LVEF 35-40% with severe hypokinesis of the mid anteroseptal wall. Cardiology at [facility] was consulted, and as patient may need cardiac catheterization and is an established patient of our group, she was transferred to [facility]. Patient's prior echocardiogram 09/2023 showed LVEF 50-55%. SCr here is 3.8. Given her worsening renal function, consulted Dr. Arocs and she was started on dialysis 10/23. From a heart failure standpoint, recommend continued medical management. Will need to optimize her heart failure GDMT, however, will not make changes in medications at this time and see how her blood pressures respond to dialysis. (2) Coronary artery disease: Code(s): I25.10 - Atherosclerotic heart disease of [place] coronary artery without angina pectoris Status: Acute Assessment and Plan: No chest pain, troponins are minimally elevated but flat at [facility]. She now does have a reduction in her LVEF. She does have shortness of breath, but I believe her worsening renal disease, CHF, and anemia are also contributing to that rather than being a primary coronary issue. I had a discussion with both the patient and daughter. Discussed that cardiac catheterization is reasonable to reassess her coronary and bypass graft anatomy, however, it is not without its risks, in particularly given her advanced CKD. At this time, she does not need urgent cardiac catheterization as she is not having an acute coronary syndrome event. I discussed with the family that cardiac catheterization and possible PCI may improve her LVEF, but not guaranteed, and I do not think undergoing cardiac catheterization at this time will be much beneficial for the patient. Recommend to continue medical management at this time with ASA, Plavix. (3) Uncontrolled hypertension: Code(s): I10 - Essential (primary) hypertension Status: Chronic Assessment and Plan: Blood pressures remain uncontrolled. Will need to optimize her heart failure GDMT, however, will not make changes in medications at this time and see how her blood pressures respond to dialysis. (4) Chronic respiratory failure with hypoxia: Code(s): J96.11 - Chronic respiratory failure with hypoxia Status: Chronic Assessment and Plan: On chronic oxygen at 2L. (5) Type 2 diabetes mellitus with diabetic nephropathy: Qualifiers: Diabetes mellitus manager terminal insulin use: with usp use Qualified Code(s): E11.21 - Type 2 diabetes mellitus with diabetic nephropathy; Z79.4 - [facility] (current) use of insulin Code(s): E11.21 - Type 2 diabetes mellitus with diabetic nephropathy Status: Chronic Assessment and Plan: Management as per primary team. (6) Chronic kidney disease (CKD), stage V: Code(s): N18.5 - Chronic kidney disease, stage 5 Status: Chronic Assessment and Plan: Dr. Arcos consulted. Started on dialysis 10/23. (7) Mixed hyperlipidemia: Code(s): E78.2 - Mixed hyperlipidemia Status: Acute Assessment and Plan: Has not tolerated statins in the past. Subjective Date/time seen: 10/25/23 10:20 Interval history: Reason for visit: CHF, CAD HPI: Shayy Madera is an 83 year old female with the following history: 1. Coronary artery disease s/p 4-V CABG in February 2016 with TEJEDA to distal LAD, SVG to [place]
[2023-10-25] MEDS: EPOETIN ALFA-EPBX 10,000 UNITS/ML VIAL 10000 UNITS IV PUSH (10:31)
[2023-10-25] MEDS: NIFEdipine 30 MG TAB.ER.24 PO (12:57)
[2023-10-25] MEDS: lisinopriL 20 MG TABLET 40 MG PO (12:57)
[2023-10-25] MEDS: FLUoxetine HCL 20 MG CAPSULE 40 MG PO (12:57)
[2023-10-25] MEDS: PANTOPRAZOLE 40 MG TABLET PO (12:58)
[2023-10-25] MEDS: CHOLECALCIFEROL 1,000 UNITS TABLET 2000 UNITS PO (12:58)
[2023-10-25] MEDS: hydrALAZINE 10 MG TABLET 20 MG PO ×2 (13:01→16:18)
[2023-10-25 13:11] LABS: Glucose Point of Care 126 mg/dl (65-105)
--- NOTE | 2023-10-25 13:29 | PCSTNOTE ---
Please refer to the Bedside Swallow Evaluation in the EMR. Please note, silent aspiration cannot be ruled out at bedside.
--- NOTE | 2023-10-25 16:38 | PM.IMPN ---
Progress Note: A&P Assessment and Plan (1) Heart failure with reduced ejection fraction: Code(s): I50.20 - Unspecified systolic (congestive) heart failure Status: Acute Assessment and Plan: At [facility] patient found to be in acute on chronic hypoxic and hypercapnic respiratory failure likely related to acute CHF exacerbation and non ST-elevation CA on 10/19. V/Q scan showed a normal perfusion with no evidence of PE. She was initially placed on BiPAP and was diuresed with significant improvement over the next 2 days. Cardiology was consulted at that facility and recommended transfer to [facility] for possible cardiac catheterization. - Echo 09/10/23: LVEF 50-55% with grade III diastolic dysfunction and severe hypokinesis of the mid anteroseptal wall. - Cardiology consulted. Do not plan to do a cardiac catheterization during this admission as the problem is more associated with her kidney disease. Per cardiology note from a volume standpoint she is stable. From a heart failure standpoint she will need continued medical management and to optimize her heart failure GDMT. - Due to her worsening renal function the patient would likely benefit from starting dialysis. She was then seen by nephrology who discussed dialysis with her and the plan to place dialysis access tomorrow. (2) Chronic respiratory failure with hypoxia: Code(s): J96.11 - Chronic respiratory failure with hypoxia Status: Chronic Assessment and Plan: Acute on chronic respiratory failure with hypoxia. Likely related to patients ongoing CHF exacerbation. She remains on her baseline O2 requirement of 3L. - Monitor (3) Chronic kidney disease: Code(s): N18.9 - Chronic kidney disease, unspecified Status: Acute Assessment and Plan: Baseline creatinine approximately 2.9-3.5 in the last year likely due to patients hypertension, vascular disease, UNRULY, and age related changes. - BUN/Cr 63/3.8. - Monitor daily labs - I/O - Avoid nephrotoxic medications - Nephrology consulted. Plan to start dialysis. Will obtain an access site tomorrow. (4) Hypertension: Code(s): I10 - Essential (primary) hypertension Status: Acute Assessment and Plan: Stable on home medications. - Amlodipine 10 mg daily - Hydralazine 20 mg TID - Nifedipine 30 mg daily - Lisinopril 20 mg daily (5) Chronic anemia: Code(s): D64.9 - Anemia, unspecified Status: Chronic Assessment and Plan: Stable. H/H 7.8/25.4 today. No signs of active bleeding. Continue to monitor (6) Hypothyroidism: Qualifiers: Hypothyroidism type: unspecified Qualified Code(s): E03.9 - Hypothyroidism, unspecified Code(s): E03.9 - Hypothyroidism, unspecified Status: Chronic Assessment and Plan: TSH 07/16/23: 0.793. Continue home levothyroxine 75 mcg daily. (7) Type 2 diabetes mellitus with diabetic nephropathy: Qualifiers: Diabetes mellitus care home insulin use: with care home use Qualified Code(s): E11.21 - Type 2 diabetes mellitus with diabetic nephropathy; Z79.4 - intermediate (current) use of insulin Code(s): E11.21 - Type 2 diabetes mellitus with diabetic nephropathy Status: Chronic Assessment and Plan: - hypoglycemia protocol - POC blood glucose ACHS - home medication - none - correct regimen ordered - low dose TIDWM and HS - A1C 09/24/23: 5.5 Plan Assuming care on 10/24/2023. Plan from yesterday has been appreciated as above. The patient is post tunneled dialysis catheter placement and it was apparently uncomplicated. The patient appears to be at her baseline and dialysis is scheduled for today at 5:00 p.m.. We will continue to follow with Nephrology. No changes in management today as her parameters are within acceptable limits. We will restart Plavix tomorrow as well as DVT prophylaxis she has no signs of bleeding and her hemoglobin remained stable. It is a bit low today
[2023-10-25 17:00] LABS: Glucose Point of Care 213 mg/dl (65-105)
[2023-10-25] MEDS: MAGNESIUM HYDROXIDE SUSP 30 ML UDC PO (17:08)
[2023-10-25] MEDS: INSULIN ASPART (*BKC) 100 UNITS/ML SUB-Q (17:10)
[2023-10-25] MEDS: ASPIRIN 81 MG ENTERIC TABLET PO (20:31)
[2023-10-25 21:48] LABS: Glucose Point of Care 154 mg/dl (65-105)
[2023-10-26] VITALS (28 sets, daily range): BP systolic 142–199; BP diastolic 39–64; PULSE 64–85; RESP 18–20; TEMP 36.1–37.8; O2SAT 97–100
[2023-10-26] MEDS: LEVOTHYROXINE SODIUM 75 MCG TABLET PO (05:44)
[2023-10-26 06:29] LABS: Basophils Percent Auto 0.4 % (0.2-1.2); Eosinophils Absolute Auto 0.3 K/mm3 (0-0.3); Eosinophils Percent Auto 4.7 % (0-4.4); Hematocrit 27.9 % (37.0-47.0); Hemoglobin 8.3 g/dL (12.0-15.0); Immature Granulocyte Absolute 0.05 K/mm3 (0.00-0.031); Immature Granulocyte Percent A 0.7 % (0-0.5); Lymphocytes Absolute Auto 1.56 K/mm3 (0.9-3.2); Lymphocytes Percent Auto 21.5 % (18.3-44.2); Mean Corpuscular HGB Conc 29.7 g/dl (32-36); Mean Corpuscular Hemoglobin 28.6 pg (26-34); Mean Corpuscular Volume 96.2 fl (80-100); Mean Platelet Volume 11.5 fl (7.4-10.4); Monocytes Absolute Auto 1.2 K/mm3 (0.1-0.6); Monocytes Percent Auto 16.4 % (2.6-8.5); Neutrophils Absolute Auto 4.1 K/mm3 (1.3-6.7); Neutrophils Percent Auto 56.3 % (45.5-73.1); Platelet Count Result 222 k/mm3 (150-375); Red Cell Distribution Width 14.6 % (11.5-14.5); White Blood Count 7.3 K/mm3 (4.5-10.0)
[2023-10-26 06:40] LABS: Anion Gap 3 mmol/L (4-12); Blood Urea Nitrogen 18 mg/dL (7-17); Calcium 9.4 mg/dL (8.4-10.2); Carbon Dioxide 28 mmol/L (22-30); Chloride 106 mmol/L (98-107); Estimated CRCL calculation 19 ml/min; Estimated Glomerular Filt Rate 23; Glucose 123 mg/dL (65-110); Magnesium 2.1 mg/dL (1.6-2.3); Phosphorus 2.3 mg/dL (2.5-4.5); Potassium 3.9 mmol/L (3.4-5.0); Sodium 137 mmol/L (137-145)
[2023-10-26] MEDS: SODIUM CHLORIDE 0.9% IV 1,000 ML 999 ML IV CONT (08:13)
[2023-10-26 08:22] LABS: Glucose Point of Care 132 mg/dl (65-105)
[2023-10-26 09:25] LABS: Anisocytosis 1+; Basophilic Stippling 1+; Platelet Estimate Adequate (Adequate); Schistocytes None Seen
[2023-10-26] MEDS: IRON SUCROSE COMPLEX 200 MG in SODIUM CHLORIDE 0.9% IV 50 ML 220 MG IVPB (11:17)
[2023-10-26] MEDS: EPOETIN ALFA-EPBX 10,000 UNITS/ML VIAL 10000 UNITS IV PUSH (11:17)
--- NOTE | 2023-10-26 11:26 | PM.PNNEP ---
Progress Note: A&P Assessment and Plan (1) End stage renal disease: Code(s): N18.6 - End stage renal disease Status: Chronic Assessment and Plan: due to progression of underlying CKD baseline creatinine had been running ~ 2.9 - 3.5mg/l in the last year or so due to hypertension, diabetes, vascular disease, UNRULY, and age-related change unfortunately, maintaining her volume status has become more problematic and she now has some issues related to uremia s/p tunneled HD catheter placement on 10/24/23 HD today -- plan next HD on Saturday or Saturday depending on outpatient dialysis schedule outpatient dialysis being arranged (2) Heart failure with reduced ejection fraction: Code(s): I50.20 - Unspecified systolic (congestive) heart failure Status: Acute Assessment and Plan: some clinical improvement with diuresis repeat Echo noted with EF of 35 - 40% Cardiology recommendations noted continue bumex since she still makes some urine ongoing fluid removal with HD/DUF as tolerated not opposed to institution of GDMT within the limits of her ESRD status(i.e. Jardiance, Entresto...etc) (3) Chronic respiratory failure with hypoxia: Code(s): J96.11 - Chronic respiratory failure with hypoxia Status: Chronic Assessment and Plan: improvement noted however, done so at the expense of worsening renal dysfunction with the use IV diuresis continue supplemental oxygen (on chronic home oxygen) follow respiratory status recheck CXR (4) Uncontrolled hypertension: Code(s): I10 - Essential (primary) hypertension Status: Chronic Assessment and Plan: difficult to control at baseline BP control may improve with fluid removal with dialysis continue home medications -- further adjustments based on response to dialysis follow trend of hemodynamics (5) Chronic anemia: Code(s): D64.9 - Anemia, unspecified Status: Chronic Assessment and Plan: related to progressive CKD and acute illness on Epogen once dialysis initiated iron studies with iron deficiency - IV venofer with HD follow trend of H/H (6) Diabetes mellitus with chronic kidney disease: Qualifiers: Chronic kidney disease stage: stage 5, not on chronic dialysis 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 Subjective Date/time seen: 10/26/23 11:26 Interval history: Follow-up for chronic kidney disease with transition to end stage renal disease and volume overload. Tolerated dialysis treatment yesterday and tolerating dialysis treatment at the time of my visit (seen on HD at 11:15AM); breathing/respiratory status seems relatively stable; no apparent distress voiced currently; no other issues/concerns overnight or earlier this morning. Exam Narrative: General: elderly and somewhat ill-appearing female in NAD Heart: normal S1 and S2; no rub Lungs: clear anteriorly; few crackles at bases Abdomen: soft, nontender, nondistended, positive bowel sounds Extremities: no cyanosis or clubbing; trace edema Skin: warm and intact Objective Data Vital Signs Vital Signs: Vital Signs Temp Pulse Resp BP Pulse Ox O2 Del Method O2 Flow Rate 10/26/23 11:15 71 155/56 H 10/26/23 11:00 70 153/54 H 10/26/23 10:41 68 166/53 H 10/26/23 10:24 72 175/62 H 10/26/23 10:15 69 153/55 H 10/26/23 10:00 68 160/58 H 10/26/23 09:45 69 158/54 H 10/26/23 09:30 67 166/58 H
--- NOTE | 2023-10-26 11:26 | P.PNNP_ITS ---
Progress Note: A&P Assessment and Plan (1) End stage renal disease: Code(s): N18.6 - End stage renal disease Status: Chronic Assessment and Plan: * due to progression of underlying CKD * baseline creatinine had been running ~ 2.9 - 3.5mg/l in the last year or so * due to hypertension, diabetes, vascular disease, UNRULY, and age-related change * unfortunately, maintaining her volume status has become more problematic and she now has some issues related to uremia * s/p tunneled HD catheter placement on 10/24/23 * HD today -- plan next HD on Saturday or Saturday depending on outpatient dialysis schedule * outpatient dialysis being arranged (2) Heart failure with reduced ejection fraction: Code(s): I50.20 - Unspecified systolic (congestive) heart failure Status: Acute Assessment and Plan: * some clinical improvement with diuresis * repeat Echo noted with EF of 35 - 40% * Cardiology recommendations noted * continue bumex since she still makes some urine * ongoing fluid removal with HD/DUF as tolerated * not opposed to institution of GDMT within the limits of her ESRD status(i.e. Jardiance, Entresto...etc) (3) Chronic respiratory failure with hypoxia: Code(s): J96.11 - Chronic respiratory failure with hypoxia Status: Chronic Assessment and Plan: * improvement noted * however, done so at the expense of worsening renal dysfunction with the use IV diuresis * continue supplemental oxygen (on chronic home oxygen) * follow respiratory status * recheck CXR (4) Uncontrolled hypertension: Code(s): I10 - Essential (primary) hypertension Status: Chronic Assessment and Plan: * difficult to control at baseline * BP control may improve with fluid removal with dialysis * continue home medications -- further adjustments based on response to dialysis * follow trend of hemodynamics (5) Chronic anemia: Code(s): D64.9 - Anemia, unspecified Status: Chronic Assessment and Plan: * related to progressive CKD and acute illness * on Epogen once dialysis initiated * iron studies with iron deficiency - IV venofer with HD * follow trend of H/H (6) Diabetes mellitus with chronic kidney disease: Qualifiers: Chronic kidney disease stage: stage 5, not on chronic dialysis Diabetes mellitus extermination supervisor insulin use: with extermination supervisor use Diabetes mellitus type: type 2 Qualified Code(s): E11.22 - Type 2 diabetes mellitus with diabetic chronic kidney disease; N18.5 - Chronic kidney disease, stage 5; Z79.4 - [facility] (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 Subjective Date/time seen: 10/26/23 11:26 Interval history: Follow-up for chronic kidney disease with transition to end stage renal disease and volume overload. Tolerated dialysis treatment yesterday and tolerating dialysis treatment at the time of my visit (seen on HD at 11:15AM); breathing/respiratory status seems relatively stable; no apparent distress voiced currently; no other issues/concerns overnight or earlier this morning. Exam Narrative: General: elderly and somewhat ill-appearing female in NAD Heart: normal S1 and S2; no rub Lungs: clear anteriorly; few crackles at bases Abdomen: soft, nontender, nondistended, positive bowel sounds Extremities: no cyanosis or clubbing; trace edema
[2023-10-26 12:37] LABS: Glucose Point of Care 127 mg/dl (65-105)
[2023-10-26] MEDS: hydrALAZINE 10 MG TABLET 20 MG PO ×2 (12:57→17:45)
[2023-10-26] MEDS: POTASSIUM/PHOSPHORUS/SODIUM 1.5 GM PACKET 1 PACKET PO (12:57)
[2023-10-26] MEDS: CHOLECALCIFEROL 1,000 UNITS TABLET 2000 UNITS PO (12:58)
[2023-10-26] MEDS: CLOPIDOGREL BISULFATE 75 MG TABLET PO (12:58)
[2023-10-26] MEDS: NIFEdipine 30 MG TAB.ER.24 PO (12:58)
[2023-10-26] MEDS: lisinopriL 20 MG TABLET 40 MG PO (12:58)
[2023-10-26] MEDS: FLUoxetine HCL 20 MG CAPSULE 40 MG PO (12:58)
[2023-10-26] MEDS: PANTOPRAZOLE 40 MG TABLET PO (12:59)
--- NOTE | 2023-10-26 13:41 | PM.PNCARD ---
Progress Note: A&P Assessment and Plan (1) Heart failure with reduced ejection fraction: Code(s): I50.20 - Unspecified systolic (congestive) heart failure Status: Acute Assessment and Plan: Acute on chronic diastolic heart failure likely related to worsening kidney function Plan Continue with hemodialysis and ultrafiltration per Nephrology recommendations for management of volume status. (2) Coronary artery disease: Code(s): I25.10 - Atherosclerotic heart disease of [place] coronary artery without angina pectoris Status: Acute Assessment and Plan: Elevated troponin likely demand ischemia in the setting of worsening kidney function and CHF no evidence of ACS may need further workup as outpatient for possible underlying coronary disease (3) Uncontrolled hypertension: Code(s): I10 - Essential (primary) hypertension Status: Chronic Assessment and Plan: Resume amlodipine (4) Chronic respiratory failure with hypoxia: Code(s): J96.11 - Chronic respiratory failure with hypoxia Status: Chronic Assessment and Plan: On chronic oxygen at 2L. 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 (6) Chronic kidney disease (CKD), stage V: Code(s): N18.5 - Chronic kidney disease, stage 5 Status: Chronic Assessment and Plan: Dr. Arcos consulted. Started on dialysis 10/23. (7) Mixed hyperlipidemia: Code(s): E78.2 - Mixed hyperlipidemia Status: Acute Assessment and Plan: Has not tolerated statins in the past. Subjective Date/time seen: 10/26/23 13:41 Review of Systems Review of Systems: No acute events overnight All systems reviewed & are unremarkable except as noted in HPI and below Exam Const: General: comfortable and no acute distress Other: Able to lie flat Neck: Neck: supple and no JVD Carotids: no bruits Resp: Auscultation: clear to auscultation bilaterally and lung sounds not diminished Other: No chest wall tenderness Cardio: Rate: regular rate Rhythm: regular rhythm Heart sounds: no gallops, no murmurs and no rubs GI: GI Palp: Yes Soft to palpation and No Tenderness to palpation present (GI) Auscultation: normal bowel sounds Skin: General skin exam: normal color, rashes and/or lesions noted and no erythema Other: Warm Objective Data Vital Signs Vital Signs: Vital Signs - 24 hr 10/25/23 14:00 10/25/23 16:05 10/25/23 20:00 Temperature 36.3 C L Pulse Rate 67 74 72 Respiratory Rate 20 Blood Pressure 153/51 H Pulse Oximetry 100 Oxygen Delivery Oxygen Flow Rate 10/25/23 20:00 10/25/23 22:21 10/26/23 00:00 Temperature 36.2 C L Pulse Rate 74 68 68 Respiratory Rate 20 20 Blood Pressure 156/42 H Pulse Oximetry 100 100 Oxygen Delivery Nasal Cannula Oxygen Flow Rate 2 10/26/23 04:00 10/26/23 06:00 10/26/23 08:13 Temperature 36.2 C L Pulse Rate 64 65 Respiratory Rate 20 Blood Pressure 155/48 H Pulse Oximetry 100 Oxygen Delivery Oxygen Flow Rate 2 10/26/23 08:13 10/26/23 08:20 10/26/23 08:30 Temperature 36.7 C Pulse Rate 72 72 71 Respiratory Rate 18 Blood Pressure 194/64 H 199/63 H 186/59 H Pulse Oximetry Oxygen Delivery Oxygen Flow Rate 10/26/23 08:45 10/26/23 09:00 10/26/23 09:15 Temperature Pulse Rate 72 70 67 Respiratory Rate Blood Pressure 178/58 H 183/64 H 173/59 H Pulse Oximetry Oxygen Delivery Oxygen Flow Rate 10/26/23 09:30 10/26/23 09:45 10/26/23 10:00 Temperature Pulse Rate 67 69 6
--- NOTE | 2023-10-26 16:29 | PM.IMPN ---
Progress Note: A&P Assessment and Plan (1) Heart failure with reduced ejection fraction: Code(s): I50.20 - Unspecified systolic (congestive) heart failure Status: Acute Assessment and Plan: At [facility] patient found to be in acute on chronic hypoxic and hypercapnic respiratory failure likely related to acute CHF exacerbation and non ST-elevation [place] on 10/19. V/Q scan showed a normal perfusion with no evidence of PE. She was initially placed on BiPAP and was diuresed with significant improvement over the next 2 days. Cardiology was consulted at that facility and recommended transfer to [place] for possible cardiac catheterization. - Echo 09/10/23: LVEF 50-55% with grade III diastolic dysfunction and severe hypokinesis of the mid anteroseptal wall. - Cardiology consulted. Do not plan to do a cardiac catheterization during this admission as the problem is more associated with her kidney disease. Per cardiology note from a volume standpoint she is stable. From a heart failure standpoint she will need continued medical management and to optimize her heart failure GDMT. - Due to her worsening renal function the patient would likely benefit from starting dialysis. She was then seen by nephrology who discussed dialysis with her and the plan to place dialysis access tomorrow. (2) Chronic respiratory failure with hypoxia: Code(s): J96.11 - Chronic respiratory failure with hypoxia Status: Chronic Assessment and Plan: Acute on chronic respiratory failure with hypoxia. Likely related to patients ongoing CHF exacerbation. She remains on her baseline O2 requirement of 3L. - Monitor (3) Chronic kidney disease: Code(s): N18.9 - Chronic kidney disease, unspecified Status: Acute Assessment and Plan: Baseline creatinine approximately 2.9-3.5 in the last year likely due to patients hypertension, vascular disease, UNRULY, and age related changes. - BUN/Cr 63/3.8. - Monitor daily labs - I/O - Avoid nephrotoxic medications - Nephrology consulted. Plan to start dialysis. Will obtain an access site tomorrow. (4) Hypertension: Code(s): I10 - Essential (primary) hypertension Status: Acute Assessment and Plan: Stable on home medications. - Amlodipine 10 mg daily - Hydralazine 20 mg TID - Nifedipine 30 mg daily - Lisinopril 20 mg daily (5) Chronic anemia: Code(s): D64.9 - Anemia, unspecified Status: Chronic Assessment and Plan: Stable. H/H 7.8/25.4 today. No signs of active bleeding. Continue to monitor (6) Hypothyroidism: Qualifiers: Hypothyroidism type: unspecified Qualified Code(s): E03.9 - Hypothyroidism, unspecified Code(s): E03.9 - Hypothyroidism, unspecified Status: Chronic Assessment and Plan: TSH 07/16/23: 0.793. Continue home levothyroxine 75 mcg daily. (7) Type 2 diabetes mellitus with diabetic nephropathy: Qualifiers: Diabetes mellitus senior living insulin use: with senior living use Qualified Code(s): E11.21 - Type 2 diabetes mellitus with diabetic nephropathy; Z79.4 - prison (current) use of insulin Code(s): E11.21 - Type 2 diabetes mellitus with diabetic nephropathy Status: Chronic Assessment and Plan: - hypoglycemia protocol - POC blood glucose ACHS - home medication - none - correct regimen ordered - low dose TIDWM and HS - A1C 09/24/23: 5.5 Plan Assuming care on 10/24/2023. Plan from yesterday has been appreciated as above. The patient is post tunneled dialysis catheter placement and it was apparently uncomplicated. The patient appears to be at her baseline and dialysis is scheduled for today at 5:00 p.m.. We will continue to follow with Nephrology. No changes in management today as her parameters are within acceptable limits. We will restart Plavix tomorrow as well as DVT prophylaxis she has no signs of bleeding and her hemoglobin remained stable. It is a bit low today
[2023-10-26 17:05] LABS: Glucose Point of Care 259 mg/dl (65-105)
[2023-10-26] MEDS: INSULIN ASPART (*BKC) 100 UNITS/ML SUB-Q (17:46)
[2023-10-26] MEDS: ASPIRIN 81 MG ENTERIC TABLET PO (20:52)
[2023-10-26 21:11] LABS: Glucose Point of Care 186 mg/dl (65-105)
[2023-10-27] VITALS (10 sets, daily range): BP systolic 133–162; BP diastolic 40–46; PULSE 70–86; RESP 16–20; TEMP 36.7–37; O2SAT 97–100
[2023-10-27] MEDS: LEVOTHYROXINE SODIUM 75 MCG TABLET PO (05:44)
[2023-10-27 08:03] LABS: Glucose Point of Care 126 mg/dl (65-105)
[2023-10-27] MEDS: lisinopriL 20 MG TABLET 40 MG PO (08:59)
[2023-10-27] MEDS: CHOLECALCIFEROL 1,000 UNITS TABLET 2000 UNITS PO (08:59)
[2023-10-27] MEDS: hydrALAZINE 10 MG TABLET 20 MG PO ×3 (08:59→17:09)
[2023-10-27] MEDS: CLOPIDOGREL BISULFATE 75 MG TABLET PO (08:59)
[2023-10-27] MEDS: PANTOPRAZOLE 40 MG TABLET PO (08:59)
[2023-10-27] MEDS: FLUoxetine HCL 20 MG CAPSULE 40 MG PO (09:00)
[2023-10-27] MEDS: NIFEdipine 30 MG TAB.ER.24 PO (09:00)
[2023-10-27] MEDS: BUMETANIDE 1 MG TABLET PO (09:17)
[2023-10-27 10:07] LABS: Basophils Absolute Auto 0.1 K/mm3 (0.0-0.1); Basophils Percent Auto 0.6 % (0.2-1.2); Eosinophils Absolute Auto 0.2 K/mm3 (0-0.3); Eosinophils Percent Auto 2.7 % (0-4.4); Hematocrit 30.6 % (37.0-47.0); Hemoglobin 9.1 g/dL (12.0-15.0); Immature Granulocyte Absolute 0.07 K/mm3 (0.00-0.031); Immature Granulocyte Percent A 0.8 % (0-0.5); Lymphocytes Absolute Auto 0.87 K/mm3 (0.9-3.2); Mean Corpuscular HGB Conc 29.7 g/dl (32-36); Mean Corpuscular Hemoglobin 29.1 pg (26-34); Mean Corpuscular Volume 97.8 fl (80-100); Mean Platelet Volume 11.2 fl (7.4-10.4); Monocytes Absolute Auto 0.9 K/mm3 (0.1-0.6); Monocytes Percent Auto 10.1 % (2.6-8.5); Neutrophils Absolute Auto 6.6 K/mm3 (1.3-6.7); Neutrophils Percent Auto 75.8 % (45.5-73.1); Platelet Count Result 273 k/mm3 (150-375); Red Blood Count 3.13 M/mm3 (4.2-5.4); Red Cell Distribution Width 15.1 % (11.5-14.5); White Blood Count 8.7 K/mm3 (4.5-10.0)
[2023-10-27 10:18] LABS: Albumin Level 3.6 g/dL (3.5-5.1); Anion Gap 6 mmol/L (4-12); Blood Urea Nitrogen 19 mg/dL (7-17); Calcium 9.6 mg/dL (8.4-10.2); Carbon Dioxide 25 mmol/L (22-30); Chloride 104 mmol/L (98-107); Estimated CRCL calculation 15 ml/min; Estimated Glomerular Filt Rate 18; Glucose 299 mg/dL (65-110); Phosphorus 2.3 mg/dL (2.5-4.5); Sodium 135 mmol/L (137-145)
[2023-10-27 10:34] LABS: Platelet Estimate Adequate (Adequate)
[2023-10-27 10:35] LABS: Anisocytosis 1+; Hypochromasia 1+; Poikilocytosis 1+; Schistocytes Rare
[2023-10-27 12:05] LABS: Glucose Point of Care 333 mg/dl (65-105)
--- NOTE | 2023-10-27 12:23 | PM.PNCARD ---
Progress Note: A&P Assessment and Plan (1) CHF (congestive heart failure): Code(s): I50.9 - Heart failure, unspecified Status: Acute Plan Acute on chronic diastolic heart failure currently compensated Uncontrolled hypertension better controlled today Acute kidney injury on chronic kidney disease currently on hemodialysis tolerated well Plan Continue nifedipine hydralazine and lisinopril Management of diuretic and fluid with ultrafiltration and bumetanide [employer] Subjective Date/time seen: 10/27/23 12:23 Interval history: No acute events Sinus rhythm Review of Systems Review of Systems: All systems reviewed & are unremarkable except as noted in HPI and below Exam Const: General: comfortable and no acute distress Other: Able to lie flat Resp: Auscultation: clear to auscultation bilaterally and lung sounds not diminished Other: No chest wall tenderness Cardio: Rate: regular rate Rhythm: regular rhythm Heart sounds: no gallops, no murmurs and no rubs GI: GI Palp: Yes Soft to palpation and No Tenderness to palpation present (GI) Auscultation: normal bowel sounds Skin: General skin exam: normal color, rashes and/or lesions noted and no erythema Other: Warm Objective Data Vital Signs Vital Signs: Vital Signs - 24 hr 10/26/23 13:00 10/26/23 14:00 10/26/23 16:00 Temperature 36.2 C L Pulse Rate 69 65 85 Respiratory Rate 18 18 Blood Pressure 142/39 H Pulse Oximetry 97 100 Oxygen Delivery Nasal Cannula Oxygen Flow Rate 2 10/26/23 20:00 10/26/23 20:00 10/26/23 22:05 Temperature 36.1 C L Pulse Rate 70 85 71 Respiratory Rate 18 20 Blood Pressure 148/47 H Pulse Oximetry 100 100 Oxygen Delivery Nasal Cannula Oxygen Flow Rate 2 10/27/23 00:00 10/27/23 04:00 10/27/23 04:55 Temperature 36.8 C Pulse Rate 73 70 71 Respiratory Rate 18 Blood Pressure 162/40 H Pulse Oximetry 100 Oxygen Delivery Oxygen Flow Rate 10/27/23 09:00 Temperature Pulse Rate Respiratory Rate Blood Pressure Pulse Oximetry 98 Oxygen Delivery Nasal Cannula Oxygen Flow Rate 2 Intake/Output Intake/Output: Intake & Output 10/24/23 10/25/23 10/26/23 10/27/23 23:59 23:59 23:59 23:59 Intake Total 290 410 920 480 Output Total 2600 2950 4300 200 Balance -1474 -6770 -3730 280 Meds/Results Medications: Active Medications Generic Name Dose Route Start Last Admin Trade Name Freq PRN Reason Stop Dose Admin Acetaminophen 650 mg 10/22/23 22:22 Acetaminophen 325 Mg Tablet PO Q4H PRN Mild Pain (1-3) or Fever Albuterol 2 puff 10/23/23 00:38 10/23/23 05:42 Albuterol Sulfate (*Sp) Aerosol 1 Puff INHALATION 2 puff QID PRN Administration Wheezing Aspirin 81 mg 10/23/23 21:00 10/26/23 20:52 Aspirin 81 Mg Enteric Tablet PO 81 mg HS COLUMBA Administration Bumetanide 1 mg 10/27/23 09:00 10/27/23 09:17 Bumetanide 1 Mg Tablet PO 1 mg DAILY [facility]BA Administration Clopidogrel Bisulfate 75 mg 10/23/23 09:00 10/27/23 08:59 Clopidogrel Bisulfate 75 Mg Tablet PO 75 mg DAILY [facility] Administration Dextrose 12.5 gm 10/23/23 00:38 Dextrose 50% 25 Gm/50 Ml Syringe IV PUSH PRN PRN Hypoglycemia Protocol Fluoxetine HCl 40 mg 10/23/23 09:00 10/27/23 09:00 Fluoxetine Hcl 20 Mg Capsule PO 40 mg DAILY COLUMBA Administration Glucagon 1 mg 10/23/23 00:38 Glucagon For Inj 1 Mg Vial IM PRN PRN Hypoglycemia Protocol Glucose 15 gm 10/23/23 00:38 Glucose Oral Gel 15 Gm Of Glucse In 37.5 Gm Tube PO PRN PRN Hypoglycemia Protocol Hydralazine HCl 20 mg 10/23/23 08:00 10/27/23 08:59 Hydralazine 10 Mg Tablet PO 20 mg TIDWM COLUMBA Administration Dextrose 1,000 mls @ 100 mls/hr 10/23/23 00:38 Dextrose 5% 1,000 Ml IVPB PRN PRN Hypoglycemia Protocol Albumin Human 50 mls @ 999 mls/hr 10/24/23 16:27 [place]
[2023-10-27] MEDS: INSULIN ASPART (*BKC) 100 UNITS/ML SUB-Q ×2 (12:29→17:10)
--- NOTE | 2023-10-27 12:54 | PM.PNNEP ---
Progress Note: A&P Assessment and Plan (1) End stage renal disease: Code(s): N18.6 - End stage renal disease Status: Chronic Assessment and Plan: due to progression of underlying CKD baseline creatinine had been running ~ 2.9 - 3.5mg/l in the last year or so due to hypertension, diabetes, vascular disease, UNRULY, and age-related change unfortunately, maintaining her volume status has become more problematic and she now has some issues related to uremia s/p tunneled HD catheter placement on 10/24/23 plan next HD on Saturday or Saturday depending on outpatient dialysis schedule outpatient dialysis being arranged (2) Heart failure with reduced ejection fraction: Code(s): I50.20 - Unspecified systolic (congestive) heart failure Status: Acute Assessment and Plan: some clinical improvement with diuresis repeat Echo noted with EF of 35 - 40% Cardiology recommendations noted continue bumex since she still makes some urine ongoing fluid removal with HD/DUF as tolerated - almost 8L negative to date not opposed to institution of GDMT within the limits of her ESRD status(i.e. Jardiance, Entresto...etc) (3) Chronic respiratory failure with hypoxia: Code(s): J96.11 - Chronic respiratory failure with hypoxia Status: Chronic Assessment and Plan: improvement noted however, done so at the expense of worsening renal dysfunction with the use IV diuresis continue supplemental oxygen (on chronic home oxygen) follow respiratory status recheck CXR (4) Uncontrolled hypertension: Code(s): I10 - Essential (primary) hypertension Status: Chronic Assessment and Plan: difficult to control at baseline BP control seems to have improved with fluid removal with dialysis continue current medications -- further adjustments based on response to dialysis follow trend of hemodynamics (5) Chronic anemia: Code(s): D64.9 - Anemia, unspecified Status: Chronic Assessment and Plan: related to progressive CKD and acute illness on Epogen with HD iron studies with iron deficiency - IV venofer with HD follow trend of H/H (6) Diabetes mellitus with chronic kidney disease: Qualifiers: Diabetes mellitus type: type 2 Diabetes mellitus penitentiary insulin use: with penitentiary use Chronic kidney disease stage: stage 5, not on chronic dialysis Qualified Code(s): E11.22 - Type 2 diabetes mellitus with diabetic chronic kidney disease; N18.5 - Chronic kidney disease, stage 5; Z79.4 - [facility] (current) use of insulin Code(s): E11.22 - Type 2 diabetes mellitus with diabetic chronic kidney disease Status: Chronic Assessment and Plan: follow accu-cheks glycemic control per hospitalists Will continue to follow. Subjective Date/time seen: 10/27/23 12:54 Interval history: Follow-up for chronic kidney disease with transition to end stage renal disease and volume overload. Tolerated dialysis treatment yesterday without any issues or problems; overall, she states she feels significantly better at the time of my visit; weaned off supplemental oxygen with stable oxygen saturations when seen; no events overnight or earlier this morning. Exam Narrative: General: elderly and somewhat ill-appearing female in NAD Heart: normal S1 and S2; no rub Lungs: clear anteriorly; decreased at bases Abdomen: soft, nontender, nondistended, positive bowel sounds Extremities: no cyanosis or clubbing; trace edema Skin: no rash Objective Data Vital Signs Vital Signs: Vital Signs Temp Pulse Resp BP Pulse Ox O2 Del Method O2 Flow Rate 10/27/23 12:00 98.1 F 75 16 133/41 L 100 10/27/23 09:00 98 Nasal Cannula 2 10/27/23 04:55 98.2 F 71 18 162/40 H 100 10/27/23 04:00 70 10/27/23 00:00 73 10/26/23 22:05 97.0 F L 71 20 148/47 H 100 10/26/23 20:00 85 18 100 Nasal Cannula 2
--- NOTE | 2023-10-27 12:54 | P.PNNP_ITS ---
Progress Note: A&P Assessment and Plan (1) End stage renal disease: Code(s): N18.6 - End stage renal disease Status: Chronic Assessment and Plan: * due to progression of underlying CKD * baseline creatinine had been running ~ 2.9 - 3.5mg/l in the last year or so * due to hypertension, diabetes, vascular disease, UNRULY, and age-related change * unfortunately, maintaining her volume status has become more problematic and she now has some issues related to uremia * s/p tunneled HD catheter placement on 10/24/23 * plan next HD on Saturday or Saturday depending on outpatient dialysis schedule * outpatient dialysis being arranged (2) Heart failure with reduced ejection fraction: Code(s): I50.20 - Unspecified systolic (congestive) heart failure Status: Acute Assessment and Plan: * some clinical improvement with diuresis * repeat Echo noted with EF of 35 - 40% * Cardiology recommendations noted * continue bumex since she still makes some urine * ongoing fluid removal with HD/DUF as tolerated - almost 8L negative to date * not opposed to institution of GDMT within the limits of her ESRD status(i.e. Jardiance, Entresto...etc) (3) Chronic respiratory failure with hypoxia: Code(s): J96.11 - Chronic respiratory failure with hypoxia Status: Chronic Assessment and Plan: * improvement noted * however, done so at the expense of worsening renal dysfunction with the use IV diuresis * continue supplemental oxygen (on chronic home oxygen) * follow respiratory status * recheck CXR (4) Uncontrolled hypertension: Code(s): I10 - Essential (primary) hypertension Status: Chronic Assessment and Plan: * difficult to control at baseline * BP control seems to have improved with fluid removal with dialysis * continue current medications -- further adjustments based on response to dialysis * follow trend of hemodynamics (5) Chronic anemia: Code(s): D64.9 - Anemia, unspecified Status: Chronic Assessment and Plan: * related to progressive CKD and acute illness * on Epogen with HD * iron studies with iron deficiency - IV venofer with HD * follow trend of H/H (6) Diabetes mellitus with chronic kidney disease: Qualifiers: Diabetes mellitus type: type 2 Diabetes mellitus terminal make up operator insulin use: with [facility] use Chronic kidney disease stage: stage 5, not on chronic dialysis Qualified Code(s): E11.22 - Type 2 diabetes mellitus with diabetic chronic kidney disease; N18.5 - Chronic kidney disease, stage 5; 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 Subjective Date/time seen: 10/27/23 12:54 Interval history: Follow-up for chronic kidney disease with transition to end stage renal disease and volume overload. Tolerated dialysis treatment yesterday without any issues or problems; overall, she states she feels significantly better at the time of my visit; weaned off supplemental oxygen with stable oxygen saturations when seen; no events overnight or earlier this morning. Exam Narrative: General: elderly and somewhat ill-appearing female in NAD Heart: normal S1 and S2; no rub Lungs: clear anteriorly; decreased at bases Abdomen: soft, nontender, nondistended, positive bowel sounds Extremities: no cyanosis or clubbing; trace edema
--- NOTE | 2023-10-27 15:43 | PM.IMPN ---
Progress Note: A&P Assessment and Plan (1) Heart failure with reduced ejection fraction: Code(s): I50.20 - Unspecified systolic (congestive) heart failure Status: Acute Assessment and Plan: At [facility] patient found to be in acute on chronic hypoxic and hypercapnic respiratory failure likely related to acute CHF exacerbation and non ST-elevation [place] on 10/19. V/Q scan showed a normal perfusion with no evidence of PE. She was initially placed on BiPAP and was diuresed with significant improvement over the next 2 days. Cardiology was consulted at that facility and recommended transfer to [place] for possible cardiac catheterization. - Echo 09/10/23: LVEF 50-55% with grade III diastolic dysfunction and severe hypokinesis of the mid anteroseptal wall. - Cardiology consulted. Do not plan to do a cardiac catheterization during this admission as the problem is more associated with her kidney disease. Per cardiology note from a volume standpoint she is stable. From a heart failure standpoint she will need continued medical management and to optimize her heart failure GDMT. - Due to her worsening renal function the patient would likely benefit from starting dialysis. She was then seen by nephrology who discussed dialysis with her and the plan to place dialysis access tomorrow. (2) Chronic respiratory failure with hypoxia: Code(s): J96.11 - Chronic respiratory failure with hypoxia Status: Chronic Assessment and Plan: Acute on chronic respiratory failure with hypoxia. Likely related to patients ongoing CHF exacerbation. She remains on her baseline O2 requirement of 3L. - Monitor (3) Chronic kidney disease: Code(s): N18.9 - Chronic kidney disease, unspecified Status: Acute Assessment and Plan: Baseline creatinine approximately 2.9-3.5 in the last year likely due to patients hypertension, vascular disease, UNRULY, and age related changes. - BUN/Cr 63/3.8. - Monitor daily labs - I/O - Avoid nephrotoxic medications - Nephrology consulted. Plan to start dialysis. Will obtain an access site tomorrow. (4) Hypertension: Code(s): I10 - Essential (primary) hypertension Status: Acute Assessment and Plan: Stable on home medications. - Amlodipine 10 mg daily - Hydralazine 20 mg TID - Nifedipine 30 mg daily - Lisinopril 20 mg daily (5) Chronic anemia: Code(s): D64.9 - Anemia, unspecified Status: Chronic Assessment and Plan: Stable. H/H 7.8/25.4 today. No signs of active bleeding. Continue to monitor (6) Hypothyroidism: Qualifiers: Hypothyroidism type: unspecified Qualified Code(s): E03.9 - Hypothyroidism, unspecified Code(s): E03.9 - Hypothyroidism, unspecified Status: Chronic Assessment and Plan: TSH 07/16/23: 0.793. Continue home levothyroxine 75 mcg daily. (7) Type 2 diabetes mellitus with diabetic nephropathy: Qualifiers: Diabetes mellitus fpc insulin use: with [facility] use Qualified Code(s): E11.21 - Type 2 diabetes mellitus with diabetic nephropathy; Z79.4 - residential (current) use of insulin Code(s): E11.21 - Type 2 diabetes mellitus with diabetic nephropathy Status: Chronic Assessment and Plan: - hypoglycemia protocol - POC blood glucose ACHS - home medication - none - correct regimen ordered - low dose TIDWM and HS - A1C 09/24/23: 5.5 Plan Assuming care on 10/24/2023. Plan from yesterday has been appreciated as above. The patient is post tunneled dialysis catheter placement and it was apparently uncomplicated. The patient appears to be at her baseline and dialysis is scheduled for today at 5:00 p.m.. We will continue to follow with Nephrology. No changes in management today as her parameters are within acceptable limits. We will restart Plavix tomorrow as well as DVT prophylaxis she has no signs of bleeding and her hemoglobin remained stable. It is a bit low today
[2023-10-27 17:08] LABS: Glucose Point of Care 237 mg/dl (65-105)
[2023-10-27] MEDS: ASPIRIN 81 MG ENTERIC TABLET PO (20:38)
[2023-10-27 22:00] LABS: Glucose Point of Care 190 mg/dl (65-105)
[2023-10-28] VITALS (20 sets, daily range): BP systolic 135–173; BP diastolic 51–82; PULSE 76–88; RESP 16–18; TEMP 36.3–37.3; O2SAT 98–99
[2023-10-28 05:51] LABS: Hematocrit 26.8 % (37.0-47.0); Hemoglobin 8.1 g/dL (12.0-15.0); Mean Corpuscular HGB Conc 30.2 g/dl (32-36); Mean Corpuscular Hemoglobin 28.5 pg (26-34); Mean Corpuscular Volume 94.4 fl (80-100); Mean Platelet Volume 10.7 fl (7.4-10.4); Platelet Count Result 280 k/mm3 (150-375); Red Blood Count 2.84 M/mm3 (4.2-5.4); Red Cell Distribution Width 14.8 % (11.5-14.5); White Blood Count 10.3 K/mm3 (4.5-10.0)
[2023-10-28 06:01] LABS: Anion Gap 3 mmol/L (4-12); Blood Urea Nitrogen 25 mg/dL (7-17); Calcium 9.4 mg/dL (8.4-10.2); Carbon Dioxide 27 mmol/L (22-30); Chloride 104 mmol/L (98-107); Estimated CRCL calculation 12 ml/min; Estimated Glomerular Filt Rate 14; Glucose 127 mg/dL (65-110); Magnesium 1.9 mg/dL (1.6-2.3); Phosphorus 2.3 mg/dL (2.5-4.5); Potassium 3.6 mmol/L (3.4-5.0); Sodium 134 mmol/L (137-145)
[2023-10-28] MEDS: LEVOTHYROXINE SODIUM 75 MCG TABLET PO (06:16)
[2023-10-28 08:33] LABS: Glucose Point of Care 139 mg/dl (65-105)
--- NOTE | 2023-10-28 09:37 | PM.PNNEP ---
Progress Note: A&P Assessment and Plan (1) End stage renal disease: Code(s): N18.6 - End stage renal disease Status: Chronic Assessment and Plan: due to progression of underlying CKD baseline creatinine had been running ~ 2.9 - 3.5mg/l in the last year or so due to hypertension, diabetes, vascular disease, UNRULY, and age-related change unfortunately, maintaining her volume status has become more problematic and she now has some issues related to uremia s/p tunneled HD catheter placement on 10/24/23 HD today -- reportedly going to be on a M/W/F dialysis schedule (2) Heart failure with reduced ejection fraction: Code(s): I50.20 - Unspecified systolic (congestive) heart failure Status: Acute Assessment and Plan: some clinical improvement with diuresis repeat Echo noted with EF of 35 - 40% Cardiology recommendations noted continue bumex since she still makes some urine ongoing fluid removal with HD/DUF as tolerated - almost 8L negative to date not opposed to institution of GDMT within the limits of her ESRD status (i.e. Jardiance, Entresto...etc) (3) Chronic respiratory failure with hypoxia: Code(s): J96.11 - Chronic respiratory failure with hypoxia Status: Chronic Assessment and Plan: improvement noted however, done so at the expense of worsening renal dysfunction with the use IV diuresis continue supplemental oxygen (on chronic home oxygen) follow respiratory status recheck CXR (4) Uncontrolled hypertension: Code(s): I10 - Essential (primary) hypertension Status: Chronic Assessment and Plan: difficult to control at baseline BP control seems to have improved with fluid removal with dialysis continue current medications -- further adjustments based on response to dialysis follow trend of hemodynamics (5) Chronic anemia: Code(s): D64.9 - Anemia, unspecified Status: Chronic Assessment and Plan: related to progressive CKD and acute illness on Epogen with HD iron studies with iron deficiency - IV venofer with HD follow trend of H/H (6) Diabetes mellitus with chronic kidney disease: Qualifiers: Chronic kidney disease stage: stage 5, not on chronic dialysis Diabetes mellitus correction insulin use: with terminal superintendent use Diabetes mellitus type: type 2 Qualified Code(s): E11.22 - Type 2 diabetes mellitus with diabetic chronic kidney disease; N18.5 - Chronic kidney disease, stage 5; Z79.4 - MCFP (current) use of insulin Code(s): E11.22 - Type 2 diabetes mellitus with diabetic chronic kidney disease Status: Chronic Assessment and Plan: follow accu-cheks glycemic control per hospitalists Not opposed to discharge from renal perspective if otherwise medically stable and once outpatient dialysis schedule has been finalized. Will continue to follow. Subjective Date/time seen: 10/28/23 09:37 Interval history: Follow-up for chronic kidney disease with transition to end stage renal disease and volume overload. Tolerating dialysis treatment at the time of my visit (seen on HD at 9:25AM); overall, continues to feel reasonably well; no apparent distress; no issues/events overnight or earlier this morning; remains of supplemental oxygen; hoping for discharge soon. Exam Narrative: General: elderly female in NAD Heart: normal S1 and S2; no rub Lungs: clear anteriorly; decreased at bases Abdomen: soft, nontender, nondistended, positive bowel sounds Extremities: no cyanosis or clubbing; trace edema Skin: no nodules Objective Data Vital Signs Vital Signs: Vital Signs Temp Pulse Resp BP Pulse Ox O2 Del Method FiO2 10/28/23 09:30 78 160/60 H 10/28/23 09:15 79 169/62 H 10/28/23 09:00 78 153/63 H 10/28/23 08:45 76 173/66 H 10/28/23 08:43 76 173/63 H 10/28/23 08:35 98.4 F 79 16 169/64 H 98 10/28/23 08:35
--- NOTE | 2023-10-28 09:37 | P.PNNP_ITS ---
Progress Note: A&P Assessment and Plan (1) End stage renal disease: Code(s): N18.6 - End stage renal disease Status: Chronic Assessment and Plan: * due to progression of underlying CKD * baseline creatinine had been running ~ 2.9 - 3.5mg/l in the last year or so * due to hypertension, diabetes, vascular disease, UNRULY, and age-related change * unfortunately, maintaining her volume status has become more problematic and she now has some issues related to uremia * s/p tunneled HD catheter placement on 10/24/23 * HD today -- reportedly going to be on a M/W/F dialysis schedule (2) Heart failure with reduced ejection fraction: Code(s): I50.20 - Unspecified systolic (congestive) heart failure Status: Acute Assessment and Plan: * some clinical improvement with diuresis * repeat Echo noted with EF of 35 - 40% * Cardiology recommendations noted * continue bumex since she still makes some urine * ongoing fluid removal with HD/DUF as tolerated - almost 8L negative to date * not opposed to institution of GDMT within the limits of her ESRD status (i.e. Jardiance, Entresto...etc) (3) Chronic respiratory failure with hypoxia: Code(s): J96.11 - Chronic respiratory failure with hypoxia Status: Chronic Assessment and Plan: * improvement noted * however, done so at the expense of worsening renal dysfunction with the use IV diuresis * continue supplemental oxygen (on chronic home oxygen) * follow respiratory status * recheck CXR (4) Uncontrolled hypertension: Code(s): I10 - Essential (primary) hypertension Status: Chronic Assessment and Plan: * difficult to control at baseline * BP control seems to have improved with fluid removal with dialysis * continue current medications -- further adjustments based on response to dialysis * follow trend of hemodynamics (5) Chronic anemia: Code(s): D64.9 - Anemia, unspecified Status: Chronic Assessment and Plan: * related to progressive CKD and acute illness * on Epogen with HD * iron studies with iron deficiency - IV venofer with HD * follow trend of H/H (6) Diabetes mellitus with chronic kidney disease: Qualifiers: Chronic kidney disease stage: stage 5, not on chronic dialysis Diabetes mellitus chcf insulin use: with chcf use Diabetes mellitus type: type 2 Qualified Code(s): E11.22 - Type 2 diabetes mellitus with diabetic chronic kidney disease; N18.5 - Chronic kidney disease, stage 5; Z79.4 - oysterman (current) use of insulin Code(s): E11.22 - Type 2 diabetes mellitus with diabetic chronic kidney disease Status: Chronic Assessment and Plan: * follow accu-cheks * glycemic control per hospitalists Not opposed to discharge from renal perspective if otherwise medically stable and once outpatient dialysis schedule has been finalized. Will continue to follow. Subjective Date/time seen: 10/28/23 09:37 Interval history: Follow-up for chronic kidney disease with transition to end stage renal disease and volume overload. Tolerating dialysis treatment at the time of my visit (seen on HD at 9:25AM); overall, continues to feel reasonably well; no apparent distress; no issues/events overnight or earlier this morning; remains of supplemental oxygen; hoping for discharge soon. Exam Narrative: General: elderly female in NAD Heart: normal S1 and S2; no rub Lungs: clear anteriorly; decreased at bases Abdomen: soft, nontender, nondistended, positive bowel artemio
[2023-10-28] MEDS: EPOETIN ALFA-EPBX 10,000 UNITS/ML VIAL 10000 UNITS IV PUSH (09:45)
[2023-10-28] MEDS: HEPARIN SODIUM 1,000 UNITS/ML VIAL 10000 UNITS (09:48)
[2023-10-28] MEDS: SODIUM CHLORIDE 0.9% IV 1,000 ML 999 ML IV CONT (09:50)
[2023-10-28 12:57] LABS: Glucose Point of Care 132 mg/dl (65-105)
[2023-10-28] MEDS: CLOPIDOGREL BISULFATE 75 MG TABLET PO (13:18)
[2023-10-28] MEDS: NIFEdipine 30 MG TAB.ER.24 PO (13:18)
[2023-10-28] MEDS: CHOLECALCIFEROL 1,000 UNITS TABLET 2000 UNITS PO (13:18)
[2023-10-28] MEDS: FLUoxetine HCL 20 MG CAPSULE 40 MG PO (13:18)
[2023-10-28] MEDS: lisinopriL 20 MG TABLET 40 MG PO (13:18)
[2023-10-28] MEDS: PANTOPRAZOLE 40 MG TABLET PO (13:19)
[2023-10-28] MEDS: hydrALAZINE 10 MG TABLET 20 MG PO (13:19)
[2023-10-28] MEDS: BUMETANIDE 1 MG TABLET PO (13:19)
[2023-10-28] MEDS: POTASSIUM/PHOSPHORUS/SODIUM 1.5 GM PACKET 2 PACKET PO (13:27)
--- NOTE | 2023-10-28 13:27 | PC.NURSE ---
Patient vback from dialysis at 1245. All meds given after lunch at 1330 per patient request.
--- NOTE | 2023-10-28 13:46 | PCSTNOTE ---
The patient treatment was not able to be completed on 10/27 due to being in dialysis throughout the morning and at lunch time. Will plan to continue treatment per plan of care.
--- NOTE | 2023-10-28 15:04 | PM.DS ---
DS: Admitting Diagnosis Discharge Date October 28, 2023 Admitting Diagnosis Respiratory failure DS: Discharge Diagnosis Discharge Diagnosis (1) End stage renal disease: Code(s): N18.6 - End stage renal disease Status: Chronic (2) Chronic respiratory failure with hypoxia: Code(s): J96.11 - Chronic respiratory failure with hypoxia Status: Chronic (3) Heart failure with reduced ejection fraction: Code(s): I50.20 - Unspecified systolic (congestive) heart failure Status: Acute DS: Summary Hospital Course Hospital Course: This is a very pleasant 83-year-old female with a past medical history CAD status post CABG (2015), heart failure reduced ejection fraction, CKD stage 5, hypertension, hyperlipidemia, diabetes mellitus non-insulin dependent complicated by neuropathy retinopathy and nephropathy, carotid artery disease, history of CVA, chronic anemia, chronic respiratory failure on 2-3 L nasal cannula, GERD. She resides at home. She was admitted at [facility] [place] for acute hypoxic and hypercapnic respiratory failure found to be in a CHF exacerbation requiring BiPAP. V/Q scan negative for PE and troponins were mildly elevated. She was developing acute on chronic renal failure as well. Surface echocardiogram demonstrated severe hypokinesis and reduced ejection fraction. Subsequently cardiology at [facility] contacted for continuity of care as well as initiation of dialysis. During her admission in [facility], the patient had no chest pain and acute hypoxic respiratory failure resolved after dialysis. Cardiology felt she should not undergo cardiac catheterization. A tunneled HD catheter placement was successful on 10/23 as was hemodialysis. As mention her acute hypoxic respiratory failure did resolve. She is now set up for dialysis as an outpatient Saturday schedule. The patient is stable for discharge to home on 10/27. Her acute on chronic heart failure did also resolve with dialysis. She previously had diastolic dysfunction only in now since she has reduced ejection fraction her nifedipine has been discontinued and Toprol XL started. We will allow further GDMT to take place with her usual Cardiology group to avoid severe blood pressure fluctuations at the moment. She was DNR on admission. Time Spent with Patient Time attestation: Total time spent providing and/or coordinating discharge services: Exam Const: General: comfortable and no acute distress Eyes: Pupils: Equal, round and reactive pupils present Neck: Neck: supple Resp: Effort & Inspection: normal respiratory effort Auscultation: clear to auscultation bilaterally Cardio: Rate: regular rate Rhythm: regular rhythm GI: GI Palp: Yes Soft to palpation and No Tenderness to palpation present (GI) Extrem: General: no edema DS: Data Data Completed and Pending Labs on day of discharge: Labs from last 24 hours 10/28/23 10/28/23 10/28/23 12:54 08:10 05:33 WBC 10.3 H RBC 2.84 L Hgb 8.1 L Hct 26.8 L MCV 94.4 MCH 28.5 MCHC 30.2 L RDW 14.8 H Plt Count 280 MPV 10.7 H Sodium 134 L Potassium 3.6 Chloride 104 Carbon Dioxide 27 Anion Gap 3 L BUN 25 H Creatinine 3.10 H Estim Creat Clear Calc 12 Estimated GFR 14 L Glucose 127 H POC Capillary Glucose 132 H 139 H Calcium 9.4 Phosphorus 2.3 L Magnesium 1.9 10/27/23 10/27/23 19:55 17:05 WBC RBC Hgb Hct MCV MCH MCHC RDW Plt Count MPV Sodium Potassium Chloride Carbon Dioxide Anion Gap BUN Creatinine Estim Creat Clear Calc Estimated GFR Glucose POC Capillary Glucose 190 H 237 H Calcium Phosphorus Magnesium Discharge Plan Discharge Attending physician on discharge: Micheline Gilliland Consulting providers: Albert Arcos; Junior De Los Santos; Jose Alberto Yao Discharging Clinician: Micheline Gilliland
== END 2023-10-28 16:07 | disposition home or self-care (01) | DRG 291 ==
PROVIDERS: Internal Medicine Nephrology; Physician Assistant; Surgery; Admitting Provider General Practice; PCP Emergency Medicine; Visit Provider General Practice
PROC: 0JH63XZ Insertion of Tunneled Vascular Access Device into Chest Subcutaneous Tissue and Fascia, Percutaneous Approach (ICD-10-PCS; CPT 36908; principal; 2023-10-24 14:30)
DX: I13.2 Hypertensive heart and chronic kidney disease with heart failure and with stage 5 chronic kidney disease, or end stage renal disease (principal); I50.33 Acute on chronic diastolic (congestive) heart failure; J96.21 Acute and chronic respiratory failure with hypoxia; N18.6 End stage renal disease; N25.81 Secondary hyperparathyroidism of renal origin; N17.9 Acute kidney failure, unspecified; D64.9 Anemia, unspecified; I25.10 Atherosclerotic heart disease of native coronary artery without angina pectoris; E11.319 Type 2 diabetes mellitus with unspecified diabetic retinopathy without macular edema; E11.42 Type 2 diabetes mellitus with diabetic polyneuropathy; E11.22 Type 2 diabetes mellitus with diabetic chronic kidney disease; E78.5 Hyperlipidemia, unspecified; K21.9 Gastro-esophageal reflux disease without esophagitis; G47.33 Obstructive sleep apnea (adult) (pediatric); G25.81 Restless legs syndrome; Z79.4 Long term (current) use of insulin; Z95.1 Presence of aortocoronary bypass graft; Z90.49 Acquired absence of other specified parts of digestive tract; Z90.710 Acquired absence of both cervix and uterus; Z79.82 Long term (current) use of aspirin
CPT/HCPCS: 36415; 71045; 71046; 77001; 80048; 80053; 80069; 82607; 82728; 82746; 82948; 83540; 83550; 83735; 84100; 85025; 85027; 86704; 86706; 87340; 92610; 94640; A9270; C1750; G0257; G0378; G0379; J0690; J1644; J1756; J1815; J1939; J2704; J7030; J7040; P9047; Q5105

== ENCOUNTER 2023-11-20 15:29 | Emergency (ER) | payer MEDICARE, SELFPAY ==
--- NOTE | ~2023-11-20 | CT_ITS ---
CT chest abdomen pelvis w con Ordering provider: Solomon Morales MD History: . blunt trauma . Comparison: None. Technique: CT chest, abdomen and pelvis with IV contrast only. Radiation reduction technique utilized. FINDINGS: CHEST: --VISUALIZED THORACIC INLET: Normal. A right central line with the tip in the superior vena cava. --MEDIASTINUM: Aorta/coronary arteries: Mild atheromatous disease. Heart/other: The heart is slightly enlarged. Lymph nodes: No mediastinal or hilar adenopathy. Calcified lymph nodes in the right hilum and subcari nal area. --LUNGS: No pulmonary nodules or masses. No infiltrates or effusions. No pneumothorax. --MUSCULOSKELETAL: Soft tissues: The superficial soft tissues are normal. Bones: No acute fracture. Age appropriate degenerative changes of the spine. Postoperative changes an d distended abdomen. ABDOMEN/PELVIS: --MUSCULOSKELETAL: Bones: No acute fracture. Age appropriate degenerative changes of the spine. Superficial soft tissues: The superficial soft tissues are normal. --UPPER ABDOMINAL ORGANS: Liver: No focal lesions. Slightly dilated CBD Measuring 8 mm. Slight hepatomegaly. Gallbladder: Status post cholecystectomy. Spleen: Normal. Stomach/duodenum: Sliding hiatus hernia. Pancreas: Atrophic Adrenals: Normal. Kidneys: Lobulated outline. --PELVIC ORGANS: Underfilled. --BOWEL AND MESENTERY: Colon: Mild diverticulosis without diverticulitis sigmoid colon. Slightly thickened wall of the trans verse colon which may be due to underfilling. No evidence of appendicitis. Small Bowel: Normal. No obstruction. Peritoneum/mesentery: No free air or free fluid. No mesenteric lymphadenopathy. --RETROPERITONEUM: Mild atheromatous disease of the abdominal aorta. No retroperitoneal hemorrhage o r aortic trauma. No retroperitoneal lymphadenopathy or retroperitoneal hemorrhage. Small para-aorti c lymph nodes are noted. IMPRESSION: CHEST: 1. No evidence of pleural effusion or pneumothorax. No acute lung lesion seen. 2. Slight cardiomegaly. ABDOMEN/PELVIS: 1. No acute abdominal process. 2. Sliding hiatus hernia. 3. Atrophic pancreas Reviewed, dictated and finalized at location A.
--- NOTE | ~2023-11-20 | CT_ITS ---
CT brain wo con Ordering provider: Solomon Morales MD History: 83 years Female with . head injury . Comparison: None. Technique: CT of the head without contrast. Radiation reduction technique utilized. FINDINGS: BRAIN PARENCHYMA AND CSF SPACES: Mild leukoaraiosis and diffuse cortical atrophy. Mild atheromatous d isease. Tiny old lacunar infarct in the right basal ganglia. No midline shift, mass effect or hemorr lauren. The brain parenchyma and CSF spaces are otherwise normal. VISUALIZED PARANASAL SINUSES: Normal. MASTOIDS: Normal. BONES: Normal. SOFT TISSUES: Visualized nasopharynx is normal. Superficial soft tissues are normal. IMPRESSION: No acute intracranial findings. Reviewed, dictated and finalized at location A.
[2023-11-20 15:28] VITALS: BP 129/73; PULSE 67; RESP 19; TEMP 37; O2SAT 98
--- NOTE | 2023-11-20 15:34 | ECG_ITS ---
Test Date: 2023-11-20 15:33:22 Measurements Intervals [place] Rate: 66 P: -17 UT: 174 QRS: -23 QRSD: 102 T: 112 QT: 511 QTc: 539 Interpretive Statements SINUS RHYTHM BORDERLINE LEFT AXIS DEVIATION [QRS AXIS < -20] LEFT VENTRICULAR HYPERTROPHY AND ST-T CHANGE [VOLTAGE CRITERIA PLUS ST/T ABNORMALITY] INTERPRETATION BASED ON A DEFAULT AGE OF 40 YEARS No previous ECG available for comparison Electronically Signed On 11-21-2023 12:34:39 CDT by Jose Alberto Yao M.D.
[2023-11-20 16:39] LABS: Basophils Percent Auto 0.3 % (0.2-1.2); Eosinophils Absolute Auto 0.3 K/mm3 (0-0.3); Eosinophils Percent Auto 3.1 % (0-4.4); Hematocrit 28.2 % (37.0-47.0); Hemoglobin 9.1 g/dL (12.0-15.0); Immature Granulocyte Absolute 0.03 K/mm3 (0.00-0.031); Immature Granulocyte Percent A 0.3 % (0-0.5); Lymphocytes Absolute Auto 0.77 K/mm3 (0.9-3.2); Lymphocytes Percent Auto 8.2 % (18.3-44.2); Mean Corpuscular HGB Conc 32.3 g/dl (32-36); Mean Corpuscular Hemoglobin 30.1 pg (26-34); Mean Corpuscular Volume 93.4 fl (80-100); Monocytes Percent Auto 10.3 % (2.6-8.5); Neutrophils Absolute Auto 7.3 K/mm3 (1.3-6.7); Neutrophils Percent Auto 77.8 % (45.5-73.1); Platelet Count Result 233 k/mm3 (150-375); Red Blood Count 3.02 M/mm3 (4.2-5.4); Red Cell Distribution Width 14.9 % (11.5-14.5); White Blood Count 9.4 K/mm3 (4.5-10.0)
[2023-11-20 16:51] LABS: INR 1.1; Partial Thromboplastin Time 26.9 Seconds (22.3-36.8); Prothrombin Time 14.6 Seconds (11.1-14.7)
[2023-11-20 16:53] LABS: Alanine Aminotransferase 12 U/L (6-35); Albumin Level 3.4 g/dL (3.5-5.1); Alkaline Phosphatase 60 U/L (38-126); Anion Gap 5 mmol/L (4-12); Aspartate Amino Transferase 24 U/L (14-36); Bilirubin,Total 0.6 mg/dL (0.2-1.3); Blood Urea Nitrogen 10 mg/dL (7-17); Calcium 8.8 mg/dL (8.4-10.2); Carbon Dioxide 35 mmol/L (22-30); Chloride 95 mmol/L (98-107); Estimated CRCL calculation 25 ml/min; Estimated Glomerular Filt Rate 39; Glucose 196 mg/dL (65-110); Potassium 3.2 mmol/L (3.4-5.0); Sodium 135 mmol/L (137-145)
[2023-11-20] MEDS: MORPHINE SULFATE (*CRX) 4 MG/ML INJ 2 MG IV PUSH (17:00)
--- NOTE | 2023-11-20 17:39 | ED.FALL ---
HPI - Fall General Chief Complaint: Fall Stated Complaint: L flank pain s/p fall Time Seen by Provider: 11/20/23 15:38 History of Present Illness HPI Narrative: patient is an 83-year-old female who presents ER after a fall. She was going into the bathroom tripped and fell onto the bathtub landing on her left side on the edge of the bathtub. She does not think she struck her head and denies losing consciousness. She is not on blood thinning medication. She does get dialysis. She takes clopidogrel and aspirin. No fevers or chills or sweats. No headache. No change in vision or hearing. She does have pain with deep breath since the fall but is not particularly dyspneic. Related Data Home Medications Medication Instructions Recorded Confirmed aspirin 81 mg tablet,delayed 81 mg PO HS 05/05/19 11/14/23 release clopidogrel 75 mg tablet 75 mg PO DAILY 07/17/21 11/14/23 cholecalciferol (vitamin D3) 25 50 mcg PO DAILY 04/27/22 11/14/23 mcg (1,000 unit) capsule albuterol sulfate 90 mcg/actuation 2 puff inhalation QID PRN Wheezing 10/22/23 11/14/23 aerosol inhaler lisinopril 20 mg tablet 20 mg PO DAILY 11/14/23 11/14/23 Allergies Allergy/AdvReac Type Severity Reaction Status Date / Time Penicillins Allergy Unknown Skin Verified 11/20/23 15:40 Reaction Androgenic Anabolic Steroid AdvReac Unknown Loopy Verified 11/20/23 15:40 mirtazapine AdvReac Unknown sedate Verified 11/20/23 15:40 prednisone AdvReac Unknown BLOOD Verified 11/20/23 15:40 SUGARS OUT OF CONTROL pravastatin AdvReac Dizziness Verified 11/20/23 15:40 Review of Systems Review of Systems: All systems reviewed & are unremarkable except as noted in HPI and below Cardiovascular: Cardiovascular: Reports chest pain, Denies radiating jaw, neck or arm pain and Denies slow heart rate Respiratory: Respiratory: Reports no additional respiratory complaints Gastrointestinal: Gastrointestinal: Reports no additional gastrointestinal complaints Neurologic: Reports system reviewed and no additional complaints, except as documented PMFSH Past Medical History Medical History Bilateral stenosis of carotid arteries greater than 50% Chronic anemia Chronic kidney disease Chronic respiratory failure with hypoxia Coronary artery disease Diastolic dysfunction Essential (primary) hypertension Gastro-esophageal reflux disease without esophagitis Hypothyroidism Mixed hyperlipidemia Obstructive sleep apnea Mild, patient was told she did not need a CPAP. 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 Vitamin D deficiency Surgical History Surgical History History of appendectomy History of cholecystectomy History of four vessel coronary artery bypass graft History of hysterectomy Family History Family History Mother Diabetes mellitus Hypertension Leukemia Father Family history of cardiovascular disease Diabetes mellitus Acute myocardial infarction, Onset Age: 63 Family history of lung cancer Sibling Family history of cardiovascular disease Family history of kidney disease Diabetes mellitus Family history of coronary artery disease Family history of congestive heart failure Social History Social History Social History: Surrogate medical decision maker: Adilene Leung, daughter. Code status: Full code. Smoking status: Never smoker Second hand tobacco smoke exposure: No Alcohol intake: never Substance use: never Do You Feel Safe in your Home?: Yes Lack of Transportation: No Lack of Food: Never True Current Housing: I Have Housing Concerned About Future Housing: No Difficulty Paying Gas/Electric Bills: No Difficulty Paying for Med
[2023-11-20 18:47] VITALS: BP 187/66; PULSE 70; RESP 16; O2SAT 99
== END 2023-11-20 20:06 | disposition home or self-care (01) ==
PROVIDERS: Emergency Provider Emergency Medicine; PCP Emergency Medicine
DX: S20.212A Contusion of left front wall of thorax, initial encounter (principal); S01.312A Laceration without foreign body of left ear, initial encounter; I12.0 Hypertensive chronic kidney disease with stage 5 chronic kidney disease or end stage renal disease; E11.22 Type 2 diabetes mellitus with diabetic chronic kidney disease; N18.6 End stage renal disease; Z99.2 Dependence on renal dialysis; N25.81 Secondary hyperparathyroidism of renal origin; D64.9 Anemia, unspecified; J96.11 Chronic respiratory failure with hypoxia; I25.10 Atherosclerotic heart disease of native coronary artery without angina pectoris; I65.23 Occlusion and stenosis of bilateral carotid arteries; I11.9 Hypertensive heart disease without heart failure; E03.9 Hypothyroidism, unspecified; E78.2 Mixed hyperlipidemia; E11.21 Type 2 diabetes mellitus with diabetic nephropathy; E55.9 Vitamin D deficiency, unspecified; G47.33 Obstructive sleep apnea (adult) (pediatric); G25.81 Restless legs syndrome; K21.9 Gastro-esophageal reflux disease without esophagitis; Z95.1 Presence of aortocoronary bypass graft; Z90.49 Acquired absence of other specified parts of digestive tract; Z79.899 Other long term (current) drug therapy; Z79.82 Long term (current) use of aspirin; Z79.4 Long term (current) use of insulin; K44.9 Diaphragmatic hernia without obstruction or gangrene; K86.89 Other specified diseases of pancreas
CPT/HCPCS: 12011; 36415; 70450; 71260; 74177; 80053; 85025; 85610; 85730; 93005; 96374; 99284; J2270; Q9967